=== PATIENT | female | born 1960 | race Caucasian/White ===

== ENCOUNTER 2023-08-31 10:40 | Outpatient (OUT) | payer MEDICARE, SELFPAY ==
[2023-08-31 11:13] LABS: Estimated Average Glucose 120 mg/dL; Glycohemoglobin A1C 5.8 % (4.5-6.2)
[2023-08-31 11:14] LABS: Basophils Absolute Auto 0.1 10^3/uL (0.0-0.1); Basophils Percent Auto 0.6 % (0.2-2.0); Eosinophils Absolute Auto 0.2 10^3/uL (0.0-0.7); Eosinophils Percent Auto 2.1 % (0.9-7.0); Hematocrit 45.8 % (36.0-48.0); Hemoglobin 14.9 g/dL (12.0-16.0); Immature Granulocytes Abs Auto 0.03 10^3/uL (0.00-0.03); Immature Granulocytes Pct Auto 0.3 % (0.0-0.5); Lymphocytes Absolute Auto 2.6 10^3/uL (1.2-3.8); Mean Corpuscular HGB Conc 32.5 g/dL (29.9-35.2); Mean Corpuscular Hemoglobin 28.8 pg (26.7-34.0); Mean Corpuscular Volume 88.4 fL (81.0-99.0); Mean Platelet Volume 12.9 fL (9.5-13.5); Monocytes Absolute Auto 0.6 10^3/uL (0.3-0.8); Monocytes Percent Auto 6.3 % (1.7-12.0); Neutrophils Absolute Auto 6.2 10^3/uL (1.4-6.5); Neutrophils Percent Auto 63.7 % (43.0-75.0); Platelet Count 198 10^3/uL (150-450); Red Blood Count 5.18 10^6/uL (4.20-5.40); Red Cell Distribution Width 12.8 % (11.0-15.0); White Blood Count 9.8 10^3/uL (4.0-11.0)
[2023-08-31 11:59] LABS: Alanine Aminotransferase 24 U/L (14-59); Albumin Globulin Ratio 1.1; Albumin Level 3.4 g/dL (3.4-5.0); Alkaline Phosphatase 100 U/L (46-116); Anion Gap 11.5; Aspartate Amino Transferase 15 U/L (15-37); BUN Creatinine Ratio 14.1; Bilirubin Total 0.4 mg/dL (0.2-1.0); Calcium 8.5 mg/dL (8.5-10.1); Carbon Dioxide 28.8 mmol/L (21.0-32.0); Chloride 107 mmol/L (98-107); Chol HDL Ratio 4.8; Cholesterol 188 mg/dL (<=200); Estimated GFR (African America >60 (>=60); Estimated GFR (Non-African Ame >60 (>=60); Free T3 2.39 pg/mL (2.18-3.98); Globulin 3.2 g/dL; Glucose 96 mg/dL (74-106); HDL Cholesterol 39 mg/dL (40-60); Potassium 4.3 mmol/L (3.5-5.1); Sodium 143 mmol/L (136-145); Thyroid Stimulating Hormone 0.656 uIU/mL (0.358-3.740); Total Protein 6.6 g/dL (6.4-8.2); Triglycerides 146 mg/dL (<=150); VLDL CHOLESTEROL 29.2 mg/dL
== END 2023-08-31 10:41 | disposition home or self-care (01) ==
LOC: LAB 10:45
PROVIDERS: PCP Family Medicine; Visit Provider Family Medicine
DX: E78.5 Hyperlipidemia, unspecified (principal); R53.83 Other fatigue; R73.09 Other abnormal glucose; I10 Essential (primary) hypertension; Z12.12 Encounter for screening for malignant neoplasm of rectum; E03.9 Hypothyroidism, unspecified
CPT/HCPCS: 36415; 80053; 80061; 83036; 84436; 84443; 84481; 85025

== ENCOUNTER 2024-05-01 03:04 | Inpatient (IN) | payer MEDICARE, SELFPAY ==
[2024-05-01] VITALS (41 sets, daily range): BP systolic 103–195; BP diastolic 66–132; PULSE 76–115; RESP 16; TEMP 36.1–36.9; O2SAT 90–100; BMI 32.2; BMI 32.3
--- NOTE | 2024-05-01 03:11 | ED.SOB1 ---
HPI - SOB/Dyspnea General Chief Complaint: Shortness of Breath/Dyspnea Stated Complaint: SOB Time Seen by Provider: 05/01/24 03:06 History of Present Illness HPI Narrative: This 63-year-old female with a history of tobacco use presents for evaluation of shortness of breath. She states her symptoms started earlier today. She has a cough with clear phlegm. She denies any ethan chest pain. She has not had a fever. She denies any abdominal pain. She called the EMS due to her dyspnea. Upon their arrival her pulse ox was in the 80s. She was given 125 mg of IV Solu-Medrol and a DuoNeb as well as albuterol nebulizer treatment with mild clinical improvement. Upon arrival she is still in moderate respiratory distress with conversational dyspnea, tachycardia although her pulse ox is in the mid 90s. She has no lower extremity pain or swelling. She does have mottled skin on her abdomen and chest. She states this is not unusual for her when she is cold. She denies any abdominal pain or back pain. She admits to history of cardiac disease and states that she had a heart attack in 2010. She takes a daily full-strength aspirin. She does not currently follow-up with a earth moving technician. She denies a history of congestive heart failure and is not on any diuretics. Related Data Home Medications ?Medication ?Instructions ?Recorded ?Confirmed alendronate 70 mg tablet mg PO 05/01/24 levothyroxine 150 mcg tablet mcg 05/01/24 lisinopril 20 mg tablet mg 05/01/24 metoprolol succinate 25 mg mg PO 05/01/24 tablet,extended release 24 hr pantoprazole 40 mg tablet,delayed mg PO 05/01/24 release Allergies Allergy/AdvReac Type Severity Reaction Status Date / Time Sulfa (Sulfonamide AdvReac Unknown Anxiety Verified 05/01/24 05:18 Antibiotics) ivp dye Allergy Unknown Nausea Uncoded 05/01/24 05:19 Review of Systems ROS Status of ROS 10 or more systems reviewed and unremarkable except as noted in history and below PFSH PFSH Social History Little interest or pleasure in doing things: not at all Feeling down, depressed, or hopeless: not at all Exam Narrative Exam Narrative: Vital signs and Nursing Notes reviewed: Patient is afebrile, tachycardic with a pulse of 115, respiratory rate is elevated at 28 and blood pressure is elevated at 195/132 she is hypoxic upon arrival without supplemental oxygen in the upper 80s General: Awake, alert, oriented, anxious adult female, 1-2 word conversational dyspnea with moist cough HEENT: Normocephalic atraumatic, mucous membranes are pink and dry, no posterior pharyngeal erythema. No swelling of the tongue, uvula or pharyngeal soft tissues Neck: Supple, no meningeal signs, no anterior or posterior cervical lymphadenopathy Chest: Diffuse wheezing is noted in all lung walker with accessory muscle use and pursed lip breathing, tachypnea and conversational dyspnea noted CVS: Regular rate and rhythm S1-S2, tachycardic at 114 upon arrival no murmurs rubs or gallops, pulses are brisk and equal bilaterally ABD: Soft, nondistended, nontender, no rebound guarding or rigidity, bowel sounds are normal, no pulsatile masses appreciated Extremities: Moving all extremities, no lower extremity tenderness or swelling noted, negative Homans' sign, pulses are brisk and equal bilaterally Skin: Mottled appearance over the patient's chest and abdominal wall and upper thighs, no skin rash noted Neuro: No focal deficits Constitutional Vital Signs, click to edit/add: Last Vital Signs Temp 97 F L 05/01/24 03:07 Pulse 80 05/01/24 05:31 Resp 18 05/01/24 05:31 BP 124/80 05/01/24 05:31 Pulse Ox 97 05/01/24 05:31 O2 Del Method BIPAP 05/01/24 03:32 FiO2 35 05/01/24 04:57 Course Vital Signs Vital signs: Vital Signs Temperature 97 F L 05/01/24 03:07 Pulse Rate 115 H 05/01/24 03:07 Respiratory Rate 28 H 05/01/24 03:07 Blood Pressure 195/132 H 05/01/24 03:07 Pulse Oximetry 100 05/01/24 03:07 Oxygen Delivery Method Room Air, Nonrebreather 05/01/24 03:07 Temperature 97 F L 05/01/24 03:07 Pulse Rate 80 05/01/24 05:31 Respiratory Rate 18 05/01/24 05:31 Blood Pressure 124/80 05/01/24 05:31 Pulse Oximetry 97 05/01/24 05:31 Oxygen Delivery Method BIPAP 05/01/24 03:32 Fraction of Inspired Oxygen 35 05/01/24 04:57 MDM - SOB/Dyspnea MDM Narrative Medical decision making narrative: This 63-year-old female with a history of tobacco use and cardiac disease who states she had a PA in 2010 and is on a daily full-strength aspirin is brought to the emergency department by EMS from home for evaluation of shortness of breath. She states the shortness of breath started earlier in the day. She denied any chest pain. She has not had any fever. She has a cough with clear phlegm. She denies any abdominal pain or back pain. She has no lower extremity pain or swelling. EMS noted that her pulse ox was in the 80s upon their arrival. She was given 125 mg of IV Solu-Medrol and a DuoNeb and albuterol nebulizer treatment prior to arrival. Upon arrival she was still in respiratory distress. Respiratory therapy was called and she was placed on BiPAP. EKG done upon arrival was a sinus rhythm at 93 bpm with a left axis but no acute changes. She was a given an additional DuoNeb treatment in line with the BiPAP and 2 g of IV magnesium. A workup including CBC with differential, comprehensive metabolic profile, troponin, BNP, lactic acid, blood cultures, D-dimer and chest x-ray are ordered. Her white count is elevated at 16 with a stable hemoglobin of 13.9. Blood gas is fairly normal with a pH of 7.39 and pCO2 of 39 with a sat of 98. This was done while the patient was on BiPAP. Her lactic acid is mildly elevated at 2.4. BNP is elevated greater than 3900. Troponin is 539. Comprehensive metabolic profile was essentially normal with an elevated glucose of 257 and a creatinine of 1.09. D-dimer was also elevated. I ordered a CT angio of the chest but the patient explained to the x-ray injection molding process technician that she thought she was allergic to the CAT scan dye. In light of the elevated D-dimer and the potential for this allergy she was medicated with subcutaneous Lovenox. Repeat troponin was ordered and is She was medicated with 20 mg of IV Lasix after I saw her chest x-ray that appeared to show some degree of peripheral vascular congestion and heart failure. After the patient was placed on BiPAP she had marked clinical improvement. She was able to speak in complete sentences and provide better history. Her respiratory rate decreased and her pulse ox maintained in the high 90s. Her pulse at the time of this dictation is 81 and blood pressure is 110/66. Case was discussed with Dr Sky and she is accepted for admission. She requested to be taken off of the BiPAP and respiratory therapy disconnected her BiPAP. We gave her a trial without supplemental oxygen and her oxygen has stayed above 92% on room air. She was placed back on 2 L nasal cannula for comfort. She is agreeable to admission. Differential Diagnosis Differential diagnosis: Likely acute exacerbation of chronic obstructive airways disease, congestive heart failure, community acquired pneumonia and asthma with exacerbation Lab Data Attestation: I reviewed the patient's lab results. Labs: Lab Results 05/01/24 05/01/24 05/01/24 Range/Units 03:17 03:40 04:35 WBC 16.0 H (4.0-11.0) 10^3/uL RBC 4.80 (4.20-5.40) 10^6/uL Hgb 13.9 (12.0-16.0) g/dL Hct 43.0 (36.0-48.0) % MCV 89.6 (81.0-99.0) fL MCH 29.0 (26.7-34.0) pg MCHC 32.3 (29.9-35.2) g/dL RDW 13.2 (11.0-15.0) % Plt Count 206 (150-450) 10^3/uL MPV 14.0 H (9.5-13.5) fL Seg Neuts % (Manual) 51.0 (43.0-75.0) Lymphocytes % (Manual) 27.0 (20.5-60.0) % Atypical Lymphs % (Man) 12.0 % Monocytes % (Manual) 6.0 (1.7-12.0) % Eosinophils % (Manual) 2.0 (0.9-7.0) % Basophils % (Manual) 2.0 (0.2-2.0) % Neutrophils # (Manual) 8.16 H (1.4-6.5) 10^3/uL Lymphocytes # (Manual) 4.32 H (1.20-3.80) 10^3/uL Abs Atypical Lymphs Man 1.92 Monocytes # (Manual) 0.96 H (0.30-0.80) 10^3/uL Eosinophils # (Manual) 0.32 (0.00-0.70) 10^3/uL Basophils # (Manual) 0.32 H (0.00-0.10) 10^3/uL PT 10.7 (9.0-11.6) sec INR 1.01 APTT 23.9 (22.3-36.2) sec D-Dimer 1.56 H* (<=0.59) mg/L FEU Puncture Site L radial ABG pH 7.383 (7.350-7.450) ABG pCO2 38.6 (35.0-45.0) mmHg ABG pO2 102.0 H (80.0-100.0) mmHg ABG HCO3 22.9 (22.0-26.0) mmol/L ABG O2 Saturation 98.2 % ABG Base Excess -2.1 L (-2.0-2.0) mmol/L Edis Test Positive (POSITIVE) FiO2 40 % BiPAP 16/8 Sodium 138 (136-145) mmol/L Potassium 4.3 (3.5-5.1) mmol/L Chloride 104 (98-107) mmol/L Carbon Dioxide 26.0 (21.0-32.0) mmol/L Anion Gap 12.3 BUN 14.0 (7.0-18.0) mg/dL Creatinine 1.09 H (0.55-1.02) mg/dL Est GFR ( Amer) >60 (>=60 mL/min/1.73m^2) Est GFR (Non-Af Amer) 50 L (>=60 mL/min/1.73m^2) BUN/Creatinine Ratio 12.8 Glucose 257 H (74-106) mg/dL Lactate 2.4 H* (0.4-2.0) mmol/L Calcium 8.5 (8.5-10.1) mg/dL Magnesium 2.0 (1.8-2.4) mg/dL Total Bilirubin 0.4 (0.2-1.0) mg/dL AST 106 H (15-37) U/L ALT 88 H (14-59) U/L Alkaline Phosphatase 118 H (46-116) U/L Troponin I High Sens 539.7 H* (4.0-51.3) pg/mL NT-Pro-B Natriuret Pep 3901.0 H* (<=900.0) pg/mL Total Protein 6.6 (6.4-8.2) g/dL Albumin 3.4 (3.4-5.0) g/dL Globulin 3.2 g/dL Albumin/Globulin Ratio 1.1 Influenza Type A Ag Negative Influenza Type B Ag Negative RSV Antigen Not detected (NOT DETECTE) SARS-CoV-2 Ag (CV2AG) Negative (NEGATIVE) 05/01/24 Range/Units 05:05 WBC (4.0-11.0) 10^3/uL RBC (4.20-5.40) 10^6/uL Hgb (12.0-16.0) g/dL Hct (36.0-48.0) % MCV (81.0-99.0) fL MCH (26.7-34.0) pg MCHC (29.9-35.2) g/dL RDW (11.0-15.0) % Plt Count (150-450) 10^3/uL MPV (9.5-13.5) fL Seg Neuts % (Manual) (43.0-75.0) Lymphocytes % (Manual) (20.5-60.0) % Atypical Lymphs % (Man) % Monocytes % (Manual) (1.7-12.0) % Eosinophils % (Manual) (0.9-7.0) % Basophils % (Manual) (0.2-2.0) % Neutrophils # (Manual) (1.4-6.5) 10^3/uL Lymphocytes # (Manual) (1.20-3.80) 10^3/uL Abs Atypical Lymphs Man Monocytes # (Manual) (0.30-0.80) 10^3/uL Eosinophils # (Manual) (0.00-0.70) 10^3/uL Basophils # (Manual) (0.00-0.10) 10^3/uL PT (9.0-11.6) sec INR APTT (22.3-36.2) sec D-Dimer (<=0.59) mg/L FEU Puncture Site ABG pH (7.350-7.450) ABG pCO2 (35.0-45.0) mmHg ABG pO2 (80.0-100.0) mmHg ABG HCO3 (22.0-26.0) mmol/L ABG O2 Saturation % ABG Base Excess (-2.0-2.0) mmol/L Edis Test (POSITIVE) FiO2 % BiPAP Sodium (136-145) mmol/L Potassium (3.5-5.1) mmol/L Chloride (98-107) mmol/L Carbon Dioxide (21.0-32.0) mmol/L Anion Gap BUN (7.0-18.0) mg/dL Creatinine (0.55-1.02) mg/dL Est GFR ( Amer) (>=60 mL/min/1.73m^2) Est GFR (Non-Af Amer) (>=60 mL/min/1.73m^2) BUN/Creatinine Ratio Glucose (74-106) mg/dL Lactate (0.4-2.0) mmol/L Calcium (8.5-10.1) mg/dL Magnesium (1.8-2.4) mg/dL Total Bilirubin (0.2-1.0) mg/dL AST (15-37) U/L ALT (14-59) U/L Alkaline Phosphatase (46-116) U/L Troponin I High Sens 572.5 H* (4.0-51.3) pg/mL NT-Pro-B Natriuret Pep (<=900.0) pg/mL Total Protein (6.4-8.2) g/dL Albumin (3.4-5.0) g/dL Globulin g/dL Albumin/Globulin Ratio Influenza Type A Ag Influenza Type B Ag RSV Antigen (NOT DETECTE) SARS-CoV-2 Ag (CV2AG) (NEGATIVE) ABG Data Attestation: I personally reviewed and interpreted this ABG as follows: ECG Data Attestation: I personally reviewed and interpreted this ECG as follows: (Sinus rhythm at 93 bpm, nonspecific ST changes, left axis deviation, no acute ST segment elevation or T wave inversion) Critical Care Time Critical Care Time Critical Care Time: Yes Total Critical Care Time: 35 Attestation: Due to this patient's presentation and respiratory distress with a high probability of sudden and significant deterioration in her condition she required the highest level of my preparedness to intervene urgently. I provided critical care time including documentation time medication orders and management reevaluation vital sign assessment ordering and reviewing of lab tests ordering reviewing of x-ray studies. Aggregate critical care time is 35 minutes including only time during which I was engaged in work directly related to her care and did not include time spent treating other patients simultaneously Discharge Plan Discharge Chief Complaint: Shortness of Breath/Dyspnea Clinical Impression: Breath shortness, CHF (congestive heart failure), Elevated troponin Prescriptions / Home Meds: No Action lisinopril 20 mg tablet alendronate 70 mg tablet PO pantoprazole 40 mg tablet,delayed release (DR/EC) PO levothyroxine 150 mcg tablet metoprolol succinate 25 mg tablet extended release 24 hr PO Print Language: Maltese Referrals: Miller Sky MD [Primary Care Provider] - 1 week
--- OUTSIDE RECORDS SUMMARY | 2024-05-01 03:13 | XMS_ITS | CCD ---
Author Organization [facility] Team Providers Care Filling Machine Tender Name Role Phone SUZETTE ., DR DEL CASTILLO Primary Care Unavailable MEGAY ., DR DEL CASTILLO Admitting Unavailable HOY ., DR DEL CASTILLO Attending Unavailable HOY ., DR DEL CASTILLO Consulting Unavailable HOY ., DR DEL CASTILLO Admitting Unavailable HOY ., DR DEL CASTILLO Attending Unavailable HOY ., DR DEL CASTILLO Consulting Unavailable MEGAY ., DR DEL CASTILLO Primary Care Unavailable Allergies Allergy Classification Reported Allergen(s) Allergy Type Date of Onset Reaction(s) Facility (1 source) Iodine (And Iodine Containting Drugs) Drug allergy (disorder) 02-06-2008 [facility] (1 source) Sulfonamides (Antibiotic) Drug allergy (disorder) 10-31-2012 [facility] Results Test Name Value Interpretation Reference Range Facil ity OCC BLD IMMUNO SCREENon 06-06 OCCULT BLOOD Negative Normal NEGATIVE [facility] Comment on above: Performed By: #### I NSULIN #### [facility] [address] [place] [address] Dr. Lawrence Gomez INSULINon 06-20-2022 Insulin 14.4 uIU/mL Normal 2.6-24.9 [facility] Comment on above: Performed By: #### I NSULIN #### [facility] [address] [address] [address] Lawrence Gomez CBC AUTO DIFFon 06-19-2022 BASO # 0.1 103/ul Normal 0.0-0.1 [facility] Comment on above: Performed By: #### C BC #### [facility] [address] [place] [address] Dr. Lawrence Gomez Basophils/100 WBC (Bld) 0.7 % Normal 0.2-2.0 [facility] Comment on above: Performed By: #### C BC #### [facility] [address] [place] [address] Dr. Lawrence Gomez EO # 0.2 103/ul Normal 0.0-0.7 [facility] Comment on above: Performed By: #### C BC #### [facility] [address] [place] [address] Dr. Lawrence Gomez Eosinophils/100 WBC (Bld) 2.5 % Normal 0.9-7.0 [facility] Comment on above: Performed By: #### C BC #### [facility] [address] [place] [address] Dr. Lawrence Gomez Erythrocyte distribution width (RBC) [Ratio] 13.2 % Normal 11.0-15.0 [facility] Comment on above: Performed By: #### C BC #### [facility] [address] [place] [address] Dr. Lawrence Gomez Hematocrit (Bld) [Volume fraction] 45.5 % Normal 36.0-48.0 [facility] Comment on above: Performed By: #### C BC #### [facility] [address] [place] [address] Dr. Lawrence Gomez Hemoglobin (Bld) [Mass/Vol] 14.8 g/dL Normal 12.0-16.0 [facility] Comment on above: Performed By: #### C BC #### [facility] [address] [place] [address] Dr. Lawrence Gomez IG # 0.03 10e3/ul Normal 0.00-0.03 [facility] Comment on above: Performed By: #### C BC #### [facility] [address] [place] [address] Dr. Lawrence Gomez IG % 0.3 % Normal 0.0-0.5 [facility] Comment on above: Performed By: #### C BC #### [facility] [address] [place] [address] Dr. Lawrence Gomez LYMPH # 2.8 103/ul Normal 1.2-3.8 [facility] Comment on above: Performed By: #### C BC #### [facility] [address] [place] [address] Dr. Lawrence Gomez Lymphocytes/100 WBC (Bld) 31.0 % Normal 20.5-60.0 [facility] Comment on above: Performed By: #### C BC #### [facility] [address] [place] [address] Dr. Lawrence Gomez MANUAL DIFF REQ NO Normal [facility] Comment on above: Performed By: #### C BC #### [facility] [address] [place] [address] Dr. Lawrence Gomez MCH (RBC) [Entitic mass] 28.2 pg Normal 26.7-34.0 [facility] Comment on above: Performed By: #### C BC #### [facility] [address] [place] [address] Dr. Lawrence Gomez MCHC (RBC) [Mass/Vol] 32.5 g/dL Normal 29.9-35.2 [facility] Comment on above: Performed By: #### C BC #### [facility] [address] [place] [address] Dr. Lawrence Gomez MCV (RBC) [Entitic vol] 86.8 fL Normal 81.0-99.0 [facility] Comment on above: Performed By: #### C BC #### [facility] [address] [place] [address] Dr. Lawrence Gomez MONO # 0.5 103/ul Normal 0.3-0.8 [facility] Comment on above: Performed By: #### C BC #### [facility] [address] [place] [address] Dr. Lawrence Gomez Monocytes/100 WBC (Bld) 6.0 % Normal 1.7-12.0 [facility] Comment on above: Performed By: #### C BC #### [facility] [address] [place] [address] Dr. Lawrence Gomez NEUT # 5.4 103/ul Normal 1.4-6.5 [facility] Comment on above: Performed By: #### C BC #### [facility] [address] [address] [address] Lawrence Gomez Neutrophils/100 WBC (Bld) 59.5 % Normal 43.0-75.0 [facility] Comment on above: Performed By: #### C BC #### [facility] [address] [address] [address] Lawrence Gomez Platelet mean volume (Bld) [Entitic vol] 11.7 fL Normal 9.5-13.5 [facility] Comment on above: Performed By: #### C BC #### [facility] [address] [address] [address] Lawrence Gomez PLT 211 103/ul Normal 150-450 [facility] Comment on above: Performed By: #### C BC #### [facility] [address] [place] [address] Dr. Lawrence Gomez RBC 5.24 106/ul Normal 4.20-5.40 [facility] Comment on above: Performed By: #### C BC #### [facility] [address] [address] [address] Lawrence Gomez WBC 9.1 103/ul Normal 4.0-11.0 [facility] Comment on above: Performed By: #### C BC #### [facility] [address] [place] [address] Dr. Lawrence Gomez FREE T3on 06-19-2022 FREE T3 2.63 pg/mlL Normal 2.18-3.98 [facility] Comment on above: Performed By: #### L IPID, TSH, T4, CMP, FT3 #### [facility] [address] [address] [address] Lawrence Gomez GLYCOHEMOGLOBIN A1Con 2022 ADA RECOMMENDATION SEE BELOW Normal [facility] Comment on above: Result Comment: ADA RECOMMENDED LIMIT 4.0 - 6.0 ADA THERAPEUTIC TARGET < 7.0 ACTION SUGGESTED > 7.0 Performed By: #### A 1C #### [facility] [address] [place] [address] Dr. Lawrence Gomez Glucose [Mass/Vol] 128 mg/dL Normal [facility] Comment on above: Performed By: #### A 1C #### [facility] [address] [address] [address] Lawrence Gomez HbA1c (Bld) [Mass fraction] 6.1 % Normal 4.5-6.2 [facility] Comment on above: Performed By: #### A 1C #### [facility] [address] [address] [address] Lawrence Gomez IRONon 06-19-2022 Iron [Mass/Vol] 96.0 ug/dL Normal 50.0-170.0 [facility] Comment on above: Performed By: #### V ITAD, IRON #### [facility] [address] [address] [address] Lawrence Gomez LIPID PROFILEon 06-19-2022 CHOL-HDL RATIO NORM SEE BELOW Normal [facility] Comment on above: Result Comment: 3.3 - 4.4 LOW RISK 4.4 - 7.1 AVERAGE RISK 7.1 - 11.0 MODERATE RISK >11.0 HIGH RISK Performed By: #### L IPID, TSH, T4, CMP, FT3 #### [facility] [address] [address] [address] Lawrence Gomez Cholesterol [Mass/Vol] 131 mg/dL Normal <=200 [facility] Comment on above: Performed By: #### L IPID, TSH, T4, CMP, FT3 #### [facility] [address] [address] [address] Lawrence Gomez Cholesterol in HDL [Mass/Vol] 41 mg/dL Normal 40-60 [facility] Comment on above: Performed By: #### L IPID, TSH, T4, CMP, FT3 #### [facility] [address] [address] [address] Lawrence Gomez Cholesterol in LDL [Mass/Vol] 75.0 mg/dL Normal [facility] Comment on above: Performed By: #### L IPID, TSH, T4, CMP, FT3 #### [facility] [address] [address] [address] Lawrence Gomez Cholesterol.total/Cho lesterol in HDL [Mass ratio] 3.2 {ratio} Normal [facility] Comment on above: Performed By: #### L IPID, TSH, T4, CMP, FT3 #### [facility] [address] [place] [address] Dr. Lawrence Gomez HDL NORMAL > or = 60 mg/dl - LOW CARDIOVASCULAR RISK <40 mg/dl - HIGH CARDIOVASCULAR RISK Normal [facility] Comment on above: Performed By: #### L IPID, TSH, T4, CMP, FT3 #### [facility] [address] [place] [address] Dr. Lawrence Gomez LDL CALC NORMAL SEE BELOW Normal [facility] Comment on above: Result Comment: <100 mg/dl OPTIMAL 100 - 129 mg/dl NEAR OR ABOVE OPTIMAL 130 - 159 mg/dl BORDERLINE HIGH 160 - 189 mg/dl HIGH >190 mg/dl VERY HIGH Performed By: #### L IPID, TSH, T4, CMP, FT3 #### [facility] [address] [place] [address] Dr. Lawrence Gomez Triglyceride [Mass/Vol] 75 mg/dL Normal <=150 [facility] Comment on above: Performed By: #### L IPID, TSH, T4, CMP, FT3 #### [facility] [address] [place] [address] Dr. Lawrence Gomez VLDL CALC 15.0 mg/dL Normal [facility] Comment on above: Performed By: #### L IPID, TSH, T4, CMP, FT3 #### [facility] [address] [place] [address] Dr. Lawrence Gomez PROF 14(COMP METB)on 023 Albumin [Mass/Vol] 3.5 g/dL Normal 3.4-5.0 [facility] Comment on above: Performed By: #### L IPID, TSH, T4, CMP, FT3 #### [facility] [address] [place] [address] Dr. Lawrence Gomez Albumin/Globulin [Mass ratio] 1.0 {ratio} Normal [facility] Comment on above: Performed By: #### L IPID, TSH, T4, CMP, FT3 #### [facility] [address] [place] [address] Dr. Lawrence Gomez ALP [Catalytic activity/Vol] 111 U/L Normal 46-116 [facility] Comment on above: Performed By: #### L IPID, TSH, T4, CMP, FT3 #### [facility] [address] [place] [address] Dr. Lawrence Gomez ALT [Catalytic activity/Vol] 26 U/L Normal 14-59 [facility] Comment on above: Performed By: #### L IPID, TSH, T4, CMP, FT3 #### [facility] [address] [place] [address] Dr. Lawrence Gomez Anion gap [Moles/Vol] 12.1 mmol/L Normal [facility] Comment on above: Performed By: #### L IPID, TSH, T4, CMP, FT3 #### [facility] [address] [place] [address] Dr. Lawrence Gomez AST [Catalytic activity/Vol] 16 U/L Normal 15-37 [facility] Comment on above: Performed By: #### L IPID, TSH, T4, CMP, FT3 #### [facility] [address] [place] [address] Dr. Lawrence Gomez Bilirubin [Mass/Vol] 0.5 mg/dL Normal 0.2-1.0 [facility] Comment on above: Performed By: #### L IPID, TSH, T4, CMP, FT3 #### [facility] [address] [place] [address] Dr. Lawrence Gomez Calcium [Mass/Vol] 8.7 mg/dL Normal 8.5-10.1 [facility] Comment on above: Performed By: #### L IPID, TSH, T4, CMP, FT3 #### [facility] [address] [place] [address] Dr. Lawrence Gomez Chloride [Moles/Vol] 107 mmol/L Normal 98-107 [facility] Comment on above: Performed By: #### L IPID, TSH, T4, CMP, FT3 #### [facility] [address] [address] [address] Lawrence Gomez CO2 [Moles/Vol] 29.7 mmol/L Normal 21.0-32.0 [facility] Comment on above: Performed By: #### L IPID, TSH, T4, CMP, FT3 #### [facility] [address] [place] [address] Dr. Lawrence Gomez Creatinine [Mass/Vol] 0.78 mg/dL Normal 0.55-1.02 [facility] Comment on above: Performed By: #### L IPID, TSH, T4, CMP, FT3 #### [facility] [address] [place] [address] Dr. Lawrence Gomez EGFR-AF COOK ISLANDER >60 Normal >=60 [facility] Comment on above: Performed By: #### L IPID, TSH, T4, CMP, FT3 #### [facility] [address] [place] [address] Dr. Lawrence Gomez EGFR-NON AF [place] ISLANDER >60 Normal >=60 [facility] Comment on above: Performed By: #### L IPID, TSH, T4, CMP, FT3 #### [facility] [address] [place] [address] Dr. Lawrence Gomez Globulin (S) [Mass/Vol] 3.4 g/dL Normal [facility] Comment on above: Performed By: #### L IPID, TSH, T4, CMP, FT3 #### [facility] [address] [place] [address] Dr. Lawrence Gomez Glucose [Mass/Vol] 97 mg/dL Normal 74-106 [facility] Comment on above: Performed By: #### L IPID, TSH, T4, CMP, FT3 #### [facility] [address] [place] [address] Dr. Lawrence Gomez Potassium [Moles/Vol] 3.8 mmol/L Normal 3.5-5.1 [facility] Comment on above: Performed By: #### L IPID, TSH, T4, CMP, FT3 #### [facility] [address] [place] [address] Dr. Lawrence Gomez Protein [Mass/Vol] 6.9 g/dL Normal 6.4-8.2 [facility] Comment on above: Performed By: #### L IPID, TSH, T4, CMP, FT3 #### [facility] [address] [place] [address] Dr. Lawrence Gomez Sodium [Moles/Vol] 145 mmol/L Normal 136-145 [facility] Comment on above: Performed By: #### L IPID, TSH, T4, CMP, FT3 #### [facility] [address] [place] [address] Dr. Lawrence Gomez Urea nitrogen [Mass/Vol] 14.0 mg/dL Normal 7.0-18.0 [facility] Comment on above: Performed By: #### L IPID, TSH, T4, CMP, FT3 #### [facility] [address] [place] [address] Dr. Lawrence Gomez Urea nitrogen/Creatinine [Mass ratio] 17.9 mg/mg Normal [facility] Comment on above: Performed By: #### L IPID, TSH, T4, CMP, FT3 #### [facility] [address] [place] [address] Dr. Lawrence Gomez T4on 06-19-2022 T4 [Mass/Vol] 11.50 ug/dL Normal 4.80-13.90 [facility] Comment on above: Performed By: #### L IPID, TSH, T4, CMP, FT3 #### [facility] [address] [place] [address] Dr. Lawrence Gomez TSHon 06-19-2022 TSH 0.494 uIU/mL Normal 0.358-3.740 [facility] Comment on above: Performed By: #### L IPID, TSH, T4, CMP, FT3 #### [facility] [address] [place] [address] Dr. Lawrence Gomez VITAMIN D 25 OHon 06-19-2022 VIT D 25-OH 11.7 ng/mL Normal [facility] Comment on above: Performed By: #### V ITAD, IRON #### [facility] [address] [address] [address] Lawrence Gomez VIT D RANGES SEE BELOW Normal [facility] Comment on above: Result Comment: <20 ng/mL Vit D deficient 20 - <30 ng/mL Vit D insufficient 30 - 100 ng/mL Vit D sufficient >100 ng/mL Potential Toxicity Performed By: #### V ITAD, IRON #### [facility] [address] [address] [address] Lawrence Gomez Encounters Encounter Date Encounter Type Care Provider Facility Start: 07-02-2022 Encounter for genera l adult medical examination without abnormal findings DR MAGDALENE BRADFORD . [facility] Start: 06-30-2022 End: 06-30-[address] MAGDALENE BRADFORD . Facility: Start: 06-30-2022 End: 06-30-2022 Encounter for general adult medical examination without abnormal findings DR MAGDALENE BRADFORD . Facility: Start: 06-19-2022 End: 06-20-[address] MAGDALENE BRADFORD . Facility: Payers Date Payer Category Payer Unknown [id number] 1960 Unknown [id number] 1960 Unknown [id number] Summary Purpose Family History No Family History Records Found Advance Directives No Advanced Directives Records Found Additional Source Comments INFORMATION SOURCE (unrecogn ized section and content) DATE CREATED AUTHOR 07/14/2022 [facility] FOR RECORDS PERTAINING TO PATIENTS WHO ARE OR HAVE BEEN ENROLLED IN A CHEMICAL DEPENDENCY/SUBSTANCEABUSE PROGRAM, SOME INFORMATION MAY BE OMITTED. This clinical summary was aggregated from multiple sources. Caution should be exercised in using it in the provision of clinical care. This summary normalizes information from multiple sources, and as a consequence, information in this document may materially change the coding, format and clinical context of patient data. In addition, data may be omitted in some cases. CLINICAL DECISIONS SHOULD BE BASED ON THE PRIMARY CLINICAL RECORDS. [facility] [employer] [facility]. provides no warranty or guarantee of the accuracy or completeness of information in this document.
--- NOTE | 2024-05-01 03:15 | ECG_ITS ---
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 Measurements Intervals [place] Rate: 93 P: 58 MD: 150 QRS: -9 QRSD: 102 T: 150 QT: 366 QTc: 417 Interpretive Statements 1100 Sinus rhythm 4068 Nonspecific Tw[place] abnormality Abnormal ECG No previous ECG available for comparison Electronically Signed On 05-01-2024 7:48:04 EDT by KEVIN ROLLE M.D.
--- NOTE | 2024-05-01 03:30 | RESP.RT ---
Took patient off of nasal cannula and placed on BIPAP / Fi02 40% due to increased SOB.
[2024-05-01] MEDS: IPRATROPIUM/ALBUTEROL SULFATE 3 ML AMPUL.NEB IH ×3 (03:32→16:51)
[2024-05-01 03:53] LABS: ABG PCO2 38.6 mmHg (35.0-45.0); pH ABG 7.383 (7.350-7.450)
[2024-05-01 03:54] LABS: Allen Test POSITIVE (POSITIVE); BIPAP Pressure 16/8; Base Excess ABG -2.1 mmol/L (-2.0-2.0); Fractionated Inspired Oxygen 40 %; HCO3 ABG 22.9 mmol/L (22.0-26.0); O2 Mode BIPAP; Oxygen Saturation ABG 98.2 %; Puncture Site L RADIAL
[2024-05-01 03:59] LABS: Hemoglobin 13.9 g/dL (12.0-16.0); Mean Corpuscular HGB Conc 32.3 g/dL (29.9-35.2); Mean Corpuscular Volume 89.6 fL (81.0-99.0); Platelet Count 206 10^3/uL (150-450); Red Cell Distribution Width 13.2 % (11.0-15.0)
[2024-05-01 04:05] LABS: Alanine Aminotransferase 88 U/L (14-59); Albumin Globulin Ratio 1.1; Albumin Level 3.4 g/dL (3.4-5.0); Alkaline Phosphatase 118 U/L (46-116); Anion Gap 12.3; Aspartate Amino Transferase 106 U/L (15-37); BUN Creatinine Ratio 12.8; Bilirubin Total 0.4 mg/dL (0.2-1.0); Calcium 8.5 mg/dL (8.5-10.1); Chloride 104 mmol/L (98-107); Estimated GFR (African America >60 (>=60 mL/min/1.73m^2); Estimated GFR (Non-African Ame 50 (>=60 mL/min/1.73m^2); Globulin 3.2 g/dL; Glucose 257 mg/dL (74-106); Potassium 4.3 mmol/L (3.5-5.1); Sodium 138 mmol/L (136-145); Total Protein 6.6 g/dL (6.4-8.2)
[2024-05-01 04:07] LABS: INR 1.01; Partial Thromboplastin Time 23.9 sec (22.3-36.2); Prothrombin Time 10.7 sec (9.0-11.6)
[2024-05-01 04:17] LABS: D Dimer 1.56 mg/L FEU (<=0.59)
[2024-05-01 04:18] LABS: Lactate/Lactic Acid 2.4 mmol/L (0.4-2.0); Troponin I High Sensitivity 539.7 pg/mL (4.0-51.3)
[2024-05-01] MEDS: FUROSEMIDE 20 MG/2 ML VIAL IVP (04:20)
--- NOTE | 2024-05-01 04:25 | PC.NURSE ---
per Maral JAMIL lab called with critical D-Dimer=1.56, Lactic=2.4, ckyn=621.7, VMG=6212. Maral JAMIL told Dr Muhammad these critical lab results
[2024-05-01 04:33] LABS: Atypical Lymphocytes Abs Man 1.92; Basophils Abs Manual 0.32 10^3/uL (0.00-0.10); Eosinophils Absolute Manual 0.32 10^3/uL (0.00-0.70); Lymphocytes Absolute Manual 4.32 10^3/uL (1.20-3.80); Monocytes Absolute Manual 0.96 10^3/uL (0.30-0.80); Segmented Neut Absolute Manual 8.16 10^3/uL (1.4-6.5)
[2024-05-01 04:52] LABS: Influenza Virus A Antigen Negative; Influenza Virus B Antigen Negative; Internal Control Within Normal Limits; Respiratory Syncytial Virus Not Detected (NOT DETECTE); SARS-CoV-2 Ag NEGATIVE (NEGATIVE)
[2024-05-01] MEDS: CEFTRIAXONE 1,000 MG in 0.9 % SODIUM CHLORIDE 50 ML 100 MG IV (04:58)
[2024-05-01] MEDS: ENOXAPARIN SODIUM 80 MG/0.8 ML SYRINGE 75 MG SUBQ (05:13)
[2024-05-01] MEDS: AZITHROMYCIN 500 MG in 0.9 % SODIUM CHLORIDE 250 ML 250 MG IV (05:29)
[2024-05-01 05:33] LABS: Troponin I High Sensitivity 572.5 pg/mL (4.0-51.3)
--- NOTE | 2024-05-01 05:35 | PC.NURSE ---
this patient's sister arrives and is now at bedside and talking to this patient
--- NOTE | 2024-05-01 05:54 | PC.NURSE ---
patient requesting to remove Bi PAP off, i asked Dr Muhammad she yes
[2024-05-01] MEDS: ONDANSETRON PF 4 MG/2 ML VIAL IV (06:19)
--- OUTSIDE RECORDS SUMMARY | 2024-05-01 06:35 | XMS_ITS | CCD ---
Author Organization [place] [employer] [facility] Care Team Providers Care Crm Specialist Name Role Phone SUZETTE ., DR DEL [...] Containting Drugs) Drug allergy (disorder) 02-06-2008 [facility] (1 source) Sulfonamides (Antibiotic) Drug allergy (disorder) 10-31-2012 [facility] Results Test Name Value Interpretation Reference Range Facil ity OCC BLD IMMUNO SCREENon 06-06 OCCULT BLOOD Negative Normal NEGATIVE [facility] Comment on above: Performed By: #### I NSULIN #### [facility] [address] [place] [address] Dr. Lawrence Gomez INSULINon 06-20-2022 Insulin 14.4 uIU/mL Normal 2.6-24.9 [facility] Comment on above: Performed By: #### I NSULIN #### [facility] [address] [address] [address] Lawrence Gomez CBC AUTO DIFFon 06-19-2022 BASO # 0.1 103/ul Normal 0.0-0.1 [facility] Comment on above: Performed By: #### C BC #### [facility] [address] [place] [address] Dr. Lawrence Gomez Basophils/100 WBC (Bld) 0.7 % Normal 0.2-2.0 [facility] Comment on above: Performed By: #### C BC #### [facility] [address] [place] [address] Dr. Lawrence Gomez EO # 0.2 103/ul Normal 0.0-0.7 [facility] Comment on above: Performed By: #### C BC #### [facility] [address] [place] [address] Dr. Lawrence Gomez Eosinophils/100 WBC (Bld) 2.5 % Normal 0.9-7.0 [facility] Comment on above: Performed By: #### C BC #### [facility] [address] [place] [address] Dr. Lawrence Gomez Erythrocyte distribution width (RBC) [Ratio] 13.2 % Normal 11.0-15.0 [facility] Comment on above: Performed By: #### C BC #### [facility] [address] [place] [address] Dr. Lawrence Gomez Hematocrit (Bld) [Volume fraction] 45.5 % Normal 36.0-48.0 [facility] Comment on above: Performed By: #### C BC #### [facility] [address] [place] [address] Dr. Lawrence Gomez Hemoglobin (Bld) [Mass/Vol] 14.8 g/dL Normal 12.0-16.0 [facility] Comment on above: Performed By: #### C BC #### [facility] [address] [place] [address] Dr. Lawrence Gomez IG # 0.03 10e3/ul Normal 0.00-0.03 [facility] Comment on above: Performed By: #### C BC #### [facility] [address] [place] [address] Dr. Lawrence Gomez IG % 0.3 % Normal 0.0-0.5 [facility] Comment on above: Performed By: #### C BC #### [facility] [address] [place] [address] Dr. Lawrence Gomez LYMPH # 2.8 103/ul Normal 1.2-3.8 [facility] Comment on above: Performed By: #### C BC #### [facility] [address] [place] [address] Dr. Lawrence Gomez Lymphocytes/100 WBC (Bld) 31.0 % Normal 20.5-60.0 [facility] Comment on above: Performed By: #### C BC #### [facility] [address] [place] [address] Dr. Lawrence Gomez MANUAL DIFF REQ NO Normal [facility] Comment on above: Performed By: #### C BC #### [facility] [address] [place] [address] Dr. Lawrence Gomez MCH (RBC) [Entitic mass] 28.2 pg Normal 26.7-34.0 [facility] Comment on above: Performed By: #### C BC #### [facility] [address] [place] [address] Dr. Lawrence Gomez MCHC (RBC) [Mass/Vol] 32.5 g/dL Normal 29.9-35.2 [facility] Comment on above: Performed By: #### C BC #### [facility] [address] [place] [address] Dr. Lawrence Gomez MCV (RBC) [Entitic vol] 86.8 fL Normal 81.0-99.0 [facility] Comment on above: Performed By: #### C BC #### [facility] [address] [place] [address] Dr. Lawrence Gomez MONO # 0.5 103/ul Normal 0.3-0.8 [facility] Comment on above: Performed By: #### C BC #### [facility] [address] [place] [address] Dr. Lawrence Gomez Monocytes/100 WBC (Bld) 6.0 % Normal 1.7-12.0 [facility] Comment on above: Performed By: #### C BC #### [facility] [address] [place] [address] Dr. Lawrence Gomez NEUT # 5.4 103/ul Normal 1.4-6.5 [facility] Comment on above: Performed By: #### C BC #### [facility] [address] [address] [address] Lawrence Gomez Neutrophils/100 WBC (Bld) 59.5 % Normal 43.0-75.0 [facility] Comment on above: Performed By: #### C BC #### [facility] [address] [address] [address] Lawrence Gomez Platelet mean volume (Bld) [Entitic vol] 11.7 fL Normal 9.5-13.5 [facility] Comment on above: Performed By: #### C BC #### [facility] [address] [address] [address] Lawrence Gomez PLT 211 103/ul Normal 150-450 [facility] Comment on above: Performed By: #### C BC #### [facility] [address] [place] [address] Dr. Lawrence Gomez RBC 5.24 106/ul Normal 4.20-5.40 [facility] Comment on above: Performed By: #### C BC #### [facility] [address] [address] [address] Lawrence Gomez WBC 9.1 103/ul Normal 4.0-11.0 [facility] Comment on above: Performed By: #### C BC #### [facility] [address] [place] [address] Dr. Lawrence Gomez FREE T3on 06-19-2022 FREE T3 2.63 pg/mlL Normal 2.18-3.98 [facility] Comment on above: Performed By: #### L IPID, TSH, T4, CMP, FT3 #### [facility] [address] [address] [address] Lawrence Gomez GLYCOHEMOGLOBIN A1Con 2022 ADA RECOMMENDATION SEE BELOW Normal [facility] Comment on above: Result Comment: ADA RECOMMENDED LIMIT 4.0 - 6.0 ADA THERAPEUTIC TARGET < 7.0 ACTION SUGGESTED > 7.0 Performed By: #### A 1C #### [facility] [address] [place] [address] Dr. Lawrence Gomez Glucose [Mass/Vol] 128 mg/dL Normal [facility] Comment on above: Performed By: #### A 1C #### [facility] [address] [address] [address] Lawrence Gomez HbA1c (Bld) [Mass fraction] 6.1 % Normal 4.5-6.2 [facility] Comment on above: Performed By: #### A 1C #### [facility] [address] [address] [address] Lawrence Gomez IRONon 06-19-2022 Iron [Mass/Vol] 96.0 ug/dL Normal 50.0-170.0 [facility] Comment on above: Performed By: #### V ITAD, IRON #### [facility] [address] [address] [address] Lawrence Gomez LIPID PROFILEon 06-19-2022 CHOL-HDL RATIO NORM SEE BELOW Normal [facility] Comment on above: Result Comment: 3.3 - 4.4 LOW RISK 4.4 - 7.1 AVERAGE RISK 7.1 - 11.0 MODERATE RISK >11.0 HIGH RISK Performed By: #### L IPID, TSH, T4, CMP, FT3 #### [facility] [address] [address] [address] Lawrence Gomez Cholesterol [Mass/Vol] 131 mg/dL Normal <=200 [facility] Comment on above: Performed By: #### L IPID, TSH, T4, CMP, FT3 #### [facility] [address] [address] [address] Lawrence Gomez Cholesterol in HDL [Mass/Vol] 41 mg/dL Normal 40-60 [facility] Comment on above: Performed By: #### L IPID, TSH, T4, CMP, FT3 #### [facility] [address] [address] [address] Lawrence Gomez Cholesterol in LDL [Mass/Vol] 75.0 mg/dL Normal [facility] Comment on above: Performed By: #### L IPID, TSH, T4, CMP, FT3 #### [facility] [address] [address] [address] Lawrence Gomez Cholesterol.total/Cho lesterol in HDL [Mass ratio] 3.2 {ratio} Normal [facility] Comment on above: Performed By: #### L IPID, TSH, T4, CMP, FT3 #### [facility] [address] [place] [address] Dr. Lawrence Gomez HDL NORMAL > or = 60 mg/dl - LOW CARDIOVASCULAR RISK <40 mg/dl - HIGH CARDIOVASCULAR RISK Normal [facility] Comment on above: Performed By: #### L IPID, TSH, T4, CMP, FT3 #### [facility] [address] [place] [address] Dr. Lawrence Gomez LDL CALC NORMAL SEE BELOW Normal [facility] Comment on above: Result Comment: <100 mg/dl OPTIMAL 100 - 129 mg/dl NEAR OR ABOVE OPTIMAL 130 - 159 mg/dl BORDERLINE HIGH 160 - 189 mg/dl HIGH >190 mg/dl VERY HIGH Performed By: #### L IPID, TSH, T4, CMP, FT3 #### [facility] [address] [place] [address] Dr. Lawrence Gomez Triglyceride [Mass/Vol] 75 mg/dL Normal <=150 [facility] Comment on above: Performed By: #### L IPID, TSH, T4, CMP, FT3 #### [facility] [address] [place] [address] Dr. Lawrence Gomez VLDL CALC 15.0 mg/dL Normal [facility] Comment on above: Performed By: #### L IPID, TSH, T4, CMP, FT3 #### [facility] [address] [place] [address] Dr. Lawrence Gomez PROF 14(COMP METB)on 023 Albumin [Mass/Vol] 3.5 g/dL Normal 3.4-5.0 [facility] Comment on above: Performed By: #### L IPID, TSH, T4, CMP, FT3 #### [facility] [address] [place] [address] Dr. Lawrence Gomez Albumin/Globulin [Mass ratio] 1.0 {ratio} Normal [facility] Comment on above: Performed By: #### L IPID, TSH, T4, CMP, FT3 #### [facility] [address] [place] [address] Dr. Lawrence Gomez ALP [Catalytic activity/Vol] 111 U/L Normal 46-116 [facility] Comment on above: Performed By: #### L IPID, TSH, T4, CMP, FT3 #### [facility] [address] [place] [address] Dr. Lawrence Gomez ALT [Catalytic activity/Vol] 26 U/L Normal 14-59 [facility] Comment on above: Performed By: #### L IPID, TSH, T4, CMP, FT3 #### [facility] [address] [place] [address] Dr. Lawrence Gomez Anion gap [Moles/Vol] 12.1 mmol/L Normal [facility] Comment on above: Performed By: #### L IPID, TSH, T4, CMP, FT3 #### [facility] [address] [place] [address] Dr. Lawrence Gomez AST [Catalytic activity/Vol] 16 U/L Normal 15-37 [facility] Comment on above: Performed By: #### L IPID, TSH, T4, CMP, FT3 #### [facility] [address] [place] [address] Dr. Lawrence Gomez Bilirubin [Mass/Vol] 0.5 mg/dL Normal 0.2-1.0 [facility] Comment on above: Performed By: #### L IPID, TSH, T4, CMP, FT3 #### [facility] [address] [place] [address] Dr. Lawrence Gomez Calcium [Mass/Vol] 8.7 mg/dL Normal 8.5-10.1 [facility] Comment on above: Performed By: #### L IPID, TSH, T4, CMP, FT3 #### [facility] [address] [place] [address] Dr. Lawrence Gomez Chloride [Moles/Vol] 107 mmol/L Normal 98-107 [facility] Comment on above: Performed By: #### L IPID, TSH, T4, CMP, FT3 #### [facility] [address] [address] [address] Lawrence Gomez CO2 [Moles/Vol] 29.7 mmol/L Normal 21.0-32.0 [facility] Comment on above: Performed By: #### L IPID, TSH, T4, CMP, FT3 #### [facility] [address] [place] [address] Dr. Lawrence Gomez Creatinine [Mass/Vol] 0.78 mg/dL Normal 0.55-1.02 [facility] Comment on above: Performed By: #### L IPID, TSH, T4, CMP, FT3 #### [facility] [address] [place] [address] Dr. Lawrence Gomez EGFR-AF MALAWIAN >60 Normal >=60 [facility] Comment on above: Performed By: #### L IPID, TSH, T4, CMP, FT3 #### [facility] [address] [place] [address] Dr. Lawrence Gomez EGFR-NON AF MALAWIAN >60 Normal >=60 [facility] Comment on above: Performed By: #### L IPID, TSH, T4, CMP, FT3 #### [facility] [address] [place] [address] Dr. Lawrence Gomez Globulin (S) [Mass/Vol] 3.4 g/dL Normal [facility] Comment on above: Performed By: #### L IPID, TSH, T4, CMP, FT3 #### [facility] [address] [place] [address] Dr. Lawrence Gomez Glucose [Mass/Vol] 97 mg/dL Normal 74-106 [facility] Comment on above: Performed By: #### L IPID, TSH, T4, CMP, FT3 #### [facility] [address] [place] [address] Dr. Lawrence Gomez Potassium [Moles/Vol] 3.8 mmol/L Normal 3.5-5.1 [facility] Comment on above: Performed By: #### L IPID, TSH, T4, CMP, FT3 #### [facility] [address] [place] [address] Dr. Lawrence Gomez Protein [Mass/Vol] 6.9 g/dL Normal 6.4-8.2 [facility] Comment on above: Performed By: #### L IPID, TSH, T4, CMP, FT3 #### [facility] [address] [place] [address] Dr. Lawrence Gomez Sodium [Moles/Vol] 145 mmol/L Normal 136-145 [facility] Comment on above: Performed By: #### L IPID, TSH, T4, CMP, FT3 #### [facility] [address] [place] [address] Dr. Lawrence Gomez Urea nitrogen [Mass/Vol] 14.0 mg/dL Normal 7.0-18.0 [facility] Comment on above: Performed By: #### L IPID, TSH, T4, CMP, FT3 #### [facility] [address] [place] [address] Dr. Lawrence Gomez Urea nitrogen/Creatinine [Mass ratio] 17.9 mg/mg Normal [facility] Comment on above: Performed By: #### L IPID, TSH, T4, CMP, FT3 #### [facility] [address] [place] [address] Dr. Lawrence Gomez T4on 06-19-2022 T4 [Mass/Vol] 11.50 ug/dL Normal 4.80-13.90 [facility] Comment on above: Performed By: #### L IPID, TSH, T4, CMP, FT3 #### [facility] [address] [place] [address] Dr. Lawrence Gomez TSHon 06-19-2022 TSH 0.494 uIU/mL Normal 0.358-3.740 [facility] Comment on above: Performed By: #### L IPID, TSH, T4, CMP, FT3 #### [facility] [address] [place] [address] Dr. Lawrence Gomez VITAMIN D 25 OHon 06-19-2022 VIT D 25-OH 11.7 ng/mL Normal [facility] Comment on above: Performed By: #### V ITAD, IRON #### [facility] [address] [address] [address] Lawrence Gomez VIT D RANGES SEE BELOW Normal [facility] Comment on above: Result Comment: <20 ng/mL Vit D deficient 20 - <30 ng/mL Vit D insufficient 30 - 100 ng/mL Vit D sufficient >100 ng/mL Potential Toxicity Performed By: #### V ITAD, IRON #### [facility] [address] [address] [address] Lawrence Gomez Encounters Encounter Date Encounter Type Care Provider Facility Start: 07-02-2022 Encounter for genera l adult medical examination without abnormal findings DR MAGDALENE BRADFORD . [facility] Start: 06-30-2022 End: 06-30-[address] MAGDALENE BRADFORD . Facility: Start: 06-30-2022 End: 06-30-2022 Encounter for general adult medical examination without abnormal findings DR MAGDALENE BRADFORD . Facility: Start: 06-19-2022 End: 06-20-[address] MAGDALENE BRADFORD . Facility: Payers Date Payer Category Payer Unknown [id number] 1960 Unknown [id number] 1960 Unknown [id number] Summary Purpose Family History No Family History Records Found Advance Directives No Advanced Directives Records Found Additional Source Comments INFORMATION SOURCE (unrecogn ized section and content) DATE CREATED AUTHOR 07/14/2022 [facility] FOR RECORDS PERTAINING TO PATIENTS WHO [...] BE BASED ON THE PRIMARY CLINICAL RECORDS. [facility] [employer] [facility]. provides no warranty or guarantee of the accuracy or completeness of information in this document.
--- NOTE | 2024-05-01 07:06 | P.HP_ITS ---
HPI H&P: HPI History of Present Illness Chief complaint: SOB Narrative: Patient is not a great historian, so she woke up at 230 yesterday morning with shortness of breath, had the shortness of breath throughout the day but was a little bit better in the afternoon and then again in the evening had increasing shortness of breath so called 911 when the squad arrived her O2 sats were in the low 80s, placed on nonrebreather and given several aerosol treatments with some improvement in her shortness of breath but still significant dyspnea, transferred to ER and found to have acute systolic heart failure secondary to sepsis with acute hypoxic respiratory failure requiring BiPAP ventilation When I saw patient up in the medical surgical floor, resting fairly comfortably in bed actually feels better after diuresis and frequent aerosol treatments Opioid HPI Opioid Management Most Recent Pain and Opioid Data: Last Pain Assessment 05/01/24 08:00 Last ORT Total Score 0 05/01/24 06:40 05/01/24 Last ORT Risk Category Low Risk 05/01/24 06:40 05/01/24 Review of Systems ROS Status of ROS 10 or more systems reviewed and unremark able except as noted in history and below PFSH PFS Medical History (Updated 05/01/24 @ 08:27 by Miller Sky MD) CVA (cerebral vascular accident) ?I63.9 - Cerebral infarction, unspecified (ICD-10) HTN (hypertension) ?I10 - Essential (primary) hypertension (ICD-10) COPD (chronic obstructive pulmonary disease) ?J44.9 - Chronic obstructive pulmonary disease, unspecified (ICD-10) Surgical History (Updated 05/01/24 @ 07:26 by Lupe Cazares RN) H/O section ?Z98.891 - History of uterine scar from previous surgery (ICD-10) History of hysterectomy ?Z90.710 - Acquired absence of both cervix and uterus (ICD-10) Family History (Updated 05/01/24 @ 06:59 by Lupe Cazares, OMERO) Mother Family history of CHF (congestive heart failure) Family history of diabetes mellitus Family history of hypertension Family history of myocardial infarction Father Family history of CHF (congestive heart failure) Sister Family history of hypertension Social History (Updated 05/01/24 @ 06:59 by Lupe Cazares, RN) Within the past year, how often did you have a drink containing alcohol: never Score interpretation: A score less than 3 is consistent with normal alcohol consumption. Smoking status: Current some day smoker Non-prescribed substance use: denies use Previous occupational history: retired Highest level of school completed/degree received: high school graduate Are you now , , , , never or living with a partner: living with partner In a typical week, how many times do you talk on the telephone with family, friends, or neighbors: 3 or more times per week How often do you get together with friends or relatives: 3 or more times per week Little interest or pleasure in doing things: not at all Feeling down, depressed, or hopeless: not at all Feel stressed/tense/nervous/anxious/difficulty sleeping: not at all Do you think of yourself as: straight/heterosexual Gender Identity: female Meds Home Medications and Allergies Home Medications ?Medication ?Instructions ?Recorded ?Confirmed ?Type alendronate 70 mg tablet 70 mg PO QWEEK 05/01/24 05/01/24 History aspirin 325 mg capsule 325 mg PO DAILY 05/01/24 05/01/24 History levothyroxine 150 mcg tablet 150 mcg PO .QD 05/01/24 05/01/24 History lisinopril 20 mg tablet 20 mg PO .QD 05/01/24 05/01/24 History metoprolol succinate 25 mg 25 mg PO .QD 05/01/24 05/01/24 History tablet,extended release 24 hr pantoprazole 40 mg tablet,delayed 40 mg PO .QD 05/01/24 05/01/24 History release Allergies Allergy/AdvReac Type Severity Reaction Status Date / Time Sulfa (Sulfonamide AdvReac Unknown Anxiety Verified 05/01/24 05:18 Antibiotics) ivp dye Allergy Unknown Nausea Uncoded 05/01/24 05:19 Exam Constitutional Vital Signs, click to edit/add: Last Vital Signs Temp 97.7 F 05/01/24 06:40 Pulse 86 05/01/24 06:40 Resp 16 05/01/24 06:40 BP 111/75 05/01/24 06:40 Pulse Ox 90 L 05/01/24 06:40 O2 Del Method Nasal Cannula 05/01/24 06:40 O2 Flow Rate 2 05/01/24 06:40 FiO2 35 05/01/24 04:57 Documenting provider has reviewed patient's vital signs: yes Common normals: no apparent distress Chest Common normals: inspection of chest normal Respiratory Common normals: normal respiratory effort Auscultation: rhonchi Cardio Common normals: regular rate, regular rhythm and no murmurs GI Common normals: Normal to inspection, nondistended, normoactive bowel sounds present Extremity Common normals: normal to inspection and no clubbing, cyanosis or edema Results Labs Labs: Short CBC 05/01/24 Range/Units 03:17 WBC 16.0 H (4.0-11.0) 10^3/uL Hgb 13.9 (12.0-16.0) g/dL Hct 43.0 (36.0-48.0) % Plt Count 206 (150-450) 10^3/uL BMP 05/01/24 03:17 Sodium 138 Potassium 4.3 Chloride 104 Carbon Dioxide 26.0 BUN 14.0 Creatinine 1.09 H Glucose 257 H Calcium 8.5 Liver Function 05/01/24 Range/Units 03:17 Total Bilirubin 0.4 (0.2-1.0) mg/dL AST 106 H (15-37) U/L ALT 88 H (14-59) U/L Alkaline Phosphatase 118 H (46-116) U/L Albumin 3.4 (3.4-5.0) g/dL ABG ABG results: 05/01/24 03:40 ABG pH 7.383 ABG pCO2 38.6 ABG pO2 102.0 H ABG HCO3 22.9 ABG O2 Saturation 98.2 ABG Base Excess -2.1 L Assessment and Plan Assessment and Plan (1) Elevated troponin: (2) CHF (congestive heart failure): (3) COPD (chronic obstructive pulmonary disease): (4) HTN (hypertension): (5) Diabetes mellitus: (6) Severe sepsis: (7) Acute non-ST elevation myocardial infarction (NSTEMI): Plan Admission findings: Sinus tachycardia, respiratory distress, acute hypoxic respiratory failure with O2 sat of low 80s on room air, requiring acute supplemental oxygen with BiPAP ventilation, uncontrolled hypertension, acute elevation in troponin with normal EKG consistent with acute NSTEMI secondary to acute exacerbation of COPD secondary to acute bronchitis resulting in severe sepsis Acute exacerbation of COPD resulting in severe sepsis (tachycardia, respiratory distress, acute hypoxia, leukocytosis, lactic acidosis)-steroids, antibiotics, frequent aerosol treatments, try to obtain sputum culture with the severe sepsis unable to give fluid resuscitation secondary to acute systolic heart failure due to acute NSTEMI Acute NSTEMI resulting in acute systolic heart failure with hypoxia requiring BiPAP ventilation as outlined above-check echocardiogram, track and trend troponins, discussed with cardiology-if echocardiogram shows significant reduced ejection fraction will likely transfer Diabetes mellitus-she is not treated for this but sugar significantly elevated on admission, insulin sliding scale, likely discharged with oral agents Elevated liver function test likely secondary to passive congestion from the severe sepsis as outlined above Hypothyroidism-check levels GERD continue with oral medication History of coronary artery disease-continue metoprolol and plan as outlined above Admission status: Patient with acute NSTEMI secondary to severe sepsis secondary to acute bronchitis from acute exacerbation of COPD with acute hypoxic respiratory failure, medically necessary treatment will span 2 midnights. Inpatient status
--- NOTE | 2024-05-01 07:14 | CA_ITS ---
Patient Name: JACOB EDWARDS MR#: [id number] : 1960 Exam Date: 05/01/2024 Ordering Doctor: DR Miller Sky . ECHOCARDIOGRAM REPORT PROCEDURE: CA ECHO DOPPLER COMPLETE INDICATIONS: Dyspnea, h/o SD, cardiac stent, COPD, hypertension, diabetes COMPARISON: None. DESCRIPTION: COMPLETE ECHOCARDIOGRAM Real-time transthoracic echocardiography with 2D, M-mode, spectral and color flow Doppler performed. QUALITY: Technical quality was fair. LEFT VENTRICLE: Mild dilatation. Thickened septal wall. Systolic function appears to be moderately to severely reduced. Segmental wall motion cannot be accurately assessed due to poor endocardial border definition. LV EF: Moderately to severely reduced left ventricular ejection fraction, (25-30%). DIASTOLIC: ATRIAL SEPTUM: Visually appears intact. LEFT ATRIUM: Moderate dilatation. RIGHT ATRIUM: Normal chamber size. RIGHT VENTRICLE: Normal chamber size. Normal right ventricular systolic function. TRICUSPID VALVE: Normal mobility and thickness. No stenosis with trivial regurgitation. No evidence of pulmonary hypertension. RVSP 33 mmHg MITRAL VALVE: Normal mobility and thickness. No evidence of mitral valve stenosis. There is no mitral annular calcification. No mitral regurgitation. AORTIC VALVE: Normal trileaflet appearance. No visible sclerosis. Normal leaflet mobility. No evidence of aortic valve stenosis. No aortic regurgitation. AORTIC ROOT: Normal diameter and appearance, measuring 3.6 cm. Ascending aorta is normal in size. PULMONIC VALVE: Normal thickness and mobility. No stenosis. No regurgitation. PERICARDIUM: No evidence of pericardial effusion. IVC: IVC is dilated (2.4 cm), does not collapse. PLEURA: CONCLUSION: 1. The left ventricle is mildly dilated and exhibits moderately to severely reduced systolic function. LVEF is estimated at 25 to 30%. 2. Normal right ventricular size and systolic function. 3. No significant valvular dysfunction. 4. Normal right-sided pressures. Adult Echocardiography Procedure Report Left Ventricle LVEDD (3.7 - 5.6 cm): 5.24 cm LVESD (2.2 - 4.0 cm): 5.21 cm LVIVS thickness (0.6 - 1.2 cm): 1.38 cm LVPW thickness (0.5 - 1.0 cm): 1.04 cm e': 0.06 m/s E - e': 18.44 LVOT Max Gradient: 3.11 mm[Hg] LVOT Area (cm2): 0.88 m/s Peak Velocity (LVOT): 0.88 m/s Mean Velocity (LVOT): 0.52 m/s LVOT Diameter 2.08 cm Left Atrium LA Volume Index (2D A2C): 48.03 ml/m2 Left Atrium Systolic Dimension: 4.31 cm Mitral Valve MV E to A Ratio: 1.04 Mitral Valve A-Wave Peak Velocity: 1.10 m/s Mitral Valve E-Wave Peak Velocity: 1.14 m/s Right Ventricle Aorta AO Root Diam: 3.59 cm Ascending Ao Diam: 2.81 cm Aortic Valve AoV Area (Peak Lázaro): 2.26 cm2, 2.26 cm2 AoV Area (VTI): 2.36 cm2, 2.36 cm2 Peak Velocity(Antegrade Flow): 1.32 m/s Peak Gradient(Antegrade Flow): 7.00 mm[Hg] Mean Velocity(Antegrade Flow): 0.89 m/s Mean Gradient(Antegrade Flow): 3.72 mm[Hg] Velocity Time Integral: 24.66 cm Tricuspid Valve Peak Velocity (Regurgitant Flow): 2.21 m/s Pulmonic Valve Mean Gradient: 1.76 mm[Hg] Mean Velocity: 0.63 m/s Peak Velocity: 0.90 m/s, 0.61 m/s Peak Gradient: 1.50 mm[Hg], 3.26 mm[Hg] Right Atrium Right Atrium Systolic Pressure: 25.57 ml, 25.57 ml Dictated by: Chad Tai M.D. on 05/01/2024 at 19:40 Approved by: Chad Tai M.D. on 05/01/2024 at 19:45
[2024-05-01 07:18] LABS: Lactate/Lactic Acid 1.6 mmol/L (0.4-2.0)
[2024-05-01 08:03] LABS: Glucometer 154 mg/dL (74-106)
[2024-05-01 08:04] LABS: Thyroid Stimulating Hormone 0.431 uIU/mL (0.358-3.740)
[2024-05-01 08:14] LABS: Troponin I High Sensitivity 539.7 pg/mL (4.0-51.3)
[2024-05-01 08:23] LABS: Magnesium 2.3 mg/dL (1.8-2.4)
[2024-05-01] MEDS: LISINOPRIL 20 MG TABLET PO (08:33)
[2024-05-01] MEDS: METHYLPREDNISOLONE SOD SUCC PF 125 MG/2 ML VIAL 60 MG IVP ×2 (08:33→15:31)
[2024-05-01] MEDS: METOPROLOL SUCCINATE 25 MG TAB.ER.24H PO (08:33)
[2024-05-01] MEDS: PANTOPRAZOLE SODIUM 40 MG TABLET.DR PO (08:33)
[2024-05-01] MEDS: ASPIRIN 325 MG TABLET PO (08:33)
[2024-05-01] MEDS: LEVOTHYROXINE SODIUM 75 MCG TABLET 150 MCG PO (08:33)
[2024-05-01] MEDS: BENZONATATE 100 MG CAPSULE 200 MG PO (08:41)
--- OUTSIDE RECORDS SUMMARY | 2024-05-01 08:45 | XMS_ITS | CCD ---
Author Organization [facility] Team Providers Care Licensed Architect Name Role Phone SUZETTE ., DR DEL [...] Containting Drugs) Drug allergy (disorder) 02-06-2008 [facility] Rep[facility] (1 source) Sulfonamides (Antibiotic) Drug allergy (disorder) 10-31-2012 [facility] Results Test Name Value Interpretation Reference Range Facil ity OCC BLD IMMUNO SCREENon 06-06 OCCULT BLOOD Negative Normal NEGATIVE [facility] Comment on above: Performed By: #### I NSULIN #### [facility] [address] [place] [address] Dr. Lawrence Gomez INSULINon 06-20-2022 Insulin 14.4 uIU/mL Normal 2.6-24.9 [facility] Comment on above: Performed By: #### I NSULIN #### [facility] [address] [address] [address] Lawrence Gomez CBC AUTO DIFFon 06-19-2022 BASO # 0.1 103/ul Normal 0.0-0.1 [facility] Comment on above: Performed By: #### C BC #### [facility] [address] [place] [address] Dr. Lawrence Gomez Basophils/100 WBC (Bld) 0.7 % Normal 0.2-2.0 [facility] Comment on above: Performed By: #### C BC #### [facility] [address] [place] [address] Dr. Lawrence Gomez EO # 0.2 103/ul Normal 0.0-0.7 [facility] Comment on above: Performed By: #### C BC #### [facility] [address] [place] [address] Dr. Lawrence Gomez Eosinophils/100 WBC (Bld) 2.5 % Normal 0.9-7.0 [facility] Comment on above: Performed By: #### C BC #### [facility] [address] [place] [address] Dr. Lawrence Gomez Erythrocyte distribution width (RBC) [Ratio] 13.2 % Normal 11.0-15.0 [facility] Comment on above: Performed By: #### C BC #### [facility] [address] [place] [address] Dr. Lawrence Gomez Hematocrit (Bld) [Volume fraction] 45.5 % Normal 36.0-48.0 [facility] Comment on above: Performed By: #### C BC #### [facility] [address] [place] [address] Dr. Lawrence Gomez Hemoglobin (Bld) [Mass/Vol] 14.8 g/dL Normal 12.0-16.0 [facility] Comment on above: Performed By: #### C BC #### [facility] [address] [place] [address] Dr. Lawrence Gomez IG # 0.03 10e3/ul Normal 0.00-0.03 [facility] Comment on above: Performed By: #### C BC #### [facility] [address] [place] [address] Dr. Lawrence Gomez IG % 0.3 % Normal 0.0-0.5 [facility] Comment on above: Performed By: #### C BC #### [facility] [address] [place] [address] Dr. Lawrence Gomez LYMPH # 2.8 103/ul Normal 1.2-3.8 [facility] Comment on above: Performed By: #### C BC #### [facility] [address] [place] [address] Dr. Lawrence Gomez Lymphocytes/100 WBC (Bld) 31.0 % Normal 20.5-60.0 [facility] Comment on above: Performed By: #### C BC #### [facility] [address] [place] [address] Dr. Lawrence Gomez MANUAL DIFF REQ NO Normal [facility] Comment on above: Performed By: #### C BC #### [facility] [address] [place] [address] Dr. Lawrence Gomez MCH (RBC) [Entitic mass] 28.2 pg Normal 26.7-34.0 [facility] Comment on above: Performed By: #### C BC #### [facility] [address] [place] [address] Dr. Lawrence Gomez MCHC (RBC) [Mass/Vol] 32.5 g/dL Normal 29.9-35.2 [facility] Comment on above: Performed By: #### C BC #### [facility] [address] [place] [address] Dr. Lawrence Gomez MCV (RBC) [Entitic vol] 86.8 fL Normal 81.0-99.0 [facility] Comment on above: Performed By: #### C BC #### [facility] [address] [place] [address] Dr. Lawrence Gomez MONO # 0.5 103/ul Normal 0.3-0.8 [facility] Comment on above: Performed By: #### C BC #### [facility] [address] [place] [address] Dr. Lawrence Gomez Monocytes/100 WBC (Bld) 6.0 % Normal 1.7-12.0 [facility] Comment on above: Performed By: #### C BC #### [facility] [address] [place] [address] Dr. Lawrence Gomez NEUT # 5.4 103/ul Normal 1.4-6.5 [facility] Comment on above: Performed By: #### C BC #### [facility] [address] [address] [address] Lawrence Gomez Neutrophils/100 WBC (Bld) 59.5 % Normal 43.0-75.0 [facility] Comment on above: Performed By: #### C BC #### [facility] [address] [address] [address] Lawrence Gomez Platelet mean volume (Bld) [Entitic vol] 11.7 fL Normal 9.5-13.5 [facility] Comment on above: Performed By: #### C BC #### [facility] [address] [address] [address] Lawrence Gomez PLT 211 103/ul Normal 150-450 [facility] Comment on above: Performed By: #### C BC #### [facility] [address] [place] [address] Dr. Lawrence Gomez RBC 5.24 106/ul Normal 4.20-5.40 [facility] Comment on above: Performed By: #### C BC #### [facility] [address] [address] [address] Lawrence Gomez WBC 9.1 103/ul Normal 4.0-11.0 [facility] Comment on above: Performed By: #### C BC #### [facility] [address] [place] [address] Dr. Lawrence Gomez FREE T3on 06-19-2022 FREE T3 2.63 pg/mlL Normal 2.18-3.98 [facility] Comment on above: Performed By: #### L IPID, TSH, T4, CMP, FT3 #### [facility] [address] [address] [address] Lawrence Gomez GLYCOHEMOGLOBIN A1Con 2022 ADA RECOMMENDATION SEE BELOW Normal [facility] Comment on above: Result Comment: ADA RECOMMENDED LIMIT 4.0 - 6.0 ADA THERAPEUTIC TARGET < 7.0 ACTION SUGGESTED > 7.0 Performed By: #### A 1C #### [facility] [address] [place] [address] Dr. Lawrence Gomez Glucose [Mass/Vol] 128 mg/dL Normal [facility] Comment on above: Performed By: #### A 1C #### [facility] [address] [address] [address] Lawrence Gomez HbA1c (Bld) [Mass fraction] 6.1 % Normal 4.5-6.2 [facility] Comment on above: Performed By: #### A 1C #### [facility] [address] [address] [address] Lawrence Gomez IRONon 06-19-2022 Iron [Mass/Vol] 96.0 ug/dL Normal 50.0-170.0 [facility] Comment on above: Performed By: #### V ITAD, IRON #### [facility] [address] [address] [address] Lawrence Gomez LIPID PROFILEon 06-19-2022 CHOL-HDL RATIO NORM SEE BELOW Normal [facility] Comment on above: Result Comment: 3.3 - 4.4 LOW RISK 4.4 - 7.1 AVERAGE RISK 7.1 - 11.0 MODERATE RISK >11.0 HIGH RISK Performed By: #### L IPID, TSH, T4, CMP, FT3 #### [facility] [address] [address] [address] Lawrence Gomze Cholesterol [Mass/Vol] 131 mg/dL Normal <=200 [facility] Comment on above: Performed By: #### L IPID, TSH, T4, CMP, FT3 #### [facility] [address] [address] [address] Lawrence Gomez Cholesterol in HDL [Mass/Vol] 41 mg/dL Normal 40-60 [facility] Comment on above: Performed By: #### L IPID, TSH, T4, CMP, FT3 #### [facility] [address] [address] [address] Lawrence Gomez Cholesterol in LDL [Mass/Vol] 75.0 mg/dL Normal [facility] Comment on above: Performed By: #### L IPID, TSH, T4, CMP, FT3 #### [facility] [address] [address] [address] Lawrence Gomez Cholesterol.total/Cho lesterol in HDL [Mass ratio] 3.2 {ratio} Normal [facility] Comment on above: Performed By: #### L IPID, TSH, T4, CMP, FT3 #### [facility] [address] [place] [address] Dr. Lawrence Gomez HDL NORMAL > or = 60 mg/dl - LOW CARDIOVASCULAR RISK <40 mg/dl - HIGH CARDIOVASCULAR RISK Normal [facility] Comment on above: Performed By: #### L IPID, TSH, T4, CMP, FT3 #### [facility] [address] [place] [address] Dr. Lawrence Gomez LDL CALC NORMAL SEE BELOW Normal [facility] Comment on above: Result Comment: <100 mg/dl OPTIMAL 100 - 129 mg/dl NEAR OR ABOVE OPTIMAL 130 - 159 mg/dl BORDERLINE HIGH 160 - 189 mg/dl HIGH >190 mg/dl VERY HIGH Performed By: #### L IPID, TSH, T4, CMP, FT3 #### [facility] [address] [place] [address] Dr. Lawrence Gomez Triglyceride [Mass/Vol] 75 mg/dL Normal <=150 [facility] Comment on above: Performed By: #### L IPID, TSH, T4, CMP, FT3 #### [facility] [address] [place] [address] Dr. Lawrence Gomez VLDL CALC 15.0 mg/dL Normal [facility] Comment on above: Performed By: #### L IPID, TSH, T4, CMP, FT3 #### [facility] [address] [place] [address] Dr. Lawrence Gomez PROF 14(COMP METB)on 023 Albumin [Mass/Vol] 3.5 g/dL Normal 3.4-5.0 [facility] Comment on above: Performed By: #### L IPID, TSH, T4, CMP, FT3 #### [facility] [address] [place] [address] Dr. Lawrence Gomez Albumin/Globulin [Mass ratio] 1.0 {ratio} Normal [facility] Comment on above: Performed By: #### L IPID, TSH, T4, CMP, FT3 #### [facility] [address] [place] [address] Dr. Lawrence Gomez ALP [Catalytic activity/Vol] 111 U/L Normal 46-116 [facility] Comment on above: Performed By: #### L IPID, TSH, T4, CMP, FT3 #### [facility] [address] [place] [address] Dr. Lawrence Gomez ALT [Catalytic activity/Vol] 26 U/L Normal 14-59 [facility] Comment on above: Performed By: #### L IPID, TSH, T4, CMP, FT3 #### [facility] [address] [place] [address] Dr. Lawrence Gomez Anion gap [Moles/Vol] 12.1 mmol/L Normal [facility] Comment on above: Performed By: #### L IPID, TSH, T4, CMP, FT3 #### [facility] [address] [place] [address] Dr. Lawrence Gomez AST [Catalytic activity/Vol] 16 U/L Normal 15-37 [facility] Comment on above: Performed By: #### L IPID, TSH, T4, CMP, FT3 #### [facility] [address] [place] [address] Dr. Lawrence Gomez Bilirubin [Mass/Vol] 0.5 mg/dL Normal 0.2-1.0 [facility] Comment on above: Performed By: #### L IPID, TSH, T4, CMP, FT3 #### [facility] [address] [place] [address] Dr. Lawrence Gomez Calcium [Mass/Vol] 8.7 mg/dL Normal 8.5-10.1 [facility] Comment on above: Performed By: #### L IPID, TSH, T4, CMP, FT3 #### [facility] [address] [place] [address] Dr. Lawrence Gomez Chloride [Moles/Vol] 107 mmol/L Normal 98-107 [facility] Comment on above: Performed By: #### L IPID, TSH, T4, CMP, FT3 #### [facility] [address] [address] [address] Lawrence Gomez CO2 [Moles/Vol] 29.7 mmol/L Normal 21.0-32.0 [facility] Comment on above: Performed By: #### L IPID, TSH, T4, CMP, FT3 #### [facility] [address] [place] [address] Dr. Lawrence Gomez Creatinine [Mass/Vol] 0.78 mg/dL Normal 0.55-1.02 [facility] Comment on above: Performed By: #### L IPID, TSH, T4, CMP, FT3 #### [facility] [address] [place] [address] Dr. Lawrence Gomez EGFR-AF GUINEAN >60 Normal >=60 [facility] Comment on above: Performed By: #### L IPID, TSH, T4, CMP, FT3 #### [facility] [address] [place] [address] Dr. Lawrence Gomez EGFR-NON AF GUINEAN >60 Normal >=60 [facility] Comment on above: Performed By: #### L IPID, TSH, T4, CMP, FT3 #### [facility] [address] [place] [address] Dr. Lawrence Gomez Globulin (S) [Mass/Vol] 3.4 g/dL Normal [facility] Comment on above: Performed By: #### L IPID, TSH, T4, CMP, FT3 #### [facility] [address] [place] [address] Dr. Lawrence Gomez Glucose [Mass/Vol] 97 mg/dL Normal 74-106 [facility] Comment on above: Performed By: #### L IPID, TSH, T4, CMP, FT3 #### [facility] [address] [place] [address] Dr. Lawrence Gomez Potassium [Moles/Vol] 3.8 mmol/L Normal 3.5-5.1 [facility] Comment on above: Performed By: #### L IPID, TSH, T4, CMP, FT3 #### [facility] [address] [place] [address] Dr. Lawrence Gomez Protein [Mass/Vol] 6.9 g/dL Normal 6.4-8.2 [facility] Comment on above: Performed By: #### L IPID, TSH, T4, CMP, FT3 #### [facility] [address] [place] [address] Dr. Lawrence Gomez Sodium [Moles/Vol] 145 mmol/L Normal 136-145 [facility] Comment on above: Performed By: #### L IPID, TSH, T4, CMP, FT3 #### [facility] [address] [place] [address] Dr. Lawrence Gomez Urea nitrogen [Mass/Vol] 14.0 mg/dL Normal 7.0-18.0 [facility] Comment on above: Performed By: #### L IPID, TSH, T4, CMP, FT3 #### [facility] [address] [place] [address] Dr. Lawrence Gomez Urea nitrogen/Creatinine [Mass ratio] 17.9 mg/mg Normal [facility] Comment on above: Performed By: #### L IPID, TSH, T4, CMP, FT3 #### [facility] [address] [place] [address] Dr. Lawrence Gomez T4on 06-19-2022 T4 [Mass/Vol] 11.50 ug/dL Normal 4.80-13.90 [facility] Comment on above: Performed By: #### L IPID, TSH, T4, CMP, FT3 #### [facility] [address] [place] [address] Dr. Lawrence Gomez TSHon 06-19-2022 TSH 0.494 uIU/mL Normal 0.358-3.740 [place] Comment on above: Performed By: #### L IPID, TSH, T4, CMP, FT3 #### [facility] [address] [place] [address] Dr. Lawrence Gomez VITAMIN D 25 OHon 06-19-2022 VIT D 25-OH 11.7 ng/mL Normal [facility] Comment on above: Performed By: #### V ITAD, IRON #### [facility] [address] [address] [address] Lawrence Gomez VIT D RANGES SEE BELOW Normal [facility] Comment on above: Result Comment: <20 ng/mL Vit D deficient 20 - <30 ng/mL Vit D insufficient 30 - 100 ng/mL Vit D sufficient >100 ng/mL Potential Toxicity Performed By: #### V ITAD, IRON #### [facility] [address] [address] [address] Lawrence Gomez Encounters Encounter Date Encounter Type Care Provider Facility Start: 07-02-2022 Encounter for genera l adult medical examination without abnormal findings DR MAGDALENE BRADFORD . [facility] Start: 06-30-2022 End: 06-30-[address] MAGDALENE BRADFORD . Facility: Start: 06-30-2022 End: 06-30-2022 Encounter for general adult medical examination without abnormal findings DR MAGDALENE BRADFORD . Facility: Start: 06-19-2022 End: 06-20-[address] MAGDALENE BRADFORD . Facility: Payers Date Payer Category Payer Unknown [id number] 1960 Unknown [id number] 1960 Unknown [id number] Summary Purpose Family History No Family History Records Found Advance Directives No Advanced Directives Records Found Additional Source Comments INFORMATION SOURCE (unrecogn ized section and content) DATE CREATED AUTHOR 07/14/2022 [facility] FOR RECORDS PERTAINING TO PATIENTS WHO [...] BE BASED ON THE PRIMARY CLINICAL RECORDS. [facility]. provides no warranty or guarantee of the accuracy or completeness of information in this document.
[2024-05-01 08:55] LABS: Bilirubin Urine NEGATIVE (NEGATIVE); Blood Urine TRACE-I (NEGATIVE); Clarity Urine CLEAR (CLEAR); Color Urine LT. YELLOW (YELLOW); Glucose Urine UA NEGATIVE (NEGATIVE); Ketones Urine NEGATIVE (NEGATIVE); Leukocyte Esterase Urine NEGATIVE (NEGATIVE); Nitrite Urine NEGATIVE (NEGATIVE); Protein Urine NEGATIVE (NEG/TRACE); Urobilinogen Urine 0.2 EU/dL (0.2-1.0)
[2024-05-01 09:04] LABS: Bacteria Urine TRACE #/HPF (NONE SEEN); Mucus Urine NONE SEEN (NONE SEEN); RBC Urine 0-2 #/HPF (0-2); Squamous Epithelial Cell Urine RARE #/LPF (NONE/RARE); WBC Urine 0-2 #/HPF (NONE SEEN)
[2024-05-01 09:05] LABS: Cast Seen? NONE SEEN #/LPF (NONE SEEN); Crystals Seen? None Seen #/HPF (None Seen); Urine Culture Indicated NO
[2024-05-01] MEDS: 0.9 % SODIUM CHLORIDE 250 ML 10 ML IV (10:01)
[2024-05-01] MEDS: LEVOFLOXACIN IN DEXTROSE 5 % 750 MG/150 ML PREMIX 100 MG IV (10:01)
[2024-05-01 10:34] LABS: Troponin I High Sensitivity 503.7 pg/mL (4.0-51.3)
[2024-05-01 11:38] LABS: Glucometer 188 mg/dL (74-106)
--- NOTE | 2024-05-01 14:52 | CM.NOTE ---
Important Message From Medicare discussed with pt, pt verbalizes understanding and signs paper. Original given to pt and copy placed in pt's chart.
[2024-05-01] MEDS: FUROSEMIDE 40 MG/4 ML VIAL IVP (15:31)
--- NOTE | 2024-05-01 15:38 | ECG_ITS ---
The [facility] Test Date: 2024-05-01 Pat Name: JACOB EDWARDS Department: Room: [facility] Gender: Female Stock [employer]: : 1960 Requested By: MAGDALENE BRADFORD Order Number: [id number] Reading MD: KEVIN ROLLE M.D. Measurements Intervals [place] Rate: 91 P: 63 [place]: 169 QRS: -17 QRSD: 116 T: 76 QT: 403 QTc: 498 Interpretive Statements SINUS RHYTHM WITH OCCASIONAL VENTRICULAR PREMATURE COMPLEXES PROBABLE INFERIOR MYOCARDIAL INFARCTION [35 ms Q WAVE IN II/aVF], PROBABLY OLD Nonspecific Twave abnormality Compared to ECG 05/01/2024 03:35:42 Ventricular premature complex(es) now present Electronically Signed On 05-02-2024 19:20:29 EDT by KEVIN ROLLE M.D.
--- NOTE | 2024-05-01 16:15 | PC.NURSE ---
ekg completed and tiger texted to dr ornelas
[2024-05-01 17:27] LABS: Glucometer 163 mg/dL (74-106)
--- NOTE | 2024-05-01 19:03 | PC.NURSE ---
REPORT GIVEN TO CLARK AT [facility], ALL QUESTIONS ANSWERED
--- NOTE | 2024-05-05 13:24 | CM.NOTE ---
Harry txt Dr. Sky final urine culture report.
== END 2024-05-01 19:06 | disposition short-term general hospital (02) | DRG 871 ==
LOC: ER 06:19 → MS 08:24
PROVIDERS: Admitting Provider Family Medicine; Emergency Provider Emergency Medicine; PCP Family Medicine; Visit Provider Family Medicine
DX: A41.81 Sepsis due to Enterococcus (principal); I21.4 Non-ST elevation (NSTEMI) myocardial infarction; J96.01 Acute respiratory failure with hypoxia; I50.21 Acute systolic (congestive) heart failure; J44.0 Chronic obstructive pulmonary disease with (acute) lower respiratory infection; J44.1 Chronic obstructive pulmonary disease with (acute) exacerbation; N39.0 Urinary tract infection, site not specified; R65.20 Severe sepsis without septic shock; J20.9 Acute bronchitis, unspecified; F17.200 Nicotine dependence, unspecified, uncomplicated; I11.0 Hypertensive heart disease with heart failure; I25.2 Old myocardial infarction; E11.9 Type 2 diabetes mellitus without complications; R79.89 Other specified abnormal findings of blood chemistry; E03.9 Hypothyroidism, unspecified; K21.9 Gastro-esophageal reflux disease without esophagitis; Z90.710 Acquired absence of both cervix and uterus; Z86.73 Personal history of transient ischemic attack (TIA), and cerebral infarction without residual deficits; I25.10 Atherosclerotic heart disease of native coronary artery without angina pectoris
CPT/HCPCS: 36415; 36600; 71045; 80053; 81001; 82805; 82948; 83605; 83735; 83880; 84436; 84443; 84484; 85007; 85027; 85378; 85610; 85730; 87040; 87070; 87086; 87150; 87186; 87205; 87420; 87804; 87811; 93005; 93306; 94640; 94660; 94667; 94668; 94761; 96365; 96366; 96367; 96368; 96372; 96375; 97161; 97165; 99285; 99407; J0456; J0696; J1650; J1940; J2405; J2919; J3475

== ENCOUNTER 2024-06-13 11:21 | Outpatient (OUT) | payer MEDICARE, SELFPAY ==
--- NOTE | 2024-06-13 11:32 | XR_ITS ---
The [address] [address] Patient Name: JACOB EDWARDS MRN: [id number] date: 1960 Sex: F Assigned Patient Location: [facility] Current Patient Location: [facility] Accession/Order Number: [id number] Exam Date: 06/13/2024 12:13 Report Date: 06/13/2024 12:24 At the request of: CRYSTAL CARDONA MD Procedure: XR chest 2V Chest 2 views CLINICAL HISTORY: Acute Systolic Heart Failure COMPARISON: Chest 05/01/2024 FINDINGS: Pacemaker device is in place. Heart normal size. Lungs are clear. No free air. XR/XR chest 2V IMPRESSION: NO ACUTE CARDIOPULMONARY ABNORMALITY. Impression dictated by: Charlene Carlton Jr.ODarrin 06/13/2024 12:24 PM Dictation Location: [place] [address] Electronically authenticated by: [id number] Y Date: 06/13/2024 12:24
== END 2024-06-13 11:22 | disposition home or self-care (01) ==
PROVIDERS: PCP Family Medicine; Visit Provider Internal Medicine Cardiovascular Disease
DX: I50.21 Acute systolic (congestive) heart failure (principal); Z95.0 Presence of cardiac pacemaker
CPT/HCPCS: 71046

== ENCOUNTER 2024-07-12 11:40 | Inpatient (IN) | payer MEDICARE, SELFPAY ==
[2024-07-12] VITALS (58 sets, daily range): BP systolic 125–166; BP diastolic 74–111; PULSE 0–115; TEMP 36.4; O2SAT 83–99; BMI 32.2; BMI 32.0
--- OUTSIDE RECORDS SUMMARY | 2024-07-12 11:48 | XMS_ITS | CCD ---
Author Organization [facility] [employer] Care Team Providers Care Bag Valver Name Role Phone SUZETTE Clifford, DR DEL CASTILLO Primary Care Unavailable HOY ., DR DEL CASTILLO Admitting Unavailable HOY ., DR DEL CASTILLO Attending Unavailable HOY ., DR DEL CASTILLO Consulting Unavailable HOY ., DR DEL CASTILLO Admitting Unavailable HOY ., DR DEL CASTILLO Attending Unavailable HOY ., DR DEL CASTILLO Consulting Unavailable HOY ., DR DEL CASTILLO Primary Care Unavailable SHANNON YOON Referring Unavailable JADEN BERRIOS Referring Unavailable NICOLA GORMAN Referring Unavailable RORO, JAYDEN Referring Unavailable ROROJAYDEN Referring Unavailable ROROJAYDEN Referring Unavailable BRETT CORONEL Referring UnavailCRISTIAN Chavez Referring Unavailable KEVIN ROLLE Attending Unavailable NICOLA GORMAN Referring Unavailable RORO, JAYDEN Attending Unavailable CAMERON HERNANDEZ Referring Unavailable NABEEL MOSES Attending Unavailable KLJAME Referring Unavailable HOYMAGDALENE Referring Unavailable HORARIANA WATSON Admitting Unavailable KEIRA MARROQUIN Attending Unavailable PJ, JAME Referring Unavailable NICOLA GORMAN Admitting Unavailable NICOLA GORMAN Attending Unavailable RORO, Referring Unavailable Allergies Allergy Classification Reported Allergen(s) Allergy Type Date of Onset Reaction(s) Facility (1 source) Iodine (And Iodine Containting Drugs) Drug allergy (disorder) 9 [facility] Repository (1 source) Sulfonamides (Antibiotic) Drug allergy (disorder) 3 [facility] Repository (1 source) Sulfonamides (Antibiotic); Translations: [SULFA (SULFONAMIDE ANTIBIOTICS)] Propensity to adverse reactions to drug (disorder) 5 [facility] Repository (1 source) IODINATED CONTRAST MEDIA; Translations: [IODINATED CONTRAST MEDIA] Propensity to adverse reactions to drug (disorder) [facility] Repository Problems Problem Classification Problem Date Documented Date Episodic/Chronic Chronic obstructive pulmonary disease and bronchiectasis (2 sources) Chronic obstructive pulmonary disease, unspecified; Translations: [Chronic obstructive pulmonary disease, unspecified] Onset: 05-01-2024 Chronic Congestive heart failure; nonhypertensive (4 sources) Heart failure, unspecified; Translations: [Acute systolic (congestive) heart failure] Onset: 05-01-2024 Chronic Coronary atherosclerosis and other heart disease (2 sources) Atherosclerotic heart disease of [place] coronary artery without angina pectoris; Translations: [Atherosclerotic heart disease of [place] coronary artery without angina pectoris] Onset: 05-01-2024 Chronic Esophageal disorders (2 sources) Gastro-esophageal reflux disease without esophagitis; Translations: [Gastro-esophageal reflux disease without esophagitis] Onset: 05-01-2024 Chronic Essential hypertension (2 sources) Essential (primary) hypertension; Translations: [Essential (primary) hypertension] Onset: 05-01-2024 Chronic Nonspecific chest pain (2 sources) Chest pain, unspecified; Translations: [Chest pain, unspecified] Onset: 05-01-2024 Episodic Other circulatory disease (2 sources) Personal history of transient ischemic attack (TIA), and cerebral infarction without residual deficits; Translations: [Personal history of transient ischemic attack (TIA), and cerebral infarction without residual deficits] Onset: 05-01-2024 Episodic Other screening for suspected conditions (not mental disorders or infectious disease) (2 sources) Other specified abnormal findings of blood chemistry; Translations: [Other specified abnormal findings of blood chemistry] Onset: 05-01-2024 Episodic Results Test Name Value Interpretation Reference Range Facility Office Visiton 06-19-2024 Follow-up visit [id number] Dayday Stevenson 1960 F Date Provider Department Center 06/19/2024 Blaire-NABEEL MOSES Family History Problem Relation Age of Onset Heart failure Mother Other Father Family Status - Relation Status Age at Mother Alive Father Sister Alive Brother Level of Service:87990 SC POSTOP FOLLOW UP VISIT RELATED TO ORIGINAL PX Normal [facility] ANEIsreal 06-12-2024 ANES --- Attestation signed by Nicola Gorman MD at 06/12/2024 5:03 PM By using the attestations below, the signing clinician agrees that I have read and verify that the documentation has been personally reviewed by me and ensure that the documentation accurately reflects the encounter. GC: I performed the schmitz portion(s) of the service and participated in the management and confirm the resident's documentation. Please note there may be an additional personal documentation from me. Patient: Jacob Stevenson Procedure Information Date/Time: 06/12/24 1500 Procedure: ICD DC new Location: [facility]ACTOR 1 / [facility] (Cath) Providers: Nicola Gorman MD Clinical information reviewed: Allergies Physical Exam Airway Mallampati: II Cardiovascular Dental Pulmonary Abdominal Anesthesia Plan ASA 3 other (Conscious sedation) intravenous induction Anesthetic plan and risks discussed with patient. Use of blood products discussed with patient who consented to blood products. Plan discussed with attending and fellow. Additional Equipment Requests Normal [facility] BASIC METABOLIC PANELon 05- Anion gap [Moles/Vol] 13 mmol/L Normal 7-20 [facility] Comment on above: Performed By: #### L AB15 ####[facility] (BEAKER)[address] [place] [address] Calcium [Mass/Vol] 9.5 mg/dL Normal 8.6-10.3 [facility] Comment on above: Performed By: #### L AB15 ####[facility] (BEAKER)[address] [place] [address] Chloride [Moles/Vol] 102 mmol/L Normal 98-107 [facility] Comment on above: Performed By: #### L [id number] ####[facility] (BANNER)[address] [place] [address] CO2 [Moles/Vol] 29 mmol/L Normal 21-31 [facility] Comment on above: Performed By: #### L [id number] ####[facility] ([facility])[address] [address] Creatinine [Mass/Vol] 1.08 mg/dL Normal 0.60-1.20 [facility] Comment on above: Performed By: #### L AB15 ####[facility] ([facility])[address] [place] [address] GLOMERULAR FILTRATION RATE ML/MIN/1.73 SQ M.PREDICTED 57.0 mL/min/1.73m*2 Low >60.0 [facility] Comment on above: Result Comment: The [facility]???s estimated glomerular filtration rate (eGFR) will no longer include consideration of race in its calculation. The National Kidney Foundation???s eGFR Task Force developed new recommendations for the estimation of the glomerular filtration rate in the [place] They recommend immediate implementation of the new equation refit without the race variable in all laboratories because the calculation does not include race. In addition to not including race in the calculation and reporting, it included diversity in its development, and has acceptable performance characteristics and potential consequences that do not disproportionately affect any one group of individuals. Performed By: #### L AB15 ####[facility] ([facility])[address] [address] Glucose [Mass/Vol] 80 mg/dL Normal 70-100 [facility] Comment on above: Performed By: #### L AB15 ####[facility] ([facility])[address] [address] Potassium [Moles/Vol] 4.3 mmol/L Normal 3.5-5.1 [facility] Comment on above: Performed By: #### L AB15 ####[facility] ([facility])[address] [place] [address] Sodium [Moles/Vol] 140 mmol/L Normal 136-145 [facility] Comment on above: Performed By: #### L AB15 ####[facility] ([facility])[address] [place] [address] Urea nitrogen [Mass/Vol] 23 mg/dL Normal 7-25 [facility] Comment on above: Performed By: #### L AB15 ####[facility] ([facility])[address] [place] [address] UREA NITROGEN/CREATININE (MASS RATIO) IN SER/PLAS 21.3 Normal [facility] Comment on above: Performed By: #### L AB15 ####[facility] ([facility])[address] [address] CBCon 06-12-2024 Erythrocyte distribution width (RBC) [Ratio] 13.2 % Normal 11.5-15.0 [facility] Comment on above: Performed By: #### L [id number] #### [facility] ([facility]) [address] [place] [address] ERYTHROCYTE MEAN CORPUSCULAR HEMOGLOBIN CONCENTRATION (G/DL) BY AUTOMATED 33.1 g/dL Normal 32.0-35.0 [facility] Comment on above: Performed By: #### L [id number] #### [facility] ([facility]) [address] [place] [address] Hematocrit (Bld) [Volume fraction] 41.4 % Normal 36.0-45.0 [facility] Comment on above: Performed By: #### L [id number] #### [facility] ([facility]) [address] [place] [address] Hemoglobin (Bld) [Mass/Vol] 13.7 g/dL Normal 12.0-15.0 [facility] Comment on above: Performed By: #### L [id number] #### [facility] ([facility]) [address] [place] [address] IMMATURE PLATELET FRACTION % 8.5 % High 0.8-6.3 [facility] Comment on above: Performed By: #### L [id number] #### [facility] ([facility]) [address] [place] [address] MCH (RBC) [Entitic mass] 28.6 pg Normal 27.0-33.0 [facility] Comment on above: Performed By: #### L [id number] #### [facility] ([facility]) [address] [place] [address] MCV (RBC) [Entitic vol] 86.4 fL Normal 82.0-98.0 [facility] Comment on above: Performed By: #### L [id number] #### [facility] ([facility]) [address] [place] [address] PLATELETS (10*3/UL) IN BLOOD AUTOMATED COUNT 185 10*3/uL Normal 150-400 [facility] Comment on above: Performed By: #### L [id number] #### [facility] ([facility]) [address] [place] [address] RBC (Bld) [#/Vol] 4.79 10*6/uL Normal 3.80-5.00 [facility] Comment on above: Performed By: #### L [id number] #### [facility] ([facility]) [address] [place] [address] WBC (Bld) [#/Vol] 9.64 10*3/uL Normal 4.00-10.60 [facility] Comment on above: Performed By: #### L [id number] #### [facility] ([facility]) [address] [place] [address] HPon 06-12-2024 --- Attestation signed by Nicola Gorman MD at 06/12/2024 5:03 PM By using the attestations below, the signing clinician agrees that I have read and verify that the documentation has been personally reviewed by me and ensure that the documentation accurately reflects the encounter. GC: I performed the schmitz portion(s) of the service and participated in the management and confirm the resident's documentation. Please note there may be an additional personal documentation from me. [facility] Reason for visit:ICD HPI: Jacob Stevenson is a 63 y.o. year old with past medical history of coronary artery disease, chronic HFrEF EF 25%, due to ischemic cardiomyopathy presents today for ICD placement for primary prevention, patient was evaluated with our heart failure team she has been maxed on GDMT, with EF remained low after discussing with the patient patient present today for ICD placement. She has been previously with [facility] PMH: Past Medical History: Diagnosis Date CHF (congestive heart failure) ([facility]) COPD (chronic obstructive pulmonary disease) ([facility]) Coronary artery disease Hypertension Hypothyroidism Myocardial infarction ([facility]) Stroke ([facility]) PSH: Past Surgical History: Procedure Laterality Date CARDIAC CATHETERIZATION SH: Social Determinants of Health Tobacco Use: Medium Risk (06/10/2024) Patient History Smoking Tobacco Use: Former Smokeless Tobacco Use: Never Passive Exposure: Not on file Alcohol Use: Not on file Financial Resource Strain: Low Risk (05/01/2024) Overall Financial Resource Strain (CARDIA) Difficulty of Paying Living Expenses: Not hard at all Food Insecurity: No Food Insecurity (05/01/2024) Hunger Vital Sign Worried About Running Out of Food in the Last Year: Never true Ran Out of Food in the Last Year: Not on file Transportation Needs: No Transportation Needs (05/01/2024) Transportation Lack of Transportation (Medical): No Lack of Transportation (Non-Medical): Not on file Physical Activity: Not on file Stress: Not on file Social Connections: Not on file Intimate Partner Violence: Unknown (05/01/2024) Humiliation, Afraid, Rape, and Kick questionnaire Fear of Current or Ex-Partner: No Emotionally Abused: Not on file Physically Abused: Not on file Sexually Abused: Not on file Depression: Not at risk (06/10/2024) PHQ-2 PHQ-2 Score: 0 Housing Stability: Low Risk (05/01/2024) Housing Stability Vital Sign Unable to Pay for Housing in the Last Year: No Number of Times Moved in the Last Year: Not on file Homeless in the Last Year: No Utilities: Not At Risk (05/01/2024) [facility] Utilities Threatened with loss of utilities: No Health Literacy: Not on file Allergies: Allergies Allergen Reactions Iodinated Contrast Media Shortness of breath and GI intolerance Sulfa (Sulfonamide Antibiotics) Anaphylaxis Weight: @WEIGHT@ Visit Vitals Smoking Status Former Meds: No current facility-administered medications on file prior to encounter. Current Outpatient Medications on File Prior to Encounter Medication Sig Dispense Refill alendronate (Fosamax) 70 mg tablet Take 70 mg by mouth every 7 (seven) days. Take in the morning with a full glass of water, on an empty stomach, and do not take anything else by mouth or lie down for the next 30 min. aspirin 325 mg tablet Take 325 mg by mouth in the morning. atorvastatin (Lipitor) 40 mg tablet Take 1 tablet (40 mg) by mouth at bedtime for 97 doses. 30 tablet 3 dapagliflozin propanediol (Farxiga) 10 mg Take 1 tablet (10 mg) by mouth in the morning for 94 doses. 30 tablet 3 furosemide (Lasix) 40 mg tablet Take 1 tablet (40 mg) by mouth in the morning for 98 doses. 30 tablet 3 levothyroxine (Synthroid, Levoxyl) 150 mcg tablet Take 150 mcg by mouth before breakfast. metoprolol succinate XL (Toprol-XL) 25 mg 24 hr tablet Take 25 mg by mouth in the morning. Do not crush or chew. nitroglycerin (Nitrostat) 0.[address] 1 tablet (0.4 mg) under the tongue every 5 (five) minutes if needed for chest pain. 90 tablet 12 pantoprazole (ProtoNix) 40 mg EC tablet Take 40 mg by mouth before breakfast. Do not crush, chew, or split. spironolactone (Aldactone) 25 mg tablet Take 0.5 tablets (12.5 mg) by mouth in the morning for 93 doses. 15 tablet 3 valsartan (Diovan) 40 mg tablet Take 1 tablet (40 mg) by mouth every 12 (twelve) hours for 189 doses. 60 tablet 3 ROS: Cardio Basic Cardiovascular Symptoms: no lightheadedness, no leg edema, no syncope, no orthopnea, no PND, no claudication, Constitutional Constitutional: no fever, no night sweats, no significant weight gain, no significant weight loss, no exercise intolerance Eyes Eyes: no dry eyes, no irritation, no vision change ENMT Ears: no (more content not included)... [facility] NURSNOTEon 06-12-2024 NURSNOTE RN educated pt on d/ c instructions. This included: site care, limited physical activity, resume normal diet, future appointments, medications, and moderate sedation instructions. RN educated pt on when to notify physician and when to go to the hospital. RN provided pt with arm sling and educated pt on importance of not lifting arm above 90 degrees, weight bearing more than 5lbs, and driving for the next 4 weeks. RN encouraged pt to voice any questions or concerns, and answered any questions or concerns if pt verbalized. Pt was wheeled off of unit with all of belongings. [facility] NURSNOTE Dr. Gorman notified of low SBP. Orders received. [facility] NURSNOTE CHG wipes and betadi ne nasal swabs completed. [facility] Orders Onlyon 06-12-2024 Orders Only [id number] Dayday Stevenson 1960 F Date Provider Department Center 06/12/2024 CHRISTIAN CASTRO [facility]ASC [facility]AS Family History Problem Relation Age of Onset Heart failure Mother Other Father Family Status - Relation Status Age at Mother Alive Father Sister Alive Brother [facility] 37on 06-10-2024 37 We recommend bypass surgery for the blockages you have in your heart. The surgery is called coronary artery bypass grafting (CABG). You also have severe heart failure, which means your heart is weak and unable to pump enough blood to the rest of the body. We measured this by something called ejection fraction (EF). Normal EF is 55 to 65%. Your EF is 20 to 25%. Due to your heart muscle being weak (20-25%), and your chronic medical conditions, we believe heart surgery would be high risk for you. We recommend referring you to the [facility], since they perform higher risk heart surgeries and you have been treated there before. We will speak to your edging machine catcher and discuss our recommendations. If he is agreeable, we will refer you to the [facility] and schedule an appointment for you. Our office will contact you within the next week with more information. Please call if you have any questions: [phone] You should continue all of your medications daily as prescribed. [facility] Follow-Upon 06-10-2024 Follow-Up [id number] ElvaDayday y B 1960 Date Provider Department Center 06/10/2024 [facility]E [facility] Family History Problem Relation Age of Onset Heart failure Mother Other Father Family Status - Relation Status Age at Mother Alive Father Sister Alive Brother Level of Service:30498 SC OFFICE/OUTPATIENT ESTABLISHED MOD MDM 30 MIN Reason for Visit and Comments: Hospital Follow-up [832] - MVD [facility] 36on 05-15-2024 36 Received epic chat f rom Brandie Hugo RN that patient cancelled her appointment with Dr. Kahn for follow up on 6 mm nodule in the upper outer left breast found on CT . Patient stated she does not have transportation to make the appointment and that she would reach out to her pcp to find a local physician for follow up. [facility] Documentationon 05-12-2024 Documentation [id number] ElvaTerr y B 1960 F Date Provider Department Center 05/12/2024 [id number] PEREZ [facility] Family History Problem Relation Age of Onset Heart failure Mother Other Father Family Status - Relation Status Age at Mother Alive Father Sister Alive Brother Reason for Visit and Comments: HF inpatient satisfaction survey sent. [Other] [facility] Office Visiton 05-12-2024 Follow-up visit [id number] ElvaTerr y B 1960 [facility] Provider Department Center 05/12/2024 KEVIN LARIOS RAD[facility] Family History Problem Relation Age of Onset Heart failure Mother Other Father Family Status - Relation Status Age at Mother Alive Father Sister Alive Brother Level of Service:00478 SC OFFICE/OUTPATIENT ESTABLISHED MOD MDM 30 MIN Normal [facility] Documentationon 05-10-2024 Documentation [id number] Dayday Stevenson 1960 F Date Provider Department Center 05/10/2024 [id number] MARQUEZ [facility]ART [facility] No family history on file Normal [facility] 36on 05-09-2024 36 Post Discharge Call Good morning, I am Geovanna Lazo RN a lead nurse from [facility]. I am calling you to follow up on your stay with us and make sure all of your questions have been answered. You will be receiving a survey either electronic or via mail and we always aim to receive 9???s and 10???s. If there is any reason you feel as though you cannot give us these scores please indicate that now. 1. How have you been feeling since being discharged from the hospital? I am doing okay! 2. Did you understand your discharge instructions when they were given to prior to leaving? Yes. Were you given an opportunity to ask questions? Yes 3. While a patient in the hospital, was your call light answered in a timely manner? Yes 4. Do have access to all medications that were prescribed to you at discharge? Yes 5. How would you rate your overall stay on a scale of 0-10, 10 being the best experience you have ever had. 6 6. Do you have any further questions you would like to discuss? No. Patient Name Jacob Stevenson Date 05/09/24 Normal [facility] Telephoneon 05-09-2024 Telephone [id number] Dayday Stevenson 1960 F Date Provider Department Center 05/09/2024 GEOVNANA RIVERA [facility] Medical C No family history on file Reason for Visit and Comments: Hospital Follow-up [832] Normal [facility] 30on 05-08-2024 30 The patient is Moderately Stable - Low risk of patient condition declining or worsening The patient's goals for the shift include comfort The clinical goals for the shift include stable vitals Normal [facility] 30 Daily Case Managemen t Update Multidisciplinary rounds have been completed. Barriers to Discharge: Pending clinical course and improvement in clinical condition. Contacted Shelli France for buffychantal. Left message-await confirmation of approval. HFrEF 20%. NSTEMI status post cardiac catheterization with multivessel coronary artery diseas. NEEDS: [facility] prior to discharge. Discharge plan is to return home when medically ready. 8:39 Spoke with jana France and jana has been ap[roved and he is planning on having a Nurse fit the patient around 15:00 today. Diet: Dietary Orders (From admission, onward) Start Ordered 05/05/24 0938 Special Kitchen Request Once Comments: Scrambled eggs, sausage, toast and decaf coffee pls & thanks :) 05/05/24 0938 05/02/24 1243 Regular Diet Heart Healthy/HTN, CABG,Stroke, (2gNA, low fat, low cholesterol) Diet effective now Question Answer Comment Room Service? Yes Fat restriction: Heart Healthy/HTN, CABG,Stroke, (2gNA, low fat, low cholesterol) 05/02/24 1243 Physician Expected Discharge Date: 05/08/2024 Discharge Delays: PT Six Click Score: 24 OT Six Click Score: PT Recommendations: OT Recommendations: New Consults: Normal [facility] BASIC METABOLIC PANELon 04-0 Anion gap [Moles/Vol] 9 mmol/L Normal 7-20 [facility] Comment on above: Performed By: #### L AB15 ####[facility] (BEAKER)[address] [place] [address] Calcium [Mass/Vol] 8.2 mg/dL Low 8.6-10.3 [facility] Comment on above: Performed By: #### L AB15 ####[facility] (BEAKER)[address] [place] [address] Chloride [Moles/Vol] 105 mmol/L Normal 98-107 [facility] Comment on above: Performed By: #### L AB15 ####[facility] (BEAKER)[address] [place] [address] CO2 [Moles/Vol] 25 mmol/L Normal 21-31 [facility] Comment on above: Performed By: #### L AB15 ####[facility] ([facility])[address] [place] [address] Creatinine [Mass/Vol] 1.17 mg/dL Normal 0.60-1.20 [facility] Comment on above: Performed By: #### L AB15 ####[facility] ([facility])[address] [address] GLOMERULAR FILTRATION RATE ML/MIN/1.73 SQ M.PREDICTED 51.8 mL/min/1.73m*2 Low >60.0 [facility] Comment on above: Result Comment: The [facility]???s estimated glomerular filtration rate (eGFR) will no longer include consideration of race in its calculation. The National Kidney Foundation???s eGFR Task Force developed new recommendations for the estimation of the glomerular filtration rate in the [place] They recommend immediate implementation of the new equation refit without the race variable in all laboratories because the calculation does not include race. In addition to not including race in the calculation and reporting, it included diversity in its development, and has acceptable performance characteristics and potential consequences that do not disproportionately affect any one group of individuals. Performed By: #### L [id number] ####[facility] ([facility])[address] [place] [address] Glucose [Mass/Vol] 89 mg/dL Normal 70-100 [facility] Comment on above: Performed By: #### L [id number] ####[facility] ([facility])[address] [place] [address] Potassium [Moles/Vol] 4.6 mmol/L Normal 3.5-5.1 [facility] Comment on above: Performed By: #### L [id number] ####[facility] ([facility])[address] [place] [address] Sodium [Moles/Vol] 134 mmol/L Low 136-145 [facility] Comment on above: Performed By: #### L [id number] ####[facility] ([facility])[address] [place] [address] Urea nitrogen [Mass/Vol] 27 mg/dL High 7-25 [facility] Comment on above: Performed By: #### L [id number] ####[facility] ([facility])[address] [place] [address] UREA NITROGEN/CREATININE (MASS RATIO) IN SER/PLAS 23.1 Normal [facility] Comment on above: Performed By: #### L [id number] ####[facility] ([facility])[address] [place] [address] CBC WITH AUTO DIFFERENTIALon 05-08-2024 Basophils (Bld) [#/Vol] 0.03 10*3/uL Normal 0.00-0.20 [facility] Comment on above: Performed By: #### L [id number] #### [facility] ([facility]) [address] [place] [address] Basophils/100 WBC (Bld) 0.4 % Normal 0.0-1.0 [facility] Comment on above: Performed By: #### L [id number] #### [facility] ([facility]) [address] [place] [address] Eosinophils (Bld) [#/Vol] 0.19 10*3/uL Normal 0.00-0.50 [facility] Comment on above: Performed By: #### L [id number] #### [facility] ([facility]) [address] [place] [address] Eosinophils/100 WBC (Bld) 2.2 % Normal 0.0-6.0 [facility] Comment on above: Performed By: #### L [id number] #### [facility] ([facility]) [address] [place] [address] Erythrocyte distribution width (RBC) [Ratio] 13.2 % Normal 11.5-15.0 [facility] Comment on above: Performed By: #### L [id number] #### [facility] ([facility]) [address] [place] [address] ERYTHROCYTE MEAN CORPUSCULAR HEMOGLOBIN CONCENTRATION (G/DL) BY AUTOMATED 32.4 g/dL Normal 32.0-35.0 [facility] Comment on above: Performed By: #### L [id number] #### [facility] ([facility]) [address] [place] [address] Hematocrit (Bld) [Volume fraction] 45.1 % High 36.0-45.0 [facility] Comment on above: Performed By: #### L [id number] #### [facility] ([facility]) [address] [address] Hemoglobin (Bld) [Mass/Vol] 14.6 g/dL Normal 12.0-15.0 [facility] Comment on above: Performed By: #### L [id number] #### [facility] ([facility]) [address] [address] Immature granulocytes (Bld) [#/Vol] 0.04 10*3/uL Normal 0.00-0.20 [facility] Comment on above: Performed By: #### L [id number] #### [facility] ([facility]) [address] [place] [address] Immature granulocytes/100 WBC (Bld) 0.5 % Normal 0.0-1.0 [facility] Comment on above: Performed By: #### L [id number] #### [facility] ([facility]) [address] [place] [address] Lymphocytes (Bld) [#/Vol] 2.41 10*3/uL Normal 1.20-4.00 [facility] Comment on above: Performed By: #### L [id number] #### [facility] ([facility]) [address] [place] [address] Lymphocytes/100 WBC (Bld) 28.5 % Normal 20.0-45.0 [facility] Comment on above: Performed By: #### L [id number] #### [facility] ([facility]) [address] [place] [address] MCH (RBC) [Entitic mass] 28.6 pg Normal 27.0-33.0 [facility] Comment on above: Performed By: #### L [id number] #### [facility] ([facility]) [address] [place] [address] MCV (RBC) [Entitic vol] 88.4 fL Normal 82.0-98.0 [facility] Comment on above: Performed By: #### L [id number] #### [facility] ([facility]) [address] [place] [address] Monocytes (Bld) [#/Vol] 0.80 10*3/uL Normal 0.10-1.00 [facility] Comment on above: Performed By: #### L [id number] #### [facility] ([facility]) [address] [place] [address] Monocytes/100 WBC (Bld) 9.5 % Normal 5.0-12.0 [facility] Comment on above: Performed By: #### L [id number] #### [facility] ([facility]) [address] [place] [address] Neutrophils (Bld) [#/Vol] 4.99 10*3/uL Normal 1.60-7.60 [facility] Comment on above: Performed By: #### L [id number] #### [facility] ([facility]) [address] [place] [address] Neutrophils/100 WBC (Bld) 58.9 % Normal 40.0-72.0 [facility] Comment on above: Performed By: #### L [id number] #### [facility] ([facility]) [address] [address] NRBC (PER 100 WBCS) BY AUTOMATED COUNT 0.0 % Normal 0 [facility] Comment on above: Performed By: #### L [id number] #### [facility] ([facility]) [address] [address] PLATELETS (10*3/UL) IN BLOOD AUTOMATED COUNT 204 10*3/uL Normal 150-400 [facility] Comment on above: Performed By: #### L [id number] #### [facility] ([facility]) [address] [place] [address] RBC (Bld) [#/Vol] 5.10 10*6/uL High 3.80-5.00 [facility] Comment on above: Performed By: #### L [id number] #### [facility] ([facility]) [address] [address] WBC (Bld) [#/Vol] 8.46 10*3/uL Normal 4.00-10.60 [facility] Comment on above: Performed By: #### L [id number] #### [facility] ([facility]) [address] [place] [address] DSon 05-08-2024 DS Admission Admitted 05/01/2024 for acute NSTEMI Discharge Diagnosis Acute systolic congestive heart failure (CMS/HCC) left ventricular ejection fraction 20% BNP 39/1 NYHA PCWP 37, low cardiac index stent to NSTEMI Hypertension COPD Hypothyroidism Breast nodule Left temporal hypodensity lesion Discharge Disposition Home or Self Care () Discharge Medications Your medication list START taking these medications Instructions Last Dose Given Next Dose Due atorvastatin 40 mg tablet Commonly known as: Lipitor Take 1 tablet (40 mg) by mouth at bedtime for 97 doses. dapagliflozin propanediol 10 mg Commonly known as: Farxiga Start taking on: May 09, 2024 Take 1 tablet (10 mg) by mouth in the morning for 94 doses. furosemide 40 mg tablet Commonly known as: Lasix Start taking on: May 09, 2024 Take 1 tablet (40 mg) by mouth in the morning for 98 doses. nitroglycerin 0.4 mg SL tablet Commonly known as: Nitrostat Place 1 tablet (0.4 mg) under the tongue every 5 (five) minutes if needed for chest pain. spironolactone 25 mg tablet Commonly known as: Aldactone Start taking on: May 09, 2024 Take 0.5 tablets (12.5 mg) by mouth in the morning for 93 doses. valsartan 40 mg tablet Commonly known as: Diovan Take 1 tablet (40 mg) by mouth every 12 (twelve) hours for 189 doses. CONTINUE taking these medications Instructions Last Dose Given Next Dose Due alendronate 70 mg tablet Commonly known as: Fosamax aspirin 325 mg tablet levothyroxine 150 mcg tablet Commonly known as: Synthroid, Levoxyl metoprolol succinate XL 25 mg 24 hr tablet Commonly known as: Toprol-XL pantoprazole 40 mg EC tablet Commonly known as: ProtoNix STOP taking these medications lisinopril 20 mg tablet Where to Get Your Medications These medications were sent to [facility] - [place], [place] - [address] [facility] [address] atorvastatin 40 mg tablet dapagliflozin propanediol 10 mg furosemide 40 mg tablet nitroglycerin 0.4 mg SL tablet spironolactone 25 mg tablet valsartan 40 mg tablet Activity Patient currently has no discharge activity orders Diet Allergies Iodinated contrast media and Sulfa (sulfonamide antibiotics) Hospital Course [facility] with new onset CHF and elevated troponin symptoms started tier and detonator woke her up from the sleep also had chest discomfort described as a heaviness in the middle of the chest noted to be hypoxic with O2 sats around 80 requiring with improvement in her pulse ox initial troponin was 0.39 BNP 04/13/2000 underwent cardiac workup showing left ventricular ejection fraction 30%, had CAT scan done for multivessel coronary artery disease also noted was 6 mm nodule upper outer left breast and 10 mm deep to the skin also had 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 Patient was put on LifeVest discharge Total time spent on discharge 45 minutes Pertinent Physical Exam At Time of Discharge Physical Exam Vitals reviewed. Constitutional: Appearance: Normal appearance. HENT: Head: Atraumatic. Mouth/Throat: Mouth: Mucous membranes are moist. Pharynx: Oropharynx is clear. Eyes: Extraocular Movements: Extraocular movements intact. Conjunctiva/sclera: Conjunctivae normal. Pupils: Pupils are equal, round, and reactive to light. Cardiovascular: Rate and Rhythm: Normal rate and regular rhythm. Heart sounds: Murmur heard. Pulmonary: Breath sounds: Normal breath sounds. Abdominal: General: Abdomen is flat. Bowel sounds are normal. Palpations: Abdomen is soft. Musculoskeletal: General: Normal range of motion. Cervical back: Normal range of motion and neck supple. Skin: General: Skin is warm and dry. Capillary Refill: Capillary refill takes 2 to 3 seconds. Neurological: General: No focal deficit present. Mental Status: She is alert. Mental status is at baseline. Psychiatric: Behavior: Behavior normal. Lab Results Labs Reviewed COMPREHENSIVE METABOLIC PANEL - Abnormal Result Value Sodium 138 Potassium 3.7 Chloride 104 CO2 24 Anion Gap 14 BUN 18 Creatinine 0.97 BUN/Creatinine Ratio 18.6 Glucose 162 (*) Calcium 8.7 AST 27 ALT (SGPT) 49 Alkaline Phosphatase 83 Total Protein 6.8 Albumin 4.4 Total Bilirubin 0.4 eGFR 64.8 B-TYPE NATRIURETIC PEPTIDE - Abnormal BNP 1,264 (*) CBC WITH AUTO DIFFERENTIAL - Abnormal Auto WBC 12.56 (*) RBC 4.49 Hemoglobin 12.7 Hematocrit 39.5 MCV 88.0 MCH 28.3 MCHC 32.2 RDW 13.3 Neutrophils Relative 90.1 (*) Lymphocytes Relative 7.3 (*) Monocytes Relative 1.8 (*) Eosinophils R (more content not included)... Normal [facility] 30on 05-07-2024 30 The patient is Moderately Stable - Low risk of patient condition declining or worsening The patient's goals for the shift include comfort The clinical goals for the shift include stable vitals Problem: Pain - Adult Goal: Verbalizes/displays adequate comfort level or baseline comfort level 05/07/20242019 by Romina Boudreaux RN Outcome: Progressing 05/07/20242018 by Romina Boudreaux RN Outcome: Progressing Problem: Safety - Adult Goal: Free from fall injury 05/07/20242019 by Romina Boudreaux RN Outcome: Progressing 05/07/20242018 by Romina Boudreaux RN Outcome: Progressing Problem: Discharge Planning Goal: Discharge to home or other facility with appropriate resources Outcome: Progressing Problem: Chronic Conditions and Co-morbidities Goal: Patient's chronic conditions and co-morbidity symptoms are monitored and maintained or improved Outcome: Progressing Normal [facility] 30 The patient is Moderately Stable - Low risk of patient condition declining or worsening The patient's goals for the shift include Comfort The clinical goals for the shift include VSS, safety Normal [facility] BASIC METABOLIC PANELon - Anion gap [Moles/Vol] 10 mmol/L Normal 7-20 [facility] Comment on above: Performed By: #### L [id number] ####[facility] ([facility])[address] [place] [address] Calcium [Mass/Vol] 8.7 mg/dL Normal 8.6-10.3 [facility] Comment on above: Performed By: #### L [id number] ####[facility] ([facility])[address] [place] [address] Chloride [Moles/Vol] 101 mmol/L Normal 98-107 [facility] Comment on above: Performed By: #### L [id number] ####[facility] ([facility])[address] [place] [address] CO2 [Moles/Vol] 29 mmol/L Normal 21-31 [facility] Comment on above: Performed By: #### L [id number] ####[facility] ([facility])[address] [place] [address] Creatinine [Mass/Vol] 1.40 mg/dL High 0.60-1.20 [facility] Comment on above: Performed By: #### L [id number] ####[facility] ([facility])[address] [facility] [address] GLOMERULAR FILTRATION RATE ML/MIN/1.73 SQ M.PREDICTED 41.8 mL/min/1.73m*2 Low >60.0 [facility] Comment on above: Result Comment: The [facility]???s estimated glomerular filtration rate (eGFR) will no longer include consideration of race in its calculation. The [employer]???s eGFR Task Force developed new recommendations for the estimation of the glomerular filtration rate in the [place] They recommend immediate implementation of the new equation refit without the race variable in all laboratories because the calculation does not include race. In addition to not including race in the calculation and reporting, it included diversity in its development, and has acceptable performance characteristics and potential consequences that do not disproportionately affect any one group of individuals. Performed By: #### L [id number] ####[facility] ([facility])[address] [place] [address] Glucose [Mass/Vol] 99 mg/dL Normal 70-100 [facility] Comment on above: Performed By: #### L [id number] ####[facility] ([facility])[address] [address] Potassium [Moles/Vol] 4.6 mmol/L Normal 3.5-5.1 [facility] Comment on above: Performed By: #### L [id number] ####[facility] ([facility])[address] [place] [address] Sodium [Moles/Vol] 135 mmol/L Low 136-145 [facility] Comment on above: Performed By: #### L [id number] ####[facility] ([facility])[address] [place] [address] Urea nitrogen [Mass/Vol] 32 mg/dL High 7-25 [facility] Comment on above: Performed By: #### L [id number] ####[facility] ([facility])[address] [place] [address] UREA NITROGEN/CREATININE (MASS RATIO) IN SER/PLAS 22.9 Normal [facility] Comment on above: Performed By: #### L [id number] ####[facility] ([facility])[address] [place] [address] CBC WITH AUTO DIFFERENTIALon 05-07-2024 Basophils (Bld) [#/Vol] 0.06 10*3/uL Normal 0.00-0.20 [facility] Comment on above: Performed By: #### L [id number] ####[facility] ([facility])[address] [place] [address] Basophils/100 WBC (Bld) 0.6 % Normal 0.0-1.0 [facility] Comment on above: Performed By: #### L [id number] ####[facility] ([facility])[address] [place] [address] Eosinophils (Bld) [#/Vol] 0.24 10*3/uL Normal 0.00-0.50 [facility] Comment on above: Performed By: #### L [id number] ####[facility] ([facility])[address] [place] [address] Eosinophils/100 WBC (Bld) 2.4 % Normal 0.0-6.0 [facility] Comment on above: Performed By: #### L [id number] ####[facility] ([facility])[address] [place] [address] Erythrocyte distribution width (RBC) [Ratio] 13.3 % Normal 11.5-15.0 [facility] Comment on above: Performed By: #### L [id number] ####[facility] ([facility])[address] [address] ERYTHROCYTE MEAN CORPUSCULAR HEMOGLOBIN CONCENTRATION (G/DL) BY AUTOMATED 32.2 g/dL Normal 32.0-35.0 [facility] Comment on above: Performed By: #### L [id number] ####[facility] ([facility])[address] [address] Hematocrit (Bld) [Volume fraction] 46.3 % High 36.0-45.0 [facility] Comment on above: Performed By: #### L [id number] ####[facility] ([facility])[address] [place] [address] Hemoglobin (Bld) [Mass/Vol] 14.9 g/dL Normal 12.0-15.0 [facility] Comment on above: Performed By: #### L [id number] ####[facility] ([facility])[address] [place] [address] Immature granulocytes (Bld) [#/Vol] 0.10 10*3/uL Normal 0.00-0.20 [facility] Comment on above: Performed By: #### L [id number] ####[facility] ([facility])[address] [address] Immature granulocytes/100 WBC (Bld) 1.0 % Normal 0.0-1.0 [facility] Comment on above: Performed By: #### L [id number] ####[facility] ([facility])[address] [place] [address] Lymphocytes (Bld) [#/Vol] 2.82 10*3/uL Normal 1.20-4.00 [facility] Comment on above: Performed By: #### L [id number] ####[facility] ([facility])[address] [place] [address] Lymphocytes/100 WBC (Bld) 28.4 % Normal 20.0-45.0 [facility] Comment on above: Performed By: #### L [id number] ####[facility] ([facility])[address] [place] [address] MCH (RBC) [Entitic mass] 28.4 pg Normal 27.0-33.0 [facility] Comment on above: Performed By: #### L [id number] ####[facility] ([facility])[address] [place] [address] MCV (RBC) [Entitic vol] 88.4 fL Normal 82.0-98.0 [facility] Comment on above: Performed By: #### L [id number] ####[facility] ([facility])[address] [place] [address] Monocytes (Bld) [#/Vol] 0.85 10*3/uL Normal 0.10-1.00 [facility] Comment on above: Performed By: #### L [id number] ####[facility] ([facility])[address] [place] [address] Monocytes/100 WBC (Bld) 8.6 % Normal 5.0-12.0 [facility] Comment on above: Performed By: #### L [id number] ####[facility] ([facility])[address] [place] [address] Neutrophils (Bld) [#/Vol] 5.87 10*3/uL Normal 1.60-7.60 [facility] Comment on above: Performed By: #### L [id number] ####[facility] ([facility])[address] [place] [address] Neutrophils/100 WBC (Bld) 59.0 % Normal 40.0-72.0 [facility] Comment on above: Performed By: #### L [id number] ####[facility] ([facility])[address] [place] [address] NRBC (PER 100 WBCS) BY AUTOMATED COUNT 0.0 % Normal 0 [facility] Comment on above: Performed By: #### L [id number] ####[facility] ([facility])[address] [place] [address] PLATELETS (10*3/UL) IN BLOOD AUTOMATED COUNT 207 10*3/uL Normal 150-400 [facility] Comment on above: Performed By: #### L [id number] ####[facility] ([facility])[address] [place] [address] RBC (Bld) [#/Vol] 5.24 10*6/uL High 3.80-5.00 [facility] Comment on above: Performed By: #### L [id number] ####[facility] ([facility])[address] [place] [address] WBC (Bld) [#/Vol] 9.94 10*3/uL Normal 4.00-10.60 [facility] Comment on above: Performed By: #### L [id number] ####[facility] ([facility])[address] [place] [address] 30on 05-06-2024 30 The patient is Moderately Stable - Low risk of patient condition declining or worsening The patient's goals for the shift include omfort and rest The clinical goals for the shift include stable vitals; safety; comfort Over the shift, the patient continued to make progress toward the following goals. Normal [facility] 30 Brain MRI negative f or acute ischemia. 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 Theses malformations are usually not a problem. Pt does not need a cerebral angiogram. Beulah Boateng DNP Normal [facility] 30 Problem: Pain - Adul t Goal: Verbalizes/displays adequate comfort level or baseline comfort level Outcome: Progressing Flowsheets (Taken 05/06/2024 1031) Verbalizes/displays adequate comfort level or baseline comfort level: Encourage patient to monitor pain and request assistance Assess pain using appropriate pain scale Administer analgesics based on type and severity of pain and evaluate response Problem: Safety - Adult Goal: Free from fall injury Outcome: Progressing Flowsheets (Taken 05/06/2024 075) Free from fall injury: Assess patient frequently for physical needs Independence fall precautions as indicated by assessment Problem: Chronic Conditions and Co-morbidities Goal: Patient's chronic conditions and co-morbidity symptoms are monitored and maintained or improved Outcome: Progressing Flowsheets (Taken 05/06/2024 075) Care Plan - Patient's Chronic Conditions and Co-Morbidity Symptoms are Monitored and Maintained or Improved: Monitor and assess patient's chronic conditions and comorbid symptoms for stability, deterioration, or improvement Problem: Neurosensory - Adult Goal: Achieves stable or improved neurological status Outcome: Progressing Flowsheets (Taken 05/06/2024749) Achieves stable or improved neurological status: Assess for and report changes in neurological status Initiate measures to prevent increased intracranial pressure Maintain blood pressure and fluid volume within ordered parameters to optimize cerebral perfusion and minimize risk of hemorrhage Goal: Absence of seizures Outcome: Progressing Flowsheets (Taken 05/06/2024749) Absence of seizures: Monitor for seizure activity. If seizure occurs, document type and location of movements and any associated apnea Goal: Remains free of injury related to seizures activity Outcome: Progressing Flowsheets (Taken 05/06/2024749) Remains free of injury related to seizure activity: Maintain airway, patient safety and administer oxygen as ordered Monitor patient for seizure activity, document and report duration and description of seizure to Licensed Independent Practitioner Goal: Achieves maximal functionality and self care Outcome: Progressing Flowsheets (Taken 05/06/2024 075) Achieves maximal functionality and self care: Monitor swallowing and airway patency with patient fatigue and changes in neurological status The patient is Moderately Stable - Low risk of patient condition declining or worsening The patient's goals for the shift include MRI The clinical goals for the shift include stable vitals Normal [facility] 30 The patient is Moderately Stable - Low risk of patient condition declining or worsening The patient's goals for the shift include sleep The clinical goals for the shift include stable vitals; safety; comfort Over the shift, the patient continued to make progress toward the following goals. Normal [facility] BASIC METABOLIC PANELon 04-0 Anion gap [Moles/Vol] 10 mmol/L Normal 7-20 [facility] Comment on above: Performed By: #### L [id number] ####[facility] ([facility])[address] [place] [address] Calcium [Mass/Vol] 9.1 mg/dL Normal 8.6-10.3 [facility] Comment on above: Performed By: #### L [id number] ####[facility] (BEAKER)[address] [place] [address] Chloride [Moles/Vol] 99 mmol/L Normal 98-107 [facility] Comment on above: Performed By: #### L [id number] ####[facility] (BEAKER)[address] [address] CO2 [Moles/Vol] 34 mmol/L High 21-31 [facility] Comment on above: Performed By: #### L [id number] ####[facility] (BEAKER)[address] [address] Creatinine [Mass/Vol] 0.85 mg/dL Normal 0.60-1.20 [facility] Comment on above: Performed By: #### L [id number] ####[facility] (BEAKER)[address] [place] [address] GLOMERULAR FILTRATION RATE ML/MIN/1.73 SQ M.PREDICTED 76.0 mL/min/1.73m*2 Normal >60.0 [facility] Comment on above: Result Comment: The [facility]???s estimated glomerular filtration rate (eGFR) will no longer include consideration of race in its calculation. The National Kidney Foundation???s eGFR Task Force developed new recommendations for the estimation of the glomerular filtration rate in the [place] They recommend immediate implementation of the new equation refit without the race variable in all laboratories because the calculation does not include race. In addition to not including race in the calculation and reporting, it included diversity in its development, and has acceptable performance characteristics and potential consequences that do not disproportionately affect any one group of individuals. Performed By: #### L [id number] ####[facility] ([facility]ANNER)[address] [address] Glucose [Mass/Vol] 174 mg/dL High 70-100 [facility] Comment on above: Performed By: #### L [id number] ####[facility] ([facility])[address] [address] Potassium [Moles/Vol] 4.5 mmol/L Normal 3.5-5.1 [facility] Comment on above: Performed By: #### L [id number] ####[facility] ([facility])[address] [place] [address] Sodium [Moles/Vol] 138 mmol/L Normal 136-145 [facility] Comment on above: Performed By: #### L [id number] ####[facility] ([facility])[address] [place] [address] Urea nitrogen [Mass/Vol] 28 mg/dL High 7-25 [facility] Comment on above: Performed By: #### L [id number] ####[facility] ([facility])[address] [place] [address] UREA NITROGEN/CREATININE (MASS RATIO) IN SER/PLAS 32.9 Normal [facility] Comment on above: Performed By: #### L [id number] ####[facility] ([facility])[address] [place] [address] CBC WITH AUTO DIFFERENTIALon 05-06-2024 Basophils (Bld) [#/Vol] 0.03 10*3/uL Normal 0.00-0.20 [facility] Comment on above: Performed By: #### L [id number] ####[facility] ([facility])[address] [address] Basophils/100 WBC (Bld) 0.2 % Normal 0.0-1.0 [facility] Comment on above: Performed By: #### L [id number] ####[facility] ([facility])[address] [address] Eosinophils (Bld) [#/Vol] 0.00 10*3/uL Normal 0.00-0.50 [facility] Comment on above: Performed By: #### L [id number] ####[facility] (BEAKER)[address] [place] [address] Eosinophils/100 WBC (Bld) 0.0 % Normal 0.0-6.0 [facility] Comment on above: Performed By: #### L [id number] ####[facility] (BEAKER)[address] [address] Erythrocyte distribution width (RBC) [Ratio] 15.0 % Normal 11.5-15.0 [facility] Comment on above: Performed By: #### L [id number] ####[facility] (BEAKER)[address] [address] ERYTHROCYTE MEAN CORPUSCULAR HEMOGLOBIN CONCENTRATION (G/DL) BY AUTOMATED 31.2 g/dL Low 32.0-35.0 [facility] Comment on above: Performed By: #### L [id number] ####[facility] (BEAKER)[address] [address] Hematocrit (Bld) [Volume fraction] 39.1 % Normal 36.0-45.0 [facility] Comment on above: Performed By: #### L [id number] ####[facility] (BEAKER)[address] [address] Hemoglobin (Bld) [Mass/Vol] 12.2 g/dL Normal 12.0-15.0 [facility] Comment on above: Performed By: #### L [id number] ####[facility] (BEAKER)[address] [address] Immature granulocytes (Bld) [#/Vol] 0.11 10*3/uL Normal 0.00-0.20 [facility] Comment on above: Performed By: #### L [id number] ####[facility] (BEAKER)[address] [address] Immature granulocytes/100 WBC (Bld) 0.6 % Normal 0.0-1.0 [facility] Comment on above: Performed By: #### L [id number] ####[facility] ([facility])[address] [place] [address] Lymphocytes (Bld) [#/Vol] 0.34 10*3/uL Low 1.20-4.00 [facility] Comment on above: Performed By: #### L [id number] ####[facility] ([facility])[address] [address] Lymphocytes/100 WBC (Bld) 1.9 % Low 20.0-45.0 [facility] Comment on above: Performed By: #### L [id number] ####[facility] ([facility])[address] [address] MCH (RBC) [Entitic mass] 28.5 pg Normal 27.0-33.0 [facility] Comment on above: Performed By: #### L [id number] ####[facility] ([facility])[address] [address] MCV (RBC) [Entitic vol] 91.4 fL Normal 82.0-98.0 [facility] Comment on above: Performed By: #### L [id number] ####[facility] ([facility])[address] [address] Monocytes (Bld) [#/Vol] 0.44 10*3/uL Normal 0.10-1.00 [facility] Comment on above: Performed By: #### L [id number] ####[facility] (BEAKER)[address] [place] [address] Monocytes/100 WBC (Bld) 2.4 % Low 5.0-12.0 [facility] Comment on above: Performed By: #### L [id number] ####[facility] (BEAKER)[address] [place] [address] Neutrophils (Bld) [#/Vol] 17.07 10*3/uL High 1.60-7.60 [facility] Comment on above: Performed By: #### L [id number] ####[facility] ([facility])[address] [place] [address] Neutrophils/100 WBC (Bld) 94.9 % High 40.0-72.0 [facility] Comment on above: Performed By: #### L [id number] ####[facility] ([facility])[address] [address] NRBC (PER 100 WBCS) BY AUTOMATED COUNT 0.0 % Normal 0 [facility] Comment on above: Performed By: #### L [id number] ####[facility] ([facility])[address] [address] PLATELETS (10*3/UL) IN BLOOD AUTOMATED COUNT 308 10*3/uL Normal 150-400 [facility] Comment on above: Performed By: #### L [id number] ####[facility] ([facility])[address] [address] RBC (Bld) [#/Vol] 4.28 10*6/uL Normal 3.80-5.00 [facility] Comment on above: Performed By: #### L [id number] ####[facility] ([facility])[address] [address] WBC (Bld) [#/Vol] 17.99 10*3/uL High 4.00-10.60 [facility] Comment on above: Performed By: #### L [id number] ####[facility] ([facility])[address] [address] 30on 05-05-2024 30 Problem: Pain - Adul t Goal: Verbalizes/displays adequate comfort level or baseline comfort level Outcome: Progressing Problem: Safety - Adult Goal: Free from fall injury Outcome: Progressing Problem: Discharge Planning Goal: Discharge to home or other facility with appropriate resources Outcome: Progressing Problem: Chronic Conditions and Co-morbidities Goal: Patient's chronic conditions and co-morbidity symptoms are monitored and maintained or improved Outcome: Progressing Problem: Neurosensory - Adult Goal: Achieves stable or improved neurological status Outcome: Progressing Goal: Absence of seizures Outcome: Progressing Goal: Remains free of injury related to seizures activity Outcome: Progressing Goal: Achieves maximal functionality and self care Outcome: Progressing Problem: Respiratory - Adult Goal: Achieves optimal ventilation and oxygenation Outcome: Progressing Problem: Cardiovascular - Adult Goal: Maintains optimal cardiac output and hemodynamic stability Outcome: Progressing Goal: Absence of cardiac dysrhythmias or at baseline Outcome: Progressing Problem: Skin/Tissue Integrity - Adult Goal: Skin integrity remains intact Outcome: Progressing Goal: Incisions, wounds, or drain sites healing without S/S of infection Outcome: Progressing Goal: Oral mucous membranes remain intact Outcome: Progressing Problem: Musculoskeletal - Adult Goal: Return mobility to safest level of function Outcome: Progressing Goal: Maintain proper alignment of affected body part Outcome: Progressing Goal: Return ADL status to a safe level of function Outcome: Progressing Problem: Gastrointestinal - Adult Goal: Minimal or absence of nausea and vomiting Outcome: Progressing Goal: Maintains or returns to baseline bowel function Outcome: Progressing Goal: Maintains adequate nutritional intake Outcome: Progressing Goal: Establish and maintain optimal ostomy function Outcome: Progressing Problem: Genitourinary - Adult Goal: Absence of urinary retention Outcome: Progressing Goal: Urinary catheter remains patent Outcome: Progressing Problem: Infection - Adult Goal: Absence of infection at discharge Outcome: Progressing Goal: Absence of infection during hospitalization Outcome: Progressing Goal: Absence of fever/infection during anticipated neutropenic period Outcome: Progressing Problem: Metabolic/Fluid and Electrolytes - Adult Goal: Electrolytes maintained within normal limits Outcome: Progressing Goal: Hemodynamic stability and optimal renal function maintained Outcome: Progressing Goal: Glucose maintained within prescribed range Outcome: Progressing Problem: Hematologic - Adult Goal: Maintains hematologic stability Outcome: Progressing Normal [facility] 30 The patient is Moderately Stable - Low risk of patient condition declining or worsening The patient's goals for the shift include comfort and sleep The clinical goals for the shift include stable vitals; safety; comfort Over the shift, the patient continued to make progress toward the following goals. Normal [facility] CONSULTon 05-05-2024 CONSULT Stroke/ Neurointerventional Consult Note DATE OF ADMISSION 05/01/2024 8:12 PM REASON FOR CONSULTATION:R temporal hyperdensity REFERRING PHYSICIAN: MD Hector PCP: Magdalene Sky MD ASSESSMENT/ PLAN: Jacob Stevenson is a 63 y.o. female who presented with exertional dyspnea. There is a history of prior CVA many years ago. Examination demonstrates no acute deficits. CT brain revealed R temporal hyperdensity Impression: R temporal hyperdensity, MRI pending Filiberto Clark MD Stroke-Interventional Fellow Thank you for your consult! If you have any questions, please contact the stroke physician origination specialist. HISTORY OF PRESENT ILLNESS: Jacob Stevenson is a 63 y.o. White female who presents with exertional dyspnea. She has a history of CVAx2 about 8-10 years ago however, details are unclear. She additionally has COPD, tobacco use, and hypothyroidism. We were consulted for CT brain findings. LKW: currently asymptomatic NIHSS: 0 Glucose: 92 Baseline Modified Augusta Scale: 1 PROBLEM: Principal Problem: Acute systolic congestive heart failure (CMS/HCC) Active Problems: History of CVA (cerebrovascular accident) Primary hypertension COPD (chronic obstructive pulmonary disease) (CMS/HCC) Acquired hypothyroidism GERD (gastroesophageal reflux disease) Coronary artery disease involving [place] coronary artery of [place] heart without angina pectoris PAST MEDICAL HISTORY: History reviewed. No pertinent past medical history. PAST SURGICAL HISTORY: History reviewed. No pertinent surgical history. ALLERGIES: Allergies Allergen Reactions Iodinated Contrast Media Shortness of breath and GI intolerance Sulfa (Sulfonamide Antibiotics) Anaphylaxis HOME MEDICATIONS: Medications Prior to Admission Medication Sig Dispense Refill Last Dose alendronate (Fosamax) 70 mg tablet Take 70 mg by mouth every 7 (seven) days. Take in the morning with a full glass of water, on an empty stomach, and do not take anything else by mouth or lie down for the next 30 min. aspirin 325 mg tablet Take 325 mg by mouth in the morning. levothyroxine (Synthroid, Levoxyl) 150 mcg tablet Take 150 mcg by mouth before breakfast. lisinopril 20 mg tablet Take 20 mg by mouth in the morning. metoprolol succinate XL (Toprol-XL) 25 mg 24 hr tablet Take 25 mg by mouth in the morning. Do not crush or chew. pantoprazole (ProtoNix) 40 mg EC tablet Take 40 mg by mouth before breakfast. Do not crush, chew, or split. SOCIAL HISTORY: Social History Socioeconomic History Marital status: Spouse name: Not on file Number of children: Not on file Years of education: Not on file Highest education level: Not on file Occupational History Not on file Tobacco Use Smoking status: Every Day Current packs/day: 0.50 Average packs/day: 0.5 packs/day for 30.2 years (15.1 ttl pk-yrs) Types: Cigarettes Start date: 1994 Smokeless tobacco: Never Substance and Sexual Activity Alcohol use: Not on file Drug use: Not on file Sexual activity: Not on file Other Topics Concern Not on file Social History Narrative Not on file Social Determinants of Health Financial Resource Strain: Low Risk (05/01/2024) Overall Financial Resource Strain (CARDIA) Difficulty of Paying Living Expenses: Not hard at all Food Insecurity: No Food Insecurity (05/01/2024) Hunger Vital Sign Worried About Running Out of Food in the Last Year: Never true Ran Out of Food in the Last Year: Not on file Transportation Needs: No Transportation Needs (05/01/2024) Transportation Lack of Transportation (Medical): No Lack of Transportation (Non-Medical): Not on file Physical Activity: Not on file Stress: Not on file Social Connections: Not on file Intimate Partner Violence: Unknown (05/01/2024) Humiliation, Afraid, Rape, and Kick questionnaire Fear of Current or Ex-Partner: No Emotionally Abused: Not on file Physically Abused: Not on file Sexually Abused: Not on file Housing Stability: Low Risk (05/01/2024) Housing Stability Vital Sign Unable to Pay for Housing in the Last Year: No Number of Times Moved in the Last Year: Not on file Homeless in the Last Year: No FAMILY HISTORY: No family history on file. REVIEW OF SYSTEMS: Pertinent items are noted in HPI. PHYSICAL EXAM: Vital Signs: Blood pressure 122/89, pulse 96, temperature 36.6 ???C (97.9 ???F), temperature source Temporal, resp. rate 24, height 1.524 m (5'), weight 70.2 kg (154 lb 12.8 oz), SpO2 96%. Respiratory Source: @RESPSOURCE@ Admission Weight: Weight: 73.6 kg (162 lb 3.2 oz) General Appearance: Healthy, alert, active, cooperative, and in no distress Head: normocephalic, without obvious abnormality, atraumatic Eyes: conjunctivae/corneas clear. PERRL, EOM's intact. Fundi benign. ENT: ENT exam prieto (more content not included)... Normal [facility] HIGH SENSITIVITY TROPONIN Io n 05-05-2024 HS TROPONIN I (NG/L) 25 ng/L High <15 [facility] Comment on above: Performed By: #### L [id number] ####[facility] (BEAKER)[address] [place] [address] LIPID PANELon 05-05-2024 CHOL/HDL 6.6 mg/dL Normal [facility] Comment on above: Performed By: #### L [id number] ####[facility] (BEAKER)[address] [place] [address] Cholesterol [Mass/Vol] 237 mg/dL High 120-200 [facility] Comment on above: Performed By: #### L [id number] ####[facility] (BEAKER)[address] [place] [address] CHOLESTEROL IN LDL (MG/DL) IN SERUM OR PLASMA BY CALCULATION Normal [facility] Comment on above: Result Comment: Calc ulated LDL invalid, triglycerides >400 mg/dl Performed By: #### L [id number] ####[facility] (BEAKER)[address] [place] [address] Magnesium [Mass/Vol] 514 mg/dL High <150 [facility] Comment on above: Result Comment: TRIG LYCERIDE REFERENCE RANGE: 20 YEARS AND OLDER CARDIOVASCULAR RISK LESS THAN 150 mg/dL LOW RISK 150 TO 199 mg/dL BORDERLINE RISK 200 mg/dL AND GREATER HIGH RISK Performed By: #### L [id number] ####[facility] (BEAKER)[address] [place] [address] Magnesium [Mass/Vol] 36 mg/dL Normal 23-92 [facility] Comment on above: Performed By: #### L [id number] ####[facility] (BEAKER)[address] [place] [address] NON HDL CHOL. (LDL+VLDL) 201 Normal [facility] Comment on above: Performed By: #### L [id number] ####[facility] (BEAKER)[address] [place] [address] TOTAL VLDL-C 103 mg/dL High 0-40 [facility] Comment on above: Performed By: #### L [id number] ####[facility] ([facility])[address] [place] [address] MR BRAIN W AND WO CONTRASTon 05-05-2024 MR BRAIN W AND WO CONTRAST History: Intraparenchymal hemorrhage. Stroke. Generalized weakness Procedure: Standard MR of the brain was initially performed without contrast. Then, after intravenous administration of 15 mL of ProHance gadolinium contrast without reported complication, MR of the brain was obtained with contrast. Findings: Comparison is made with the 05/04/2024 CT of the brain. MR of the brain before and after contrast demonstrates that the volumes of the ventricular system, sulci, basilar cisterns are within the broad limits of normal for the patient's stated age of 63 years. FLAIR images demonstrate significant white matter signal abnormality mainly in the deep white matter of the supratentorial brain but also within the maurizio and cerebellum. There is no definite evidence of prior large vessel infarct or an acute infarct. T2 images demonstrate a 5 mm area of increased T2 signal within the great like configuration surrounded by a rim of diminished T2 signal. 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 Sagittal midline images demonstrate that the craniovertebral junction, sella turcica and third and fourth ventricles are unremarkable. There is a lesion in the body of the corpus callosum at the callosal septal interface. Small mucous retention cyst is present There is no pathologic contrast enhancement within the brain otherwise. 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 In view of the faint contrast enhancement within the surrounding brain, there may be increased pressure within the venous vascular anomaly. There is no evidence of an acute infarct. White matter signal abnormalities are significantly advanced for age and are even present within the cerebellar white matter. While this may be due to severe small vessel disease in a 63-year-old, other possibilities such as demyelinating disease, inflammation and vasculitis should be considered. Electronically signed: Dg Brian. 9 Invalid Interpretation Code [facility] NURSNOTEon 05-05-[address] and CT S urg notified of pt's nausea, chest pain, back pain, and Fluttering in her chest . See orders. 1325: offered pt nitroglycerin for her chest pain and pt states I think it's getting better now and moving more to the right side and pointed to her RUQ of abdomen. States she does not want the nitroglycerin but will call out if her chest pain returns. Normal [facility] 30on 05-04-2024 30 The patient is Moderately Stable - Low risk of patient condition declining or worsening The patient's goals for the shift include rest The clinical goals for the shift include vss Over the shift, the patient did make progress toward the following goals. Barriers to progression include n/a. Recommendations to address these barriers include n/a. Normal [facility] BASIC METABOLIC PANELon - Anion gap [Moles/Vol] 15 mmol/L Normal 7-20 [facility] Comment on above: Performed By: #### L [id number] #### [facility] ([facility]AKER) [address] [place] [address] Calcium [Mass/Vol] 9.4 mg/dL Normal 8.6-10.3 [facility] Comment on above: Performed By: #### L [id number] #### [facility] ([facility]AKER) [address] [place] [address] Chloride [Moles/Vol] 95 mmol/L Low 98-107 [facility] Comment on above: Performed By: #### L [id number] #### [facility] ([facility]ER) [address] [place] [address] CO2 [Moles/Vol] 29 mmol/L Normal 21-31 [facility] Comment on above: Performed By: #### L [id number] #### [facility] ([facility]) [address] [place] [address] Creatinine [Mass/Vol] 1.18 mg/dL Normal 0.60-1.20 [facility] Comment on above: Performed By: #### L [id number] #### [facility] ([facility]) [address] [place] [address] GLOMERULAR FILTRATION RATE ML/MIN/1.73 SQ M.PREDICTED 51.3 mL/min/1.73m*2 Low >60.0 [facility] Comment on above: Result Comment: The [facility]???s estimated glomerular filtration rate (eGFR) will no longer include consideration of race in its calculation. The National Kidney Foundation???s eGFR Task Force developed new recommendations for the estimation of the glomerular filtration rate in the [place] They recommend immediate implementation of the new equation refit without the race variable in all laboratories because the calculation does not include race. In addition to not including race in the calculation and reporting, it included diversity in its development, and has acceptable performance characteristics and potential consequences that do not disproportionately affect any one group of individuals. Performed By: #### L [id number] #### [facility] ([facility]) [address] [place] [address] Glucose [Mass/Vol] 92 mg/dL Normal 70-100 [facility] Comment on above: Performed By: #### L [id number] #### [facility] ([facility]) [address] [place] [address] Potassium [Moles/Vol] 3.8 mmol/L Normal 3.5-5.1 [facility] Comment on above: Performed By: #### L [id number] #### [facility] ([facility]) [address] [address] Sodium [Moles/Vol] 135 mmol/L Low 136-145 [facility] Comment on above: Performed By: #### L [id number] #### [facility] ([facility]) [address] [place] [address] Urea nitrogen [Mass/Vol] 32 mg/dL High 7-25 [facility] Comment on above: Performed By: #### L [id number] #### [facility] ([facility]) [address] [place] [address] UREA NITROGEN/CREATININE (MASS RATIO) IN SER/PLAS 27.1 Normal [facility] Comment on above: Performed By: #### L [id number] #### [facility] ([facility]) [address] [place] [address] CBC WITH AUTO DIFFERENTIALon 05-04-2024 Erythrocyte distribution width (RBC) [Ratio] 13.3 % Normal 11.5-15.0 [facility] Comment on above: Performed By: #### L [id number] #### [facility] ([facility]) [address] [place] [address] ERYTHROCYTE MEAN CORPUSCULAR HEMOGLOBIN CONCENTRATION (G/DL) BY AUTOMATED 32.0 g/dL Normal 32.0-35.0 [facility] Comment on above: Performed By: #### L [id number] #### [facility] ([facility]) [address] [place] [address] Hematocrit (Bld) [Volume fraction] 50.9 % High 36.0-45.0 [facility] Comment on above: Performed By: #### L [id number] #### [facility] ([facility]) [address] [place] [address] Hemoglobin (Bld) [Mass/Vol] 16.3 g/dL High 12.0-15.0 [facility] Comment on above: Performed By: #### L [id number] #### [facility] ([facility]) [address] [place] [address] IMMATURE PLATELET FRACTION % 15.1 % High 0.8-6.3 [facility] Comment on above: Performed By: #### L [id number] #### [facility] ([facility]) [address] [place] [address] MCH (RBC) [Entitic mass] 28.3 pg Normal 27.0-33.0 [facility] Comment on above: Performed By: #### L [id number] #### [facility] ([facility]) [address] [place] [address] MCV (RBC) [Entitic vol] 88.4 fL Normal 82.0-98.0 [facility] Comment on above: Performed By: #### L [id number] #### [facility] ([facility]) [address] [place] [address] NRBC (PER 100 WBCS) BY AUTOMATED COUNT 0.0 % Normal 0 [facility] Comment on above: Performed By: #### L [id number] #### [facility] ([facility]) [address] [place] [address] PLATELETS (10*3/UL) IN BLOOD AUTOMATED COUNT 214 10*3/uL Normal 150-400 [facility] Comment on above: Performed By: #### L [id number] #### [facility] ([facility]) [address] [place] [address] RBC (Bld) [#/Vol] 5.76 10*6/uL High 3.80-5.00 [facility] Comment on above: Performed By: #### L [id number] #### [facility] ([facility]) [address] [place] [address] WBC (Bld) [#/Vol] 12.73 10*3/uL High 4.00-10.60 [facility] Comment on above: Performed By: #### L [id number] #### [facility] ([facility]) [address] [place] [address] CONSULTon 05-04-2024 CONSULT Inpatient consult to Cardiothoracic Surgery Consult performed by: Jayden Read CNP Consult ordered by: Cameron Hernandez MD Reason for consult: Multivessel CAD Assessment/Recommendati ons: See below History Of Present Illness Jacob Stevenson is a 63 y.o. female who presented to [facility] ED with complaint of 1 day history of shortness of breath, with associated retrosternal, nonradiating chest heaviness. She was hypoxic and placed on BiPAP. I am uncertain of her vital signs at outside hospital, as those records are not available. Initial troponin at outside hospital was elevated at 539 repeat troponin here of 11. BNP 3901. She underwent transthoracic echocardiogram at the outside hospital which showed severely reduced ejection fraction of 20%, cardiology consulted for further evaluation and management. She was recommended for transfer to [facility]. She was admitted on 05/01/24 for Acute HF with severely reduced EF 20%. Medical history is significant for known CAD with prior stent (uncertain of location of stent), HTN, Hx CVA x2 about 8-10 years ago per patient (she is uncertain of the type of stroke, no dysarthria and denies unilateral weakness), COPD, tobacco abuse (40pk year history, states quit 3 days ago), and hypothyroidism. She does not follow with a neurologist or regulatory compliance specialist. States she has never seen a regulatory compliance specialist and she has not seen an neurologist. She went for cardiac catherization on 05/02/24 and found to have multivessel CAD. CT Surgery consulted to evaluated for possible CABG. She is currently being medically optimized for HF with diuretics and GDMT. She has remained hemodynamically stable, without chest pain. Stated that shortness of breath and activity tolerance continuing to improve. No history of PE or DVT. No history of anemia or abnormal bruising or bleeding. No history of syncope or cardiac arrhythmias. She is functionally independent at home. Retired. No hobbies. No difficulty with ADL's or chores. Able to walk up flight of stairs, but becomes short of breath. Past Medical History She has no past medical history on file. Surgical History She has no past surgical history on file. Social History She reports that she has been smoking cigarettes. She started smoking about 30 years ago. She has a 15.1 pack-year smoking history. She has never used smokeless tobacco. No history on file for alcohol use and drug use. Allergies Iodinated contrast media and Sulfa (sulfonamide antibiotics) Medications Medications Prior to Admission Medication Sig Dispense Refill Last Dose alendronate (Fosamax) 70 mg tablet Take 70 mg by mouth every 7 (seven) days. Take in the morning with a full glass of water, on an empty stomach, and do not take anything else by mouth or lie down for the next 30 min. aspirin 325 mg tablet Take 325 mg by mouth in the morning. levothyroxine (Synthroid, Levoxyl) 150 mcg tablet Take 150 mcg by mouth before breakfast. lisinopril 20 mg tablet Take 20 mg by mouth in the morning. metoprolol succinate XL (Toprol-XL) 25 mg 24 hr tablet Take 25 mg by mouth in the morning. Do not crush or chew. pantoprazole (ProtoNix) 40 mg EC tablet Take 40 mg by mouth before breakfast. Do not crush, chew, or split. Review of Systems Constitutional: Negative for chills, diaphoresis, fatigue, fever and unexpected weight change. HENT: Negative. Respiratory: Positive for shortness of breath (improving). Negative for cough, choking, chest tightness and wheezing. Cardiovascular: Positive for palpitations. Negative for chest pain (not since admission) and leg swelling. Gastrointestinal: Negative for abdominal distention, abdominal pain, blood in stool, diarrhea, nausea and vomiting. Genitourinary: Negative. Musculoskeletal: Negative. Skin: Negative for rash and wound. Neurological: Negative for dizziness, syncope, weakness, light-headedness and headaches. Hematological: Does not bruise/bleed easily. Psychiatric/Behavioral: Negative. Physical Exam General: Awake, Alert, And Oriented X3. No Acute Distress. HEENT: Normocephalic. Atraumatic. Conjunctivae Clear Without Jaundice. Sclera Is Non-Icteric. EOM Intact. PERRLA. Hearing Intact. Nasal And Oral Mucosa Vega And Moist. Pharynx Intact. Neck: Supple Without Adenopathy. Trachea Is Midline. Thyroid Gland Is Normal Without Masses. Carotid Pulse 2+ Bilaterally Without Bruit. No JVD. Cardiac: Regular Rate and Rhythm. S1,S2 Without Murmurs, Gallops, Or Rubs. Chest Wall Normal Appearing Without Deformity. Respiratory: Easy Effort With Respirations. Chest Excursions Symmetrical. Lung Sounds Clear And Equal Bilaterally Without Rales Or Wheezing. No Paradoxical Breathing. Remains on Room Air with SaO2 maintained greater than 95%. Abdomen: Soft And Symmetric. Non-Tender Without Distention. Bowel Sounds Are Present. Musc/Skel: Upper And Lower Extremities Are Atraumatic In Appearance Without Bony Tenderness O (more content not included)... Normal [facility] CT ABDOMEN PELVIS WO IV CONT RASTon 05-04-2024 CT ABDOMEN PELVIS WO IV CONTRAST HISTORY and Tech Notes: Abdominal pain, acute, nonlocalized Pain and shortness of breath PROCEDURE: CT abdomen pelvis without contrast, kidney stone protocol Automated exposure control was utilized COMPARISON: No comparison Chest reported separately FINDINGS: Solid organ vascular detail is suboptimal without contrast There is a large amount of fluid in the stomach There is moderate vascular calcification There is some edema in the abdominal wall subcutaneous fat presumably related to injections UPPER ABDOMEN: No splenomegaly. No peripancreatic fluid collections. Solid organ detail suboptimal without contrast. No perihepatic fluid No adrenal mass Probable small hiatal hernia Gallbladder is not dilated. PELVIS: No hydronephrosis or ureter stone seen. Nondilated urinary bladder No perirectal fluid collection Moderate stool Pelvic phleboliths No sign of a bowel obstruction. No sign of an abdominal aortic aneurysm or retroperitoneal bleed. No sign to suggest acute appendicitis. LUNG BASE EVALUATION no basilar consolidation or significant effusion. BONE RECONSTRUCTIONS no compression deformity. Degenerative changes, disc protrusions and [stenosis particularly T11-T12 and T12-L1 IMPRESSION: No acute findings Significant degenerative change and stenosis in the spine particularly around the thoracolumbar junction All CT scans at this facility use dose modulation, iterative reconstruction, and/or weight based dosing when appropriate to reduce radiation dose to as low as reasonably achievable. Electronically signed: Dg Barnard. 7 Invalid Interpretation Code [facility] CT CHEST WO IV CONTRASTon CT CHEST WO IV CONTRAST HISTORY and Tech Notes: Chest wall pain, nontraumatic, infection or inflammation, xray done COPD, chest pain, shortness of breath PROCEDURE: CT chest without contrast Automated exposure control was utilized COMPARISON: May 01 FINDINGS: The cardiac and vascular and mediastinal and upper abdominal the tail is suboptimal without contrast Small asymmetric 6 mm nodule in the superficial aspect of the upper outer left breast located roughly 1 cm deep to the skin surface. Ultrasound correlation suggested when appropriate assuming not previously worked up with proven to be benign CHEST Severe coronary artery calcification and/or stents Normal heart size Small hiatal hernia No adrenal mass or hemorrhage No splenomegaly No ascites in the upper abdomen No pleural effusion seen. No pericardial effusion . Thyroid looks very small/diminutive There is lymphadenopathy in the mediastinum. No central bronchial obstruction No lobar collapse or consolidation No discrete mass or cavitary process Some mild granular opacity in the left greater than right mid to lower chest and suggestion of mild peribronchial thickening No significant organized groundglass opacity or significant interstitial fibrosis Some bandlike density in the lingular region is likely atelectasis and scarring Degenerative changes with severe stenosis in the lower thoracic spine and thoracolumbar region. This may compress the distal cord and conus medullaris No sign of discitis or other lytic process. IMPRESSION: Severe degenerative changes, hypertrophic changes, disc protrusions and resultant high-grade stenosis in the spine particularly near the thoracolumbar junction. Correlate for back pain or neurologic change and consider dedicated thoracic and lumbar MRI Mild subtle interstitial and granular opacities in the left greater than right mid to lower lung with mild lymphadenopathy The pattern is nonspecific but may be seen with a viral or atypical infection, granulomatous condition or other inflammatory process Surveillance chest CT within 3-6 months suggested to check for clearing or interval change. If persistent or worsening lymphadenopathy, more detailed histologic workup or PET/CT may be warranted There is moderate to severe coronary calcification and/or stents There is a 6 mm nodule in the upper outer left breast about 10 mm deep to the skin surface. Ultrasound correlation should be considered when appropriate to better characterize, assuming not previously worked up and proven to be benign. . . All CT scans at this facility use dose modulation, iterative reconstruction, and/or weight based dosing when appropriate to reduce radiation dose to as low as reasonably achievable. Electronically signed: Dg Barnard. 7 Invalid Interpretation Code [facility] CT HEAD WO IV CONTRASTon CT HEAD WO IV CONTRAST HISTORY and Tech Notes: Stroke, follow up History of CVA Acute neurologic change/deficit PROCEDURE: CT brain The images were obtained without contrast given for this exam It should be noted however there was a heart catheterization on May 02 Automated exposure control was utilized COMPARISON: None. FINDINGS: Visualized paranasal sinuses and mastoid air cells look well aerated. There is mild atrophy There is moderate to severe chronic white matter ischemic change. No hydrocephalus. No midline shift or herniation No extra-axial fluid collection No large mass or area vasogenic edema is seen No large acute infarct is seen . There is a subtle small hyperdense abnormality in the right hemisphere near the temporal occipital junction. Measures around 1 cm. It is near the lateral margin of the ventricle but does appear to project within the ventricle or related to the choroid plexus The dural venous sinuses look somewhat dense suggesting there is probably some residual retained contrast from the previous catheterization It is therefore difficult to determine if this relates to a small parenchymal hemorrhage, enhancing lesion, or some type of vascular anomaly MRI with and without contrast is reasonable for better characterization. It is not pursued, repeat CT with and without contrast on short-term follow-up surveillance IMPRESSION: 10 mm hyperdense or enhancing focus in the right hemisphere the temporal occipital junction without significant surrounding edema or mass effect MRI with and without contrast or short-term follow-up repeat CT with and without contrast is reasonable in attempt to differentiate small parenchymal hemorrhage from small enhancing primary or metastatic lesion or vascular anomaly/malformation Atrophy and moderate to severe chronic white matter ischemic change left greater than right hemisphere without convincing acute intracranial findings otherwise EPIC chat notification to the clinical service at the completion of the dictation All CT scans at this facility use dose modulation, iterative reconstruction, and/or weight based dosing when appropriate to reduce radiation dose to as low as reasonably achievable. --- Electronically signed: Dg Barnard. 8 Invalid Interpretation Code [facility] MAGNESIUMon 05-04-2024 Magnesium [Mass/Vol] 2.2 mg/dL Normal 1.9-2.7 [facility] Comment on above: Performed By: #### L [id number] ####[facility] ([facility])[address] [place] [address] MANUAL DIFFERENTIALon 2024 BASOPHILS (10*3/UL) IN BLOOD BY CALCULATION 0.04 10*3/uL Normal 0.00-0.20 [facility] Comment on above: Performed By: #### L [id number] ####[facility] ([facility])[address] [place] [address] BASOPHILS/100 LEUKOCYTES IN BLOOD BY AUTOMATED COUNT 0.3 % Normal 0.0-1.0 [facility] Comment on above: Performed By: #### L [id number] ####[facility] ([facility])[address] [place] [address] EOSINOPHILS (10*3/UL) IN BLOOD BY CALCULATION 0.11 10*3/uL Normal 0.00-0.50 [facility] Comment on above: Performed By: #### L [id number] ####[facility] ([facility])[address] [place] [address] EOSINOPHILS/100 LEUKOCYTES IN BLOOD BY AUTOMATED COUNT 0.9 % Normal 0.0-6.0 [facility] Comment on above: Performed By: #### L [id number] ####[facility] ([facility])[address] [place] [address] IMMATURE GRANULOCYTES (10*3/UL) IN BLOOD BY CALCULATION 0.09 10*3/uL Normal 0.00-0.20 [facility] Comment on above: Performed By: #### L [id number] ####[facility] ([facility])[address] [place] [address] IMMATURE GRANULOCYTES/100 LEUKOCYTES IN BLOOD BY AUTOMATED COUNT 0.7 % Normal 0.0-1.0 [facility] Comment on above: Performed By: #### L [id number] ####[facility] ([facility] [place] [address] LYMPHOCYTES (10*3/UL) IN BLOOD BY CALCULATION 3.97 10*3/uL Normal 1.20-4.00 [facility] Comment on above: Performed By: #### L [id number] ####[facility] ([facility])[address] [place] [address] LYMPHOCYTES/100 LEUKOCYTES IN BLOOD BY AUTOMATED COUNT 31.2 % Normal 20.0-45.0 [facility] Comment on above: Performed By: #### L [id number] ####[facility] ([facility])[address] [place] [address] MONOCYTES (10*3/UL) IN BLOOD BY CALCUATION 1.02 10*3/uL High 0.10-1.00 [facility] Comment on above: Performed By: #### L [id number] ####[facility] ([facility] [place] [address] MONOCYTES/100 LEUKOCYTES IN BLOOD BY AUTOMATED COUNT 8.0 % Normal 5.0-12.0 [facility] Comment on above: Performed By: #### L [id number] ####[facility] ([facility] [place] [address] NEUTROPHILS (10*3/UL) IN BLOOD BY CALCULATION 7.5 10*3/uL Normal 1.6-7.6 [facility] Comment on above: Performed By: #### L [id number] ####[facility] ([facility] [place] [address] NEUTROPHILS/100 LEUKOCYTES IN BLOOD BY AUTOMATED COUNT 58.9 % Normal 40.0-72.0 [facility] Comment on above: Performed By: #### L [id number] ####[facility] ([facility] [place] [address] PHOSPHORUSon 05-04-2024 Magnesium [Mass/Vol] 5.9 mg/dL High 2.5-5.0 [facility] Comment on above: Performed By: #### L [id number] #### [facility] ([facility]) [address] [place] [address] TSHon 05-04-2024 THYROTROPIN (MIU/L) IN SER/PLAS BY DETECTION LIMIT <= 0.05 MIU/L 1.04 mIU/L Normal 0.34-5.60 [facility] Comment on above: Performed By: #### L [id number] #### [facility] ([facility]) [address] [place] [address] 30on 05-03-2024 30 The patient is Moderately Stable - Low risk of patient condition declining or worsening The patient's goals for the shift include rest The clinical goals for the shift include VSS Normal [facility] 30 The patient is Moderately Stable - Low risk of patient condition declining or worsening The patient's goals for the shift include rest The clinical goals for the shift include vss Problem: Pain - Adult Goal: Verbalizes/displays adequate comfort level or baseline comfort level Outcome: Progressing Problem: Safety - Adult Goal: Free from fall injury Outcome: Progressing Problem: Chronic Conditions and Co-morbidities Goal: Patient's chronic conditions and co-morbidity symptoms are monitored and maintained or improved Outcome: Progressing Flowsheets (Taken 05/03/2024 0757) Care Plan - Patient's Chronic Conditions and Co-Morbidity Symptoms are Monitored and Maintained or Improved: Monitor and assess patient's chronic conditions and comorbid symptoms for stability, deterioration, or improvement Normal [facility] 30 The patient is Moderately Stable - Low risk of patient condition declining or worsening The patient's goals for the shift include comfort, rest, and possible RT heart cath done The clinical goals for the shift include VSS Normal [facility] 30on 05-02-2024 30 The patient is Moderately Stable - Low risk of patient condition declining or worsening The patient's goals for the shift include comfort, rest, and possible RT heart cath done The clinical goals for the shift include VSS Normal [facility] BASIC METABOLIC PANELon 04-06 Anion gap [Moles/Vol] 10 mmol/L Normal 7-20 [facility] Comment on above: Performed By: #### L [id number] #### [facility] ([facility] [address] [place] [address] Calcium [Mass/Vol] 8.7 mg/dL Normal 8.6-10.3 [facility] Comment on above: Performed By: #### L [id number] #### [facility]) [address] [place] [address] Chloride [Moles/Vol] 105 mmol/L Normal 98-107 [facility] Comment on above: Performed By: #### L [id number] #### [facility] [address] [place] [address] CO2 [Moles/Vol] 26 mmol/L Normal 21-31 [facility] Comment on above: Performed By: #### L [id number] #### [facility] [address] [place] [address] Creatinine [Mass/Vol] 0.90 mg/dL Normal 0.60-1.20 [facility] Comment on above: Performed By: #### L [id number] #### [facility] [address] [place] [address] GLOMERULAR FILTRATION RATE ML/MIN/1.73 SQ M.PREDICTED 70.9 mL/min/1.73m*2 Normal >60.0 [facility] Comment on above: Result Comment: The [facility]???s estimated glomerular filtration rate (eGFR) will no longer include consideration of race in its calculation. The [employer]???s eGFR Task Force developed new recommendations for the estimation of the glomerular filtration rate in the [place] They recommend immediate implementation of the new equation refit without the race variable in all laboratories because the calculation does not include race. In addition to not including race in the calculation and reporting, it included diversity in its development, and has acceptable performance characteristics and potential consequences that do not disproportionately affect any one group of individuals. Performed By: #### L [id number] #### [facility] [address] [address] Glucose [Mass/Vol] 173 mg/dL High 70-100 [facility] Comment on above: Performed By: #### L [id number] #### [facility] [address] [place] [address] Potassium [Moles/Vol] 4.3 mmol/L Normal 3.5-5.1 [facility] Comment on above: Performed By: #### L [id number] #### [facility] [address] [place] [address] Sodium [Moles/Vol] 137 mmol/L Normal 136-145 [facility] Comment on above: Performed By: #### L [id number] #### [facility]) [address] [place] [address] Urea nitrogen [Mass/Vol] 19 mg/dL Normal 7-25 [facility] Comment on above: Performed By: #### L [id number] #### [facility] [address] [place] [address] UREA NITROGEN/CREATININE (MASS RATIO) IN SER/PLAS 21.1 Normal [facility] Comment on above: Performed By: #### L [id number] #### [facility] [address] [place] [address] CBCon 05-02-2024 Erythrocyte distribution width (RBC) [Ratio] 13.3 % Normal 11.5-15.0 [facility] Comment on above: Performed By: #### L [id number] #### [facility] [address] [place] [address] ERYTHROCYTE MEAN CORPUSCULAR HEMOGLOBIN CONCENTRATION (G/DL) BY AUTOMATED 32.3 g/dL Normal 32.0-35.0 [facility] Comment on above: Performed By: #### L [id number] #### [facility]) [address] [address] Hematocrit (Bld) [Volume fraction] 37.5 % Normal 36.0-45.0 [facility] Comment on above: Performed By: #### L [id number] #### [facility] ([facility]) [address] [address] Hemoglobin (Bld) [Mass/Vol] 12.1 g/dL Normal 12.0-15.0 [facility] Comment on above: Performed By: #### L [id number] #### [facility] ([facility]) [address] [place] [address] MCH (RBC) [Entitic mass] 28.4 pg Normal 27.0-33.0 [facility] Comment on above: Performed By: #### L [id number] #### [facility] [address] [place] [address] MCV (RBC) [Entitic vol] 88.0 fL Normal 82.0-98.0 [facility] Comment on above: Performed By: #### L [id number] #### [facility] [address] [place] [address] PLATELETS (10*3/UL) IN BLOOD AUTOMATED COUNT 181 10*3/uL Normal 150-400 [facility] Comment on above: Performed By: #### L [id number] #### [facility] [address] [place] [address] RBC (Bld) [#/Vol] 4.26 10*6/uL Normal 3.80-5.00 [facility] Comment on above: Performed By: #### L [id number] #### [facility] ([facility]) [address] [place] [address] WBC (Bld) [#/Vol] 14.04 10*3/uL High 4.00-10.60 [facility] Comment on above: Performed By: #### L [id number] #### [facility] ([facility]) [address] [place] [address] CONSULTon 05-02-2024 CONSULT --- Attestation signed by Nicola Gorman MD at 05/02/2024 3:28 PM By using the attestations below, the signing clinician agrees that I have read and verify that the documentation has been personally reviewed by me and ensure that the documentation accurately reflects the encounter. GC: I performed the schmitz portion(s) of the service and participated in the management and confirm the resident's documentation. Please note there may be an additional personal documentation from me. Will proceed with cath and ct to [facility] for HF management. Will plan on repeat EF estimation and need for ICD Cardiology Consult Note Reason for Consult: new onset chf, elevated trop HPI: Jacob Stevenson is a 63 y.o. female with past history remarkable for primary hypertension, coronary artery disease, COPD, hypothyroidism, and tobacco use who presented to [facility] as a transfer from [facility] where she initially presented complaining of shortness of breath that started on day of presentation, associated with heavy retrosternal chest pain, with no radiation, upon presentation she was hypoxic and was started on BiPAP. Initial troponin at outside hospital was elevated at 539 repeat troponin here of 11. BNP 3901. She underwent transthoracic echocardiogram which showed severely reduced ejection fraction of 20%, cardiology consulted for further evaluation and management. Cardiology ROS: Review of Systems Constitutional: Negative for activity change and appetite change. Respiratory: Positive for shortness of breath. Negative for chest tightness and wheezing. Cardiovascular: Positive for chest pain and leg swelling. Negative for palpitations. Gastrointestinal: Negative for abdominal pain, nausea and vomiting. Neurological: Negative for dizziness and light-headedness. Past Medical History She has no past medical history on file. Surgical History She has no past surgical history on file. Social History She reports that she has been smoking cigarettes. She started smoking about 30 years ago. She has a 15.1 pack-year smoking history. She has never used smokeless tobacco. No history on file for alcohol use and drug use. Family History No family history on file. Allergies Iodinated contrast media and Sulfa (sulfonamide antibiotics) Medications Current Outpatient Medications Medication Instructions alendronate (FOSAMAX) 70 mg, oral, Every 7 days, Take in the morning with a full glass of water, on an empty stomach, and do not take anything else by mouth or lie down for the next 30 min. aspirin 325 mg, oral, Daily levothyroxine (SYNTHROID, LEVOXYL) 150 mcg, oral, Daily before breakfast lisinopril 20 mg, oral, Daily metoprolol succinate XL (TOPROL-XL) 25 mg, oral, Daily, Do not crush or chew. pantoprazole (PROTONIX) 40 mg, oral, Daily before breakfast, Do not crush, chew, or split. Medications Prior to Admission Medication Sig Dispense Refill Last Dose alendronate (Fosamax) 70 mg tablet Take 70 mg by mouth every 7 (seven) days. Take in the morning with a full glass of water, on an empty stomach, and do not take anything else by mouth or lie down for the next 30 min. aspirin 325 mg tablet Take 325 mg by mouth in the morning. levothyroxine (Synthroid, Levoxyl) 150 mcg tablet Take 150 mcg by mouth before breakfast. lisinopril 20 mg tablet Take 20 mg by mouth in the morning. metoprolol succinate XL (Toprol-XL) 25 mg 24 hr tablet Take 25 mg by mouth in the morning. Do not crush or chew. pantoprazole (ProtoNix) 40 mg EC tablet Take 40 mg by mouth before breakfast. Do not crush, chew, or split. Last Recorded Vitals Patient Vitals for the past 24 hrs: BP Temp Temp src Pulse Resp SpO2 Height Weight 05/02/24 0940 129/77 -- -- 99 24 95 % -- -- 05/02/24 0719 132/81 36.5 ???C (97.7 ???F) Temporal 98 25 97 % -- -- 05/02/24 0451 -- -- -- -- -- -- -- 72.8 kg (160 lb 9.6 oz) 05/02/24 0400 114/87 36.5 ???C (97.7 ???F) Temporal 99 21 94 % -- -- 05/02/24 0025 118/73 36.3 ???C (97.3 ???F) Temporal 98 19 92 % -- -- 05/01/24 2234 -- -- -- -- -- -- 1.524 m (5') 73.6 kg (162 lb 3.2 oz) 05/01/242013 132/67 36.4 ???C (97.5 ???F) Temporal 96 24 91 % -- -- Physical Examination: Physical Exam Constitutional: General: She is not in acute distress. Appearance: Normal appearance. She is not ill-appearing. HENT: Head: Normocephalic and atraumatic. Cardiovascular: Rate and Rhythm: Normal rate and regular rhythm. Heart sounds: Normal heart sounds. No murmur heard. Pulmonary: Breath sounds: Rales present. No wheezing. Abdominal: Palpations: Abdomen is soft. Tenderness: There is no abdominal tenderness. Musculoskeletal: Right lower leg: Edema present. Left lower leg: Edema present. Skin: General: Skin is warm and dry. Findings: No erythema (more content not included)... Normal [facility] CONSULT Adult Nutrition Assessment: Name: Jacob Stevenson Room: [id number] Date: 1960 Date of Visit: 05/02/24 Admission Dx: Acute systolic CHF (congestive heart failure) ([facility]) [I50.21] Reason for assessment: consult for HF diet ed Information obtained from: patient, medical record, and nursing PMHx: CVA, hypertension, COPD, hypothyroidism, GERD, CAD s/p PCI with stenting, nicotine use Current Medications: aspirin, 325 mg, oral, Daily heparin (porcine), 5,000 Units, subcutaneous, q12h DENISE levothyroxine, 150 mcg, oral, Daily before breakfast lisinopril, 20 mg, oral, Daily metoprolol succinate XL, 25 mg, oral, Daily pantoprazole, 40 mg, oral, Daily before breakfast Labs: 0 Lab Value Date/Time BUN 19 05/02/2024420 CREATININE 0.90 05/02/2024420 NA 137 05/02/2024420 K 4.3 05/02/2024420 PHOS 3.6 05/01/20242100 MG 2.1 05/01/20242100 HGB 12.1 05/02/2024 0421 WBC 14.04 (H) 05/02/2024 0421 Allergies: Allergies Allergen Reactions Iodinated Contrast Media Shortness of breath and GI intolerance Sulfa (Sulfonamide Antibiotics) Anaphylaxis Nutrition Problems: Swallowing Assessment: Pt denies swallowing difficulty Mouth: Pt denies chewing difficulty Abdominal Assessment: Last BM:05/02 I/O: Urine output: 350 ml Net fluid: +130 Appetite: good Cognition: A/O x 4 Feeding Skills: Pt from home with ; reported that she prepares meals for herself and and grocery shops for herself Skin Integrity: No documented skin issues Edema: None documented Other Factors: Per ELECTRICAL ENGINEERING INTERN, Patient reportedly with echocardiogram completed outside hospital showing an EF of 20% which is new for the patient Nutrition Data/Clinical Indicators of Nutrition Status: Height: 152.4 cm (5') Weight: 72.8 kg (160 lb 9.6 oz) BMI (Calculated): 31.37 Wt Readings from Last 20 Encounters: 05/02/24 72.8 kg (160 lb 9.6 oz) Standing scale 05/01/24 73.6 kg (162 lb 3.2 oz) Standing scale IBW: 45.5 kg (100 lb) UBW: 63.6-72.7 kg (140-160 lb); per pt report Weight change: Limited documented wt hx available; pt reported that her wts fluctuate -> likely r/t fluid. Has a scale at home but does not regularly weigh herself Nutrition Assessment: Visiting pt for initial assessment d/t consult for HF diet education. 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 Pt reported usual intakes of 2 meals/d (she prepares her own meals and grocery shops herself): Breakfast: 2 donut sticks, coffee + cream Lunch: skips Dinner: fried [place] bro[place] (steak battered and fried) Snacks: potato chips Pt reported that she is aware that she needs to eat healthier and follow low-sodium diet -> reported barrier to implementing recommendations is that she has had current eating habits her entire life but pt was receptive to education provided. Reviewed reading labels, recommended daily weight monitoring, explained diet-disease relationship, etc with handout and RD number provided to pt. Dietary Orders (From admission, onward) Start Ordered 05/02/24 0001 Diet NPO Diet effective midnight Comments: Sips with medications Question: Reason for NPO: Answer: Operation/Procedure 05/01/24 9780 Meal Intakes: 75-100% Nutrition Risk: Low Nutrition Diagnosis: Food and nutrition-related knowledge deficit Related to: lack of prior exposure to HF diet recommendations As evidenced by: pt report Malnutrition Assessment: Per Registered Dietitian assessment and evaluation, patient does not currently meet criteria OR there is not enough information to support the diagnosis of malnutrition per the clinical criteria set by the Academy of Nutrition and Dietetics (AND) and the [place] Society of Enteral and Parenteral Nutrition (ASPEN). Nutrition Education: Diet literature: Heart Failure Nutrition Therapy (explained CHF-diet relationship, discussed and reviewed reading nutrition labels, recommended daily sodium intake of no more than 2,000 mg/d (or 1~ tsp salt/d), reviewed and encouraged flavoring alternatives to salt, explained difference between saturated fat vs unsaturated fat and identified sources of each with recommendation to limit saturated fat intakes, encouraged choosing lean proteins, encouraged preparing more meals at home, daily weight monitoring, and encouraged avoiding or limiting salty snacks/processed foods/frozen foods ) Expected compliance/patient understanding: Fair-good Teach back method: Pt verbalized understanding of diet ed provided, asked good follow-up questions, able to come up with low-sodium snacks, and accepted handout provided (HF Nutrition Therapy- NCM) Time spent: 20 min Treatment Plan: Advance diet as medically feasible Monitor and encourage adequate po intake (kcals and protein) Recommend HH diet modifier Provided nutrition education: HF Nutrition Therapy Monito (more content not included)... [facility] 05-02-2024 --- Attestation signed by Berlin Cortez MD at 05/12/2024 9:39 AM m H&P reviewed. The patient was examined and there are no changes to the H&P. Patient is scheduled for right and left heart cath via right internal jugular vein/left radial access. Normal [facility] 30on 05-01-2024 30 The patient is Moderately Stable - Low risk of patient condition declining or worsening The patient's goals for the shift include COMFORT The clinical goals for the shift include VSS Normal [facility] 30 The patient is Moderately Stable - Low risk of patient condition declining or worsening The patient's goals for the shift include COMFORT The clinical goals for the shift include VSS Normal [facility] B-TYPE NATRIURETIC PEPTIDEon 05-01-2024 Natriuretic peptide B (Bld) [Mass/Vol] 1264 pg/mL High 0-100 [facility] Comment on above: Performed By: #### L [id number] #### [facility] [address] [place] [address] CBC WITH AUTO DIFFERENTIALon 05-01-2024 Basophils (Bld) [#/Vol] 0.02 10*3/uL Normal 0.00-0.20 [facility] Comment on above: Performed By: #### L [id number] #### [facility] [address] [place] [address] Basophils/100 WBC (Bld) 0.2 % Normal 0.0-1.0 [facility] Comment on above: Performed By: #### L [id number] #### [facility] [address] [place] [address] Eosinophils (Bld) [#/Vol] 0.00 10*3/uL Normal 0.00-0.50 [facility] Comment on above: Performed By: #### L [id number] #### [facility] [address] [place] [address] Eosinophils/100 WBC (Bld) 0.0 % Normal 0.0-6.0 [facility] Comment on above: Performed By: #### L [id number] #### [facility] [address] [place] [address] Erythrocyte distribution width (RBC) [Ratio] 13.3 % Normal 11.5-15.0 [facility] Comment on above: Performed By: #### L [id number] #### [facility] [address] [place] [address] ERYTHROCYTE MEAN CORPUSCULAR HEMOGLOBIN CONCENTRATION (G/DL) BY AUTOMATED 32.2 g/dL Normal 32.0-35.0 [facility] Comment on above: Performed By: #### L [id number] #### [facility] [address] [place] [address] Hematocrit (Bld) [Volume fraction] 39.5 % Normal 36.0-45.0 [facility] Comment on above: Performed By: #### L [id number] #### [facility] [address] [place] [address] Hemoglobin (Bld) [Mass/Vol] 12.7 g/dL Normal 12.0-15.0 [facility] Comment on above: Performed By: #### L [id number] #### [facility] [address] [place] [address] Immature granulocytes (Bld) [#/Vol] 0.07 10*3/uL Normal 0.00-0.20 [facility] Comment on above: Performed By: #### L [id number] #### [facility] [address] [place] [address] Immature granulocytes/100 WBC (Bld) 0.6 % Normal 0.0-1.0 [facility] Comment on above: Performed By: #### L [id number] #### [facility] ([facility]) [address] [place] [address] Lymphocytes (Bld) [#/Vol] 0.92 10*3/uL Low 1.20-4.00 [facility] Comment on above: Performed By: #### L [id number] #### [facility] ([facility]) [address] [place] [address] Lymphocytes/100 WBC (Bld) 7.3 % Low 20.0-45.0 [facility] Comment on above: Performed By: #### L [id number] #### [facility] [address] [place] [address] MCH (RBC) [Entitic mass] 28.3 pg Normal 27.0-33.0 [facility] Comment on above: Performed By: #### L [id number] #### [facility] [address] [place] [address] MCV (RBC) [Entitic vol] 88.0 fL Normal 82.0-98.0 [facility] Comment on above: Performed By: #### L [id number] #### [facility] [address] [place] [address] Monocytes (Bld) [#/Vol] 0.22 10*3/uL Normal 0.10-1.00 [facility] Comment on above: Performed By: #### L [id number] #### [facility] ([facility]) [address] [place] [address] Monocytes/100 WBC (Bld) 1.8 % Low 5.0-12.0 [facility] Comment on above: Performed By: #### L [id number] #### [facility] ([facility]) [address] [place] [address] Neutrophils (Bld) [#/Vol] 11.33 10*3/uL High 1.60-7.60 [facility] Comment on above: Performed By: #### L [id number] #### [facility] ([facility]) [address] [place] [address] Neutrophils/100 WBC (Bld) 90.1 % High 40.0-72.0 [facility] Comment on above: Performed By: #### L [id number] #### [facility] [address] [place] [address] NRBC (PER 100 WBCS) BY AUTOMATED COUNT 0.0 % Normal 0 [facility] Comment on above: Performed By: #### L [id number] #### [facility] [address] [place] [address] PLATELETS (10*3/UL) IN BLOOD AUTOMATED COUNT 201 10*3/uL Normal 150-400 [facility] Comment on above: Performed By: #### L [id number] #### [facility] [address] [place] [address] RBC (Bld) [#/Vol] 4.49 10*6/uL Normal 3.80-5.00 [facility] Comment on above: Performed By: #### L [id number] #### [facility] [address] [place] [address] WBC (Bld) [#/Vol] 12.56 10*3/uL High 4.00-10.60 [facility] Comment on above: Performed By: #### L [id number] #### [facility] [address] [place] [address] COMPREHENSIVE METABOLIC PANE Salbador 05-01-2024 Albumin [Mass/Vol] 4.4 g/dL Normal 3.5-5.7 [facility] Comment on above: Performed By: #### L [id number] #### [facility] [address] [place] [address] ALP [Catalytic activity/Vol] 83 U/L Normal 34-104 [facility] Comment on above: Performed By: #### L [id number] #### [facility] [address] [place] [address] ALT [Catalytic activity/Vol] 49 U/L Normal 7-52 [facility] Comment on above: Performed By: #### L [id number] #### [facility] [address] [place] [address] Anion gap [Moles/Vol] 14 mmol/L Normal 7-20 [facility] Comment on above: Performed By: #### L [id number] #### [facility] [address] [place] [address] AST [Catalytic activity/Vol] 27 U/L Normal 13-39 [facility] Comment on above: Performed By: #### L [id number] #### [facility] [address] [place] [address] Bilirubin [Mass/Vol] 0.4 mg/dL Normal 0.3-1.0 [facility] Comment on above: Performed By: #### L [id number] #### [facility] [address] [place] [address] Calcium [Mass/Vol] 8.7 mg/dL Normal 8.6-10.3 [facility] Comment on above: Performed By: #### L [id number] #### [facility] [address] [place] [address] Chloride [Moles/Vol] 104 mmol/L Normal 98-107 [facility] Comment on above: Performed By: #### L [id number] #### [facility] [address] [place] [address] CO2 [Moles/Vol] 24 mmol/L Normal 21-31 [facility] Comment on above: Performed By: #### L [id number] #### [facility] [address] [place] [address] Creatinine [Mass/Vol] 0.97 mg/dL Normal 0.60-1.20 [facility] Comment on above: Performed By: #### L [id number] #### [facility] [address] [place] [address] GLOMERULAR FILTRATION RATE ML/MIN/1.73 SQ M.PREDICTED 64.8 mL/min/1.73m*2 Normal >60.0 [facility] Comment on above: Result Comment: The [facility]???s estimated glomerular filtration rate (eGFR) will no longer include consideration of race in its calculation. The National Kidney Foundation???s eGFR Task Force developed new recommendations for the estimation of the glomerular filtration rate in the [place] They recommend immediate implementation of the new equation refit without the race variable in all laboratories because the calculation does not include race. In addition to not including race in the calculation and reporting, it included diversity in its development, and has acceptable performance characteristics and potential consequences that do not disproportionately affect any one group of individuals. Performed By: #### L [id number] #### [facility] [address] [place] [address] Glucose [Mass/Vol] 162 mg/dL High 70-100 [facility] Comment on above: Performed By: #### L [id number] #### [facility] [address] [place] [address] Potassium [Moles/Vol] 3.7 mmol/L Normal 3.5-5.1 [facility] Comment on above: Performed By: #### L [id number] #### [facility] [address] [place] [address] Protein [Mass/Vol] 6.8 g/dL Normal 6.0-8.3 [facility] Comment on above: Performed By: #### L [id number] #### [facility] [address] [place] [address] Sodium [Moles/Vol] 138 mmol/L Normal 136-145 [facility] Comment on above: Performed By: #### L [id number] #### [facility] [address] [place] [address] Urea nitrogen [Mass/Vol] 18 mg/dL Normal 7-25 [facility] Comment on above: Performed By: #### L [id number] #### [facility] [address] [place] [address] UREA NITROGEN/CREATININE (MASS RATIO) IN SER/PLAS 18.6 Normal [facility] Comment on above: Performed By: #### L [id number] #### [facility] [address] [place] [address] HEMOGLOBIN A1Con 05-01-2024 Glucose [Mass/Vol] 123 mg/dL Normal [facility] Comment on above: Performed By: #### L [id number] #### [facility] [address] [place] [address] HbA1c (Bld) [Mass fraction] 5.9 % Normal 4.0-6.0 [facility] Comment on above: Performed By: #### L [id number] #### [facility] [address] [place] [address] HIGH SENSITIVITY TROPONIN Io n 05-01-2024 HS TROPONIN I (NG/L) 11 ng/L Normal <15 [facility] Comment on above: Performed By: #### L [id number] #### [facility] [address] [place] [address] MAGNESIUMon 05-01-2024 Magnesium [Mass/Vol] 2.1 mg/dL Normal 1.9-2.7 [facility] Comment on above: Performed By: #### L [id number] #### [facility] [address] [place] [address] PHOSPHORUSon 05-01-2024 Magnesium [Mass/Vol] 3.6 mg/dL Normal 2.5-5.0 [facility] Comment on above: Performed By: #### L [id number] #### [facility] [address] [place] [address] OCC BLD IMMUNO SCREENon 06-06 OCCULT BLOOD Negative Normal NEGATIVE [facility] Comment on above: Performed By: #### I NSULIN #### [facility] [address] [place] [address] Dr. Lawrence Gomez INSULINon 06-20-2022 Insulin 14.4 uIU/mL Normal 2.6-24.9 [facility] Comment on above: Performed By: #### I NSULIN #### [facility] [address] [address] [address] Lawrence Gomez CBC AUTO DIFFon 06-19-2022 BASO # 0.1 103/ul Normal 0.0-0.1 [facility] Comment on above: Performed By: #### C BC #### [facility] [address] [place] [address] Dr. Lawrence Gomez Basophils/100 WBC (Bld) 0.7 % Normal 0.2-2.0 [facility] Comment on above: Performed By: #### C BC #### [facility] [address] [place] [address] Dr. Lawrence Gomez EO # 0.2 103/ul Normal 0.0-0.7 [facility] Comment on above: Performed By: #### C BC #### [facility] [address] [place] [address] Dr. Lawrence Gomez Eosinophils/100 WBC (Bld) 2.5 % Normal 0.9-7.0 [facility] Comment on above: Performed By: #### C BC #### [facility] [address] [place] [address] Dr. Lawrence Gomez Erythrocyte distribution width (RBC) [Ratio] 13.2 % Normal 11.0-15.0 [facility] Comment on above: Performed By: #### C BC #### [facility] [address] [place] [address] Dr. Lawrence Gomez Hematocrit (Bld) [Volume fraction] 45.5 % Normal 36.0-48.0 [facility] Comment on above: Performed By: #### C BC #### [facility] [address] [place] [address] Dr. Lawrence Gomez Hemoglobin (Bld) [Mass/Vol] 14.8 g/dL Normal 12.0-16.0 [facility] Comment on above: Performed By: #### C BC #### [facility] [address] [place] [address] Dr. Lawrence Gomez IG # 0.03 10e3/ul Normal 0.00-0.03 [facility] Comment on above: Performed By: #### C BC #### [facility] [address] [place] [address] Dr. Lawrence Gomez IG % 0.3 % Normal 0.0-0.5 [facility] Comment on above: Performed By: #### C BC #### [facility] [address] [place] [address] Dr. Lawrence Gomez LYMPH # 2.8 103/ul Normal 1.2-3.8 [facility] Comment on above: Performed By: #### C BC #### [facility] [address] [place] [address] Dr. Lawrence Gomez Lymphocytes/100 WBC (Bld) 31.0 % Normal 20.5-60.0 [facility] Comment on above: Performed By: #### C BC #### [facility] [address] [place] [address] Dr. Lawrence Gomez MANUAL DIFF REQ NO Normal [facility] Comment on above: Performed By: #### C BC #### [facility] [address] [place] [address] Dr. Lawrence Gomez MCH (RBC) [Entitic mass] 28.2 pg Normal 26.7-34.0 [facility] Comment on above: Performed By: #### C BC #### [facility] [address] [place] [address] Dr. Lawrence Gomez MCHC (RBC) [Mass/Vol] 32.5 g/dL Normal 29.9-35.2 [facility] Comment on above: Performed By: #### C BC #### [facility] [address] [place] [address] Dr. Lawrence Gomez MCV (RBC) [Entitic vol] 86.8 fL Normal 81.0-99.0 [facility] Comment on above: Performed By: #### C BC #### [facility] [address] [place] [address] Dr. Lawrence Gomez MONO # 0.5 103/ul Normal 0.3-0.8 [facility] Comment on above: Performed By: #### C BC #### [facility] [address] [place] [address] Dr. Lawrence Gomez Monocytes/100 WBC (Bld) 6.0 % Normal 1.7-12.0 [facility] Comment on above: Performed By: #### C BC #### [facility] [address] [place] [address] Dr. Lawrence Gomez NEUT # 5.4 103/ul Normal 1.4-6.5 [facility] Comment on above: Performed By: #### C BC #### [facility] [address] [place] [address] Dr. Lawrence Gomez Neutrophils/100 WBC (Bld) 59.5 % Normal 43.0-75.0 [facility] Comment on above: Performed By: #### C BC #### [facility] [address] [place] [address] Dr. Lawrence Gomez Platelet mean volume (Bld) [Entitic vol] 11.7 fL Normal 9.5-13.5 [facility] Comment on above: Performed By: #### C BC #### [facility] [address] [place] [address] Dr. Lawrence Gomez PLT 211 103/ul Normal 150-450 [facility] Comment on above: Performed By: #### C BC #### [facility] [address] [place] [address] Dr. Lawrence Gomez RBC 5.24 106/ul Normal 4.20-5.40 [facility] Comment on above: Performed By: #### C BC #### [facility] [address] [place] [address] Dr. Lawrence Gomez WBC 9.1 103/ul Normal 4.0-11.0 [facility] Comment on above: Performed By: #### C BC #### [facility] [address] [place] [address] Dr. Lawrence Gomez FREE T3on 06-19-2022 FREE T3 2.63 pg/mlL Normal 2.18-3.98 [facility] Comment on above: Performed By: #### L IPID, TSH, T4, CMP, FT3 #### [facility] [address] [address] [address] Lawrence Gomez GLYCOHEMOGLOBIN A1Con 2022 ADA RECOMMENDATION SEE BELOW Normal [facility] Comment on above: Result Comment: ADA RECOMMENDED LIMIT 4.0 - 6.0 ADA THERAPEUTIC TARGET < 7.0 ACTION SUGGESTED > 7.0 Performed By: #### A 1C #### [facility] [address] [address] [address] Lawrence Gomez Glucose [Mass/Vol] 128 mg/dL Normal [facility] Comment on above: Performed By: #### A 1C #### [facility] [address] [address] [address] Lawrence Gomez HbA1c (Bld) [Mass fraction] 6.1 % Normal 4.5-6.2 [facility] Comment on above: Performed By: #### A 1C #### [facility] [address] [place] [address] Dr. Lawrence Gomez IRONon 06-19-2022 Iron [Mass/Vol] 96.0 ug/dL Normal 50.0-170.0 [facility] Comment on above: Performed By: #### V ITAD, IRON #### [facility] [address] [place] [address] Dr. Lawrence Gomez LIPID PROFILEon 06-19-2022 CHOL-HDL RATIO NORM SEE BELOW Normal [facility] Comment on above: Result Comment: 3.3 - 4.4 LOW RISK 4.4 - 7.1 AVERAGE RISK 7.1 - 11.0 MODERATE RISK >11.0 HIGH RISK Performed By: #### L IPID, TSH, T4, CMP, FT3 #### [facility] [address] [place] [address] Dr. Lawrence Gomez Cholesterol [Mass/Vol] 131 mg/dL Normal <=200 [facility] Comment on above: Performed By: #### L IPID, TSH, T4, CMP, FT3 #### [facility] [address] [place] [address] Dr. Lawrence Gomez Cholesterol in HDL [Mass/Vol] 41 mg/dL Normal 40-60 [facility] Comment on above: Performed By: #### L IPID, TSH, T4, CMP, FT3 #### [facility] [address] [address] [address] Lawrence Gomez Cholesterol in LDL [Mass/Vol] 75.0 mg/dL Normal [facility] Comment on above: Performed By: #### L IPID, TSH, T4, CMP, FT3 #### [facility] [address] [address] [address] Lawrence Gomez Cholesterol.total/C holesterol in HDL [Mass ratio] 3.2 {ratio} Normal [facility] Comment on above: Performed By: #### L IPID, TSH, T4, CMP, FT3 #### [facility] [address] [place] [address] Dr. Lawrence Gomez HDL NORMAL > or = 60 mg/dl - LO W CARDIOVASCULAR RISK <40 mg/dl - HIGH CARDIOVASCULAR RISK Normal [facility] Comment on above: Performed By: #### L IPID, TSH, T4, CMP, FT3 #### [facility] [address] [place] [address] Dr. Lawrence Gomez LDL CALC NORMAL SEE BELOW Normal [facility] Comment on above: Result Comment: <100 mg/dl OPTIMAL 100 - 129 mg/dl NEAR OR ABOVE OPTIMAL 130 - 159 mg/dl BORDERLINE HIGH 160 - 189 mg/dl HIGH >190 mg/dl VERY HIGH Performed By: #### L IPID, TSH, T4, CMP, FT3 #### [facility] [address] [address] [address] Lawrence Gomez Triglyceride [Mass/Vol] 75 mg/dL Normal <=150 [facility] Comment on above: Performed By: #### L IPID, TSH, T4, CMP, FT3 #### [facility] [address] [place] [address] Dr. Lawrence Gomez VLDL CALC 15.0 mg/dL Normal [facility] Comment on above: Performed By: #### L IPID, TSH, T4, CMP, FT3 #### [facility] [address] [place] [address] Dr. Lawrence Gomez PROF 14(COMP METB)on 023 Albumin [Mass/Vol] 3.5 g/dL Normal 3.4-5.0 [facility] Comment on above: Performed By: #### L IPID, TSH, T4, CMP, FT3 #### [facility] [address] [place] [address] Dr. Lawrence Gomez Albumin/Globulin [Mass ratio] 1.0 {ratio} Normal [facility] Comment on above: Performed By: #### L IPID, TSH, T4, CMP, FT3 #### [facility] [address] [place] [address] Dr. Lawrence Gomez ALP [Catalytic activity/Vol] 111 U/L Normal 46-116 [facility] Comment on above: Performed By: #### L IPID, TSH, T4, CMP, FT3 #### [facility] [address] [place] [address] Dr. Lawrence Gomez ALT [Catalytic activity/Vol] 26 U/L Normal 14-59 [facility] Comment on above: Performed By: #### L IPID, TSH, T4, CMP, FT3 #### [facility] [address] [place] [address] Dr. Lawrence Gomez Anion gap [Moles/Vol] 12.1 mmol/L Normal [facility] Comment on above: Performed By: #### L IPID, TSH, T4, CMP, FT3 #### [facility] [address] [place] [address] Dr. Lawrence Gomez AST [Catalytic activity/Vol] 16 U/L Normal 15-37 [facility] Comment on above: Performed By: #### L IPID, TSH, T4, CMP, FT3 #### [facility] [address] [place] [address] Dr. Lawrence Gomez Bilirubin [Mass/Vol] 0.5 mg/dL Normal 0.2-1.0 [facility] Comment on above: Performed By: #### L IPID, TSH, T4, CMP, FT3 #### [facility] [address] [place] [address] Dr. Lawrence Gomez Calcium [Mass/Vol] 8.7 mg/dL Normal 8.5-10.1 [facility] Comment on above: Performed By: #### L IPID, TSH, T4, CMP, FT3 #### [facility] [address] [address] [address] Lawrence Gomez Chloride [Moles/Vol] 107 mmol/L Normal 98-107 [facility] Comment on above: Performed By: #### L IPID, TSH, T4, CMP, FT3 #### [facility] [address] [address] [address] Lawrence Gomez CO2 [Moles/Vol] 29.7 mmol/L Normal 21.0-32.0 [facility] Comment on above: Performed By: #### L IPID, TSH, T4, CMP, FT3 #### [facility] [address] [place] [address] Dr. Lawrence Gomez Creatinine [Mass/Vol] 0.78 mg/dL Normal 0.55-1.02 [facility] Comment on above: Performed By: #### L IPID, TSH, T4, CMP, FT3 #### [facility] [address] [address] [address] Lawrence Gomez EGFR-AF CITIZEN OF [place] >60 Normal >=60 [facility] Comment on above: Performed By: #### L IPID, TSH, T4, CMP, FT3 #### [facility] [address] [place] [address] Dr. Lawrence Gomez EGFR-NON AF CITIZEN OF [place] >60 Normal >=60 [facility] Comment on above: Performed By: #### L IPID, TSH, T4, CMP, FT3 #### [facility] [address] [address] [address] Lawrence Gomez Globulin (S) [Mass/Vol] 3.4 g/dL Normal [facility] Comment on above: Performed By: #### L IPID, TSH, T4, CMP, FT3 #### [facility] [address] [address] [address] Lawrence Gomez Glucose [Mass/Vol] 97 mg/dL Normal 74-106 [facility] Comment on above: Performed By: #### L IPID, TSH, T4, CMP, FT3 #### [facility] [address] [place] [address] Dr. Lawrence Gomez Potassium [Moles/Vol] 3.8 mmol/L Normal 3.5-5.1 [facility] Comment on above: Performed By: #### L IPID, TSH, T4, CMP, FT3 #### [facility] [address] [place] [address] Dr. Lawrence Gomez Protein [Mass/Vol] 6.9 g/dL Normal 6.4-8.2 [facility] Comment on above: Performed By: #### L IPID, TSH, T4, CMP, FT3 #### [facility] [address] [place] [address] Dr. Lawrence Gomez Sodium [Moles/Vol] 145 mmol/L Normal 136-145 [facility] Comment on above: Performed By: #### L IPID, TSH, T4, CMP, FT3 #### [facility] [address] [place] [address] Dr. Lawrence Gomez Urea nitrogen [Mass/Vol] 14.0 mg/dL Normal 7.0-18.0 [facility] Comment on above: Performed By: #### L IPID, TSH, T4, CMP, FT3 #### [facility] [address] [place] [address] Dr. Lawrence Gomez Urea nitrogen/Creatinine [Mass ratio] 17.9 mg/mg Normal [facility] Comment on above: Performed By: #### L IPID, TSH, T4, CMP, FT3 #### [facility] [address] [place] [address] Dr. Lawrence Gomez T4on 06-19-2022 T4 [Mass/Vol] 11.50 ug/dL Normal 4.80-13.90 [facility] Comment on above: Performed By: #### L IPID, TSH, T4, CMP, FT3 #### [facility] [address] [place] [address] Dr. Lawrence Gomez TSHon 06-19-2022 TSH 0.494 uIU/mL Normal 0.358-3.740 [facility] Comment on above: Performed By: #### L IPID, TSH, T4, CMP, FT3 #### [facility] [address] [address] [address] Lawrence Gomez VITAMIN D 25 OHon 06-19-2022 VIT D 25-OH 11.7 ng/mL Normal [facility] Comment on above: Performed By: #### V ITAD, IRON #### [facility] [address] [address] [address] Lawrence Gomez VIT D RANGES SEE BELOW Normal [facility] Comment on above: Result Comment: <20 ng/mL Vit D deficient 20 - <30 ng/mL Vit D insufficient 30 - 100 ng/mL Vit D sufficient >100 ng/mL Potential Toxicity Performed By: #### V ITAD, IRON #### [facility] [address] [address] [address] Lawrence Gomez Encounters Encounter Date Encounter Type Care Provider Facility Start: 06-19-2024 End: 06-19-[facility] [facility] Start: 06-12-2024 ambulatory [facility] Start: 06-12-2024 ambulatory [facility] Start: 06-12-2024 End: 06-12-2024 ambulatory [facility] Start: 06-10-2024 ambulatory JAYDEN READ [facility] Start: 06-05-2024 End: 06-05-2024 ambulatory CRISTIAN VIZCARRA [facility] Start: 05-12-2024 End: 05-12-2024 ambulatory KEVIN ROLLE [facility] Start: 05-06-2024 Evaluation and management of inpatient CAMERON HERNANDEZ [facility] Start: 05-06-2024 Evaluation and management of inpatient JADEN BERRIOS [facility] Start: 05-05-2024 Evaluation and management of inpatient BRETT CORONEL [facility] Start: 05-05-2024 Evaluation and management of inpatient JAYDEN RORO [facility] Start: 05-05-2024 Evaluation and management of inpatient JAYDEN [facility] Start: 05-04-2024 Evaluation and management of inpatient JAYDEN RORO [facility] Start: 05-01-2024 End: 05-08-2024 Evaluation and management of inpatient MAGDALENE HORima [facility] Start: 07-02-2022 Encounter for genera l adult medical examination without abnormal findings DR MAGDALENE SKY . [facility] Start: 06-30-2022 End: 06-30-[address] MAGDALENE SKY . Facility: Start: 06-30-2022 End: 06-30-2022 Encounter for general adult medical examination without abnormal findings DR MAGDALENE SKY . Facility: Start: 06-19-2022 End: 06-20-[address] MAGDALENE SKY . Facility: Payers Date Payer Category Payer Medicare [id number] 1961 Unknown [id number] 1960 Unknown [id number] 1960 Unknown [id number] Clinical Notes 05-01-2024 to 06-19-2024 Note Date & Type Note Facility 06-19-2024 Note Patient is here toda y for a wound check. S/P pacemaker. Patient states she feels pretty good. Patient denies fever, chills, body aches. Patient state she has been sweating a bit. Patient has an open area just below the Tegaderm. Patient denies any cardiac symptoms at this time. Review of Systems Constitutional: Negative. [facility] 06-19-2024 Note Pt is here for a wou nd check after her ICD implant. She has been feeling well. Denies c/o CP, dyspnea, orthopnea, PND, LE edema, dizziness/LH, palpitations, syncope. Also denies c/o fevers/chills. --------- Physical Exam Vitals reviewed. Constitutional: Appearance: Normal appearance. She is normal weight. HENT: Head: Normocephalic and atraumatic. Right Ear: External ear normal. Left Ear: External ear normal. Eyes: Extraocular Movements: Extraocular movements intact. Conjunctiva/sclera: Conjunctivae normal. Pupils: Pupils are equal, round, and reactive to light. Neck: Vascular: No carotid bruit. Cardiovascular: Rate and Rhythm: Normal rate and regular rhythm. Pulses: Normal pulses. Heart sounds: Normal heart sounds. Comments: Left upper chest incision well approximated with surgical glue intact, no s/s of infection with no warmth/drainage, no hematoma or ecchymosis - new dry dressing applied. Pulmonary: Effort: Pulmonary effort is normal. Breath sounds: Normal breath sounds. Abdominal: General: Bowel sounds are normal. Palpations: Abdomen is soft. Musculoskeletal: Cervical back: Neck supple. Right lower leg: No edema. Left lower leg: No edema. Skin: General: Skin is warm and dry. Neurological: General: No focal deficit present. Mental Status: She is alert and oriented to person, place, and time. Psychiatric: Mood and Affect: Mood normal. Behavior: Behavior normal. Thought Content: Thought content normal. Judgment: Judgment normal. ECHO 06/12/2024 Left Ventricle: The left ventricle appears normal in size. Global left ventricular systolic function is difficult to assess but appears reduced. Right Ventricle: The right ventricle is normal in size. Right ventricular systolic function appears normal. A pacemaker wire is seen in the right ventricle. Pericardium: No pericardial effusion. The Attending Physician has personally reviewed the examination DUAL CHAMBER ICD IMPLANT PROCEDURE NOTE DATE OF PROCEDURE: 06/12/24 PERFORMING PHYSICIAN: Dr. Nicola Gorman PROCEDURE PERFORMED: 1. Implantation of dual chamber ICD (Biotronik) 2. Ultrasound guided venous access INDICATIONS: 1. Dilated Cardiomyopathy IMPRESSION: 1. Successful dual chamber ICD with excellent pacing and sensing parameters. RECOMMENDATIONS: 1. Occlusive dressing to be removed after 2 weeks. 2. Do not wet the incision for 7 days. 3. No lifting heavy weights using arm on the same side x 3weeks 4. Do not lift elbow above the shoulder on the same side for 4-6 weeks. 5. No driving for 1 month. 6. F/u in device clinic 1 week from discharge or sooner for any concerns. Nicola Gorman MD Cardiac Electrophysiology A/P #Chronic HFrEF s/p AICD implant 06/12/24 -Site is healing well. Advised she may shower but avoid direct shower head pressure. Cover with a dry dressing and change daily for the next week. DO NOT apply any creams/lotions, ointments, etc. Notify cardiology for any s/s of infection -She is compensated on exam -GDMT: Continue valsartan, aldactone, Toprol, farxiga #CAD -She is pending possible coronary bypass evaluation with CT sx at [facility]. -She denies c/o CP, dyspnea -Continue aspirin, statin, Toprol Nabeel Moses APRN-[facility] Cardiovascular Medicine [facility] 06-12-2024 Note DUAL CHAMBER ICD IMP LANT PROCEDURE NOTE DATE OF PROCEDURE: 06/12/24 PERFORMING PHYSICIAN: Dr. Nicola Gorman CONSENT: Patient LOCATION: EP Lab PROCEDURE PERFORMED: 1. Implantation of dual chamber ICD (Biotronik) 2. Ultrasound guided venous access INDICATIONS: 1. Dilated Cardiomyopathy PROCEDURAL SEDATION: Versed and Fentanyl. Moderate sedation was administered by the sedation nurse under my supervision and noted in the CVL log. Intraprocedural face to face sedation time: 66min. Monitoring: Cardiac telemetry, Blood pressure, continuous pulse oxymetry. FLUOROSCOPY TIME: 3.4min/ 14mGray. EBL: 15cc SPECIMEN REMOVED: None PROCEDURAL DETAILS: Patient was placed in trendelenberg position and ultrasound was used to evaluate the patency of left axillary vein and for venous access. Left axillary venous access was obtained using modified seldinger technique using a 5 [place]yan micro-puncture needle on two occasions and 0.35 wires were placed. Local infiltration of 1% Lidocaine was performed, and an incision was created in the left upper chest. Dissection was then performed using cautery down to the fascial plane above the muscle. The belly of the pectoralis was identified and with gentle blunt dissection a small pocket was created for the device above the muscle. 6 [place] Safesheaths were placed over the wire. An active fixation Biotronik ICD lead was then delivered through the 8Fsheath to the right ventricle. After confirmation of lead position on orthogonal views (MORRIS and ZAMBIAN) to confirm septal position, the screw was activated, and the lead was placed in the right ventricular mid cavity towards the septum. After confirmation of good sensing parameters, injury pattern and pacing thresholds, 10V pacing was done and no diaphragmatic stimulation was noted. It was then secured in the pocket using three 1-0 Silk sutures. Then an active fixation Biotronik lead was delivered through the 6Fsheath to the right atrial appendage. After confirmation of lead position on orthogonal views (MORRIS and ZAMBIAN), the screw was activated. Good sensing parameters, injury pattern and pacing thresholds, the lead was then tested using Lambert's maneuver. 10V pacing was done and no diaphragmatic stimulation was noted. It was then secured in the pocket using three 1-0 Silk sutures. Pocket hemostasis was secured, and it was then copiously and vigorously irrigated with antibiotic solution. The leads were attached to the generator and then wrapped under the device and the device was tacked to underlying muscle and placed in the pocket. The pocket was closed in layers: subcutaneous layer using 2-0 Vicryl; skin using 3-0 absorbable monofilament suture. Glue was applied and Tegaderm dressing was placed on top. Lead parameters were then rechecked through the device as noted below. The patient was returned to the short stay room for post procedural observation. No immediate procedural complications were noted. POST PROCEDURE EXAM: Patient was hemodynamically stable. COMPLICATIONS: None. IMPRESSION: 1. Successful dual chamber ICD with excellent pacing and sensing parameters. RECOMMENDATIONS: 1. Occlusive dressing to be removed after 2 weeks. 2. Do not wet the incision for 7 days. 3. No lifting heavy weights using arm on the same side x 3weeks 4. Do not lift elbow above the shoulder on the same side for 4-6 weeks. 5. No driving for 1 month. 6. F/u in device clinic 1 week from discharge or sooner for any concerns. Nicola Gorman MD Cardiac Electrophysiology [facility] 06-10-2024 Note Subjective Patient ID: Jacob Stevenson is a 63 y.o. female who presents for No chief complaint on file.. HPI 63-year-old female who was recently hospitalized in April, after suffering an NSTEMI and found to have newly diagnosed heart failure with exacerbation and severely reduced LVEF of 25%. Cardiac catheterization revealed multivessel coronary artery disease with low cardiac index of 2.0. Right heart catheterization pressures were also quite elevated: PA: 73/38, PCWP: 37. Spinal medical history is significant for CAD (prior stent-uncertain year),COPD, acquired hypothyroidism, GERD, history of CVA)2010- uncertain which type), and hypertension. We initially saw her in the hospital and recommended CABG. preoperative workup was completed. She was started on GDMT for HFrEF and aggressively diuresed. We recommended repeat echo to reassess EF and determine her candidacy for surgery. Patient returns today for follow-up. She has no complaints. Denies chest pain or other anginal symptoms. Denies dizziness lightheadedness. No palpitations or shortness of breath. Endorses dyspnea with moderate exertion. Takes all medications daily as prescribed. Review of Systems See HPI Objective There were no vitals taken for this visit. Physical Exam Constitutional: Appearance: Normal appearance. HENT: Head: Normocephalic. Eyes: Extraocular Movements: Extraocular movements intact. Cardiovascular: Rate and Rhythm: Normal rate and regular rhythm. Heart sounds: No murmur heard. Pulmonary: Effort: Pulmonary effort is normal. No respiratory distress. Breath sounds: Normal breath sounds. No wheezing or rales. Abdominal: General: There is no distension. Palpations: Abdomen is soft. Musculoskeletal: General: No swelling or tenderness. Skin: General: Skin is warm and dry. Capillary Refill: Capillary refill takes less than 2 seconds. Coloration: Skin is not jaundiced or pale. Neurological: General: No focal deficit present. Mental Status: She is alert and oriented to person, place, and time. Psychiatric: Mood and Affect: Mood normal. Behavior: Behavior normal. Assessment/Plan Diagnoses and all orders for this visit: Coronary artery disease involving [place] coronary artery of [place] heart without angina pectoris Acute systolic congestive heart failure (CMS/HCC) Chronic obstructive pulmonary disease, unspecified COPD type (CMS/HCC) Primary hypertension History of CVA (cerebrovascular accident) -Patient is here for hospital follow-up for multivessel coronary artery disease. She was previously seen by CT surgery team during hospitalization in April,. We recommended CABG at the time. She was also found to have newly diagnosed acute heart failure with severely reduced EF of 20 to 25%. She was medically optimize and discharged home. She has been taking all of her medications daily as prescribed. We recommended repeat echocardiogram after 1 month of GDMT. - Repeat echocardiogram on 06/05/2024 shows LVEF of 20 to 25%. This is unchanged since echocardiogram on 05/05/2024. Patient is currently wearing a LifeVest. She is scheduled to have an ICD implanted on 06/12/2024. STS score for isolated CABG is 6.74. I have explained to the patient that considering her low EF and comorbid conditions, surgery would be high risk for her. She has been treated by the cardiovascular team at [facility]. We will discuss her risk factors and surgery candidacy with the primary cardiology team. If they are agreeable, we will refer patient to the [facility] for CABG. - I have explained all of this to the patient. Time allowed for questions and concerns. She is agreeable to the plan for referral to [facility]. Education provided on need to continue to monitor for any new or worsening symptoms. ADDENDUM for 06/12/24: Reviewed details of this case an imaging with Dr. Vizcarra. He is familiar with this patient. He agrees that patient should be referred to higher level of care considering her surgical risks. Procedure Type: Isolated CABG Perioperative Outcome Estimate % Operative Mortality 6.74% Morbidity & Mortality 25.7% Stroke 4.63% Renal Failure 4.27% Reoperation 3.55% Prolonged Ventilation 19.9% Deep Sternal Wound Infection 0.353% Long Hospital Stay (>14 days) 13.4% Short Hospital Stay (<6 days)* 16.7% Clinical Summary Planned Surgery: Isolated CABG, Elective, First cardiovascular surgery Demographics: 63 year old, female, 71.7kg, 152cm, BMI: 31 kg/m??? Lab Values: Creatinine: 1.17 mg/dL, Hematocrit: 45.1%, WBC Count: 8.46 10???/?L, Platelet Count: 859328 cells/?L Substance Abuse: Former smoker Risk Factors / Comorbidities: Hypertension, Family Hx of CAD Pulmonary RF: Severe CLD Vascular RF: Cerebrovascular Disease: CVA > 30 days Cardiac Status: Acute heart failure, NYHA Class III, Ejection Fraction = 20% Coronary Artery Disease: 3 vessels diseased, Non-ST Elevation AR, AR: > 21 Days (more content not included)... [facility] 05-12-2024 Note [place] Cardiology - [facility] Heart [facility] V[facility] Subjective Jacob Stevenson is a 63 y.o. year old female patient being seen for F/U [facility] admission for heart failure. Patient states she is feeling pretty good. Denies any cardiac symptoms at this time. Patient Active Problem List Diagnosis Acute systolic congestive heart failure (CMS/[facility]) History of CVA (cerebrovascular accident) Primary hypertension COPD (chronic obstructive pulmonary disease) ([facility]) Acquired hypothyroidism GERD (gastroesophageal reflux disease) Coronary artery disease involving [place] coronary artery of coyote [place] heart without angina pectoris Acute systolic CHF (congestive heart failure) ([facility]) Family History Problem Relation Name Age of Onset Heart failure Mother Other (cardiac arrest) Father Social History Tobacco Use Smoking status: Former Current packs/day: 0.50 Average packs/day: 0.5 packs/day for 30.3 years (15.1 ttl pk-yrs) Types: Cigarettes Start date: 1994 Smokeless tobacco: Never Substance Use Topics Alcohol use: Not Currently HPI Jacob is seen in follow-up. This is the first time I am meeting her. She is a 63-year-old woman who was admitted on 05/01/2024 to [facility] with new onset systolic heart failure and elevated troponin. She underwent cardiac catheterization that showed severe three-vessel coronary artery disease. Her echocardiogram showed severely reduced LVEF at 25%. She was initiated on GDMT for heart failure she was recommended surgical bypass for her coronary artery disease. She was discharged from the hospital with a LifeVest. Before that she was on thyroid replacement, lisinopril and pantoprazole. Today she reports that she has been doing very well. She denies chest pain and leg edema. She has mild shortness of breath on exertion NYHA class II symptoms. She is taking her current medications as prescribed. She continues to wear the LifeVest 24 hours a day. There has been no issues. She did not need to use sublingual nitroglycerin. Review of Systems Cardiovascular: Positive for dyspnea on exertion. All other systems reviewed and are negative. Objective Visit Vitals BP 114/69 (BP Location: Left arm, Patient Position: Sitting) Pulse 74 Ht 1.524 m (5') Wt 71.7 kg (158 lb) SpO2 96% BMI 30.86 kg/m??? Smoking Status Former BSA 1.74 m??? Physical Exam Constitutional: Appearance: She is well-developed. She is not ill-appearing. HENT: Head: Normocephalic and atraumatic. Nose: Nose normal. Eyes: General: No scleral icterus. Pupils: Pupils are equal, round, and reactive to light. Neck: Thyroid: No thyromegaly. Vascular: No JVD. Cardiovascular: Rate and Rhythm: Normal rate and regular rhythm. Pulses: Radial pulses are 2+ on the right side and 2+ on the left side. Heart sounds: Normal heart sounds. No murmur heard. No friction rub. No gallop. Pulmonary: Effort: Pulmonary effort is normal. No respiratory distress. Breath sounds: Normal breath sounds. No wheezing or rales. Chest: Chest wall: No tenderness. Abdominal: General: Bowel sounds are normal. There is no distension. Palpations: Abdomen is soft. Tenderness: There is no abdominal tenderness. Musculoskeletal: General: No swelling. Cervical back: Neck supple. Skin: General: Skin is warm and dry. Neurological: General: No focal deficit present. Mental Status: She is alert and oriented to person, place, and time. Psychiatric: Mood and Affect: Mood normal. Behavior: Behavior is cooperative. Judgment: Judgment normal. Allergies Allergies Allergen Reactions Iodinated Contrast Media Shortness of breath and GI intolerance Sulfa (Sulfonamide Antibiotics) Anaphylaxis Medications Current Outpatient Medications: alendronate (Fosamax) 70 mg tablet, Take 70 mg by mouth every 7 (seven) days. Take in the morning with a full glass of water, on an empty stomach, and do not take anything else by mouth or lie down for the next 30 min., Disp: , Rfl: aspirin 325 mg tablet, Take 325 mg by mouth in the morning., Disp: , Rfl: atorvastatin (Lipitor) 40 mg tablet, Take 1 tablet (40 mg) by mouth at bedtime for 97 doses., Disp: 30 tablet, Rfl: 3 dapagliflozin propanediol (Farxiga) 10 mg, Take 1 tablet (10 mg) by mouth in the morning for 94 doses., Disp: 30 tablet, Rfl: 3 furosemide (Lasix) 40 mg tablet, Take 1 tablet (40 mg) by mouth in the morning for 98 doses., Disp: 30 tablet, Rfl: 3 levothyroxine (Synthroid, Levoxyl) 150 mcg tablet, Take 150 mcg by mouth before breakfast., Disp: , Rfl: metoprolol succinate XL (Toprol-XL) 25 mg 24 hr tablet, Take 25 mg by mouth in the morning. Do not crush or chew., Disp: , Rfl: nitroglycerin (Nitrostat) 0.4 mg SL tablet, Place 1 tablet (0.4 mg) under the tongue every 5 (five) minutes if needed for chest pain., Disp: 90 tablet, Rfl: 12 pantoprazole (ProtoNix) 40 mg EC tablet, Take 40 mg by mouth before breakfast. Do not crush, chew, or sp (more content not included)... [facility] 05-10-2024 Note 72 hour post dischar ge call, attempt #3 successful-- Discharge date: 05/08/24 Call date: 05/11/24 Spoke with: patient HF Follow-up date: 05/12/2024 Dr. Rolle at office Med reconciliation completed: yes Questions/Concerns: Spoke with patient by phone, has a 1 month supply of all of her new medications from hospital, and taking as prescribed. Says she is generally feeling well, does not feel that she has any fluid retention. Discussed each drug and its benefits and possible side effects Patient says she has transportation and will attend she would like 05/12/2024 appointment, however in future to be followed by Dr. Mitchell, as he also follows her mother and boyfriend. I told her to inform Dr. Rolle in the office staff regarding this. Patient says very difficult for her to drive to [place] for [facility] oncology visit, I asked her to call the [facility] phone number and discuss options for follow-up at area. Patient has no other concernsor questions. She does remark that she hopes she does not need to have open heart surgery. I told her to discuss this with Dr. Rolle, who will be very thoughtful as well as honest in his recommendations and response. Kalyan Bright PA-C [facility] Cardiovascular Medicine [phone] [facility] 05-10-2024 Note 72 hour post dischar ge HF phone call 2nd attempt 05/10/24 at 1649 hours. Again patient has phone mail not sent up, unable to leave message. Called daughter's number and again LVM.. Kalyan Bright PA-C [facility] Cardiovascular Medicine [phone] [facility] 05-10-2024 Note 72 hour HF TC, Attem pt #1 Discharge date: 05/08/24 Call date: 05/10/24 at 1040 Spoke with: NONE HF Follow-up date: 05/12/24 Med reconciliation completed: no Questions/Concerns: Called patient number for 72 hour FU, no answer and VMB not set up. Called daughter and LVM to have her call back to office Sunday, or to my cell phone. Will attempt to contact patient again today/tomorrow. ADELE Moss, Heart Failure Coordinator [facility] 05-08-2024 Note Cardiology Progress Note Subjective Subjective: Patient was seen and examined, reported feeling much better. No acute events overnight. Objective Current Facility-Administered Medications: acetaminophen (Tylenol) tablet 650 mg, 650 mg, oral, q6h PRN, Yamilex Cardona MD, 650 mg at 05/06/24 06 aspirin chewable tablet 81 mg, 81 mg, oral, Daily, Lyric Joyce MD, 81 mg at 05/07/24 0900 atorvastatin (Lipitor) tablet 40 mg, 40 mg, oral, Nightly, Priti Boateng CNP, 40 mg at 05/07/242102 dapagliflozin propanediol (Farxiga) tablet 10 mg, 10 mg, oral, Daily, Nolvia Caceres MD, 10 mg at 05/07/24 09 furosemide (Lasix) tablet 40 mg, 40 mg, oral, Daily, Lyric Joyce MD heparin (porcine) injection 5,000 Units, 5,000 Units, subcutaneous, q12h DENISE, Yamilex Cardona MD, 5,000 Units at 05/07/242102 levothyroxine (Synthroid, Levoxyl) tablet 150 mcg, 150 mcg, oral, Daily before breakfast, Yamilex Cardona MD, 150 mcg at 05/08/24 0632 melatonin tablet 5 mg, 5 mg, oral, Nightly PRN, Yamilex Cardona MD, 5 mg at 05/01/24 2221 metoprolol succinate XL (Toprol-XL) 24 hr tablet 25 mg, 25 mg, oral, Daily, Yamilex Cardona MD, 25 mg at 05/07/24 0900 nitroglycerin (Nitrostat) SL tablet 0.4 mg, 0.4 mg, sublingual, q5 min PRN, Josh Young MD ondansetron HCl (PF) (Zofran) injection 4 mg, 4 mg, intravenous, q6h PRN, Josh Young MD, 4 mg at 05/05/24 1308 pantoprazole (ProtoNix) EC tablet 40 mg, 40 mg, oral, Daily before breakfast, Yamilex Cardona MD, 40 mg at 05/08/24 0632 spironolactone (Aldactone) split tablet 12.5 mg, 12.5 mg, oral, Daily, Nolvia Caceres MD, 12.5 mg at 05/07/24 0900 valsartan (Diovan) tablet 40 mg, 40 mg, oral, q12h DENISE, Nolvia Caceres MD, 40 mg at 05/07/24 2103 Objective: Patient Vitals for the past 24 hrs: BP Temp Temp src Pulse Resp SpO2 Weight 05/08/24 0850 123/60 -- -- 74 16 96 % -- 05/08/24 0402 103/62 36.7 ???C (98 ???F) -- 71 21 99 % -- 05/08/24 0400 -- -- -- -- -- -- 70.4 kg (155 lb 3.2 oz) 05/08/24 0046 105/63 36.7 ???C (98.1 ???F) -- 75 -- 95 % -- 05/07/24 1930 119/63 36.7 ???C (98 ???F) Temporal 75 20 94 % -- 05/07/24 1610 118/60 36.7 ???C (98.1 ???F) Temporal 74 15 97 % -- 05/07/24 1110 106/64 36.5 ???C (97.7 ???F) Temporal 65 19 97 % -- Physical Examination: Physical Exam Constitutional: General: She is not in acute distress. Appearance: Normal appearance. She is not ill-appearing. HENT: Head: Normocephalic and atraumatic. Cardiovascular: Rate and Rhythm: Normal rate and regular rhythm. Heart sounds: Normal heart sounds. No murmur heard. Pulmonary: Breath sounds: Rales present. No wheezing. Abdominal: Palpations: Abdomen is soft. Tenderness: There is no abdominal tenderness. Musculoskeletal: Right lower leg: No edema. Left lower leg: No edema. Skin: General: Skin is warm and dry. Findings: No erythema or rash. Neurological: Mental Status: She is alert and oriented to person, place, and time. Mental status is at baseline. Relevant Lab Results Encounter Date: 05/01/24 ECG 12 lead Result Value Ventricular Rate 78 Atrial Rate 78 SC Interval 142 QRS DURATION 106 QT Interval 448 QTC CALCULATION(BAZETT) 510 P Wingate 59 R-Wingate -34 T Wave Wingate 99 Impression Sinus rhythm with Premature supraventricular complexes Left axis deviation Possible Inferior infarct (cited on or before 01-MAY-2024) Prolonged QT Abnormal ECG When compared with ECG of 01-MAY-2024 20:42, Premature supraventricular complexes are now Present T wave inversion no longer evident in Anterior leads Confirmed by STRESS, (55), staff editor Monica PORTILLO, L.S. (2) on 05/05/2024 2:27:27 PM No results found for: CKTOTAL , CKMB , CKMBINDEX , TROPONINI Complete Echo (TTE) w/wo Imaging Agent, Strain, 3D, Bubble Study Result Date: 05/05/2024 1 1 [facility] Heart Station [address] [id number] [phone] (fax) Echocardiogram-[facility] Name: JACOB STEVENSON Study Date: 05/05/2024 07:37 AM B/P: 122 mmHg/89 mmHg HR: 81 bpm Date of : 1960 Location: [facility] Height: 60 in. Age: 63 year(s) Patient Room: 316 Weight: 154 lb. Gender: Female Patient Status: InPt BSA: 1.67 m2 Indication: PreOp Evaluation; CABG, H/O AR & Stent Examination: Echocardiogram (Complete), Lumason Contrast Image Quality: Poor Patient Consent: Procedure explained to patient Exam Details Contrast: I.V. dose of Lumason Conclusions Left Ventricle: The left ventricle appears mildly to moderately enlarged. Global left ventricular systolic function is severely reduced. The EF is 25 % visually. Interventricular septal thickness is increased in the proximal portion. Regional wall motion abnormalities (see diagram). Unable to assess diastolic dysfunction. Right Ventricle: The right ventricle is normal in size. Normal right ventricular systolic function. Doppler studies suggest (more content not included)... [facility] 05-07-2024 Note 05/07/24 1333 Referral Data Referral Source Physician Referral Reason Information Patient Information Primary Caregiver Self Activities of Daily Living Assistive Device Not applicable Ambulation Independent Dressing Independent Feeding Independent Behavior Oriented Communication Talks;Understands speaking;Understands Kiswahili Income Information Income Source Unemployed (Retired, states she is able to afford her basic needs.) Discharge Planning Living Arrangements Spouse/significant other Support Systems Spouse/significant other;Children;Family members Type of Residence Private residence Do you have animals or pets at home? No Will patient need Precert for Post Acute needs? No Post Acute Services None Patient's goal for discharge Return home. Does the patient need discharge transport arranged? No Screened pt at bedside who is alert/ox4. Pt lives at home with her boyfriend and states that she is independent with her ADL's. Pt also has support from her 3 children and a supportive sister. Discussed pt's CHF dx and offered HHC for nursing visits however pt reported that she is not homebound and therefore would not be eligible. Pt stated she does have the equipment to check her vitals and understands what to be watching for. Goal is to return home. [facility] 05-07-2024 Note -Continue levothyroxine, asympto matic, [facility] 05-07-2024 Note -Patient reports car diac cath in the past with [address], continue GDMT, now status post recent cath with multivessel coronary disease,, patient is being worked up for coronary artery bypass grafting, cardiology following [facility] 05-07-2024 Note -Patient reports smo nicol half pack of cigarettes per day, counseled on cessation, continue inhalers, keep saturation above 93%, [facility] 05-07-2024 Note -Continue home meds, asymptomati c, [facility] 05-07-2024 Note -Continue home meds, appears controlled, [facility] 05-07-2024 Note -No residual deficit s CT imaging was concerning for some hypodensity, neurology evaluation was requested by CT surgery. MRI ordered [facility] 05-07-2024 Note -Patient reportedly with echocardiogram completed outside hospital showing an EF of 20% status post right heart cath, revealed severe multivessel coronary disease, appreciate CT surgery evaluation, CT surgery evaluated the patient, continue diuresis, patient would need further workup of the breast mass currently on Lasix Toprol Diovan Aldactone Farxiga plan for LifeVest [facility] 05-07-2024 Note Hospital Medicine Daily Progress Note - 05/07/2024 11:41 AM; Room: [address] [place] [address] Admission: 05/01/2024 8:12 PM; Length of stay: 6 days THE HOSPITALIST TEAM PREFERS TO USE [employer] FOR NON-URGENT COMMUNICATION 7AM-7PM. IF I DO NOT RESPOND WITHIN 20 MINUTES OR URGENT MATTERS, PLEASE CALL THROUGH THE CIGARETTE MAKING MACHINE OPERATOR. FROM 7PM-7AM, PLEASE PAGE [phone](COVR). Code Status: Full Code Barriers to Discharge: Cardiac issues Expected Discharge Date: A.m. Discharge Destination: Home Overview Patient is seen for evaluation and management of CHF NSTEMI Echo showing left-ventricular ejection fraction of 20% BNP was 04/13/2000 heart cath revealing multivessel coronary artery disease seen by CTS Physical Exam Visit Vitals BP 111/74 Pulse 73 Temp 36.6 ???C (97.9 ???F) (Temporal) Resp 13 Intake/Output Summary (Last 24 hours) at 05/07/2024 1141 Last data filed at 05/07/2024 1100 Gross per 24 hour Intake 1420 ml Output 2250 ml Net -830 ml Physical Exam Vitals reviewed. Constitutional: Appearance: Normal appearance. HENT: Head: Normocephalic and atraumatic. Nose: Nose normal. Mouth/Throat: Mouth: Mucous membranes are moist. Pharynx: Oropharynx is clear. Eyes: Extraocular Movements: Extraocular movements intact. Conjunctiva/sclera: Conjunctivae normal. Pupils: Pupils are equal, round, and reactive to light. Cardiovascular: Rate and Rhythm: Normal rate and regular rhythm. Heart sounds: Murmur heard. Gallop present. Pulmonary: Effort: Pulmonary effort is normal. Breath sounds: Rales present. Abdominal: General: Abdomen is flat. Bowel sounds are normal. Palpations: Abdomen is soft. Musculoskeletal: Cervical back: Normal range of motion and neck supple. Right lower leg: Edema present. Left lower leg: Edema present. Skin: General: Skin is warm and dry. Capillary Refill: Capillary refill takes 2 to 3 seconds. Neurological: Mental Status: She is alert. Psychiatric: Behavior: Behavior normal. Estimated body mass index is 30.12 kg/m??? as calculated from the following: Height as of this encounter: 1.524 m (5'). Weight as of this encounter: 69.9 kg (154 lb 3.2 oz). Assessment and Plan Assessment & Plan Acute systolic congestive heart failure (CMS/HCC) -Patient reportedly with echocardiogram completed outside hospital showing an EF of 20% status post right heart cath, revealed severe multivessel coronary disease, appreciate CT surgery evaluation, CT surgery evaluated the patient, continue diuresis, patient would need further workup of the breast mass currently on Lasix Toprol Diovan Aldactone Farxiga plan for LifeVest Coronary artery disease involving [place] coronary artery of [place] heart without angina pectoris -Patient reports cardiac cath in the past with [address], continue GDMT, now status post recent cath with multivessel coronary disease,, patient is being worked up for coronary artery bypass grafting, cardiology following History of CVA (cerebrovascular accident) -No residual deficits CT imaging was concerning for some hypodensity, neurology evaluation was requested by CT surgery. MRI ordered Primary hypertension -Continue home meds, appears controlled, COPD (chronic obstructive pulmonary disease) (CMS/HCC) -Patient reports smoking half pack of cigarettes per day, counseled on cessation, continue inhalers, keep saturation above 93%, Acquired hypothyroidism -Continue levothyroxine, asymptomatic, GERD (gastroesophageal reflux disease) -Continue home meds, asymptomatic, Nutrition Screen: Malnutrition Attestation: I attest to the following: I have personally seen this patient. The patient has been assessed for malnutrition as documentation above, and based on the criteria set by the Academy of Nutrition and Dietetics and the [place] [employer] of Enteral and Parenteral Nutrition, meets the diagnosis for malnutrition. A care plan has been established for this patient. VTE Prophylaxis: Heparin subcutaneous Scheduled Meds aspirin, 81 mg, oral, Daily atorvastatin, 40 mg, oral, Nightly dapagliflozin propanediol, 10 mg, oral, Daily [START ON 05/08/2024] furosemide, 40 mg, oral, Daily heparin (porcine), 5,000 Units, subcutaneous, q12h DENISE levothyroxine, 150 mcg, oral, Daily before breakfast metoprolol succinate XL, 25 mg, oral, Daily pantoprazole, 40 mg, oral, Daily before breakfast spironolactone, 12.5 mg, oral, Daily valsartan, 40 mg, oral, q12h DENISE Pertinent Investigations Hematology: Results from last 7 days Lab Units 05/07/24 0550 05/06/24 1136 WBC AUTO 10*3/uL 9.94 17.99* HEMOGLOBIN g/dL 14.9 12.2 HEMATOCRIT % 46.3* 39.1 MCV fL 88.4 91.4 PLATELETS AUTO 10*3/uL 207 308 Chemistry: Results from last 7 days Lab Units 05/07/24 0550 05/06/24 1136 05/04/24 1725 05/02/24 0421 05/01/24 2101 SODIUM mmol/L 135* 138 135* < > 138 POTASSIUM mmol/L 4.6 4.5 3.8 < > 3.7 CHLORIDE mmol/L 101 99 95* < > 104 (more content not included)... [facility] 05-07-2024 Note Cardiology Progress Note Subjective Subjective: Patient was seen and examined, reported feeling slightly better. No acute events overnight. Objective Current Facility-Administered Medications: acetaminophen (Tylenol) tablet 650 mg, 650 mg, oral, q6h PRN, Yamilex Cardona MD, 650 mg at 05/06/24 0605 aspirin chewable tablet 81 mg, 81 mg, oral, Daily, Lyric Joyce MD, 81 mg at 05/07/24 0900 atorvastatin (Lipitor) tablet 40 mg, 40 mg, oral, Nightly, Priti Boateng CNP, 40 mg at 05/06/246 dapagliflozin propanediol (Farxiga) tablet 10 mg, 10 mg, oral, Daily, Nolvia Caceres MD, 10 mg at 05/07/24 0900 furosemide (Lasix) injection 40 mg, 40 mg, intravenous, Daily, Lyric Joyce MD, 40 mg at 05/07/24 09 heparin (porcine) injection 5,000 Units, 5,000 Units, subcutaneous, q12h DENISE, Yamilex Cardona MD, 5,000 Units at 05/07/24 09 levothyroxine (Synthroid, Levoxyl) tablet 150 mcg, 150 mcg, oral, Daily before breakfast, Yamilex Cardona MD, 150 mcg at 05/07/24 0603 melatonin tablet 5 mg, 5 mg, oral, Nightly PRN, Yamilex Cardona MD, 5 mg at 05/01/24 222 metoprolol succinate XL (Toprol-XL) 24 hr tablet 25 mg, 25 mg, oral, Daily, Yamilex Cardona MD, 25 mg at 05/07/24899 nitroglycerin (Nitrostat) SL tablet 0.4 mg, 0.4 mg, sublingual, q5 min PRN, Josh Young MD ondansetron HCl (PF) (Zofran) injection 4 mg, 4 mg, intravenous, q6h PRN, Josh Young MD, 4 mg at 05/05/24 1308 pantoprazole (ProtoNix) EC tablet 40 mg, 40 mg, oral, Daily before breakfast, Yamilex Cardona MD, 40 mg at 05/07/24 06 spironolactone (Aldactone) split tablet 12.5 mg, 12.5 mg, oral, Daily, Nolvia aCceres MD, 12.5 mg at 05/07/24 09 valsartan (Diovan) tablet 40 mg, 40 mg, oral, q12h DENISE, Nolvia Caceres MD, 40 mg at 05/07/24 09 Objective: Patient Vitals for the past 24 hrs: BP Temp Temp src Pulse Resp SpO2 Weight 05/07/24899 111/74 -- -- 73 -- -- -- 05/07/24 07 104/57 36.6 ???C (97.9 ???F) Temporal 61 13 95 % -- 05/07/24 0430 -- -- -- -- -- -- 69.9 kg (154 lb 3.2 oz) 05/07/24 0425 114/71 -- -- 85 19 99 % -- 05/06/24 2131 90/67 36.8 ???C (98.2 ???F) Temporal 75 11 94 % -- 05/06/242019 92/58 -- -- 79 24 94 % -- 05/06/24 1730 103/59 36.6 ???C (97.9 ???F) Temporal 69 21 96 % -- 05/06/24 1206 100/67 -- -- 62 15 95 % -- Physical Examination: Physical Exam Constitutional: General: She is not in acute distress. Appearance: Normal appearance. She is not ill-appearing. HENT: Head: Normocephalic and atraumatic. Cardiovascular: Rate and Rhythm: Normal rate and regular rhythm. Heart sounds: Normal heart sounds. No murmur heard. Pulmonary: Breath sounds: Rales present. No wheezing. Abdominal: Palpations: Abdomen is soft. Tenderness: There is no abdominal tenderness. Musculoskeletal: Right lower leg: No edema. Left lower leg: No edema. Skin: General: Skin is warm and dry. Findings: No erythema or rash. Neurological: Mental Status: She is alert and oriented to person, place, and time. Mental status is at baseline. Relevant Lab Results Encounter Date: 05/01/24 ECG 12 lead Result Value Ventricular Rate 78 Atrial Rate 78 SC Interval 142 QRS DURATION 106 QT Interval 448 QTC CALCULATION(BAZETT) 510 P Wingate 59 R-Wingate -34 T Wave Wingate 99 Impression Sinus rhythm with Premature supraventricular complexes Left axis deviation Possible Inferior infarct (cited on or before 01-MAY-2024) Prolonged QT Abnormal ECG When compared with ECG of 01-MAY-2024 20:42, Premature supraventricular complexes are now Present T wave inversion no longer evident in Anterior leads Confirmed by STRESS, (55), staff editor Katharina PORTILLO., L.S. (2) on 05/05/2024 2:27:27 PM No results found for: CKTOTAL , CKMB , CKMBINDEX , TROPONINI Complete Echo (TTE) w/wo Imaging Agent, Strain, 3D, Bubble Study Result Date: 05/05/2024 1 1 [facility] Heart Station [address] [place] [address] [phone] (fax) Echocardiogram-[facility] Name: JACOB STEVENSON Study Date: 05/05/2024 07:37 AM B/P: 122 mmHg/89 mmHg HR: 81 bpm Date of : 1960 Location: [facility] Height: 60 in. Age: 63 year(s) Patient Room: 3167 Weight: 154 lb. Gender: Female Patient Status: InPt BSA: 1.67 m2 Indication: PreOp Evaluation; CABG, H/O AR & Stent Examination: Echocardiogram (Complete), Lumason Contrast Image Quality: Poor Patient Consent: Procedure explained to patient Exam Details Contrast: I.V. dose of Lumason Conclusions Left Ventricle: The left ventricle appears mildly to moderately enlarged. Global left ventricular systolic function is severely reduced. The EF is 25 % visually. Interventricular septal thickness is increased in the proximal portion. Regional wall motion abnormalities (see diagram). Unable to assess diastolic dysfunction. Right Ventricle: The right ventricle is normal in size. Normal right ventricular (more content not included)... [facility] 05-06-2024 Note -Patient reports car diac cath in the past with [address], continue GDMT, now status post recent cath with multivessel coronary disease,, patient is being worked up for coronary artery bypass grafting, cardiology following [facility] 05-06-2024 Note -Continue levothyroxine, asympto matic, [facility] 05-06-2024 Note -No residual deficit s CT imaging was concerning for some hypodensity, neurology evaluation was requested by CT surgery. MRI ordered [facility] 05-06-2024 Note -Continue home meds, appears controlled, [facility] 05-06-2024 Note -Continue home meds, asymptomati c, [facility] 05-06-2024 Note -Patient reports smo nicol half pack of cigarettes per day, counseled on cessation, continue inhalers, keep saturation above 93%, [facility] 05-06-2024 Note -Patient reportedly with echocardiogram completed outside hospital showing an EF of 20% status post right heart cath, revealed severe multivessel coronary disease, appreciate CT surgery evaluation, CT surgery evaluated the patient, continue diuresis, patient would need further workup of the breast mass [facility] 05-06-2024 Note Hospital Medicine Daily Progress Note - 05/06/2024 9:58 AM; Room: 3167/3167-01 Admission: 05/01/2024 8:12 PM; Length of stay: 5 days THE HOSPITALIST TEAM PREFERS TO USE [employer] FOR NON-URGENT COMMUNICATION 7AM-7PM. IF I DO NOT RESPOND WITHIN 20 MINUTES OR URGENT MATTERS, PLEASE CALL THROUGH THE CIGARETTE MAKING MACHINE OPERATOR. FROM 7PM-7AM, PLEASE PAGE [phone](COVR). Code Status: Full Code Barriers to Discharge:, Multivessel coronary disease, patient is undergoing preop testing for bypass grafting of CT surgery, Expected Discharge Date: Being worked up for coronary artery bypass grafting, Discharge Destination: home Overview Patient is seen for evaluation and management shortness seen and evaluated, shortness of breath is improved, no chest pain or fever, of breath/CHF,. Subjective No chest pain or shortness of breath, off oxygen, Physical Exam Visit Vitals BP 92/74 Pulse 86 Temp 36.6 ???C (97.9 ???F) (Temporal) Resp 20 Intake/Output Summary (Last 24 hours) at 05/06/2024 0958 Last data filed at 05/06/2024 0500 Gross per 24 hour Intake -- Output 1000 ml Net -1000 ml Physical Exam Estimated body mass index is 30.19 kg/m??? as calculated from the following: Height as of this encounter: 1.524 m (5'). Weight as of this encounter: 70.1 kg (154 lb 9.6 oz). Respiratory, good air entry bilaterally, Cardiovascular, regular, Neurological, awake and alert moving all extremities, Assessment and Plan Assessment & Plan Acute systolic congestive heart failure (CMS/HCC) -Patient reportedly with echocardiogram completed outside hospital showing an EF of 20% status post right heart cath, revealed severe multivessel coronary disease, appreciate CT surgery evaluation, CT surgery evaluated the patient, continue diuresis, patient would need further workup of the breast mass Coronary artery disease involving [place] coronary artery of [place] heart without angina pectoris -Patient reports cardiac cath in the past with [address], continue GDMT, now status post recent cath with multivessel coronary disease,, patient is being worked up for coronary artery bypass grafting, cardiology following History of CVA (cerebrovascular accident) -No residual deficits CT imaging was concerning for some hypodensity, neurology evaluation was requested by CT surgery. MRI ordered Primary hypertension -Continue home meds, appears controlled, COPD (chronic obstructive pulmonary disease) ([facility]) -Patient reports smoking half pack of cigarettes per day, counseled on cessation, continue inhalers, keep saturation above 93%, Acquired hypothyroidism -Continue levothyroxine, asymptomatic, GERD (gastroesophageal reflux disease) -Continue home meds, asymptomatic, VTE Prophylaxis: Lovenox Scheduled Meds [START ON 05/07/2024] aspirin, 81 mg, oral, Daily dapagliflozin propanediol, 10 mg, oral, Daily furosemide, 40 mg, intravenous, Daily heparin (porcine), 5,000 Units, subcutaneous, q12h DENISE levothyroxine, 150 mcg, oral, Daily before breakfast metoprolol succinate XL, 25 mg, oral, Daily pantoprazole, 40 mg, oral, Daily before breakfast spironolactone, 12.5 mg, oral, Daily valsartan, 40 mg, oral, q12h DENISE Pertinent Investigations Hematology: Results from last 7 days Lab Units 05/04/24 17205/02/24 0421 WBC AUTO 10*3/uL 12.73* 14.04* HEMOGLOBIN g/dL 16.3* 12.1 HEMATOCRIT % 50.9* 37.5 MCV fL 88.4 88.0 PLATELETS AUTO 10*3/uL 214 181 Chemistry: Results from last 7 days Lab Units 05/04/24 17205/02/24 0421 05/01/24 2101 SODIUM mmol/L 135* 137 138 POTASSIUM mmol/L 3.8 4.3 3.7 CHLORIDE mmol/L 95* 105 104 CO2 mmol/L 29 26 24 BUN mg/dL 32* 19 18 CREATININE mg/dL 1.18 0.90 0.97 GLUCOSE mg/dL 92 173* 162* MAGNESIUM mg/dL 2.2 -- 2.1 CALCIUM mg/dL 9.4 8.7 8.7 PHOSPHORUS mg/dL 5.9* -- 3.6 Results from last 7 days Lab Units 05/01/24 2101 AST U/L 27 ALT U/L 49 ALK PHOS U/L 83 BILIRUBIN TOTAL mg/dL 0.4 Historical Values: (Includes values prior to this admission) Lab Results Component Value Date TSH 1.04 05/04/2024 No results found for: VHCAIOEO91 , IRON , TIBC , C3 , C4 , VIRGIE , CANCA , ASO , PSA , CEA , CA125 , CA199 , AFP , CA153 Imaging Cardiac catheterization Addendum: Final impression: Spasm in the left radial artery, severe three-vessel coronary artery disease, elevated right heart pressures, decreased cardiac index. Procedure Access under ultrasound right heart catheterization left upper extremity angiography coronary arteriography Method: Written informed consent was obtained. The right internal jugular vein was identified under ultrasound and using ultrasound guidance and micropuncture technique the vessel was entered. A 6 Libyan sheath was placed. A Boyer catheter was introduced for right heart catheterization. The catheter and sheath were withdrawn and adequate hemostasis was achieved. Attention was then drawn to the left radial (more content not included)... [facility] 05-06-2024 Note Cardiology Progress Note Subjective Subjective: Patient was seen and examined, reported feeling slightly better. No acute events overnight. Objective Current Facility-Administered Medications: acetaminophen (Tylenol) tablet 650 mg, 650 mg, oral, q6h PRN, Yamilex Cardona MD, 650 mg at 05/06/24 06 aspirin tablet 325 mg, 325 mg, oral, Daily, Yamilex Cardona MD, 325 mg at 05/06/24 08 dapagliflozin propanediol (Farxiga) tablet 10 mg, 10 mg, oral, Daily, Nolvia Caceres MD, 10 mg at 05/06/24 08 furosemide (Lasix) injection 40 mg, 40 mg, intravenous, Daily, Lyric Joyce MD, 40 mg at 05/06/24 0833 heparin (porcine) injection 5,000 Units, 5,000 Units, subcutaneous, q12h DENISE, Yamilex Cardona MD, 5,000 Units at 05/06/24 0834 levothyroxine (Synthroid, Levoxyl) tablet 150 mcg, 150 mcg, oral, Daily before breakfast, Yamilex Cardona MD, 150 mcg at 05/06/24 06 melatonin tablet 5 mg, 5 mg, oral, Nightly PRN, Yamilex Cardona MD, 5 mg at 05/01/24 2221 metoprolol succinate XL (Toprol-XL) 24 hr tablet 25 mg, 25 mg, oral, Daily, Yamilex Cardona MD, 25 mg at 05/06/24 0833 nitroglycerin (Nitrostat) SL tablet 0.4 mg, 0.4 mg, sublingual, q5 min PRN, Josh Young MD ondansetron HCl (PF) (Zofran) injection 4 mg, 4 mg, intravenous, q6h PRN, Josh Young MD, 4 mg at 05/05/24 1308 pantoprazole (ProtoNix) EC tablet 40 mg, 40 mg, oral, Daily before breakfast, Yamilex Cardona MD, 40 mg at 05/06/24 0605 spironolactone (Aldactone) split tablet 12.5 mg, 12.5 mg, oral, Daily, Nolvia Caceres MD, 12.5 mg at 05/06/24 0833 valsartan (Diovan) tablet 40 mg, 40 mg, oral, q12h DENISE, Nolvia Caceres MD, 40 mg at 05/06/24 0836 Objective: Patient Vitals for the past 24 hrs: BP Pulse Resp SpO2 Weight 05/06/24 0122 -- -- -- -- 70.1 kg (154 lb 9.6 oz) 05/06/24 0005 92/74 86 20 93 % -- 05/05/24 2031 95/60 75 18 92 % -- 05/05/24 1800 -- 74 15 94 % -- 05/05/24 1700 -- 83 13 92 % -- 05/05/24 1600 -- 79 12 93 % -- 05/05/24 1500 -- 81 16 93 % -- 05/05/24 1400 -- 81 24 94 % -- 05/05/24 1200 123/86 -- -- -- -- Physical Examination: Physical Exam Constitutional: General: She is not in acute distress. Appearance: Normal appearance. She is not ill-appearing. HENT: Head: Normocephalic and atraumatic. Cardiovascular: Rate and Rhythm: Normal rate and regular rhythm. Heart sounds: Normal heart sounds. No murmur heard. Pulmonary: Breath sounds: Rales present. No wheezing. Abdominal: Palpations: Abdomen is soft. Tenderness: There is no abdominal tenderness. Musculoskeletal: Right lower leg: No edema. Left lower leg: No edema. Skin: General: Skin is warm and dry. Findings: No erythema or rash. Neurological: Mental Status: She is alert and oriented to person, place, and time. Mental status is at baseline. Relevant Lab Results Encounter Date: 05/01/24 ECG 12 lead Result Value Ventricular Rate 78 Atrial Rate 78 SC Interval 142 QRS DURATION 106 QT Interval 448 QTC CALCULATION(BAZETT) 510 P Wingate 59 R-Wingate -34 T Wave Wingate 99 Impression Sinus rhythm with Premature supraventricular complexes Left axis deviation Possible Inferior infarct (cited on or before 01-MAY-2024) Prolonged QT Abnormal ECG When compared with ECG of 01-MAY-2024 20:42, Premature supraventricular complexes are now Present T wave inversion no longer evident in Anterior leads Confirmed by STRESS, ([id number]), staff editor Monica PORTILLO, L.S. (2) on 05/05/2024 2:27:27 PM No results found for: CKTOTAL , CKMB , CKMBINDEX , TROPONINI Complete Echo (TTE) w/wo Imaging Agent, Strain, 3D, Bubble Study Result Date: 05/05/2024 1 1 [facility] Heart Station [address] [place] [address] [phone] (fax) Echocardiogram-[facility] Name: JACOB STEVENSON Study Date: 05/05/2024 07:37 AM B/P: 122 mmHg/89 mmHg HR: 81 bpm Date of : 1960 Location: [facility] Height: 60 in. Age: 63 year(s) Patient Room: 3167 Weight: 154 lb. Gender: Female Patient Status: InPt BSA: 1.67 m2 Indication: PreOp Evaluation; CABG, H/O AR & Stent Examination: Echocardiogram (Complete), Lumason Contrast Image Quality: Poor Patient Consent: Procedure explained to patient Exam Details Contrast: I.V. dose of Lumason Conclusions Left Ventricle: The left ventricle appears mildly to moderately enlarged. Global left ventricular systolic function is severely reduced. The EF is 25 % visually. Interventricular septal thickness is increased in the proximal portion. Regional wall motion abnormalities (see diagram). Unable to assess diastolic dysfunction. Right Ventricle: The right ventricle is normal in size. Normal right ventricular systolic function. Doppler studies suggest normal right sided pressures. Left Atrium: The left atrium is normal in size. Overall Conclusions: No significant valvular abnormalities Due to suboptimal imaging Lumason contrast (more content not included)... [facility] 05-05-2024 Note ---- Attestation signed by Shannon Yoon MD at 05/05/2024 1:29 PM I saw and examined Ms. Stevenson with Dr. Joyce today. I also spoke with Dr. Vizcarra from CT surgery. She is still being evaluated for CABG. Dr. Vizcarra is appropriately concerned about right hemispheric finding on head CT, breast nodule (6 mm) and high pressures on RHC. If she is otherwise an acceptable CABG candidate I would advise she have a repeat RHC 1-2 days prior to surgery to demonstrate that filling pressures have come down to acceptable levels and that PA pressures are not prohibitive. ---- Cardiology Progress Note Subjective Subjective: Patient was seen and examined, reported feeling slightly better. No acute events overnight. Objective Current Facility-Administered Medications: acetaminophen (Tylenol) tablet 650 mg, 650 mg, oral, q6h PRN, Yamilex Cardona MD aspirin tablet 325 mg, 325 mg, oral, Daily, Yamilex Cardona MD, 325 mg at 05/05/24 0932 dapagliflozin propanediol (Farxiga) tablet 10 mg, 10 mg, oral, Daily, Nolvia Caceres MD, 10 mg at 05/05/24 0931 furosemide (Lasix) injection 40 mg, 40 mg, intravenous, q12h, Lyric Joyce MD, 40 mg at 05/05/24 1228 heparin (porcine) injection 5,000 Units, 5,000 Units, subcutaneous, q12h [facility], Yamilex Cardona MD, 5,000 Units at 05/05/24 0931 levothyroxine (Synthroid, Levoxyl) tablet 150 mcg, 150 mcg, oral, Daily before breakfast, Yamilex Cardona MD, 150 mcg at 05/05/24 0543 melatonin tablet 5 mg, 5 mg, oral, Nightly PRN, Yamilex Cardona MD, 5 mg at 05/01/24 2221 metoprolol succinate XL (Toprol-XL) 24 hr tablet 25 mg, 25 mg, oral, Daily, Yamilex Cardona MD, 25 mg at 05/05/24 0932 ondansetron HCl (PF) (Zofran) injection 4 mg, 4 mg, intravenous, q6h PRN, Josh Young MD, 4 mg at 05/05/24 1308 pantoprazole (ProtoNix) EC tablet 40 mg, 40 mg, oral, Daily before breakfast, Yamilex Cardona MD, 40 mg at 05/05/24 0543 spironolactone (Aldactone) split tablet 12.5 mg, 12.5 mg, oral, Daily, Nolvia Caceres MD, 12.5 mg at 05/05/24 0931 valsartan (Diovan) tablet 40 mg, 40 mg, oral, q12h DENISE, Nolvia Caceres MD, 40 mg at 05/05/24 0932 Objective: Patient Vitals for the past 24 hrs: BP Temp Temp src Pulse Resp SpO2 Weight 05/05/24526 -- -- -- -- -- -- 70.2 kg (154 lb 12.8 oz) 05/05/24 0505 122/89 -- -- 96 24 96 % -- 05/05/24 0455 92/51 -- -- 74 12 -- -- 05/05/24 0010 128/87 -- -- 77 16 97 % -- 05/04/242009 113/64 36.6 ???C (97.9 ???F) Temporal 76 26 92 % -- 05/04/24 1617 125/59 36.4 ???C (97.5 ???F) Temporal 78 21 93 % -- Physical Examination: Physical Exam Constitutional: General: She is not in acute distress. Appearance: Normal appearance. She is not ill-appearing. HENT: Head: Normocephalic and atraumatic. Cardiovascular: Rate and Rhythm: Normal rate and regular rhythm. Heart sounds: Normal heart sounds. No murmur heard. Pulmonary: Breath sounds: Rales present. No wheezing. Abdominal: Palpations: Abdomen is soft. Tenderness: There is no abdominal tenderness. Musculoskeletal: Right lower leg: No edema. Left lower leg: No edema. Skin: General: Skin is warm and dry. Findings: No erythema or rash. Neurological: Mental Status: She is alert and oriented to person, place, and time. Mental status is at baseline. Relevant Lab Results Encounter Date: 05/01/24 ECG 12 lead Result Value Ventricular Rate 93 Atrial Rate 93 SC Interval 152 QRS DURATION 106 QT Interval 396 QTC CALCULATION(BAZETT) 492 P Wingate 59 R-Wingate -28 T Wave Wingate 83 Impression Normal sinus rhythm Possible Inferior infarct , age undetermined T wave abnormality, consider anterolateral ischemia Abnormal ECG No previous ECGs available Confirmed by Nicola Gorman ([id number]) on 05/02/2024 1:49:06 PM No results found for: CKTOTAL , CKMB , CKMBINDEX , TROPONINI Complete Echo (TTE) w/wo Imaging Agent, Strain, 3D, Bubble Study Result Date: 05/05/2024 1 1 [facility] Heart Station [address] [place] [address] [phone] (fax) Echocardiogram-[facility] Name: JACOB STEVENSON Study Date: 05/05/2024 07:37 AM B/P: 122 mmHg/89 mmHg HR: 81 bpm Date of : 1960 Location: [facility] Height: 60 in. Age: 63 year(s) Patient Room: 3167 Weight: 154 lb. Gender: Female Patient Status: InPt BSA: 1.67 m2 Indication: PreOp Evaluation; CABG, H/O AR & Stent Examination: Echocardiogram (Complete), Lumason Contrast Image Quality: Poor Patient Consent: Procedure explained to patient Exam Details Contrast: I.V. dose of Lumason Conclusions Left Ventricle: The left ventricle appears mildly to moderately enlarged. Global left ventricular systolic function is severely reduced. The EF is 25 % visually. Interventricular septal thickness is increased in the (more content not included)... [facility] 05-05-2024 Note Pt admitted to [facility] for acute systolic congestive HF. Pt's echo from 05/05/24 estimated LVEF 25%, which qualifies pt for cardiac rehab (CR) therapy with HF diagnosis. I will watch for updates and follow up with pt, if appropriate. Cassandra Garcia, GARRETTN installations inspector Outpatient Coordinator Cardiopulmonary Rehab [facility] 05-05-2024 Note Cardiothoracic Surge ry Progress Note 05/05/2024 Room: [address] [place] [address] Storm Stevenson is a 63 y.o. female who presented to [facility] ED with complaint of 1 day history of shortness of breath, with associated retrosternal, nonradiating chest heaviness. She was hypoxic and placed on BiPAP. I am uncertain of her vital signs at outside hospital, as those records are not available. Initial troponin at outside hospital was elevated at 539 repeat troponin here of 11. BNP 3901. She underwent transthoracic echocardiogram at the outside hospital which showed severely reduced ejection fraction of 20%, cardiology consulted for further evaluation and management. She was recommended for transfer to [facility]. She was admitted on 05/01/24 for Acute HF with severely reduced EF 20%. Medical history is significant for known CAD with prior stent (uncertain of location of stent), HTN, Hx CVA x2 about 8-10 years ago per patient (she is uncertain of the type of stroke, no dysarthria and denies unilateral weakness), COPD, tobacco abuse (40pk year history, states quit 3 days ago), and hypothyroidism. She does not follow with a neurologist or regulatory compliance specialist. States she has never seen a regulatory compliance specialist and she has not seen an neurologist. She went for cardiac catherization on 05/02/24 and found to have multivessel CAD. CT Surgery consulted to evaluated for possible CABG. She is currently being medically optimized for HF with diuretics and GDMT. Interval: No issues overnight, endorse swelling and breathing improving. Net -3.7 liters since admission. Denies chest pain. Just came back from echocardiogram. Objective Patient Vitals for the past 24 hrs: BP Temp Temp src Pulse Resp SpO2 Weight 05/05/24 0527 -- -- -- -- -- -- 70.2 kg (154 lb 12.8 oz) 05/05/24 0505 122/89 -- -- 96 24 96 % -- 05/05/24 0455 92/51 -- -- 74 12 -- -- 05/05/24 0010 128/87 -- -- 77 16 97 % -- 05/04/242009 113/64 36.6 ???C (97.9 ???F) Temporal 76 26 92 % -- 05/04/24 1617 125/59 36.4 ???C (97.5 ???F) Temporal 78 21 93 % -- 05/04/24 1208 140/86 36.4 ???C (97.5 ???F) Temporal 70 12 90 % -- Physical Exam Vitals reviewed. Constitutional: General: She is not in acute distress. Appearance: Normal appearance. She is normal weight. She is not ill-appearing. HENT: Head: Normocephalic and atraumatic. Mouth/Throat: Mouth: Mucous membranes are moist. Pharynx: Oropharynx is clear. Eyes: Extraocular Movements: Extraocular movements intact. Conjunctiva/sclera: Conjunctivae normal. Pupils: Pupils are equal, round, and reactive to light. Neck: Vascular: No carotid bruit. Cardiovascular: Rate and Rhythm: Normal rate and regular rhythm. Pulses: Normal pulses. Heart sounds: Normal heart sounds. No murmur heard. Pulmonary: Effort: Pulmonary effort is normal. No respiratory distress. Breath sounds: Normal breath sounds. Abdominal: General: Abdomen is flat. There is no distension. Palpations: Abdomen is soft. Musculoskeletal: General: Normal range of motion. Cervical back: Normal range of motion. Right lower leg: Edema present. Left lower leg: Edema present. Skin: General: Skin is warm and dry. Capillary Refill: Capillary refill takes less than 2 seconds. Coloration: Skin is not pale. Neurological: General: No focal deficit present. Mental Status: She is alert and oriented to person, place, and time. Mental status is at baseline. Psychiatric: Mood and Affect: Mood normal. Behavior: Behavior normal. Thought Content: Thought content normal. Judgment: Judgment normal. Lab Results Component Value Date NA 135 (L) 05/04/2024 K 3.8 05/04/2024 CL 95 (L) 05/04/2024 ANIONGAP 15 05/04/2024 BUN 32 (H) 05/04/2024 CREATININE 1.18 05/04/2024 CALCIUM 9.4 05/04/2024 MG 2.2 05/04/2024 PHOS 5.9 (H) 05/04/2024 Lab Results Component Value Date BILITOT 0.4 05/01/2024 ALKPHOS 83 05/01/2024 AST 27 05/01/2024 ALT 49 05/01/2024 PROT 6.8 05/01/2024 ALBUMIN 4.4 05/01/2024 Lab Results Component Value Date WBC 12.73 (H) 05/04/2024 RBC 5.76 (H) 05/04/2024 HGB 16.3 (H) 05/04/2024 HCT 50.9 (H) 05/04/2024 PLT 214 05/04/2024 NRBC 0.0 05/04/2024 Complete Echo (TTE) w/wo Imaging Agent, Strain, 3D, Bubble Study Result Date: 05/05/2024 1 1 [facility] Heart Station [address] [place] [address] [phone] (fax) Echocardiogram-[facility] Name: JACOB STEVENSON Study Date: 05/05/2024 07:37 AM B/P: 122 mmHg/89 mmHg HR: 81 bpm Date of : 1960 Location: [facility] Height: 60 in. Age: 63 year(s) Patient Room: 3167 Weight: 154 lb. Gender: Female Patient Status: InPt BSA: 1.67 m2 Indication: PreOp Evaluation; CABG, H/O AR & Stent Examination: Echocardiogram (Complete), Lumason Contrast Image Quality: Poor Patient Consent: Procedure explained to patient Exam Details Contrast: I.V. dose of Lumason Conclusions Left Ventricle: The (more content not included)... [facility] 05-05-2024 Note -Continue home meds, asymptomati c, [facility] 05-05-2024 Note -Continue levothyroxine, asympto matalicia, [facility] 05-05-2024 Note -Continue home meds, appears controlled, [facility] 05-05-2024 Note -No residual deficit s CT imaging was concerning for some hypodensity, neurology evaluation was requested by CT surgery. [facility] 05-05-2024 Note -Patient reports car diac cath in the past with [address], continue GDMT, now status post recent cath with multivessel coronary disease,, patient is being worked up for coronary artery bypass grafting, [facility] 05-05-2024 Note -Patient reportedly with echocardiogram completed outside hospital showing an EF of 20% status post right heart cath, revealed severe multivessel coronary disease, appreciate CT surgery evaluation, preop workup in progress for coronary artery bypass grafting. [facility] 05-05-2024 Note -Patient reports smo nicol half pack of cigarettes per day, counseled on cessation, continue inhalers, keep saturation above 93%, [facility] 05-05-2024 Note Hospital Medicine Daily Progress Note - 05/05/2024 8:30 AM; Room: [address] [place] [address] Admission: 05/01/2024 8:12 PM; Length of stay: 4 days THE HOSPITALIST TEAM PREFERS TO USE [employer] FOR NON-URGENT COMMUNICATION 7AM-7PM. IF I DO NOT RESPOND WITHIN 20 MINUTES OR URGENT MATTERS, PLEASE CALL THROUGH THE CIGARETTE MAKING MACHINE OPERATOR. FROM 7PM-7AM, PLEASE PAGE [phone](COVR). Code Status: Full Code Barriers to Discharge:, Multivessel coronary disease, patient is undergoing preop testing for bypass grafting of CT surgery, Expected Discharge Date: Being worked up for coronary artery bypass grafting, Discharge Destination: home Overview Patient is seen for evaluation and management shortness seen and evaluated, shortness of breath is improved, no chest pain or fever, of breath/CHF,. Subjective No chest pain or shortness of breath, off oxygen, Physical Exam Visit Vitals BP 122/89 Pulse 96 Temp 36.6 ???C (97.9 ???F) (Temporal) Resp 24 Intake/Output Summary (Last 24 hours) at 05/05/2024 0830 Last data filed at 05/05/2024 0700 Gross per 24 hour Intake 1120 ml Output 3050 ml Net -1930 ml Physical Exam Estimated body mass index is 30.23 kg/m??? as calculated from the following: Height as of this encounter: 1.524 m (5'). Weight as of this encounter: 70.2 kg (154 lb 12.8 oz). Respiratory, good air entry bilaterally, Cardiovascular, regular, Neurological, awake and alert moving all extremities, Assessment and Plan Assessment & Plan Acute systolic congestive heart failure ([facility]) -Patient reportedly with echocardiogram completed outside hospital showing an EF of 20% status post right heart cath, revealed severe multivessel coronary disease, appreciate CT surgery evaluation, preop workup in progress for coronary artery bypass grafting. Coronary artery disease involving [place] coronary artery of [place] heart without angina pectoris -Patient reports cardiac cath in the past with [address], continue GDMT, now status post recent cath with multivessel coronary disease,, patient is being worked up for coronary artery bypass grafting, History of CVA (cerebrovascular accident) -No residual deficits CT imaging was concerning for some hypodensity, neurology evaluation was requested by CT surgery. Primary hypertension -Continue home meds, appears controlled, COPD (chronic obstructive pulmonary disease) (CMS/HCC) -Patient reports smoking half pack of cigarettes per day, counseled on cessation, continue inhalers, keep saturation above 93%, Acquired hypothyroidism -Continue levothyroxine, asymptomatic, GERD (gastroesophageal reflux disease) -Continue home meds, asymptomatic, VTE Prophylaxis: Lovenox Scheduled Meds aspirin, 325 mg, oral, Daily dapagliflozin propanediol, 10 mg, oral, Daily furosemide, 40 mg, intravenous, q12h heparin (porcine), 5,000 Units, subcutaneous, q12h DENISE levothyroxine, 150 mcg, oral, Daily before breakfast metoprolol succinate XL, 25 mg, oral, Daily pantoprazole, 40 mg, oral, Daily before breakfast spironolactone, 12.5 mg, oral, Daily valsartan, 40 mg, oral, q12h DENISE Pertinent Investigations Hematology: Results from last 7 days Lab Units 05/04/24 1725 05/02/24 0421 WBC AUTO 10*3/uL 12.73* 14.04* HEMOGLOBIN g/dL 16.3* 12.1 HEMATOCRIT % 50.9* 37.5 MCV fL 88.4 88.0 PLATELETS AUTO 10*3/uL 214 181 Chemistry: Results from last 7 days Lab Units 05/04/24 1725 05/02/24 0421 05/01/24 2101 SODIUM mmol/L 135* 137 138 POTASSIUM mmol/L 3.8 4.3 3.7 CHLORIDE mmol/L 95* 105 104 CO2 mmol/L 29 26 24 BUN mg/dL 32* 19 18 CREATININE mg/dL 1.18 0.90 0.97 GLUCOSE mg/dL 92 173* 162* MAGNESIUM mg/dL 2.2 -- 2.1 CALCIUM mg/dL 9.4 8.7 8.7 PHOSPHORUS mg/dL 5.9* -- 3.6 Results from last 7 days Lab Units 05/01/24 2101 AST U/L 27 ALT U/L 49 ALK PHOS U/L 83 BILIRUBIN TOTAL mg/dL 0.4 Historical Values: (Includes values prior to this admission) No results found for: PREALBUMIN , TSH , T3FREE , FREET4 , CORTISOL , FEV1 , VOE8FPL , DLCO , RVSP , HDL , LDL No results found for: [id number] , IRON , TIBC , C3 , C4 , VIRGIE , CANCA , ASO , PSA , CEA , CA125 , CA199 , AFP , CA153 Imaging CT head wo IV contrast Narrative: HISTORY and Tech Notes: Stroke, follow up History of CVA Acute neurologic change/deficit PROCEDURE: CT brain The images were obtained without contrast given for this exam It should be noted however there was a heart catheterization on May 02 Automated exposure control was utilized COMPARISON: None. FINDINGS: Visualized paranasal sinuses and mastoid air cells look well aerated. There is mild atrophy There is moderate to severe chronic white matter ischemic change. No hydrocephalus. No midline shift or herniation No extra-axial fluid collection No large mass or area vasogenic edema is seen No large acute infarct is seen . There is a subtle small hyperdense abnormality in th (more content not included)... [facility] 05-04-2024 Note ---- Attestation signed by Shannon Yoon MD at 05/04/2024 3:48 PM I Personally saw and examined Ms. Stevenson with Dr. Caceres. We reviewed her recent cath films as well. She is not having chest pain now and on exam she has an S4 gallop. Plan is for CT surgery evaluation for CABG for the indication of non-STEMI (chest pain last week with positive troponin) and newly reduced LVEF. Continue medical therapy for now. ---- Cardiology Progress Note Subjective Subjective: The patient denies any chest pain or SOB this morning; she has no complaints overnight and is HDS. When further questioned, she mentions she was having chest pressure 1 week ago. She also adds that she used to be a smoker but she is trying to stop. Objective Current Facility-Administered Medications: acetaminophen (Tylenol) tablet 650 mg, 650 mg, oral, q6h PRN, Yamilex Cardona MD aspirin tablet 325 mg, 325 mg, oral, Daily, Yamilex Cardona MD, 325 mg at 05/04/24 1046 dapagliflozin propanediol (Farxiga) tablet 10 mg, 10 mg, oral, Daily, Nolvia Caceres MD, 10 mg at 05/04/24 1346 furosemide (Lasix) injection 40 mg, 40 mg, intravenous, q12h, Lyric Joyce MD, 40 mg at 05/04/24 1346 heparin (porcine) injection 5,000 Units, 5,000 Units, subcutaneous, q12h DENISE, Yamilex Cardona MD, 5,000 Units at 05/04/24 1046 levothyroxine (Synthroid, Levoxyl) tablet 150 mcg, 150 mcg, oral, Daily before breakfast, Yamilex Cardona MD, 150 mcg at 05/04/24 0835 melatonin tablet 5 mg, 5 mg, oral, Nightly PRN, Yamilex Cardona MD, 5 mg at 05/01/24 2221 metoprolol succinate XL (Toprol-XL) 24 hr tablet 25 mg, 25 mg, oral, Daily, Yamilex Cardona MD, 25 mg at 05/04/24 1046 pantoprazole (ProtoNix) EC tablet 40 mg, 40 mg, oral, Daily before breakfast, Yamilex Cardona MD, 40 mg at 05/04/24 0835 spironolactone (Aldactone) split tablet 12.5 mg, 12.5 mg, oral, Daily, Nolvia Caceres MD, 12.5 mg at 05/04/24 1046 valsartan (Diovan) tablet 40 mg, 40 mg, oral, q12h DENISE, Nolvia Caceres MD, 40 mg at 05/04/24 1046 Objective: Patient Vitals for the past 24 hrs: BP Temp Temp src Pulse Resp SpO2 Weight 05/04/24 0745 109/78 36.5 ???C (97.7 ???F) Temporal 71 21 95 % -- 05/04/24 0415 114/84 36.7 ???C (98.1 ???F) Temporal 81 20 98 % -- 05/04/24 0148 -- -- -- -- -- -- 70.6 kg (155 lb 9.6 oz) 05/04/24 0035 132/68 36.3 ???C (97.3 ???F) Temporal 82 21 96 % -- 05/03/24 1950 134/90 35.7 ???C (96.3 ???F) Temporal 79 17 97 % -- 05/03/24 1630 127/71 36.8 ???C (98.2 ???F) Temporal 77 11 -- -- Physical Examination: Physical Exam Constitutional: Appearance: Normal appearance. HENT: Head: Normocephalic and atraumatic. Nose: Nose normal. Eyes: Extraocular Movements: Extraocular movements intact. Pupils: Pupils are equal, round, and reactive to light. Cardiovascular: Rate and Rhythm: Normal rate and regular rhythm. Pulses: Normal pulses. Heart sounds: Normal heart sounds. Pulmonary: Effort: Pulmonary effort is normal. Breath sounds: Normal breath sounds. No wheezing or rales. Abdominal: General: Abdomen is flat. Palpations: Abdomen is soft. Musculoskeletal: General: Normal range of motion. Skin: General: Skin is warm and dry. Neurological: Mental Status: She is alert. Relevant Lab Results Encounter Date: 05/01/24 ECG 12 lead Result Value Ventricular Rate 93 Atrial Rate 93 SC Interval 152 QRS DURATION 106 QT Interval 396 QTC CALCULATION(BAZETT) 492 P Wingate 59 R-Wingate -28 T Wave Wingate 83 Impression Normal sinus rhythm Possible Inferior infarct , age undetermined T wave abnormality, consider anterolateral ischemia Abnormal ECG No previous ECGs available Confirmed by Nicola Gorman ([id number]) on 05/02/2024 1:49:06 PM No results found for: CKTOTAL , CKMB , CKMBINDEX , TROPONINI No echocardiogram results found for the past 12 months No nuclear medicine results found for the past 12 months Relevant Imaging Results CT chest wo IV contrast Narrative: HISTORY and Tech Notes: Chest wall pain, nontraumatic, infection or inflammation, xray done COPD, chest pain, shortness of breath PROCEDURE: CT chest without contrast Automated exposure control was utilized COMPARISON: May 01 FINDINGS: The cardiac and vascular and mediastinal and upper abdominal the tail is suboptimal without contrast Small asymmetric 6 mm nodule in the superficial aspect of the upper outer left breast located roughly 1 cm deep to the skin surface. Ultrasound correlation suggested when appropriate assuming not previously worked up with proven to be benign CHEST Severe coronary artery calcification and/or stents Normal heart size Small hiatal hernia No adrenal mass or hemorrhage No splenomegaly No ascites in the upper abdomen No pleural effusion seen. No pericardial effusion . (more content not included)... [facility] 05-04-2024 Note This report has been cancelled. [facility] 05-04-2024 Note -Continue levothyroxine, asympto matic, [facility] 05-04-2024 Note -Continue home meds, appears controlled, [facility] 05-04-2024 Note -Continue home meds, asymptomati c, [facility] 05-04-2024 Note -No residual deficits [facility] 05-04-2024 Note -Patient reports smo nicol half pack of cigarettes per day, counseled on cessation, continue inhalers, keep saturation above 93%, [facility] 05-04-2024 Note -Patient reports car diac cath in the past with [address], continue GDMT, now status post recent cath with multivessel coronary disease, [facility] 05-04-2024 Note -Patient reportedly with echocardiogram completed outside hospital showing an EF of 20% status post right heart cath, revealed severe multivessel coronary disease CT surgery evaluation to follow, continue with GDMT as tolerated, unable to assess NYHA class? [facility] 05-04-2024 Note [facility] Medicine Daily Progress Note - 05/04/2024 6:33 AM; Room: [address] [place] [address] Admission: 05/01/2024 8:12 PM; Length of stay: 3 days THE HOSPITALIST TEAM PREFERS TO USE [employer] FOR NON-URGENT COMMUNICATION 7AM-7PM. IF I DO NOT RESPOND WITHIN 20 MINUTES OR URGENT MATTERS, PLEASE CALL THROUGH THE CIGARETTE MAKING MACHINE OPERATOR. FROM 7PM-7AM, PLEASE PAGE [phone](COVR). Code Status: Full Code Barriers to Discharge:, Multivessel coronary disease, CT surgery evaluation, Expected Discharge Date: Pending cardiology/CT surgery evaluation Discharge Destination: home Overview Patient is seen for evaluation and management shortness seen and evaluated, shortness of breath is improved, no chest pain or fever, of breath/CHF,. Subjective No chest pain or shortness of breath, off oxygen, Physical Exam Visit Vitals BP 114/84 (BP Location: Right arm, Patient Position: Lying) Pulse 81 Temp 36.7 ???C (98.1 ???F) (Temporal) Resp 20 Intake/Output Summary (Last 24 hours) at 05/04/2024 0675 Last data filed at 05/04/2024 0415 Gross per 24 hour Intake 1140 ml Output 1150 ml Net -10 ml Physical Exam Estimated body mass index is 30.39 kg/m??? as calculated from the following: Height as of this encounter: 1.524 m (5'). Weight as of this encounter: 70.6 kg (155 lb 9.6 oz). Respiratory, good air entry bilaterally, Cardiovascular, regular, Neurological, awake and alert moving all extremities, Assessment and Plan Assessment & Plan Acute systolic congestive heart failure (CMS/HCC) -Patient reportedly with echocardiogram completed outside hospital showing an EF of 20% status post right heart cath, revealed severe multivessel coronary disease CT surgery evaluation to follow, continue with GDMT as tolerated, unable to assess NYHA class? Coronary artery disease involving [place] coronary artery of [place] heart without angina pectoris -Patient reports cardiac cath in the past with [address], continue GDMT, now status post recent cath with multivessel coronary disease, History of CVA (cerebrovascular accident) -No residual deficits Primary hypertension -Continue home meds, appears controlled, COPD (chronic obstructive pulmonary disease) ([facility]) -Patient reports smoking half pack of cigarettes per day, counseled on cessation, continue inhalers, keep saturation above 93%, Acquired hypothyroidism -Continue levothyroxine, asymptomatic, GERD (gastroesophageal reflux disease) -Continue home meds, asymptomatic, VTE Prophylaxis: Lovenox Scheduled Meds aspirin, 325 mg, oral, Daily furosemide, 40 mg, intravenous, q12h heparin (porcine), 5,000 Units, subcutaneous, q12h DENISE levothyroxine, 150 mcg, oral, Daily before breakfast metoprolol succinate XL, 25 mg, oral, Daily pantoprazole, 40 mg, oral, Daily before breakfast spironolactone, 12.5 mg, oral, Daily valsartan, 40 mg, oral, q12h DENISE Pertinent Investigations Hematology: Results from last 7 days Lab Units 05/02/2442005/01/242100 WBC AUTO 10*3/uL 14.04* 12.56* HEMOGLOBIN g/dL 12.1 12.7 HEMATOCRIT % 37.5 39.5 MCV fL 88.0 88.0 PLATELETS AUTO 10*3/uL 181 201 Chemistry: Results from last 7 days Lab Units 05/02/2442005/01/24 210 SODIUM mmol/L 137 138 POTASSIUM mmol/L 4.3 3.7 CHLORIDE mmol/L 105 104 CO2 mmol/L 26 24 BUN mg/dL 19 18 CREATININE mg/dL 0.90 0.97 GLUCOSE mg/dL 173* 162* MAGNESIUM mg/dL -- 2.1 CALCIUM mg/dL 8.7 8.7 PHOSPHORUS mg/dL -- 3.6 Results from last 7 days Lab Units 05/01/24 2101 AST U/L 27 ALT U/L 49 ALK PHOS U/L 83 BILIRUBIN TOTAL mg/dL 0.4 Historical Values: (Includes values prior to this admission) No results found for: PREALBUMIN , TSH , T3FREE , FREET4 , CORTISOL , FEV1 , JAD7SKE , DLCO , RVSP , HDL , LDL No results found for: [id number] , IRON , TIBC , C3 , C4 , VIRGIE , CANCA , ASO , PSA , CEA , CA125 , CA199 , AFP , CA153 Imaging ECG 12 lead Normal sinus rhythm Possible Inferior infarct , age undetermined T wave abnormality, consider anterolateral ischemia Abnormal ECG No previous ECGs available Confirmed by Nicola Gorman ([id number]) on 05/02/2024 1:49:06 PM Cardiac catheterization Addendum: Final impression: Spasm in the left radial artery, severe three-vessel coronary artery disease, elevated right heart pressures, decreased cardiac index. Procedure Access under ultrasound right heart catheterization left upper extremity angiography coronary arteriography Method: Written informed consent was obtained. The right internal jugular vein was identified under ultrasound and using ultrasound guidance and micropuncture technique the vessel was entered. A 6 Libyan sheath was placed. A Boyer catheter was introduced for right heart catheterization. The catheter and sheath were withdrawn and adequate hemostasis was achieved. Attention was then drawn to the left radial artery. The vessel was imaged with ultrasound and using ultrasound (more content not included)... [facility] 05-03-2024 Note - Type I NSTEMI, st atus post cath with multivessel coronary disease, continue medical management pending CT surgery evaluation, [facility] 05-03-2024 Note -Continue home meds, asymptomati c, [facility] 05-03-2024 Note -Continue levothyroxine, asympto matic, [facility] 05-03-2024 Note -Patient reports smo nicol half pack of cigarettes per day, counseled on cessation, continue inhalers, keep saturation above 93%, [facility] 05-03-2024 Note -No residual deficits [facility] 05-03-2024 Note -Patient reports car diac cath in the past with [address], continue GDMT [facility] 05-03-2024 Note -Continue home meds, appears controlled, [facility] 05-03-2024 Note -Patient reportedly with echocardiogram completed outside hospital showing an EF of 20% status post right heart cath, revealed severe multivessel coronary disease CT surgery evaluation requested, pain with guideline directed medical therapy as tolerated, appears euvolemic, [facility] 05-03-2024 Note Hospital Medicine Daily Progress Note - 05/03/2024 11:52 AM; Room: [address] [place] [address] Admission: 05/01/2024 8:12 PM; Length of stay: 2 days THE HOSPITALIST TEAM PREFERS TO USE [employer] FOR NON-URGENT COMMUNICATION 7AM-7PM. IF I DO NOT RESPOND WITHIN 20 MINUTES OR URGENT MATTERS, PLEASE CALL THROUGH THE CIGARETTE MAKING MACHINE OPERATOR. FROM 7PM-7AM, PLEASE PAGE [phone](COVR). Code Status: Full Code Barriers to Discharge:, Severe multivessel coronary disease, pending CT surgery evaluation, Expected Discharge Date: Pending cardiology/CT surgery evaluation Discharge Destination: home Overview Patient is seen for evaluation and management shortness seen and evaluated, shortness of breath is improved, no chest pain or fever, of breath/CHF,. Subjective Overall doing well, off oxygen, shortness of breath is improved, chest Physical Exam Visit Vitals BP (!) 140/95 (BP Location: Right arm, Patient Position: Lying) Pulse 88 Temp 36.8 ???C (98.2 ???F) (Temporal) Resp 18 Intake/Output Summary (Last 24 hours) at 05/03/2024 1152 Last data filed at 05/03/2024 0900 Gross per 24 hour Intake 1440 ml Output 3020 ml Net -1580 ml Physical Exam Estimated body mass index is 30.39 kg/m??? as calculated from the following: Height as of this encounter: 1.524 m (5'). Weight as of this encounter: 70.6 kg (155 lb 9.6 oz). Respiratory, good air entry bilaterally, Cardiovascular, regular, Neurological, awake and alert moving all extremities, Assessment and Plan Assessment & Plan Acute systolic congestive heart failure (CMS/HCC) -Patient reportedly with echocardiogram completed outside hospital showing an EF of 20% status post right heart cath, revealed severe multivessel coronary disease CT surgery evaluation requested, pain with guideline directed medical therapy as tolerated, appears euvolemic, Elevated troponin - Type I NSTEMI, status post cath with multivessel coronary disease, continue medical management pending CT surgery evaluation, Coronary artery disease involving [place] coronary artery of [place] heart without angina pectoris -Patient reports cardiac cath in the past with [address], continue GDMT History of CVA (cerebrovascular accident) -No residual deficits Primary hypertension -Continue home meds, appears controlled, COPD (chronic obstructive pulmonary disease) ([facility]) -Patient reports smoking half pack of cigarettes per day, counseled on cessation, continue inhalers, keep saturation above 93%, Acquired hypothyroidism -Continue levothyroxine, asymptomatic, GERD (gastroesophageal reflux disease) -Continue home meds, asymptomatic, VTE Prophylaxis: Lovenox Scheduled Meds aspirin, 325 mg, oral, Daily furosemide, 40 mg, intravenous, q12h heparin (porcine), 5,000 Units, subcutaneous, q12h DENISE levothyroxine, 150 mcg, oral, Daily before breakfast metoprolol succinate XL, 25 mg, oral, Daily pantoprazole, 40 mg, oral, Daily before breakfast spironolactone, 12.5 mg, oral, Daily valsartan, 40 mg, oral, q12h DENISE Pertinent Investigations Hematology: Results from last 7 days Lab Units 05/02/2442005/01/24 2101 WBC AUTO 10*3/uL 14.04* 12.56* HEMOGLOBIN g/dL 12.1 12.7 HEMATOCRIT % 37.5 39.5 MCV fL 88.0 88.0 PLATELETS AUTO 10*3/uL 181 201 Chemistry: Results from last 7 days Lab Units 05/02/24 04205/01/24 2101 SODIUM mmol/L 137 138 POTASSIUM mmol/L 4.3 3.7 CHLORIDE mmol/L 105 104 CO2 mmol/L 26 24 BUN mg/dL 19 18 CREATININE mg/dL 0.90 0.97 GLUCOSE mg/dL 173* 162* MAGNESIUM mg/dL -- 2.1 CALCIUM mg/dL 8.7 8.7 PHOSPHORUS mg/dL -- 3.6 Results from last 7 days Lab Units 05/01/24 2101 AST U/L 27 ALT U/L 49 ALK PHOS U/L 83 BILIRUBIN TOTAL mg/dL 0.4 Historical Values: (Includes values prior to this admission) No results found for: PREALBUMIN , TSH , T3FREE , FREET4 , CORTISOL , FEV1 , PAY1GKP , DLCO , RVSP , HDL , LDL No results found for: [id number] , IRON , TIBC , C3 , C4 , VIRGIE , CANCA , ASO , PSA , CEA , CA125 , CA199 , AFP , CA153 Imaging ECG 12 lead Normal sinus rhythm Possible Inferior infarct , age undetermined T wave abnormality, consider anterolateral ischemia Abnormal ECG No previous ECGs available Confirmed by Nicola Gorman ([id number]) on 05/02/2024 1:49:06 PM Cardiac catheterization Addendum: Final impression: Spasm in the left radial artery, severe three-vessel coronary artery disease, elevated right heart pressures, decreased cardiac index. Procedure Access under ultrasound right heart catheterization left upper extremity angiography coronary arteriography Method: Written informed consent was obtained. The right internal jugular vein was identified under ultrasound and using ultrasound guidance and micropuncture technique the vessel was entered. A 6 Libyan sheath was placed. A Boyer catheter was introduced for right heart catheterization. The catheter and sheath were withdrawn and (more content not included)... [facility] 05-03-2024 Note Cardiology Progress Note Subjective Subjective: Patient is seen and examined this morning; she mentions that her SOB has improved. She denies any chest pain. Plan is explained at bedside. Objective Current Facility-Administered Medications: acetaminophen (Tylenol) tablet 650 mg, 650 mg, oral, q6h PRN, Yamilex Cardona MD aspirin tablet 325 mg, 325 mg, oral, Daily, Yamilex Cardona MD, 325 mg at 05/03/24 1026 furosemide (Lasix) injection 40 mg, 40 mg, intravenous, q12h, Lyric Joyce MD, 40 mg at 05/03/24 0044 heparin (porcine) injection 5,000 Units, 5,000 Units, subcutaneous, q12h DENISE, Yamilex Cardona MD, 5,000 Units at 05/03/24 1025 levothyroxine (Synthroid, Levoxyl) tablet 150 mcg, 150 mcg, oral, Daily before breakfast, Yamilex Cradona MD, 150 mcg at 05/03/24 0753 melatonin tablet 5 mg, 5 mg, oral, Nightly PRN, Yamilex Cardona MD, 5 mg at 05/01/24 2221 metoprolol succinate XL (Toprol-XL) 24 hr tablet 25 mg, 25 mg, oral, Daily, Yamilex Cardona MD, 25 mg at 05/03/24 1026 pantoprazole (ProtoNix) EC tablet 40 mg, 40 mg, oral, Daily before breakfast, Yamilex Cardona MD, 40 mg at 05/03/24 0754 spironolactone (Aldactone) split tablet 12.5 mg, 12.5 mg, oral, Daily, Nolvia Caceres MD, 12.5 mg at 05/03/24 1026 valsartan (Diovan) tablet 40 mg, 40 mg, oral, q12h DENISE, Nolvia Caceres MD, 40 mg at 05/03/24 1026 Objective: Patient Vitals for the past 24 hrs: BP Temp Temp src Pulse Resp SpO2 Weight 05/03/24 0757 (!) 140/95 36.8 ???C (98.2 ???F) Temporal 88 18 98 % -- 05/03/24 0500 -- -- -- -- -- -- 70.6 kg (155 lb 9.6 oz) 05/03/24 0410 115/84 36.2 ???C (97.2 ???F) Temporal 90 18 94 % -- 05/03/24 0050 116/68 36.4 ???C (97.5 ???F) Temporal 89 19 97 % -- 05/02/24 2000 130/78 36 ???C (96.8 ???F) Temporal 94 18 93 % -- 05/02/24 1830 127/79 36.5 ???C (97.7 ???F) Temporal 94 17 95 % -- 05/02/24 1730 147/88 36.4 ???C (97.5 ???F) Temporal 88 14 95 % -- 05/02/24 1630 132/83 36.5 ???C (97.7 ???F) Temporal 90 20 95 % -- 05/02/24 1530 (!) 131/94 36.4 ???C (97.5 ???F) Temporal 98 20 -- -- 05/02/24 1430 (!) 137/92 36.5 ???C (97.7 ???F) Temporal 91 22 93 % -- 05/02/24 1400 132/90 36.5 ???C (97.7 ???F) Temporal 92 23 94 % -- 05/02/24 1330 126/90 36.4 ???C (97.5 ???F) 91 22 92 % -- 05/02/24 1315 128/82 36.5 ???C (97.7 ???F) 91 21 93 % -- 05/02/24 1300 129/78 36.4 ???C (97.5 ???F) 91 24 93 % -- 05/02/24 1245 (!) 122/92 36.4 ???C (97.5 ???F) 93 21 90 % -- 05/02/24 1233 129/84 36.5 ???C (97.7 ???F) 94 24 95 % -- 05/02/24 1216 131/81 -- -- 92 16 98 % -- Physical Examination: Physical Exam Constitutional: Appearance: Normal appearance. HENT: Head: Normocephalic and atraumatic. Nose: Nose normal. Eyes: Extraocular Movements: Extraocular movements intact. Pupils: Pupils are equal, round, and reactive to light. Cardiovascular: Rate and Rhythm: Normal rate and regular rhythm. Pulses: Normal pulses. Heart sounds: Normal heart sounds. Pulmonary: Effort: Pulmonary effort is normal. Breath sounds: Normal breath sounds. No wheezing or rales. Abdominal: General: Abdomen is flat. Palpations: Abdomen is soft. Musculoskeletal: General: Normal range of motion. Skin: General: Skin is warm and dry. Neurological: Mental Status: She is alert. Relevant Lab Results Encounter Date: 05/01/24 ECG 12 lead Result Value Ventricular Rate 93 Atrial Rate 93 SC Interval 152 QRS DURATION 106 QT Interval 396 QTC CALCULATION(BAZETT) 492 P Wingate 59 R-Wingate -28 T Wave Wing[place] 83 Impression Normal sinus rhythm Possible Inferior infarct , age undetermined T wave abnormality, consider anterolateral ischemia Abnormal ECG No previous ECGs available Confirmed by Nicola Gorman ([id number]) on 05/02/2024 1:49:06 PM No results found for: CKTOTAL , CKMB , CKMBINDEX , TROPONINI No echocardiogram results found for the past 12 months No nuclear medicine results found for the past 12 months Relevant Imaging Results ECG 12 lead Normal sinus rhythm Possible Inferior infarct , age undetermined T wave abnormality, consider anterolateral ischemia Abnormal ECG No previous ECGs available Confirmed by Nicola Gorman ([id number]) on 05/02/2024 1:49:06 PM Cardiac catheterization Addendum: Final impression: Spasm in the left radial artery, severe three-vessel coronary artery disease, elevated right heart pressures, decreased cardiac index. Procedure Access under ultrasound right heart catheterization left upper extremity angiography coronary arteriography Method: Written informed consent was obtained. The right internal jugular vein was identified under ultrasound and using ultrasound guidance and micropuncture technique the vessel was entered. A 6 Libyan sheath was placed. A Boyer catheter was introduced for right heart catheterization. The catheter and sheath were withdrawn and adequate hemostasis was achieved. Attention was then drawn to th (more content not included)... [facility] 05-02-2024 Note 05/02/24 8378 Admission Assessment Questions Verify insurance with patient Yes Do you understand medical disease or what brought you into the hospital? Yes Who is your current PCP? Magdalene Sky Can I schedule a follow up appointment for you at the time of discharge? No Do you understand why you are taking your current medications? Yes Are you taking your medications as prescribed? Yes Did patient provide teach back? No Pharmacy Bedside Delivery Status Interested Does the patient have a case resolution specialist assigned to them through their insurance? No Living Arrangement (Current/Prior to Hospitalization) Private residence (Lives with boyfriend) Does the patient have history of HHC or SNF? Yes Assistive Device Not applicable Patient's goal for discharge Quit smoking and start eating healthier. Was patient reminded that goal for discharge is 11am? No Does the patient have transportation at discharge? Yes Type of Residence Private residence Is PT/OT appropriate? Yes Is PT/OT ordered? Yes Is SW consult appropriate? Yes Is SW consult ordered? Yes Do you understand the benefits of MyChart? Yes Were you able to send link and activate MyChart? Yes [facility] 05-02-2024 Note -Patient reports smo nicol half pack of cigarettes per day, counseled on cessation, continue inhalers, keep saturation above 93%, [facility] 05-02-2024 Note -Continue home meds, john jiménez, [facility] 05-02-2024 Note -Continue levothyroxine, sabra lock, [facility] 05-02-2024 Note -Continue home meds, appears controlled, [facility] 05-02-2024 Note -No residual deficits [facility] 05-02-2024 Note -Patient reports car diac cath in the past with [address], continue GDMT [facility] 05-02-2024 Note -High-sensitivity tr oponin found to be over 500 outside hospital and repeat at [facility] is 11 -Continue to trend troponin -EKG shows normal sinus rhythm -N.p.o. at midnight for possible heart cath [facility] 05-02-2024 Note -Patient reportedly with echocardiogram completed outside hospital showing an EF of 20% which is new for the patient -Continue diuresis, monitor intake and output, awaiting cardiology evaluation for probable cardiac cath?, [facility] 05-02-2024 Note Hospital Medicine Daily Progress Note - 05/02/2024 8:10 AM; Room: [address] [place] [address] Admission: 05/01/2024 8:12 PM; Length of stay: 1 days THE HOSPITALIST TEAM PREFERS TO USE [employer] FOR NON-URGENT COMMUNICATION 7AM-7PM. IF I DO NOT RESPOND WITHIN 20 MINUTES OR URGENT MATTERS, PLEASE CALL THROUGH THE CIGARETTE MAKING MACHINE OPERATOR. FROM 7PM-7AM, PLEASE PAGE [phone](COVR). Code Status: Full Code Barriers to Discharge:, IV diuresis and cardiology evaluation, Expected Discharge Date: 04/07 Discharge Destination: home Overview Patient is seen for evaluation and management shortness seen and evaluated, shortness of breath is improved, no chest pain or fever, of breath/CHF,. Subjective Shortness of breath is improved, no chest pain or fever reported, Physical Exam Visit Vitals BP 114/87 (BP Location: Right arm, Patient Position: Lying) Pulse 99 Temp 36.5 ???C (97.7 ???F) (Temporal) Resp 21 Intake/Output Summary (Last 24 hours) at 05/02/2024 0810 Last data filed at 05/02/2024 0159 Gross per 24 hour Intake 480 ml Output 350 ml Net 130 ml Physical Exam Estimated body mass index is 31.37 kg/m??? as calculated from the following: Height as of this encounter: 1.524 m (5'). Weight as of this encounter: 72.8 kg (160 lb 9.6 oz). Respiratory, good air entry bilaterally, Cardiovascular, regular, Neurological, awake and alert moving all extremities, Assessment and Plan Assessment & Plan Acute systolic congestive heart failure (CMS/HCC) -Patient reportedly with echocardiogram completed outside hospital showing an EF of 20% which is new for the patient -Continue diuresis, monitor intake and output, awaiting cardiology evaluation for probable cardiac cath?, Elevated troponin -High-sensitivity troponin found to be over 500 outside hospital and repeat at [facility] is 11 -Continue to trend troponin -EKG shows normal sinus rhythm -N.p.o. at midnight for possible heart cath Coronary artery disease involving [place] coronary artery of [place] heart without angina pectoris -Patient reports cardiac cath in the past with [address], continue GDMT History of CVA (cerebrovascular accident) -No residual deficits Primary hypertension -Continue home meds, appears controlled, COPD (chronic obstructive pulmonary disease) (CMS/HCC) -Patient reports smoking half pack of cigarettes per day, counseled on cessation, continue inhalers, keep saturation above 93%, Acquired hypothyroidism -Continue levothyroxine, asymptomatic, GERD (gastroesophageal reflux disease) -Continue home meds, asymptomatic, VTE Prophylaxis: Lovenox Scheduled Meds aspirin, 325 mg, oral, Daily heparin (porcine), 5,000 Units, subcutaneous, q12h DENISE levothyroxine, 150 mcg, oral, Daily before breakfast lisinopril, 20 mg, oral, Daily metoprolol succinate XL, 25 mg, oral, Daily pantoprazole, 40 mg, oral, Daily before breakfast Pertinent Investigations Hematology: Results from last 7 days Lab Units 05/02/24 04205/01/24 2101 WBC AUTO 10*3/uL 14.04* 12.56* HEMOGLOBIN g/dL 12.1 12.7 HEMATOCRIT % 37.5 39.5 MCV fL 88.0 88.0 PLATELETS AUTO 10*3/uL 181 201 Chemistry: Results from last 7 days Lab Units 05/02/24 04205/01/24 2101 SODIUM mmol/L 137 138 POTASSIUM mmol/L 4.3 3.7 CHLORIDE mmol/L 105 104 CO2 mmol/L 26 24 BUN mg/dL 19 18 CREATININE mg/dL 0.90 0.97 GLUCOSE mg/dL 173* 162* MAGNESIUM mg/dL -- 2.1 CALCIUM mg/dL 8.7 8.7 PHOSPHORUS mg/dL -- 3.6 Results from last 7 days Lab Units 05/01/24 2101 AST U/L 27 ALT U/L 49 ALK PHOS U/L 83 BILIRUBIN TOTAL mg/dL 0.4 Historical Values: (Includes values prior to this admission) No results found for: PREALBUMIN , TSH , T3FREE , FREET4 , CORTISOL , FEV1 , MXY4BGG , DLCO , RVSP , HDL , LDL No results found for: LIAZRTMX48 , IRON , TIBC , C3 , C4 , VIRGIE , CANCA , ASO , PSA , CEA , CA125 , CA199 , AFP , CA153 Imaging ECG 12 lead Normal sinus rhythm Possible Inferior infarct , age undetermined T wave abnormality, consider anterolateral ischemia Abnormal ECG No previous ECGs available XR chest 1 view Narrative: Single view chest History: fluid overload Comparison: None Impression: Impression: * No consolidation or pleural fluid. No acute findings. * Moderate cardiomegaly. Electronically signed: Evangelist Hui. Discharge Planning Expected Discharge Disposition: Home or Self Care () Signed Josh Young MD Hospital Medicine 05/02/2024 8:10 AM [facility] 05-02-2024 Note >\Case was discussed with the MG on 05/01/2024. I agree with the history, physical, assessment, and plan of care. I discussed the findings and therapeutic plan. I agree with the documentation, except for any updates below. Isaac Rico MD [facility] 05-01-2024 Note -Patient reports car diac cath in the past with [address], continue GDMT [facility] 05-01-2024 Note -Continue home meds [facility] 05-01-2024 Note [facility] -Patient reports smo nicol half pack of cigarettes per day, counseled on cessation, continue inhalers [facility] 05-01-2024 Note -No residual deficits [facility] 05-01-2024 Note -High-sensitivity tr oponin found to be over 500 outside hospital and repeat at [facility] is 11 -Continue to trend troponin -EKG shows normal sinus rhythm -N.p.o. at midnight for possible heart cath [facility] 05-01-2024 Note -Patient reportedly with echocardiogram completed outside hospital showing an EF of 20% which is new for the patient -Patient was given 20 mg IV Lasix, will continue 20 mg IV Lasix daily -Strict intake and output and daily weights -Will make n.p.o. for possible right heart cath -Cardiology consult [facility] 05-01-2024 Note Hospital Medicine History and Physical 05/01/2024 9:56 PM THE HOSPITALIST TEAM PREFERS TO USE [employer] FOR NON-URGENT COMMUNICATION 7AM-7PM. IF I DO NOT RESPOND WITHIN 20 MINUTES OR URGENT MATTERS, PLEASE CALL THROUGH THE CIGARETTE MAKING MACHINE OPERATOR. FROM 7PM-7AM, PLEASE PAGE [phone](COVR). Chief Complaint Direct admission from [facility] with new onset chf and elevated trop History of Present Illness Jacob Stevenson is an 63 y.o. female who came from home with past medical history of CVA, hypertension, COPD, hypothyroidism, GERD, CAD s/p PCI with stenting, nicotine use presents to [facility] as a direct admission from [facility] with new onset CHF and elevated troponin. Patient reports that at 2 AM this morning she awoke with shortness of breath and heavy pressure in the middle of her chest. States that she attempted to walk around the room to improve her symptoms but ended up having to call 911. Once at [facility], she was found to be hypoxic in the 80s and initially placed on BiPAP mask. She was eventually weaned down to room air and is now currently satting around 96% on room air. Labs were completed showing WBC 16, RBC 4.8, hemoglobin 13.9, hematocrit 43, platelet count 206, D-dimer 1.56, sodium 138, potassium 4.3, chloride 104, BUN 14, creatinine 1.09, lactate 2.4, AST 106, ALT 88, alkaline phosphatase 118, troponin 539, BNP 3901. ABG completed showing pH 7.38, CO2 38, O2 102 on the BiPAP. CTA chest was reportedly ordered, however, patient with contrast dye allergy and it could not be completed. Echocardiogram was ordered and patient was found to have an EF of 20% which is new onset for the patient. She was given IV Lasix. [facility] team contacted our cardiology department who wanted the patient transferred for further workup. During my examination, patient is resting comfortably. She denies chest pain, shortness of breath, lower extremity swelling, nausea, vomiting. Repeat labs completed showing WBC 12.56, BNP 1264 and troponin of 11. CXR completed showing no consolidation or pleural fluid. EKG completed showing normal sinus rhythm. Review of System and Physical Exam Temp: [36.4 ???C (97.5 ???F)] 36.4 ???C (97.5 ???F) Heart Rate: [96] 96 Resp: [24] 24 BP: (132)/(67) 132/67 Physical Exam Vitals reviewed. Constitutional: Appearance: She is normal weight. HENT: Head: Normocephalic. Mouth/Throat: Mouth: Mucous membranes are moist. Pharynx: Oropharynx is clear. Eyes: Conjunctiva/sclera: Conjunctivae normal. Cardiovascular: Rate and Rhythm: Normal rate and regular rhythm. Pulses: Normal pulses. Heart sounds: Normal heart sounds. Pulmonary: Effort: Pulmonary effort is normal. Breath sounds: Rales present. Abdominal: General: Abdomen is flat. Bowel sounds are normal. Musculoskeletal: General: Normal range of motion. Skin: General: Skin is warm and dry. Capillary Refill: Capillary refill takes less than 2 seconds. Neurological: General: No focal deficit present. Mental Status: She is alert and oriented to person, place, and time. Mental status is at baseline. Psychiatric: Mood and Affect: Mood normal. Review of Systems Constitutional: Negative for appetite change, chills, diaphoresis and fatigue. Respiratory: Positive for chest tightness and shortness of breath. Negative for cough and choking. Cardiovascular: Negative for chest pain and palpitations. Chest heaviness Gastrointestinal: Negative for abdominal pain, constipation, diarrhea, nausea and vomiting. Genitourinary: Negative for difficulty urinating and dyspareunia. Musculoskeletal: Negative for arthralgias and back pain. Skin: Negative for color change, pallor and rash. Neurological: Negative for dizziness, facial asymmetry, light-headedness, numbness and headaches. Psychiatric/Behavioral: Negative for agitation, behavioral problems, confusion and decreased concentration. Assessment and Plan Assessment & Plan Acute systolic congestive heart failure ([facility]) -Patient reportedly with echocardiogram completed outside hospital showing an EF of 20% which is new for the patient -Patient was given 20 mg IV Lasix, will continue 20 mg IV Lasix daily -Strict intake and output and daily weights -Will make n.p.o. for possible right heart cath -Cardiology consult Elevated troponin -High-sensitivity troponin found to be over 500 outside hospital and repeat at [facility] is 11 -Continue to trend troponin -EKG shows normal sinus rhythm -N.p.o. at midnight for possible heart cath Coronary artery disease involving [place] coronary artery of [place] heart without angina pectoris -Patient reports cardiac cath in the past with [address], continue GDMT History of CVA (cerebrovascular accident) -No residual deficits Primary hypertension -Continue home meds COPD (chronic obstructive pulmonary disease) (CMS/[facility]) -Patien (more content not included)... [facility] Summary Purpose Family History No Family History Records FoundNo Family History Records Found Advance Directives No Advanced Directives Records FoundNo Advanced Directives Records Found Additional Source Comments INFORMATION SOURCE (unrecogn ized section and content) DATE CREATED AUTHOR 07/14/2022 [facility] DATE CREATED AUTHOR AUTHOR'S ORGANIZ ATION 07/02/2024 [facility] FOR RECORDS PERTAINING TO PATIENTS WHO ARE [...] BE BASED ON THE PRIMARY CLINICAL RECORDS. [employer] provides no warranty or guarantee of the accuracy or completeness of information in this document.
--- NOTE | 2024-07-12 12:03 | ECG_ITS ---
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 Measurements Intervals [place] Rate: 82 P: 73 ID: [id number] QRS: -10 QRSD: 96 T: 90 QT: 380 QTc: 418 Interpretive Statements 1100 Sinus rhythm 2420 RSR (QR) in lead V1/V2, consistent with right ventricular conduction delay 3514 Cannot rule out lateral myocardial infarction, age undetermined 9150 abnormal ECG Compared to ECG 05/01/2024 16:07:45 Ventricular premature complex(es) no longer present Myocardial infarct finding still present Electronically Signed On 07-12-2024 18:46:54 EDT by KEVIN ROLLE M.D.
--- NOTE | 2024-07-12 12:03 | ED.GENADUL1 ---
HPI HPI - General Adult General Chief complaint: Abdominal Pain Stated complaint: VOMITING, NAUSEA Time Seen by Provider: 07/12/24 11:57 Source: patient Mode of arrival: Wheelchair Limitations: no limitations History of Present Illness HPI narrative: 63-year female presents for nausea and vomiting. It began about 6:00 this morning. She has not been around anybody who has been ill. No fever or hematemesis. She is on a diuretic and was not able to eat anything or drink anything today. Related Data Home Medications ?Medication ?Instructions ?Recorded ?Confirmed alendronate 70 mg tablet 70 mg PO QWEEK 05/01/24 05/01/24 aspirin 325 mg capsule 325 mg PO DAILY 05/01/24 05/01/24 levothyroxine 150 mcg tablet 150 mcg PO .QD 05/01/24 05/01/24 lisinopril 20 mg tablet 20 mg PO .QD 05/01/24 05/01/24 metoprolol succinate 25 mg 25 mg PO .QD 05/01/24 05/01/24 tablet,extended release 24 hr pantoprazole 40 mg tablet,delayed 40 mg PO .QD 05/01/24 05/01/24 release Allergies Allergy/AdvReac Type Severity Reaction Status Date / Time Iodinated Contrast Media AdvReac Unknown Nausea Verified 07/12/24 12:02 Sulfa (Sulfonamide AdvReac Unknown Anxiety Verified 07/12/24 11:47 Antibiotics) Opioid HPI Opioid Management Most Recent Opioid Data: Last Pain Scale 7 Today, 12:05 Last ORT Total Score 0 05/01/24, 06:40 Last ORT Risk Category Low Risk 05/01/24, 06:40 Review of Systems ROS Narrative A ten point review of systems is negative except as noted above. [facility] Medical History (Updated 07/12/24 @ 18:35 by Kendell Padilla MD) Acute non-ST elevation myocardial infarction (NSTEMI) ?I21.4 - Non-ST elevation (NSTEMI) myocardial infarction (ICD-10) Severe sepsis ?A41.9 - Sepsis, unspecified organism (ICD-10) ?R65.20 - Severe sepsis without septic shock (ICD-10) Diabetes mellitus ?E11.9 - Type 2 diabetes mellitus without complications (ICD-10) Elevated troponin ?R79.89 - Other specified abnormal findings of blood chemistry (ICD-10) CHF (congestive heart failure) ?I50.9 - Heart failure, unspecified (ICD-10) Breath shortness ?R06.02 - Shortness of breath (ICD-10) CVA (cerebral vascular accident) ?I63.9 - Cerebral infarction, unspecified (ICD-10) HTN (hypertension) ?I10 - Essential (primary) hypertension (ICD-10) COPD (chronic obstructive pulmonary disease) ?J44.9 - Chronic obstructive pulmonary disease, unspecified (ICD-10) Surgical History (Updated 05/01/24 @ 07:26 by Lupe Cazares, RN) H/O section ?Z98.891 - History of uterine scar from previous surgery (ICD-10) History of hysterectomy ?Z90.710 - Acquired absence of both cervix and uterus (ICD-10) Family History (Updated 05/01/24 @ 06:59 by Lupe Cazares, RN) Mother Family history of CHF (congestive heart failure) Family history of diabetes mellitus Family history of hypertension Family history of myocardial infarction Father Family history of CHF (congestive heart failure) Sister Family history of hypertension Social History (Updated 05/01/24 @ 06:59 by Lupe Cazares, RN) Within the past year, how often did you have a drink containing alcohol: never Score interpretation: A score less than 3 is consistent with normal alcohol consumption. Smoking status: Current some day smoker Non-prescribed substance use: denies use Previous occupational history: retired Highest level of school completed/degree received: high school graduate Are you now , , , , never or living with a partner: living with partner In a typical week, how many times do you talk on the telephone with family, friends, or neighbors: 3 or more times per week How often do you get together with friends or relatives: 3 or more times per week Little interest or pleasure in doing things: not at all Feeling down, depressed, or hopeless: not at all Feel stressed/tense/nervous/anxious/difficulty sleeping: not at all Do you think of yourself as: straight/heterosexual Gender Identity: female Exam Narrative Exam Narrative: Nurses note and vital signs reviewed and patient is not hypoxic. General: The patient appears well and in no apparent distress. Patient is resting comfortably on cart. Skin: Warm, dry, no pallor noted. There is no rash noted. Head: Normocephalic, atraumatic Eye: Normal conjunctiva, no drainage Ears, Nose, Mouth, and Throat: oral mucosa is moderately dry. Nares patent. Cardiovascular: Regular Rate and Rhythm Respiratory: Patient is in no distress, no accessory muscle use, lungs are clear to auscultation, no wheezing, rales or rhonchi Back: non-tender GI: Soft and nontender Musculoskeletal: The patient has no evidence of calf tenderness, no pitting edema, symmetrical pulses noted bilaterally Neurological: A&O, normal speech Psychiatric: Cooperative Constitutional Vital Signs, click to edit/add: Last Vital Signs Temp 97.6 F 07/12/24 11:45 Pulse 91 H 07/12/24 16:00 Resp 17 07/12/24 15:00 BP 131/85 07/12/24 16:00 Pulse Ox 94 L 07/12/24 16:00 O2 Del Method Room Air 07/12/24 12:04 Course Vital Signs Vital signs: Vital Signs Temperature 97.6 F 07/12/24 11:45 Pulse Rate 85 07/12/24 11:45 Respiratory Rate 20 07/12/24 11:45 Blood Pressure 138/99 H 07/12/24 11:45 Pulse Oximetry 96 07/12/24 11:45 Temperature 97.6 F 07/12/24 11:45 Pulse Rate 91 H 07/12/24 16:00 Respiratory Rate 17 07/12/24 15:00 Blood Pressure 131/85 07/12/24 16:00 Pulse Oximetry 94 L 07/12/24 16:00 Oxygen Delivery Method Room Air 07/12/24 12:04 Medical Decision Making MDM Narrative Medical decision making narrative: The patient complained of some dizziness and a CT of her brain was negative. She complained of persistent nausea and was given multiple doses of Zofran. She was also given Valium in the IV form for anxiety. CT of the abdomen suggest enteritis and she will be admitted for observation and IV fluids and antiemetics. Treatment diagnosis and disposition were discussed with the patient. Differential Diagnosis Differential Diagnosis: Gastroenteritis, enteritis, colitis, diverticulitis, dehydration Lab Data Lab results reviewed: Yes I reviewed the patient's lab results Labs: Lab Results 07/12/24 07/12/24 07/12/24 Range/Units 11:51 13:40 17:29 WBC 11.7 H (4.0-11.0) 10^3/uL RBC 4.90 (4.20-5.40) 10^6/uL Hgb 14.2 (12.0-16.0) g/dL Hct 41.6 (36.0-48.0) % MCV 84.9 (81.0-99.0) fL MCH 29.0 (26.7-34.0) pg MCHC 34.1 (29.9-35.2) g/dL RDW 13.3 (11.0-15.0) % Plt Count 136 L (150-450) 10^3/uL MPV 13.4 (9.5-13.5) fL Neut % (Auto) 78.4 H (43.0-75.0) % Lymph % (Auto) 14.8 L (20.5-60.0) % Barnes % (Auto) 4.8 (1.7-12.0) % Eos % (Auto) 0.9 (0.9-7.0) % Baso % (Auto) 0.5 (0.2-2.0) % Neut # (Auto) 9.1 H (1.4-6.5) 10^3/uL Lymph # (Auto) 1.7 (1.2-3.8) 10^3/uL Barnes # (Auto) 0.6 (0.3-0.8) 10^3/uL Eos # (Auto) 0.1 (0.0-0.7) 10^3/uL Baso # (Auto) 0.1 (0.0-0.1) 10^3/uL Abs Immat Gran (auto) 0.07 H (0.00-0.03) 10^3/uL Imm/Tot Granulo (auto) 0.6 H (0.0-0.5) % Sodium 144 (136-145) mmol/L Potassium 4.3 (3.5-5.1) mmol/L Chloride 106 (98-107) mmol/L Carbon Dioxide 29.2 (21.0-32.0) mmol/L Anion Gap 13.1 BUN 30.0 H (7.0-18.0) mg/dL Creatinine 1.07 H (0.55-1.02) mg/dL Est GFR ( Amer) >60 (>=60 mL/min/1.73m^2) Est GFR (Non-Af Amer) 51 L (>=60 mL/min/1.73m^2) BUN/Creatinine Ratio 28.0 Glucose 131 H (74-106) mg/dL Calcium 9.1 (8.5-10.1) mg/dL Urine Color Lt. yellow (YELLOW) Urine Clarity Clear (CLEAR) Urine pH 6.0 (5.0-9.0) Ur Specific [place] 1.020 (1.005-1.025) Urine Protein Negative (NEG/TRACE) mg/dL Urine Glucose (UA) >=1000 A (NEGATIVE) mg/dL Urine Ketones Negative (NEGATIVE) mg/dL Urine Occult Blood Trace-i (NEGATIVE) Urine Nitrite Negative (NEGATIVE) Urine Bilirubin Negative (NEGATIVE) Urine Urobilinogen 0.2 (0.2-1.0) EU/dL Ur Leukocyte Esterase Negative (NEGATIVE) Urine RBC 0-2 (0-2) #/HPF Urine WBC 2-5 A (NONE SEEN) #/HPF Ur Squamous Epith Cells Few A (NONE/RARE) #/LPF Urine Crystals None seen (None Seen) #/HPF Urine Bacteria Trace A (NONE SEEN) #/HPF Urine Casts Seen A (NONE SEEN) #/LPF Hyaline Casts Rare Urine Mucus Trace A (NONE SEEN) POC Glucose 126 H (74-106) mg/dL Imaging Data CT scan - abdomen: Radiologist's impression: CT brain: Mild to moderate generalized brain volume loss, no acute intracranial hemorrhage, infarct, mass, or edema CT abdomen and pelvis: Possible mild enteritis with mild mesenteric adenitis, no free fluid or free air ECG Data Attestation: I personally reviewed and interpreted this ECG as follows: (EKG on my interpretation shows sinus rhythm with rate of 82 and no acute change) Discharge Plan Discharge Chief Complaint: Abdominal Pain Clinical Impression: Enteritis Patient Disposition: Admitted as Observation Time of Disposition Decision: 18:35 Condition: Fair
[2024-07-12 12:08] LABS: Basophils Absolute Auto 0.1 10^3/uL (0.0-0.1); Basophils Percent Auto 0.5 % (0.2-2.0); Eosinophils Absolute Auto 0.1 10^3/uL (0.0-0.7); Eosinophils Percent Auto 0.9 % (0.9-7.0); Hematocrit 41.6 % (36.0-48.0); Hemoglobin 14.2 g/dL (12.0-16.0); Immature Granulocytes Abs Auto 0.07 10^3/uL (0.00-0.03); Immature Granulocytes Pct Auto 0.6 % (0.0-0.5); Lymphocytes Absolute Auto 1.7 10^3/uL (1.2-3.8); Lymphocytes Percent Auto 14.8 % (20.5-60.0); Mean Corpuscular HGB Conc 34.1 g/dL (29.9-35.2); Mean Corpuscular Volume 84.9 fL (81.0-99.0); Mean Platelet Volume 13.4 fL (9.5-13.5); Monocytes Absolute Auto 0.6 10^3/uL (0.3-0.8); Monocytes Percent Auto 4.8 % (1.7-12.0); Neutrophils Absolute Auto 9.1 10^3/uL (1.4-6.5); Neutrophils Percent Auto 78.4 % (43.0-75.0); Platelet Count 136 10^3/uL (150-450); Red Cell Distribution Width 13.3 % (11.0-15.0); White Blood Count 11.7 10^3/uL (4.0-11.0)
[2024-07-12] MEDS: ONDANSETRON PF 4 MG/2 ML VIAL IV ×2 (12:18→16:51)
[2024-07-12] MEDS: 0.9 % SODIUM CHLORIDE 500 ML IV (12:18)
[2024-07-12 12:34] LABS: Anion Gap 13.1; Calcium 9.1 mg/dL (8.5-10.1); Carbon Dioxide 29.2 mmol/L (21.0-32.0); Chloride 106 mmol/L (98-107); Estimated GFR (African America >60 (>=60 mL/min/1.73m^2); Estimated GFR (Non-African Ame 51 (>=60 mL/min/1.73m^2); Glucose 131 mg/dL (74-106); Potassium 4.3 mmol/L (3.5-5.1); Sodium 144 mmol/L (136-145)
[2024-07-12] MEDS: MECLIZINE HCL 12.5 MG TABLET 25 MG PO (13:50)
[2024-07-12 13:53] LABS: Bilirubin Urine NEGATIVE (NEGATIVE); Blood Urine TRACE-I (NEGATIVE); Clarity Urine CLEAR (CLEAR); Color Urine LT. YELLOW (YELLOW); Glucose Urine UA >=1000 mg/dL (NEGATIVE); Ketones Urine NEGATIVE (NEGATIVE); Leukocyte Esterase Urine NEGATIVE (NEGATIVE); Nitrite Urine NEGATIVE (NEGATIVE); Protein Urine NEGATIVE (NEG/TRACE); Urobilinogen Urine 0.2 EU/dL (0.2-1.0)
[2024-07-12 14:02] LABS: Bacteria Urine TRACE #/HPF (NONE SEEN); Cast Seen? SEEN #/LPF (NONE SEEN); Crystals Seen? None Seen #/HPF (None Seen); Hyaline Casts Urine RARE; Mucus Urine TRACE (NONE SEEN); RBC Urine 0-2 #/HPF (0-2); Squamous Epithelial Cell Urine FEW #/LPF (NONE/RARE)
[2024-07-12] MEDS: DIAZEPAM 10 MG/2 ML SYRINGE 2.5 MG IV (17:18)
[2024-07-12 17:34] LABS: Glucometer 126 mg/dL (74-106)
[2024-07-12 19:04] LABS: Magnesium 2.1 mg/dL (1.8-2.4)
[2024-07-12] MEDS: MORPHINE SULFATE 4 MG/ML VIAL IV (20:11)
--- OUTSIDE RECORDS SUMMARY | 2024-07-12 20:33 | XMS_ITS | CCD ---
Author Organization [facility] Care Team Providers Care Plumber Cub Name Role Phone SUZETTE Clifford, DR DEL [...] Containting Drugs) Drug allergy (disorder) 9 [facility] Repository (1 source) Sulfonamides (Antibiotic) Drug allergy (disorder) 3 [facility] Repository (1 source) Sulfonamides (Antibiotic); Translations: [SULFA (SULFONAMIDE ANTIBIOTICS)] Propensity to adverse reactions to drug (disorder) 5 [facility] Repository (1 source) IODINATED CONTRAST MEDIA; Translations: [IODINATED CONTRAST MEDIA] Propensity to adverse reactions to drug (disorder) [facility] Repository Problems Problem Classification Problem Date Documented Date Episodic/Chronic Chronic obstructive pulmonary disease and bronchiectasis (2 sources) Chronic obstructive pulmonary disease, unspecified; Translations: [Chronic obstructive pulmonary disease, unspecified] Onset: 05-01-2024 Chronic Congestive heart failure; nonhypertensive (4 sources) Heart failure, unspecified; Translations: [Acute systolic (congestive) heart failure] Onset: 05-01-2024 Chronic Coronary atherosclerosis and other heart disease (2 sources) Atherosclerotic heart disease of [place] coronary artery without angina pectoris; Translations: [Atherosclerotic heart disease of [place] coronary artery without angina pectoris] Onset: 05-01-2024 [...] Range Facility Office Visiton 06-19-2024 Follow-up visit [id number] Dayday Stevenson 1960 F Date Provider Department Center 06/19/2024 Blaire-NABEEL MOSES Family History Problem Relation Age of Onset Heart failure Mother Other Father Family Status - Relation Status Age at Mother Alive Father Sister Alive Brother Level of Service:73797 [place] POSTOP FOLLOW UP VISIT RELATED TO ORIGINAL PX Normal [facility] ANEIsreal 06-12-2024 ANES --- Attestation signed by [...] 06/12/24 1500 Procedure: ICD DC new Location: [facility] / [facility] (Cath) Providers: Nicola Gorman MD Clinical information reviewed: Allergies Physical Exam Airway Mallampati: II Cardiovascular Dental Pulmonary Abdominal Anesthesia Plan ASA 3 other (Conscious sedation) intravenous induction Anesthetic plan and risks discussed with patient. Use of blood products discussed with patient who consented to blood products. Plan discussed with attending and fellow. Additional Equipment Requests Normal [facility] BASIC METABOLIC PANELon 05- Anion gap [Moles/Vol] 13 mmol/L Normal 7-20 [facility] Comment on above: Performed By: #### L [id number] ####[facility] (BEAKER)[address] [place] [address] Calcium [Mass/Vol] 9.5 mg/dL Normal 8.6-10.3 [facility] Comment on above: Performed By: #### L [id number] ####[facility] (BEAKER)[address] [place] [address] Chloride [Moles/Vol] 102 mmol/L Normal 98-107 [facility] Comment on above: Performed By: #### L [id number] ####[facility] ([facility])[address] [place] [address] CO2 [Moles/Vol] 29 mmol/L Normal 21-31 [facility] Comment on above: Performed By: #### L [id number] ####[facility] ([facility])[address] [place] [address] Creatinine [Mass/Vol] 1.08 mg/dL Normal 0.60-1.20 [facility] Comment on above: Performed By: #### L [id number] ####[facility] ([facility])[address] [place] [address] GLOMERULAR FILTRATION RATE ML/MIN/1.73 SQ M.PREDICTED 57.0 mL/min/1.73m*2 Low >60.0 [facility] Comment on above: Result Comment: [facility]???s estimated glomerular filtration rate (eGFR) will no [...] of individuals. Performed By: #### L [id number] ####[facility] ([facility])[address] [address] Glucose [Mass/Vol] 80 mg/dL Normal 70-100 [facility] Comment on above: Performed By: #### L [id number] ####[facility] ([facility])[address] [place] [address] Potassium [Moles/Vol] 4.3 mmol/L Normal 3.5-5.1 [facility] Comment on above: Performed By: #### L [id number] ####[facility] ([facility])[address] [address] Sodium [Moles/Vol] 140 mmol/L Normal 136-145 [facility] Comment on above: Performed By: #### L [id number] ####[facility] ([facility] [address] Urea nitrogen [Mass/Vol] 23 mg/dL Normal 7-25 [facility] Comment on above: Performed By: #### L [id number] ####[facility] ([facility])[address] [address] UREA NITROGEN/CREATININE (MASS RATIO) IN SER/PLAS 21.3 Normal [facility] Comment on above: Performed By: #### L [id number] ####[facility] ([facility])[address] [address] CBCon 06-12-2024 Erythrocyte distribution width (RBC) [Ratio] 13.2 % Normal 11.5-15.0 [facility] Comment on above: Performed By: #### L [id number] #### [facility] ([facility]) [address] [place] [address] ERYTHROCYTE MEAN CORPUSCULAR HEMOGLOBIN CONCENTRATION (G/DL) BY AUTOMATED 33.1 g/dL Normal 32.0-35.0 [facility] Comment on above: Performed By: #### L [id number] #### [facility] ([facility]) [address] [place] [address] Hematocrit (Bld) [Volume fraction] 41.4 % Normal 36.0-45.0 [facility] Comment on above: Performed By: #### L [id number] #### [facility] ([facility] [address] [place] [address] Hemoglobin (Bld) [Mass/Vol] 13.7 g/dL Normal 12.0-15.0 [facility] Comment on above: Performed By: #### L [id number] #### [facility] ([facility] [address] [place] [address] IMMATURE PLATELET FRACTION % 8.5 % High 0.8-6.3 [facility] Comment on above: Performed By: #### L [id number] #### [facility] ([facility]) [address] [place] [address] MCH (RBC) [Entitic mass] 28.6 pg Normal 27.0-33.0 [facility] Comment on above: Performed By: #### L [id number] #### [facility] ([facility]) [address] [place] [address] MCV (RBC) [Entitic vol] 86.4 fL Normal 82.0-98.0 [facility] Comment on above: Performed By: #### L [id number] #### [facility] ([facility]) [address] [place] [address] PLATELETS (10*3/UL) IN BLOOD AUTOMATED COUNT 185 10*3/uL Normal 150-400 [facility] Comment on above: Performed By: #### L [id number] #### [facility] ([facility]) [address] [place] [address] RBC (Bld) [#/Vol] 4.79 10*6/uL Normal 3.80-5.00 [facility] Comment on above: Performed By: #### L [id number] #### [facility] ([facility]) [address] [place] [address] WBC (Bld) [#/Vol] 9.64 10*3/uL Normal 4.00-10.60 [facility] Comment on above: Performed By: #### L [id number] #### [facility] ([facility]) [address] [place] [address] HPon 06-12-2024 --- Attestation signed by Nicola [...] be an additional personal documentation from me. [place] Electrophysiology Clinic Note Reason for visit:ICD HPI: [...] History: Diagnosis Date CHF (congestive heart failure) ([facility]) COPD (chronic obstructive pulmonary disease) ([facility]) Coronary artery disease Hypertension Hypothyroidism Myocardial infarction ([facility]) Stroke ([facility]) PSH: Past Surgical History: Procedure Laterality Date [...] Year: No Utilities: Not At Risk (05/01/2024) [facility] Utilities Threatened with loss of utilities: [...] ENMT Ears: no (more content not included)... [facility] NURSNOTEon 06-12-2024 NURSNOTE RN educated pt on [...] off of unit with all of belongings. [facility] NURSNOTE Dr. Gorman notified of low SBP. Orders received. [facility] NURSNOTE CHG wipes and betadi ne nasal swabs completed. [facility] Orders Onlyon 06-12-2024 Orders Only [id number] Dayday Stevenson 1960 F Date Provider Department Center 06/12/2024 CHRISTIAN CASTRO [facility] Family History Problem Relation Age of Onset Heart failure Mother Other Father Family Status - Relation Status Age at Mother Alive Father Sister Alive Brother [facility] 37on 06-10-2024 37 We recommend bypass surgery [...] you. We recommend referring you to the [facility], since they perform higher risk heart surgeries and you have been treated there before. We will speak to your health and wellness coordinator and discuss our recommendations. If he is agreeable, we will refer you to the [facility] and schedule an appointment for you. Our office will contact you within the next week with more information. Please call if you have any questions: [phone] You should continue all of your medications daily as prescribed. [facility] Follow-Upon 06-10-2024 Follow-Up [id number] ElvaDayday y B 1960 Date Provider Department Center 06/10/2024 [facility] Family History Problem Relation Age of Onset Heart failure Mother Other Father Family Status - Relation Status Age at Mother Alive Father Sister Alive Brother Level of Service:77410 [place] OFFICE/OUTPATIENT ESTABLISHED MOD MDM 30 MIN Reason for Visit and Comments: Hospital Follow-up [832] - MVD [facility] 36on 05-15-2024 36 Received epic chat f [...] find a local physician for follow up. [facility] Documentationon 05-12-2024 Documentation [id number] ElvaTerr y B 1960 F Date Provider Department Center 05/12/2024 [id number]-MBTOAOXAMAN PEREZ [facility] Family History Problem Relation Age of Onset Heart failure Mother Other Father Family Status - Relation Status Age at Mother Alive Father Sister Alive Brother Reason for Visit and Comments: HF inpatient satisfaction survey sent. [Other] [facility] Office Visiton 05-12-2024 Follow-up visit [id number] ElvaTerr y B 1960 [facility] Provider Department Center 05/12/2024 KEVIN LARIOS [facility] Family History Problem Relation Age of Onset Heart failure Mother Other Father Family Status - Relation Status Age at Mother Alive Father Sister Alive Brother Level of Service:46557 [place] OFFICE/OUTPATIENT ESTABLISHED MOD MDM 30 MIN Normal [facility] Documentationon 05-10-2024 Documentation [id number] Dayday Stevenson 1960 F Date Provider Department Center 05/10/2024 35824-YHYFORKALYAN MARQUEZ [facility] No family history on file Normal [facility] 36on 05-09-2024 36 Post Discharge Call Good morning, I am Geovanna Lazo RN a lead nurse from [facility]. I am calling you to follow [...] Patient Name Jacob Stevenson Date 05/09/24 Normal [facility] Telephoneon 05-09-2024 Telephone [id number] Dayday Stevenson 1960 F Date Provider Department Center 05/09/2024 GEOVANNA RIVERA [facility] No family history on file Reason for Visit and Comments: Hospital Follow-up [832] Normal [facility] 30on 05-08-2024 30 The patient is Moderately Stable - Low risk of patient condition declining or worsening The patient's goals for the shift include comfort The clinical goals for the shift include stable vitals Normal [facility] 30 Daily Case Managemen t Update Multidisciplinary [...] PT Recommendations: OT Recommendations: New Consults: Normal [facility] BASIC METABOLIC PANELon 04-0 Anion gap [Moles/Vol] 9 mmol/L Normal 7-20 [facility] Comment on above: Performed By: #### L [id number] ####[facility] (BEAKER)[address] [place] [address] Calcium [Mass/Vol] 8.2 mg/dL Low 8.6-10.3 [facility] Comment on above: Performed By: #### L [id number] ####[facility] (BEAKER)[address] [place] [address] Chloride [Moles/Vol] 105 mmol/L Normal 98-107 [facility] Comment on above: Performed By: #### L [id number] ####[facility] (BEAKER)[address] [place] [address] CO2 [Moles/Vol] 25 mmol/L Normal 21-31 [facility] Comment on above: Performed By: #### L [id number] ####[facility] ([facility])[address] [place] [address] Creatinine [Mass/Vol] 1.17 mg/dL Normal 0.60-1.20 [facility] Comment on above: Performed By: #### L [id number] ####[facility] ([facility])[address] [place] [address] GLOMERULAR FILTRATION RATE ML/MIN/1.73 SQ M.PREDICTED 51.8 mL/min/1.73m*2 Low >60.0 [facility] Comment on above: Result Comment: [facility]???s estimated glomerular filtration rate (eGFR) will no [...] of individuals. Performed By: #### L [id number] ####[facility] ([facility])[address] [address] Glucose [Mass/Vol] 89 mg/dL Normal 70-100 [facility] Comment on above: Performed By: #### L [id number] ####[facility] ([facility])[address] [place] [address] Potassium [Moles/Vol] 4.6 mmol/L Normal 3.5-5.1 [facility] Comment on above: Performed By: #### L [id number] ####[facility] ([facility] [place] [address] Sodium [Moles/Vol] 134 mmol/L Low 136-145 [facility] Comment on above: Performed By: #### L [id number] ####[facility] ([facility])[address] [place] [address] Urea nitrogen [Mass/Vol] 27 mg/dL High 7-25 [facility] Comment on above: Performed By: #### L [id number] ####[facility] ([facility])[address] [place] [address] UREA NITROGEN/CREATININE (MASS RATIO) IN SER/PLAS 23.1 Normal [facility] Comment on above: Performed By: #### L [id number] ####[facility] ([facility])[address] [place] [address] CBC WITH AUTO DIFFERENTIALon 05-08-2024 Basophils (Bld) [#/Vol] 0.03 10*3/uL Normal 0.00-0.20 [facility] Comment on above: Performed By: #### L [id number] #### [facility] ([facility]) [address] [place] [address] Basophils/100 WBC (Bld) 0.4 % Normal 0.0-1.0 [facility] Comment on above: Performed By: #### L [id number] #### [facility] ([facility]) [address] [place] [address] Eosinophils (Bld) [#/Vol] 0.19 10*3/uL Normal 0.00-0.50 [facility] Comment on above: Performed By: #### L [id number] #### [facility] ([facility]) [address] [place] [address] Eosinophils/100 WBC (Bld) 2.2 % Normal 0.0-6.0 [facility] Comment on above: Performed By: #### L [id number] #### [facility] ([facility] [address] [place] [address] Erythrocyte distribution width (RBC) [Ratio] 13.2 % Normal 11.5-15.0 [facility] Comment on above: Performed By: #### L [id number] #### [facility] ([facility]) [address] [place] [address] ERYTHROCYTE MEAN CORPUSCULAR HEMOGLOBIN CONCENTRATION (G/DL) BY AUTOMATED 32.4 g/dL Normal 32.0-35.0 [facility] Comment on above: Performed By: #### L [id number] #### [facility] (BEAKER) [address] [place] [address] Hematocrit (Bld) [Volume fraction] 45.1 % High 36.0-45.0 [facility] Comment on above: Performed By: #### L [id number] #### [facility] (BEAKER) [address] [address] Hemoglobin (Bld) [Mass/Vol] 14.6 g/dL Normal 12.0-15.0 [facility] Comment on above: Performed By: #### L [id number] #### [facility] (BEAKER) [address] [place] [address] Immature granulocytes (Bld) [#/Vol] 0.04 10*3/uL Normal 0.00-0.20 [facility] Comment on above: Performed By: #### L [id number] #### [facility] (BEAKER) [address] [place] [address] Immature granulocytes/100 WBC (Bld) 0.5 % Normal 0.0-1.0 [facility] Comment on above: Performed By: #### L [id number] #### [facility] (BEAKER) [address] [place] [address] Lymphocytes (Bld) [#/Vol] 2.41 10*3/uL Normal 1.20-4.00 [facility] Comment on above: Performed By: #### L [id number] #### [facility] ([facility]ER) [address] [place] [address] Lymphocytes/100 WBC (Bld) 28.5 % Normal 20.0-45.0 [facility] Comment on above: Performed By: #### L [id number] #### [facility] (BEAKER) [address] [place] [address] MCH (RBC) [Entitic mass] 28.6 pg Normal 27.0-33.0 [facility] Comment on above: Performed By: #### L [id number] #### [facility] ([facility]) [address] [place] [address] MCV (RBC) [Entitic vol] 88.4 fL Normal 82.0-98.0 [facility] Comment on above: Performed By: #### L [id number] #### [facility] ([facility]) [address] [place] [address] Monocytes (Bld) [#/Vol] 0.80 10*3/uL Normal 0.10-1.00 [facility] Comment on above: Performed By: #### L [id number] #### [facility] ([facility]) [address] [place] [address] Monocytes/100 WBC (Bld) 9.5 % Normal 5.0-12.0 [facility] Comment on above: Performed By: #### L [id number] #### [facility] ([facility]) [address] [place] [address] Neutrophils (Bld) [#/Vol] 4.99 10*3/uL Normal 1.60-7.60 [facility] Comment on above: Performed By: #### L [id number] #### [facility] ([facility]) [address] [place] [address] Neutrophils/100 WBC (Bld) 58.9 % Normal 40.0-72.0 [facility] Comment on above: Performed By: #### L [id number] #### [facility] ([facility]) [address] [place] [address] NRBC (PER 100 WBCS) BY AUTOMATED COUNT 0.0 % Normal 0 [facility] Comment on above: Performed By: #### L [id number] #### [facility] (BEAKER) [address] [place] [address] PLATELETS (10*3/UL) IN BLOOD AUTOMATED COUNT 204 10*3/uL Normal 150-400 [facility] Comment on above: Performed By: #### L [id number] #### [facility] ([facility] [address] [place] [address] RBC (Bld) [#/Vol] 5.10 10*6/uL High 3.80-5.00 [facility] Comment on above: Performed By: #### L [id number] #### [facility] ([facility]) [address] [place] [address] WBC (Bld) [#/Vol] 8.46 10*3/uL Normal 4.00-10.60 [facility] Comment on above: Performed By: #### L [id number] #### [facility] ([facility]) [address] [place] [address] DSon 05-08-2024 DS Admission Admitted 05/01/2024 for [...] Medications These medications were sent to [facility] - [place], [place] - [address], [facility] [address] atorvastatin 40 mg tablet dapagliflozin propanediol 10 mg furosemide 40 mg tablet nitroglycerin 0.4 mg SL tablet spironolactone 25 mg tablet valsartan 40 mg tablet Activity Patient currently has no discharge activity orders Diet Allergies Iodinated contrast media and Sulfa (sulfonamide antibiotics) Hospital Course Admitted directly from [facility] with new onset CHF and elevated troponin symptoms started home school coordinator woke her up from the sleep also [...] therapy electrolytes creatinine monitor and seen by health and wellness coordinator surgery recommended outpatient follow-up with CTS. Patient [...] Eosinophils R (more content not included)... Normal [facility] 30on 05-07-2024 30 The patient is Moderately [...] and maintained or improved Outcome: Progressing Normal [facility] 30 The patient is Moderately Stable - Low risk of patient condition declining or worsening The patient's goals for the shift include Comfort The clinical goals for the shift include VSS, safety Normal [facility] BASIC METABOLIC PANELon - Anion gap [Moles/Vol] 10 mmol/L Normal 7-20 [facility] Comment on above: Performed By: #### L [id number] ####[facility] ([facility])[address] [place] [address] Calcium [Mass/Vol] 8.7 mg/dL Normal 8.6-10.3 [facility] Comment on above: Performed By: #### L [id number] ####[facility] ([facility])[address] [place] [address] Chloride [Moles/Vol] 101 mmol/L Normal 98-107 [facility] Comment on above: Performed By: #### L [id number] ####[facility] ([facility])[address] [place] [address] CO2 [Moles/Vol] 29 mmol/L Normal 21-31 [facility] Comment on above: Performed By: #### L [id number] ####[facility] ([facility])[address] [place] [address] Creatinine [Mass/Vol] 1.40 mg/dL High 0.60-1.20 [facility] Comment on above: Performed By: #### L [id number] ####[facility] ([facility])[address] [place] [address] GLOMERULAR FILTRATION RATE ML/MIN/1.73 SQ M.PREDICTED 41.8 mL/min/1.73m*2 Low >60.0 [facility] Comment on above: Result Comment: [facility]???s estimated glomerular filtration rate (eGFR) will no [...] of individuals. Performed By: #### L [id number] ####[facility] ([facility])[address] [place] [address] Glucose [Mass/Vol] 99 mg/dL Normal 70-100 [facility] Comment on above: Performed By: #### L [id number] ####[facility] ([facility])[address] [place] [address] Potassium [Moles/Vol] 4.6 mmol/L Normal 3.5-5.1 [facility] Comment on above: Performed By: #### L [id number] ####[facility] ([facility])[address] [place] [address] Sodium [Moles/Vol] 135 mmol/L Low 136-145 [facility] Comment on above: Performed By: #### L [id number] ####[facility] ([facility])[address] [place] [address] Urea nitrogen [Mass/Vol] 32 mg/dL High 7-25 [facility] Comment on above: Performed By: #### L [id number] ####[facility] [facility] ([facility])[address] [place] [address] UREA NITROGEN/CREATININE (MASS RATIO) IN SER/PLAS 22.9 Normal [facility] Comment on above: Performed By: #### L [id number] ####[facility] ([facility])[address] [place] [address] CBC WITH AUTO DIFFERENTIALon 05-07-2024 Basophils (Bld) [#/Vol] 0.06 10*3/uL Normal 0.00-0.20 [facility] Comment on above: Performed By: #### L [id number] ####[facility] ([facility])[address] [place] [address] Basophils/100 WBC (Bld) 0.6 % Normal 0.0-1.0 [facility] Comment on above: Performed By: #### L [id number] ####[facility] ([facility])[address] [place] [address] Eosinophils (Bld) [#/Vol] 0.24 10*3/uL Normal 0.00-0.50 [facility] Comment on above: Performed By: #### L [id number] ####[facility] ([facility])[address] [place] [address] Eosinophils/100 WBC (Bld) 2.4 % Normal 0.0-6.0 [facility] Comment on above: Performed By: #### L [id number] ####[facility] ([facility])[address] [place] [address] Erythrocyte distribution width (RBC) [Ratio] 13.3 % Normal 11.5-15.0 [facility] Comment on above: Performed By: #### L [id number] ####[facility] ([facility])[address] [place] [address] ERYTHROCYTE MEAN CORPUSCULAR HEMOGLOBIN CONCENTRATION (G/DL) BY AUTOMATED 32.2 g/dL Normal 32.0-35.0 [facility] Comment on above: Performed By: #### L [id number] ####[facility] ([facility])[address] [place] [address] Hematocrit (Bld) [Volume fraction] 46.3 % High 36.0-45.0 [facility] Comment on above: Performed By: #### L [id number] ####[facility] ([facility])[address] [place] [address] Hemoglobin (Bld) [Mass/Vol] 14.9 g/dL Normal 12.0-15.0 [facility] Comment on above: Performed By: #### L [id number] ####[facility] ([facility])[address] [place] [address] Immature granulocytes (Bld) [#/Vol] 0.10 10*3/uL Normal 0.00-0.20 [facility] Comment on above: Performed By: #### L [id number] ####[facility] ([facility])[address] [place] [address] Immature granulocytes/100 WBC (Bld) 1.0 % Normal 0.0-1.0 [facility] Comment on above: Performed By: #### L [id number] ####[facility] ([facility])[address] [place] [address] Lymphocytes (Bld) [#/Vol] 2.82 10*3/uL Normal 1.20-4.00 [facility] Comment on above: Performed By: #### L [id number] ####[facility] ([facility])[address] [place] [address] Lymphocytes/100 WBC (Bld) 28.4 % Normal 20.0-45.0 [facility] Comment on above: Performed By: #### L [id number] ####[facility] ([facility])[address] [place] [address] MCH (RBC) [Entitic mass] 28.4 pg Normal 27.0-33.0 [facility] Comment on above: Performed By: #### L [id number] ####[facility] ([facility])[address] [place] [address] MCV (RBC) [Entitic vol] 88.4 fL Normal 82.0-98.0 [facility] Comment on above: Performed By: #### L [id number] ####[facility] ([facility])[address] [place] [address] Monocytes (Bld) [#/Vol] 0.85 10*3/uL Normal 0.10-1.00 [facility] Comment on above: Performed By: #### L [id number] ####[facility] ([facility])[address] [place] [address] Monocytes/100 WBC (Bld) 8.6 % Normal 5.0-12.0 [facility] Comment on above: Performed By: #### L [id number] ####[facility] ([facility])[address] [place] [address] Neutrophils (Bld) [#/Vol] 5.87 10*3/uL Normal 1.60-7.60 [facility] Comment on above: Performed By: #### L [id number] ####[facility] ([facility])[address] [place] [address] Neutrophils/100 WBC (Bld) 59.0 % Normal 40.0-72.0 [facility] Comment on above: Performed By: #### L [id number] ####[facility] ([facility])[address] [address] NRBC (PER 100 WBCS) BY AUTOMATED COUNT 0.0 % Normal 0 [facility] Comment on above: Performed By: #### L [id number] ####[facility] ([facility])[address] [address] PLATELETS (10*3/UL) IN BLOOD AUTOMATED COUNT 207 10*3/uL Normal 150-400 [facility] Comment on above: Performed By: #### L [id number] ####[facility] ([facility])[address] [place] [address] RBC (Bld) [#/Vol] 5.24 10*6/uL High 3.80-5.00 [facility] Comment on above: Performed By: #### L [id number] ####[facility] ([facility])[address] [address] WBC (Bld) [#/Vol] 9.94 10*3/uL Normal 4.00-10.60 [facility] Comment on above: Performed By: #### L [id number] ####[facility] ([facility])[address] [address] 30on 05-06-2024 30 The patient is Moderately Stable - Low risk of patient condition declining or worsening The patient's goals for the shift include omfort and rest The clinical goals for the shift include stable vitals; safety; comfort Over the shift, the patient continued to make progress toward the following goals. Normal [facility] 30 Brain MRI negative f or acute ischemia. 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 Theses malformations are usually not a problem. Pt does not need a cerebral angiogram. Beulah Boateng DNP Normal [facility] 30 Problem: Pain - Adul t Goal: [...] injury: Assess patient frequently for physical needs [place] fall precautions as indicated by assessment Problem: [...] for the shift include stable vitals Normal [facility] 30 The patient is Moderately Stable - Low risk of patient condition declining or worsening The patient's goals for the shift include sleep The clinical goals for the shift include stable vitals; safety; comfort Over the shift, the patient continued to make progress toward the following goals. Normal [facility] BASIC METABOLIC PANELon 04-0 Anion gap [Moles/Vol] 10 mmol/L Normal 7-20 [facility] Comment on above: Performed By: #### L [id number] ####[facility] ([facility])[address] [place] [address] Calcium [Mass/Vol] 9.1 mg/dL Normal 8.6-10.3 [facility] Comment on above: Performed By: #### L [id number] ####[facility] ([facility])[address] [facility] [address] Chloride [Moles/Vol] 99 mmol/L Normal 98-107 [facility] Comment on above: Performed By: #### L [id number] ####[facility] ([facility])[address] [place] [address] CO2 [Moles/Vol] 34 mmol/L High 21-31 [facility] Comment on above: Performed By: #### L [id number] ####[facility] ([facility])[address] [place] [address] Creatinine [Mass/Vol] 0.85 mg/dL Normal 0.60-1.20 [facility] Comment on above: Performed By: #### L [id number] ####[facility] ([facility])[address] [place] [address] GLOMERULAR FILTRATION RATE ML/MIN/1.73 SQ M.PREDICTED 76.0 mL/min/1.73m*2 Normal >60.0 [facility] Comment on above: Result Comment: [facility]???s estimated glomerular filtration rate (eGFR) will no [...] of individuals. Performed By: #### L [id number] ####[facility] ([facility])[address] [address] Glucose [Mass/Vol] 174 mg/dL High 70-100 [facility] Comment on above: Performed By: #### L [id number] ####[facility] ([facility])[address] [place] [address] Potassium [Moles/Vol] 4.5 mmol/L Normal 3.5-5.1 [facility] Comment on above: Performed By: #### L [id number] ####[facility] ([facility])[address] [place] [address] Sodium [Moles/Vol] 138 mmol/L Normal 136-145 [facility] Comment on above: Performed By: #### L [id number] ####[facility] ([facility])[address] [place] [address] Urea nitrogen [Mass/Vol] 28 mg/dL High 7-25 [facility] Comment on above: Performed By: #### L [id number] ####[facility] ([facility])[address] [place] [address] UREA NITROGEN/CREATININE (MASS RATIO) IN SER/PLAS 32.9 Normal [facility] Comment on above: Performed By: #### L [id number] ####[facility] ([facility])[address] [place] [address] CBC WITH AUTO DIFFERENTIALon 05-06-2024 Basophils (Bld) [#/Vol] 0.03 10*3/uL Normal 0.00-0.20 [facility] Comment on above: Performed By: #### L [id number] ####[facility] ([facility])[address] [place] [address] Basophils/100 WBC (Bld) 0.2 % Normal 0.0-1.0 [facility] Comment on above: Performed By: #### L [id number] ####[facility] ([facility])[address] [place] [address] Eosinophils (Bld) [#/Vol] 0.00 10*3/uL Normal 0.00-0.50 [facility] Comment on above: Performed By: #### L [id number] ####[facility] ([facility])[address] [place] [address] Eosinophils/100 WBC (Bld) 0.0 % Normal 0.0-6.0 [facility] Comment on above: Performed By: #### L [id number] ####[facility] ([facility])[address] [place] [address] Erythrocyte distribution width (RBC) [Ratio] 15.0 % Normal 11.5-15.0 [facility] Comment on above: Performed By: #### L [id number] ####[facility] ([facility])[address] [address] ERYTHROCYTE MEAN CORPUSCULAR HEMOGLOBIN CONCENTRATION (G/DL) BY AUTOMATED 31.2 g/dL Low 32.0-35.0 [facility] Comment on above: Performed By: #### L [id number] ####[facility] ([facility])[address] [place] [address] Hematocrit (Bld) [Volume fraction] 39.1 % Normal 36.0-45.0 [facility] Comment on above: Performed By: #### L [id number] ####[facility] ([facility])[address] [place] [address] Hemoglobin (Bld) [Mass/Vol] 12.2 g/dL Normal 12.0-15.0 [facility] Comment on above: Performed By: #### L [id number] ####[facility] ([facility])[address] [place] [address] Immature granulocytes (Bld) [#/Vol] 0.11 10*3/uL Normal 0.00-0.20 [facility] Comment on above: Performed By: #### L [id number] ####[facility] ([facility])[address] [place] [address] Immature granulocytes/100 WBC (Bld) 0.6 % Normal 0.0-1.0 [facility] Comment on above: Performed By: #### L [id number] ####[facility] ([facility])[address] [place] [address] Lymphocytes (Bld) [#/Vol] 0.34 10*3/uL Low 1.20-4.00 [facility] Comment on above: Performed By: #### L [id number] ####[facility] ([facility])[address] [place] [address] Lymphocytes/100 WBC (Bld) 1.9 % Low 20.0-45.0 [facility] Comment on above: Performed By: #### L [id number] ####[facility] ([facility])[address] [place] [address] MCH (RBC) [Entitic mass] 28.5 pg Normal 27.0-33.0 [facility] Comment on above: Performed By: #### L [id number] ####[facility] ([facility])[address] [place] [address] MCV (RBC) [Entitic vol] 91.4 fL Normal 82.0-98.0 [facility] Comment on above: Performed By: #### L [id number] ####[facility] ([facility])[address] [place] [address] Monocytes (Bld) [#/Vol] 0.44 10*3/uL Normal 0.10-1.00 [facility] Comment on above: Performed By: #### L [id number] ####[facility] ([facility])[address] [place] [address] Monocytes/100 WBC (Bld) 2.4 % Low 5.0-12.0 [facility] Comment on above: Performed By: #### L [id number] ####[facility] ([facility])[address] [place] [address] Neutrophils (Bld) [#/Vol] 17.07 10*3/uL High 1.60-7.60 [facility] Comment on above: Performed By: #### L [id number] ####[facility] ([facility])[address] [place] [address] Neutrophils/100 WBC (Bld) 94.9 % High 40.0-72.0 [facility] Comment on above: Performed By: #### L [id number] ####[facility] ([facility])[address] [place] [address] NRBC (PER 100 WBCS) BY AUTOMATED COUNT 0.0 % Normal 0 [facility] Comment on above: Performed By: #### L [id number] ####[facility] ([facility])[address] [place] [address] PLATELETS (10*3/UL) IN BLOOD AUTOMATED COUNT 308 10*3/uL Normal 150-400 [facility] Comment on above: Performed By: #### L [id number] ####[facility] ([facility])[address] [place] [address] RBC (Bld) [#/Vol] 4.28 10*6/uL Normal 3.80-5.00 [facility] Comment on above: Performed By: #### L [id number] ####[facility] ([facility])[address] [place] [address] WBC (Bld) [#/Vol] 17.99 10*3/uL High 4.00-10.60 [facility] Comment on above: Performed By: #### L [id number] ####[facility] ([facility])[address] [place] [address] 30on 05-05-2024 30 Problem: Pain - Adul [...] Goal: Maintains hematologic stability Outcome: Progressing Normal [facility] 30 The patient is Moderately Stable - Low risk of patient condition declining or worsening The patient's goals for the shift include comfort and sleep The clinical goals for the shift include stable vitals; safety; comfort Over the shift, the patient continued to make progress toward the following goals. 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 HISTORY OF PRESENT ILLNESS: Jacob Stevenson is a 63 y.o. White female who presents with exertional dyspnea. She has a history of CVAx2 about 8-10 years ago however, details are unclear. She additionally has COPD, tobacco use, and hypothyroidism. We were consulted for CT brain findings. LKW: currently asymptomatic NIHSS: 0 Glucose: 92 Baseline Modified [place] Scale: 1 PROBLEM: Principal Problem: Acute systolic congestive heart failure (CMS/HCC) Active Problems: History of CVA (cerebrovascular accident) Primary hypertension COPD (chronic obstructive pulmonary disease) (CMS/HCC) Acquired hypothyroidism GERD (gastroesophageal reflux disease) Coronary artery disease involving g[place] coronary artery of gakona heart without angina pectoris PAST MEDICAL HISTORY: [...] exam prieto (more content not included)... Normal [facility] HIGH SENSITIVITY TROPONIN Io n 05-05-2024 HS TROPONIN I (NG/L) 25 ng/L High <15 [facility] Comment on above: Performed By: #### L [id number] ####[facility] ([facility])[address] [place] [address] LIPID PANELon 05-05-2024 CHOL/HDL 6.6 mg/dL Normal [facility] Comment on above: Performed By: #### L [id number] ####[facility] ([facility])[address] [place] [address] Cholesterol [Mass/Vol] 237 mg/dL High 120-200 [facility] Comment on above: Performed By: #### L [id number] ####[facility] ([facility])[address] [place] [address] CHOLESTEROL IN LDL (MG/DL) IN SERUM OR PLASMA BY CALCULATION Normal [facility] Comment on above: Result Comment: Calc ulated LDL invalid, triglycerides >400 mg/dl Performed By: #### L [id number] ####[facility] ([facility])[address] [facility] [place] [address] Magnesium [Mass/Vol] 514 mg/dL High <150 [facility] Comment on above: Result Comment: TRIG LYCERIDE REFERENCE RANGE: 20 YEARS AND OLDER CARDIOVASCULAR RISK LESS THAN 150 mg/dL LOW RISK 150 TO 199 mg/dL BORDERLINE RISK 200 mg/dL AND GREATER HIGH RISK Performed By: #### L [id number] ####[facility] ([facility])[address] [place] [address] Magnesium [Mass/Vol] 36 mg/dL Normal 23-92 [facility] Comment on above: Performed By: #### L [id number] ####[facility] ([facility])[address] [place] [address] NON HDL CHOL. (LDL+VLDL) 201 Normal [facility] Comment on above: Performed By: #### L [id number] ####[facility] ([facility])[address] [place] [address] TOTAL VLDL-C 103 mg/dL High 0-40 [facility] Comment on above: Performed By: #### L [id number] ####[facility] ([facility])[address] [place] [address] MR BRAIN W AND WO CONTRASTon 05-05-2024 [...] signed: Dg Brian. 9 Invalid Interpretation Code [facility] NURSNOTEon 05-05-[address] S [...] out if her chest pain returns. Normal [facility] 30on 05-04-2024 30 The patient is Moderately Stable - Low risk of patient condition declining or worsening The patient's goals for the shift include rest The clinical goals for the shift include vss Over the shift, the patient did make progress toward the following goals. Barriers to progression include n/a. Recommendations to address these barriers include n/a. Normal [facility] BASIC METABOLIC PANELon - Anion gap [Moles/Vol] 15 mmol/L Normal 7-20 [facility] Comment on above: Performed By: #### L [id number] #### [facility] ([facility]) [address] [place] [address] Calcium [Mass/Vol] 9.4 mg/dL Normal 8.6-10.3 [facility] Comment on above: Performed By: #### L [id number] #### [facility] ([facility]) [address] [place] [address] Chloride [Moles/Vol] 95 mmol/L Low 98-107 [facility] Comment on above: Performed By: #### L [id number] #### [facility] ([facility]) [address] [place] [address] CO2 [Moles/Vol] 29 mmol/L Normal 21-31 [facility] Comment on above: Performed By: #### L [id number] #### [facility] ([facility]) [address] [place] [address] Creatinine [Mass/Vol] 1.18 mg/dL Normal 0.60-1.20 [facility] Comment on above: Performed By: #### L [id number] #### [facility] ([facility]) [address] [address] GLOMERULAR FILTRATION RATE ML/MIN/1.73 SQ M.PREDICTED 51.3 mL/min/1.73m*2 Low >60.0 [facility] Comment on above: Result Comment: [facility]???s estimated glomerular filtration rate (eGFR) will no [...] individuals. Performed By: #### L [id number] #### [facility] ([facility]) [address] [place] [address] Glucose [Mass/Vol] 92 mg/dL Normal 70-100 [facility] Comment on above: Performed By: #### L [id number] #### [facility] ([facility]) [address] [address] Potassium [Moles/Vol] 3.8 mmol/L Normal 3.5-5.1 [facility] Comment on above: Performed By: #### L [id number] #### [facility] ([facility]) [address] [address] Sodium [Moles/Vol] 135 mmol/L Low 136-145 [facility] Comment on above: Performed By: #### L [id number] #### [facility] ([facility] [place]) [address] [place] [address] Urea nitrogen [Mass/Vol] 32 mg/dL High 7-25 [facility] Comment on above: Performed By: #### L [id number] #### [facility] ([facility]) [address] [place] [address] UREA NITROGEN/CREATININE (MASS RATIO) IN SER/PLAS 27.1 Normal [facility] Comment on above: Performed By: #### L [id number] #### [facility] ([facility]) [address] [place] [address] CBC WITH AUTO DIFFERENTIALon 05-04-2024 Erythrocyte distribution width (RBC) [Ratio] 13.3 % Normal 11.5-15.0 [facility] Comment on above: Performed By: #### L [id number] #### [facility] ([facility]) [address] [address] ERYTHROCYTE MEAN CORPUSCULAR HEMOGLOBIN CONCENTRATION (G/DL) BY AUTOMATED 32.0 g/dL Normal 32.0-35.0 [facility] Comment on above: Performed By: #### L [id number] #### [facility] ([facility]) [address] [place] [address] Hematocrit (Bld) [Volume fraction] 50.9 % High 36.0-45.0 [facility] Comment on above: Performed By: #### L [id number] #### [facility] ([facility]) [address] [place] [address] Hemoglobin (Bld) [Mass/Vol] 16.3 g/dL High 12.0-15.0 [facility] Comment on above: Performed By: #### L [id number] #### [facility] ([facility] [address] [address] IMMATURE PLATELET FRACTION % 15.1 % High 0.8-6.3 [facility] Comment on above: Performed By: #### L [id number] #### [facility] ([facility]) [address] [place] [address] MCH (RBC) [Entitic mass] 28.3 pg Normal 27.0-33.0 [facility] Comment on above: Performed By: #### L [id number] #### [facility] ([facility]) [address] [place] [address] MCV (RBC) [Entitic vol] 88.4 fL Normal 82.0-98.0 [facility] Comment on above: Performed By: #### L [id number] #### [facility] ([facility]) [address] [place] [address] NRBC (PER 100 WBCS) BY AUTOMATED COUNT 0.0 % Normal 0 [facility] Comment on above: Performed By: #### L [id number] #### [facility] ([facility]) [address] [place] [address] PLATELETS (10*3/UL) IN BLOOD AUTOMATED COUNT 214 10*3/uL Normal 150-400 [facility] Comment on above: Performed By: #### L [id number] #### [facility] ([facility]) [address] [place] [address] RBC (Bld) [#/Vol] 5.76 10*6/uL High 3.80-5.00 [facility] Comment on above: Performed By: #### L [id number] #### [facility] ([facility]) [address] [place] [address] WBC (Bld) [#/Vol] 12.73 10*3/uL High 4.00-10.60 [facility] Comment on above: Performed By: #### L [id number] #### [facility] ([facility]) [address] [place] [address] CONSULTon 05-04-2024 CONSULT Inpatient consult to Cardiothoracic Surgery Consult performed by: Jayden Read CNP Consult ordered by: Cameron Hernandez MD Reason for consult: Multivessel CAD Assessment/Recommendati ons: See below History Of Present Illness Jacob Stevenson is a 63 y.o. female who presented to [facility] ED with complaint of 1 day history [...] management. She was recommended for transfer to [facility]. She was admitted on 05/01/24 for [...] does not follow with a neurologist or retail equipment associate. States she has never seen a retail equipment associate and she has not seen an neurologist. [...] PERRLA. Hearing Intact. Nasal And Oral Mucosa Mullin And Moist. Pharynx Intact. Neck: Supple Without [...] Tenderness O (more content not included)... Normal [facility] CT ABDOMEN PELVIS WO IV CONT RASTon [...] signed: Dg Barnard. 7 Invalid Interpretation Code [facility] CT CHEST WO IV CONTRASTon CT CHEST [...] signed: Dg Barnard. 7 Invalid Interpretation Code [facility] CT HEAD WO IV CONTRASTon CT HEAD [...] signed: Dg Barnard. 8 Invalid Interpretation Code [facility] MAGNESIUMon 05-04-2024 Magnesium [Mass/Vol] 2.2 mg/dL Normal 1.9-2.7 [facility] Comment on above: Performed By: #### L [id number] ####[facility] ([facility])[address] [place] [address] MANUAL DIFFERENTIALon 2024 BASOPHILS (10*3/UL) IN BLOOD BY CALCULATION 0.04 10*3/uL Normal 0.00-0.20 [facility] Comment on above: Performed By: #### L [id number] ####[facility] ([facility])[address] [place] [address] BASOPHILS/100 LEUKOCYTES IN BLOOD BY AUTOMATED COUNT 0.3 % Normal 0.0-1.0 [facility] Comment on above: Performed By: #### L [id number] ####[facility] ([facility])[address] [place] [address] EOSINOPHILS (10*3/UL) IN BLOOD BY CALCULATION 0.11 10*3/uL Normal 0.00-0.50 [facility] Comment on above: Performed By: #### L [id number] ####[facility] ([facility])[address] [place] [address] EOSINOPHILS/100 LEUKOCYTES IN BLOOD BY AUTOMATED COUNT 0.9 % Normal 0.0-6.0 [facility] Comment on above: Performed By: #### L [id number] ####[facility] ([facility])[address] [place] [address] IMMATURE GRANULOCYTES (10*3/UL) IN BLOOD BY CALCULATION 0.09 10*3/uL Normal 0.00-0.20 [facility] Comment on above: Performed By: #### L [id number] ####[facility] ([facility])[address] [place] [address] IMMATURE GRANULOCYTES/100 LEUKOCYTES IN BLOOD BY AUTOMATED COUNT 0.7 % Normal 0.0-1.0 [facility] Comment on above: Performed By: #### L [id number] ####[facility] ([facility])[address] [place] [address] LYMPHOCYTES (10*3/UL) IN BLOOD BY CALCULATION 3.97 10*3/uL Normal 1.20-4.00 [facility] Comment on above: Performed By: #### L [id number] ####[facility] ([facility])[address] [place] [address] LYMPHOCYTES/100 LEUKOCYTES IN BLOOD BY AUTOMATED COUNT 31.2 % Normal 20.0-45.0 [facility] Comment on above: Performed By: #### L [id number] ####[facility] ([facility])[address] [place] [address] MONOCYTES (10*3/UL) IN BLOOD BY CALCUATION 1.02 10*3/uL High 0.10-1.00 [facility] Comment on above: Performed By: #### L [id number] ####[facility] ([facility])[address] [place] [address] MONOCYTES/100 LEUKOCYTES IN BLOOD BY AUTOMATED COUNT 8.0 % Normal 5.0-12.0 [facility] Comment on above: Performed By: #### L [id number] ####[facility] ([facility])[address] [place] [address] NEUTROPHILS (10*3/UL) IN BLOOD BY CALCULATION 7.5 10*3/uL Normal 1.6-7.6 [facility] Comment on above: Performed By: #### L [id number] ####[facility] ([facility])[address] [place] [address] NEUTROPHILS/100 LEUKOCYTES IN BLOOD BY AUTOMATED COUNT 58.9 % Normal 40.0-72.0 [facility] Comment on above: Performed By: #### L [id number] ####[facility] ([facility])[address] [place] [address] PHOSPHORUSon 05-04-2024 Magnesium [Mass/Vol] 5.9 mg/dL High 2.5-5.0 [facility] Comment on above: Performed By: #### L [id number] #### [facility] ([facility]) [address] [place] [address] TSHon 05-04-2024 THYROTROPIN (MIU/L) IN SER/PLAS BY DETECTION LIMIT <= 0.05 MIU/L 1.04 mIU/L Normal 0.34-5.60 [facility] Comment on above: Performed By: #### L [id number] #### [facility] ([facility]) [address] [place] [address] 30on 05-03-2024 30 The patient is Moderately Stable - Low risk of patient condition declining or worsening The patient's goals for the shift include rest The clinical goals for the shift include VSS Normal [facility] 30 The patient is Moderately Stable - [...] symptoms for stability, deterioration, or improvement Normal [facility] 30 The patient is Moderately Stable - Low risk of patient condition declining or worsening The patient's goals for the shift include comfort, rest, and possible RT heart cath done The clinical goals for the shift include VSS Normal [facility] 30on 05-02-2024 30 The patient is Moderately Stable - Low risk of patient condition declining or worsening The patient's goals for the shift include comfort, rest, and possible RT heart cath done The clinical goals for the shift include VSS Normal [facility] BASIC METABOLIC PANELon 04-06 Anion gap [Moles/Vol] 10 mmol/L Normal 7-20 [facility] Comment on above: Performed By: #### L [id number] #### [facility] ([facility]) [address] [place] [address] Calcium [Mass/Vol] 8.7 mg/dL Normal 8.6-10.3 [facility] Comment on above: Performed By: #### L [id number] #### [facility] ([facility]) [address] [place] [address] Chloride [Moles/Vol] 105 mmol/L Normal 98-107 [facility] Comment on above: Performed By: #### L [id number] #### [facility] ([facility]) [address] [place] [address] CO2 [Moles/Vol] 26 mmol/L Normal 21-31 [facility] Comment on above: Performed By: #### L [id number] #### [facility] ([facility]) [address] [place] [address] Creatinine [Mass/Vol] 0.90 mg/dL Normal 0.60-1.20 [facility] Comment on above: Performed By: #### L [id number] #### [facility] ([facility]) [address] [place] [address] GLOMERULAR FILTRATION RATE ML/MIN/1.73 SQ M.PREDICTED 70.9 mL/min/1.73m*2 Normal >60.0 [facility] Comment on above: Result Comment: [facility]???s estimated glomerular filtration rate (eGFR) will no [...] individuals. Performed By: #### L [id number] #### [facility] ([facility]) [address] [place] [address] Glucose [Mass/Vol] 173 mg/dL High 70-100 [facility] Comment on above: Performed By: #### L [id number] #### [facility] ([facility]) [address] [address] Potassium [Moles/Vol] 4.3 mmol/L Normal 3.5-5.1 [facility] Comment on above: Performed By: #### L [id number] #### [facility] ([facility]) [address] [place] [address] Sodium [Moles/Vol] 137 mmol/L Normal 136-145 [facility] Comment on above: Performed By: #### L [id number] #### [facility] ([facility]) [address] [place] [address] Urea nitrogen [Mass/Vol] 19 mg/dL Normal 7-25 [facility] Comment on above: Performed By: #### L [id number] #### [facility] ([facility]) [address] [address] UREA NITROGEN/CREATININE (MASS RATIO) IN SER/PLAS 21.1 Normal [facility] Comment on above: Performed By: #### L [id number] #### [facility] ([facility]) [address] [address] CBCon 05-02-2024 Erythrocyte distribution width (RBC) [Ratio] 13.3 % Normal 11.5-15.0 [facility] Comment on above: Performed By: #### L [id number] #### [facility] ([facility]) [address] [place] [address] ERYTHROCYTE MEAN CORPUSCULAR HEMOGLOBIN CONCENTRATION (G/DL) BY AUTOMATED 32.3 g/dL Normal 32.0-35.0 [facility] Comment on above: Performed By: #### L [id number] #### [facility] ([facility]) [address] [address] Hematocrit (Bld) [Volume fraction] 37.5 % Normal 36.0-45.0 [facility] Comment on above: Performed By: #### L [id number] #### [facility] ([facility]) [address] [address] Hemoglobin (Bld) [Mass/Vol] 12.1 g/dL Normal 12.0-15.0 [facility] Comment on above: Performed By: #### L [id number] #### [facility] ([facility]) [address] [place] [address] MCH (RBC) [Entitic mass] 28.4 pg Normal 27.0-33.0 [facility] Comment on above: Performed By: #### L [id number] #### [facility] ([facility]) [address] [place] [address] MCV (RBC) [Entitic vol] 88.0 fL Normal 82.0-98.0 [facility] Comment on above: Performed By: #### L [id number] #### [facility] ([facility]) [address] [place] [address] PLATELETS (10*3/UL) IN BLOOD AUTOMATED COUNT 181 10*3/uL Normal 150-400 [facility] Comment on above: Performed By: #### L [id number] #### [facility] ([facility]) [address] [place] [address] RBC (Bld) [#/Vol] 4.26 10*6/uL Normal 3.80-5.00 [facility] Comment on above: Performed By: #### L [id number] #### [facility] ([facility]) [address] [address] WBC (Bld) [#/Vol] 14.04 10*3/uL High 4.00-10.60 [facility] Comment on above: Performed By: #### L [id number] #### [facility] ([facility]) [address] [place] [address] CONSULTon 05-02-2024 CONSULT --- Attestation signed by [...] Will proceed with cath and ct to [facility] for HF management. Will plan on repeat EF estimation and need for ICD Cardiology Consult Note Reason for Consult: new onset chf, elevated trop HPI: Jacob Stevenson is a 63 y.o. female with past history remarkable for primary hypertension, coronary artery disease, COPD, hypothyroidism, and tobacco use who presented to [facility] as a transfer from [facility] where she initially presented complaining of [...] No erythema (more content not included)... Normal [facility] CONSULT Adult Nutrition Assessment: Name: Jacob Stevenson Room: [facility]7/3167-01 Date: 1960 Date of Visit: 05/02/24 Admission Dx: Acute systolic CHF (congestive heart failure) ([facility]) [I50.21] Reason for assessment: consult for HF [...] issues Edema: None documented Other Factors: Per [employer] SUPER[employer], Patient reportedly with echocardiogram completed outside hospital [...] diet education. 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 [...] Nutrition Therapy Monito (more content not included)... [facility] 05-02-2024 --- Attestation signed by Berlin Cortez MD at 05/12/2024 9:39 AM m H&P reviewed. The patient was examined and there are no changes to the H&P. Patient is scheduled for right and left heart cath via right internal jugular vein/left radial access. Normal [facility] 30on 05-01-2024 30 The patient is Moderately Stable - Low risk of patient condition declining or worsening The patient's goals for the shift include COMFORT The clinical goals for the shift include VSS Normal [facility] 30 The patient is Moderately Stable - Low risk of patient condition declining or worsening The patient's goals for the shift include COMFORT The clinical goals for the shift include VSS Normal [facility] B-TYPE NATRIURETIC PEPTIDEon 05-01-2024 Natriuretic peptide B (Bld) [Mass/Vol] 1264 pg/mL High 0-100 [facility] Comment on above: Performed By: #### L [id number] #### [facility] ([facility]) [address] [place] [address] CBC WITH AUTO DIFFERENTIALon 05-01-2024 Basophils (Bld) [#/Vol] 0.02 10*3/uL Normal 0.00-0.20 [facility] Comment on above: Performed By: #### L [id number] #### [facility] ([facility]) [address] [place] [address] Basophils/100 WBC (Bld) 0.2 % Normal 0.0-1.0 [facility] Comment on above: Performed By: #### L [id number] #### [facility] ([facility]) [address] [place] [address] Eosinophils (Bld) [#/Vol] 0.00 10*3/uL Normal 0.00-0.50 [facility] Comment on above: Performed By: #### L [id number] #### [facility] ([facility]) [address] [place] [address] Eosinophils/100 WBC (Bld) 0.0 % Normal 0.0-6.0 [facility] Comment on above: Performed By: #### L [id number] #### [facility] ([facility]) [address] [place] [address] Erythrocyte distribution width (RBC) [Ratio] 13.3 % Normal 11.5-15.0 [facility] Comment on above: Performed By: #### L [id number] #### [facility] ([facility]) [address] [place] [address] ERYTHROCYTE MEAN CORPUSCULAR HEMOGLOBIN CONCENTRATION (G/DL) BY AUTOMATED 32.2 g/dL Normal 32.0-35.0 [facility] Comment on above: Performed By: #### L [id number] #### [facility] ([facility]) [address] [address] Hematocrit (Bld) [Volume fraction] 39.5 % Normal 36.0-45.0 [facility] Comment on above: Performed By: #### L [id number] #### [facility] ([facility]) [address] [place] [address] Hemoglobin (Bld) [Mass/Vol] 12.7 g/dL Normal 12.0-15.0 [facility] Comment on above: Performed By: #### L [id number] #### [facility] ([facility]) [address] [address] Immature granulocytes (Bld) [#/Vol] 0.07 10*3/uL Normal 0.00-0.20 [facility] Comment on above: Performed By: #### L [id number] #### [facility] ([facility]) [address] [place] [address] Immature granulocytes/100 WBC (Bld) 0.6 % Normal 0.0-1.0 [facility] Comment on above: Performed By: #### L [id number] #### [facility] ([facility]) [address] [place] [address] Lymphocytes (Bld) [#/Vol] 0.92 10*3/uL Low 1.20-4.00 [facility] Comment on above: Performed By: #### L [id number] #### [facility] ([facility]) [address] [place] [address] Lymphocytes/100 WBC (Bld) 7.3 % Low 20.0-45.0 [facility] Comment on above: Performed By: #### L [id number] #### [facility] ([facility]) [address] [place] [address] MCH (RBC) [Entitic mass] 28.3 pg Normal 27.0-33.0 [facility] Comment on above: Performed By: #### L [id number] #### [facility] ([facility]) [address] [place] [address] MCV (RBC) [Entitic vol] 88.0 fL Normal 82.0-98.0 [facility] Comment on above: Performed By: #### L [id number] #### [facility] ([facility]) [address] [place] [address] Monocytes (Bld) [#/Vol] 0.22 10*3/uL Normal 0.10-1.00 [facility] Comment on above: Performed By: #### L [id number] #### [facility] ([facility]) [address] [place] [address] Monocytes/100 WBC (Bld) 1.8 % Low 5.0-12.0 [facility] Comment on above: Performed By: #### L [id number] #### [facility] ([facility]) [address] [place] [address] Neutrophils (Bld) [#/Vol] 11.33 10*3/uL High 1.60-7.60 [facility] Comment on above: Performed By: #### L [id number] #### [facility] ([facility]) [address] [place] [address] Neutrophils/100 WBC (Bld) 90.1 % High 40.0-72.0 [facility] Comment on above: Performed By: #### L [id number] #### [facility] ([facility]) [address] [place] [address] NRBC (PER 100 WBCS) BY AUTOMATED COUNT 0.0 % Normal 0 [facility] Comment on above: Performed By: #### L [id number] #### [facility] ([facility]) [address] [place] [address] PLATELETS (10*3/UL) IN BLOOD AUTOMATED COUNT 201 10*3/uL Normal 150-400 [facility] Comment on above: Performed By: #### L [id number] #### [facility] ([facility]) [address] [place] [address] RBC (Bld) [#/Vol] 4.49 10*6/uL Normal 3.80-5.00 [facility] Comment on above: Performed By: #### L [id number] #### [facility] ([facility]) [address] [place] [address] WBC (Bld) [#/Vol] 12.56 10*3/uL High 4.00-10.60 [facility] Comment on above: Performed By: #### L [id number] #### [facility] ([facility]) [address] [place] [address] COMPREHENSIVE METABOLIC PANE Salbador 05-01-2024 Albumin [Mass/Vol] 4.4 g/dL Normal 3.5-5.7 [facility] Comment on above: Performed By: #### L [id number] #### [facility] ([facility]) [address] [place] [address] ALP [Catalytic activity/Vol] 83 U/L Normal 34-104 [facility] Comment on above: Performed By: #### L [id number] #### [facility] ([facility]) [address] [place] [address] ALT [Catalytic activity/Vol] 49 U/L Normal 7-52 [facility] Comment on above: Performed By: #### L [id number] #### [facility] ([facility]) [address] [place] [address] Anion gap [Moles/Vol] 14 mmol/L Normal 7-20 [facility] Comment on above: Performed By: #### L [id number] #### [facility] ([facility]) [address] [place] [address] AST [Catalytic activity/Vol] 27 U/L Normal 13-39 [facility] Comment on above: Performed By: #### L [id number] #### [facility] ([facility]) [address] [place] [address] Bilirubin [Mass/Vol] 0.4 mg/dL Normal 0.3-1.0 [facility] Comment on above: Performed By: #### L [id number] #### [facility] ([facility]) [address] [place] [address] Calcium [Mass/Vol] 8.7 mg/dL Normal 8.6-10.3 [facility] Comment on above: Performed By: #### L [id number] #### [facility] ([facility]) [address] [place] [address] Chloride [Moles/Vol] 104 mmol/L Normal 98-107 [facility] Comment on above: Performed By: #### L [id number] #### [facility] ([facility]) [address] [place] [address] CO2 [Moles/Vol] 24 mmol/L Normal 21-31 [facility] Comment on above: Performed By: #### L [id number] #### [facility] ([facility]) [address] [place] [address] Creatinine [Mass/Vol] 0.97 mg/dL Normal 0.60-1.20 [facility] Comment on above: Performed By: #### L [id number] #### [facility] ([facility]) [address] [place] [address] GLOMERULAR FILTRATION RATE ML/MIN/1.73 SQ M.PREDICTED 64.8 mL/min/1.73m*2 Normal >60.0 [facility] Comment on above: Result Comment: [facility]???s estimated glomerular filtration rate (eGFR) will no [...] individuals. Performed By: #### L [id number] #### [facility] ([facility]) [address] [place] [address] Glucose [Mass/Vol] 162 mg/dL High 70-100 [facility] Comment on above: Performed By: #### L [id number] #### [facility] ([facility]) [address] [place] [address] Potassium [Moles/Vol] 3.7 mmol/L Normal 3.5-5.1 [facility] Comment on above: Performed By: #### L [id number] #### [facility] ([facility]) [address] [place] [address] Protein [Mass/Vol] 6.8 g/dL Normal 6.0-8.3 [facility] Comment on above: Performed By: #### L [id number] #### [facility] ([facility]) [address] [place] [address] Sodium [Moles/Vol] 138 mmol/L Normal 136-145 [facility] Comment on above: Performed By: #### L [id number] #### [facility] ([facility]) [address] [place] [address] Urea nitrogen [Mass/Vol] 18 mg/dL Normal 7-25 [facility] Comment on above: Performed By: #### L [id number] #### [facility] ([facility]) [address] [address] UREA NITROGEN/CREATININE (MASS RATIO) IN SER/PLAS 18.6 Normal [facility] Comment on above: Performed By: #### L [id number] #### [facility] ([facility]) [address] [place] [address] HEMOGLOBIN A1Con 05-01-2024 Glucose [Mass/Vol] 123 mg/dL Normal [facility] Comment on above: Performed By: #### L [id number] #### [facility] ([facility]) [address] [place] [address] HbA1c (Bld) [Mass fraction] 5.9 % Normal 4.0-6.0 [facility] Comment on above: Performed By: #### L [id number] #### [facility] ([facility]) [address] [place] [address] HIGH SENSITIVITY TROPONIN Io n 05-01-2024 HS TROPONIN I (NG/L) 11 ng/L Normal <15 [facility] Comment on above: Performed By: #### L [id number] #### [facility] ([facility]) [address] [place] [address] MAGNESIUMon 05-01-2024 Magnesium [Mass/Vol] 2.1 mg/dL Normal 1.9-2.7 [facility] Comment on above: Performed By: #### L [id number] #### [facility] ([facility]) [address] [place] [address] PHOSPHORUSon 05-01-2024 Magnesium [Mass/Vol] 3.6 mg/dL Normal 2.5-5.0 [facility] Comment on above: Performed By: #### L [id number] #### [facility] ([facility]) [address] [place] [address] OCC BLD IMMUNO SCREENon 06-06 OCCULT BLOOD Negative Normal NEGATIVE [facility] Comment on above: Performed By: #### I NSULIN #### [facility] [address] [place] [address] Dr. Lawrence Gomez INSULINon 06-20-2022 Insulin 14.4 uIU/mL Normal 2.6-24.9 [facility] Comment on above: Performed By: #### I NSULIN #### [facility] [address] [address] [address] Lawrence Gomez CBC AUTO DIFFon 06-19-2022 BASO # 0.1 103/ul Normal 0.0-0.1 [facility] Comment on above: Performed By: #### C BC #### [facility] [address] [place] [address] Dr. Lawrence oGmez Basophils/100 WBC (Bld) 0.7 % Normal 0.2-2.0 [facility] Comment on above: Performed By: #### C BC #### [facility] [address] [place] [address] Dr. Lawrence Gomez EO # 0.2 103/ul Normal 0.0-0.7 [facility] Comment on above: Performed By: #### C BC #### [facility] [address] [place] [address] Dr. Lawrence Gomez Eosinophils/100 WBC (Bld) 2.5 % Normal 0.9-7.0 [facility] Comment on above: Performed By: #### C BC #### [facility] [address] [place] [address] Dr. Lawrence Gomez Erythrocyte distribution width (RBC) [Ratio] 13.2 % Normal 11.0-15.0 [facility] Comment on above: Performed By: #### C BC #### [facility] [address] [place] [address] Dr. Lawrence Gomez Hematocrit (Bld) [Volume fraction] 45.5 % Normal 36.0-48.0 [facility] Comment on above: Performed By: #### C BC #### [facility] [address] [place] [address] Dr. Lawrence Gomez Hemoglobin (Bld) [Mass/Vol] 14.8 g/dL Normal 12.0-16.0 [facility] Comment on above: Performed By: #### C BC #### [facility] [address] [place] [address] Dr. Lawrence Gomez IG # 0.03 10e3/ul Normal 0.00-0.03 [facility] Comment on above: Performed By: #### C BC #### [facility] [address] [place] [address] Dr. Lawrence Gomez IG % 0.3 % Normal 0.0-0.5 [facility] Comment on above: Performed By: #### C BC #### [facility] [address] [place] [address] Dr. Lawrence Gomez LYMPH # 2.8 103/ul Normal 1.2-3.8 [facility] Comment on above: Performed By: #### C BC #### [facility] [address] [place] [address] Dr. Lawrence Gomez Lymphocytes/100 WBC (Bld) 31.0 % Normal 20.5-60.0 [facility] Comment on above: Performed By: #### C BC #### [facility] [address] [place] [address] Dr. Lawrence Gomez MANUAL DIFF REQ NO Normal [facility] Comment on above: Performed By: #### C BC #### [facility] [address] [place] [address] Dr. Lawrence Gomez MCH (RBC) [Entitic mass] 28.2 pg Normal 26.7-34.0 [facility] Comment on above: Performed By: #### C BC #### [facility] [address] [place] [address] Dr. Lawrence Gomez MCHC (RBC) [Mass/Vol] 32.5 g/dL Normal 29.9-35.2 [facility] Comment on above: Performed By: #### C BC #### [facility] [address] [place] [address] Dr. Lawrence Gomez MCV (RBC) [Entitic vol] 86.8 fL Normal 81.0-99.0 [facility] Comment on above: Performed By: #### C BC #### [facility] [address] [place] [address] Dr. Lawrence Gomez MONO # 0.5 103/ul Normal 0.3-0.8 [facility] Comment on above: Performed By: #### C BC #### [facility] [address] [place] [address] Dr. Lawrence Gomez Monocytes/100 WBC (Bld) 6.0 % Normal 1.7-12.0 [facility] Comment on above: Performed By: #### C BC #### [facility] [address] [place] [address] Dr. Lawrence Gomez NEUT # 5.4 103/ul Normal 1.4-6.5 [facility] Comment on above: Performed By: #### C BC #### [facility] [address] [place] [address] Dr. Lawrence Gomez Neutrophils/100 WBC (Bld) 59.5 % Normal 43.0-75.0 [facility] Comment on above: Performed By: #### C BC #### [facility] [address] [place] [address] Dr. Lawrence Gomez Platelet mean volume (Bld) [Entitic vol] 11.7 fL Normal 9.5-13.5 [facility] Comment on above: Performed By: #### C BC #### [facility] [address] [place] [address] Dr. Lawrence Gomez PLT 211 103/ul Normal 150-450 [facility] Comment on above: Performed By: #### C BC #### [facility] [address] [place] [address] Dr. Lawrence Gomez RBC 5.24 106/ul Normal 4.20-5.40 [facility] Comment on above: Performed By: #### C BC #### [facility] [address] [place] [address] Dr. Lawrence Gomez WBC 9.1 103/ul Normal 4.0-11.0 [facility] Comment on above: Performed By: #### C BC #### [facility] [address] [place] [address] Dr. Lawrence Gomez FREE T3on 06-19-2022 FREE T3 2.63 pg/mlL Normal 2.18-3.98 [facility] Comment on above: Performed By: #### L IPID, TSH, T4, CMP, FT3 #### [facility] [address] [address] [address] Lawrence Gomez GLYCOHEMOGLOBIN A1Con 2022 ADA RECOMMENDATION SEE BELOW Normal [facility] Comment on above: Result Comment: ADA RECOMMENDED LIMIT 4.0 - 6.0 ADA THERAPEUTIC TARGET < 7.0 ACTION SUGGESTED > 7.0 Performed By: #### A 1C #### [facility] [address] [address] [address] Lawrence Gomez Glucose [Mass/Vol] 128 mg/dL Normal [facility] Comment on above: Performed By: #### A 1C #### [facility] [address] [address] [address] Lawrence Gomez HbA1c (Bld) [Mass fraction] 6.1 % Normal 4.5-6.2 [facility] Comment on above: Performed By: #### A 1C #### [facility] [address] [place] [address] Dr. Lawrence Gomez IRONon 06-19-2022 Iron [Mass/Vol] 96.0 ug/dL Normal 50.0-170.0 [facility] Comment on above: Performed By: #### V ITAD, IRON #### [facility] [address] [place] [address] Dr. Lawrence Gomez LIPID PROFILEon 06-19-2022 CHOL-HDL RATIO NORM SEE BELOW Normal [facility] Comment on above: Result Comment: 3.3 - 4.4 LOW RISK 4.4 - 7.1 AVERAGE RISK 7.1 - 11.0 MODERATE RISK >11.0 HIGH RISK Performed By: #### L IPID, TSH, T4, CMP, FT3 #### [facility] [address] [place] [address] Dr. Lawrence Gomez Cholesterol [Mass/Vol] 131 mg/dL Normal <=200 [facility] Comment on above: Performed By: #### L IPID, TSH, T4, CMP, FT3 #### [facility] [address] [place] [address] Dr. Lawrence Gomez Cholesterol in HDL [Mass/Vol] 41 mg/dL Normal 40-60 [facility] Comment on above: Performed By: #### L IPID, TSH, T4, CMP, FT3 #### [facility] [address] [address] [address] Lawrence Gomez Cholesterol in LDL [Mass/Vol] 75.0 mg/dL Normal [facility] Comment on above: Performed By: #### L IPID, TSH, T4, CMP, FT3 #### [facility] [address] [address] [address] Lawrence Gomez Cholesterol.total/C holesterol in HDL [Mass ratio] 3.2 {ratio} Normal [facility] Comment on above: Performed By: #### L IPID, TSH, T4, CMP, FT3 #### [facility] [address] [place] [address] Dr. Lawrence Gomez HDL NORMAL > or = 60 mg/dl - LO W CARDIOVASCULAR RISK <40 mg/dl - HIGH CARDIOVASCULAR RISK Normal [facility] Comment on above: Performed By: #### L IPID, TSH, T4, CMP, FT3 #### [facility] [address] [place] [address] Dr. Lawrence Gomez LDL CALC NORMAL SEE BELOW Normal [facility] Comment on above: Result Comment: <100 mg/dl OPTIMAL 100 - 129 mg/dl NEAR OR ABOVE OPTIMAL 130 - 159 mg/dl BORDERLINE HIGH 160 - 189 mg/dl HIGH >190 mg/dl VERY HIGH Performed By: #### L IPID, TSH, T4, CMP, FT3 #### [facility] [address] [address] [address] Lawrence Gomez Triglyceride [Mass/Vol] 75 mg/dL Normal <=150 [facility] Comment on above: Performed By: #### L IPID, TSH, T4, CMP, FT3 #### [facility] [address] [place] [address] Dr. Lawrence Gomez VLDL CALC 15.0 mg/dL Normal [facility] Comment on above: Performed By: #### L IPID, TSH, T4, CMP, FT3 #### [facility] [address] [place] [address] Dr. Lawrence Gomez PROF 14(COMP METB)on 023 Albumin [Mass/Vol] 3.5 g/dL Normal 3.4-5.0 [facility] Comment on above: Performed By: #### L IPID, TSH, T4, CMP, FT3 #### [facility] [address] [place] [address] Dr. Lawrence Gomez Albumin/Globulin [Mass ratio] 1.0 {ratio} Normal [facility] Comment on above: Performed By: #### L IPID, TSH, T4, CMP, FT3 #### [facility] [address] [place] [address] Dr. Lawrence Gomez ALP [Catalytic activity/Vol] 111 U/L Normal 46-116 [facility] Comment on above: Performed By: #### L IPID, TSH, T4, CMP, FT3 #### [facility] [address] [place] [address] Dr. Lawrence Gomez ALT [Catalytic activity/Vol] 26 U/L Normal 14-59 [facility] Comment on above: Performed By: #### L IPID, TSH, T4, CMP, FT3 #### [facility] [address] [place] [address] Dr. Lawrence Gomez Anion gap [Moles/Vol] 12.1 mmol/L Normal [facility] Comment on above: Performed By: #### L IPID, TSH, T4, CMP, FT3 #### [facility] [address] [place] [address] Dr. Lawrence Gomez AST [Catalytic activity/Vol] 16 U/L Normal 15-37 [facility] Comment on above: Performed By: #### L IPID, TSH, T4, CMP, FT3 #### [facility] [address] [place] [address] Dr. Lawrence Gomez Bilirubin [Mass/Vol] 0.5 mg/dL Normal 0.2-1.0 [facility] Comment on above: Performed By: #### L IPID, TSH, T4, CMP, FT3 #### [facility] [address] [place] [address] Dr. Lawrence Gomez Calcium [Mass/Vol] 8.7 mg/dL Normal 8.5-10.[address] [facility] Comment on above: Performed By: #### L IPID, TSH, T4, CMP, FT3 #### [facility] [address] [address] [address] Lawrence Gomez Chloride [Moles/Vol] 107 mmol/L Normal 98-107 [facility] Comment on above: Performed By: #### L IPID, TSH, T4, CMP, FT3 #### [facility] [address] [address] [address] Lawrence Gomez CO2 [Moles/Vol] 29.7 mmol/L Normal 21.0-32.0 [facility] Comment on above: Performed By: #### L IPID, TSH, T4, CMP, FT3 #### [facility] [address] [place] [address] Dr. Lawrence Gomez Creatinine [Mass/Vol] 0.78 mg/dL Normal 0.55-1.02 [facility] Comment on above: Performed By: #### L IPID, TSH, T4, CMP, FT3 #### [facility] [address] [address] [address] Lawrence Gomez EGFR-AF SYRIAN >60 Normal >=60 [facility] Comment on above: Performed By: #### L IPID, TSH, T4, CMP, FT3 #### [facility] [address] [place] [address] Dr. Lawrence Gomez EGFR-NON AF SYRIAN >60 Normal >=60 [facility] Comment on above: Performed By: #### L IPID, TSH, T4, CMP, FT3 #### [facility] [address] [address] [address] Lawrence Gomez Globulin (S) [Mass/Vol] 3.4 g/dL Normal [facility] Comment on above: Performed By: #### L IPID, TSH, T4, CMP, FT3 #### [facility] [address] [address] [address] Lawrence Gomez Glucose [Mass/Vol] 97 mg/dL Normal 74-[address] [facility] Comment on above: Performed By: #### L IPID, TSH, T4, CMP, FT3 #### [facility] [address] [place] [address] Dr. Lawrence Gomez Potassium [Moles/Vol] 3.8 mmol/L Normal 3.5-5.1 [facility] Comment on above: Performed By: #### L IPID, TSH, T4, CMP, FT3 #### [facility] [address] [place] [address] Dr. Lawrence Gomez Protein [Mass/Vol] 6.9 g/dL Normal 6.4-8.[address] [facility] Comment on above: Performed By: #### L IPID, TSH, T4, CMP, FT3 #### [facility] [address] [place] [address] Dr. Lawrence Gomez Sodium [Moles/Vol] 145 mmol/L Normal 136-[address] [facility] Comment on above: Performed By: #### L IPID, TSH, T4, CMP, FT3 #### [facility] [address] [place] [address] Dr. Lawrence Gomez Urea nitrogen [Mass/Vol] 14.0 mg/dL Normal 7.0-18.0 [facility] Comment on above: Performed By: #### L IPID, TSH, T4, CMP, FT3 #### [facility] [address] [place] [address] Dr. Lawrence Gomez Urea nitrogen/Creatinine [Mass ratio] 17.9 mg/mg Normal [facility] Comment on above: Performed By: #### L IPID, TSH, T4, CMP, FT3 #### [facility] [address] [place] [address] Dr. Lawrence Gomez T4on 06-19-2022 T4 [Mass/Vol] 11.50 ug/dL Normal 4.80-13.90 [facility] Comment on above: Performed By: #### L IPID, TSH, T4, CMP, FT3 #### [facility] [address] [place] [address] Dr. Lawrence Gomez TSHon 06-19-2022 TSH 0.494 uIU/mL Normal 0.358-3.740 [facility] Comment on above: Performed By: #### L IPID, TSH, T4, CMP, FT3 #### [facility] [address] [address] [address] Lawrence Gomez VITAMIN D 25 OHon 06-19-2022 VIT D 25-OH 11.7 ng/mL Normal [facility] Comment on above: Performed By: #### V ITAD, IRON #### [facility] [address] [address] [address] Lawrence Gomez VIT D RANGES SEE BELOW Normal [facility] Comment on above: Result Comment: <20 ng/mL Vit D deficient 20 - <30 ng/mL Vit D insufficient 30 - 100 ng/mL Vit D sufficient >100 ng/mL Potential Toxicity Performed By: #### V ITAD, IRON #### [facility] [address] [address] [address] Lawrence Gomez Encounters Encounter Date Encounter Type Care Provider Facility Start: 06-19-2024 End: [facility]: [facility] Start: 06-12-2024 ambulatory [facility] Start: 06-12-2024 End: 06-12-2024 ambulatory [facility] Start: 06-10-2024 ambulatory JAYDEN READ [facility] Start: 06-05-2024 End: 06-05-2024 ambulatory CRISTIAN VIZCARRA [facility] Start: 05-12-2024 End: 05-12-2024 ambulatory KEVIN ROLLE [facility] Start: 05-06-2024 Evaluation and management of inpatient CAMERON HERNANDEZ [facility] Start: 05-06-2024 Evaluation and management of inpatient JADEN BERRIOS [facility] Start: 05-05-2024 Evaluation and management of inpatient BRETT CORONEL [facility] Start: 05-05-2024 Evaluation and management of inpatient JAYDEN RORO [facility] Start: 05-05-2024 Evaluation and management of inpatient JAYDEN [facility] Start: 05-04-2024 Evaluation and management of inpatient JAYDEN RORO [facility] Start: 05-01-2024 End: 05-08-2024 Evaluation and management of inpatient MAGDALENE HORima [facility] Start: 07-02-2022 Encounter for genera l adult medical examination without abnormal findings DR MAGDALENE SKY . [facility] Start: 06-30-2022 End: 06-30-[address] MAGDALENE SKY . Facility: Start: 06-30-2022 End: 06-30-2022 Encounter for general adult medical examination without abnormal findings DR MAGDALENE SKY . Facility: Start: 06-19-2022 End: 06-20-[address] MAGDALENE SKY . Facility: Payers Date Payer Category Payer Medicare [id number] 1961 Unknown [id number] 1960 Unknown [id number] 1960 Unknown [id number] Clinical Notes 05-01-2024 to 06-19-2024 Note Date [...] this time. Review of Systems Constitutional: Negative. [facility] 06-19-2024 Note Pt is here for a [...] coronary bypass evaluation with CT sx at [facility]. -She denies c/o CP, dyspnea -Continue aspirin, statin, Toprol Nabeel Moses APRN-[facility] Cardiovascular Medicine [facility] 06-12-2024 Note DUAL CHAMBER ICD IMP LANT [...] using modified seldinger technique using a 5 [place] micro-puncture needle on two occasions and 0.35 [...] for the device above the muscle. 6 [place] [employer] Safesheaths were placed over the wire. An active fixation Biotronik ICD lead was then delivered through the 8Fsheath to the right ventricle. After confirmation of lead position on orthogonal views (MORRIS and IRAQI) to confirm septal position, the screw was [...] lead position on orthogonal views (MORRIS and IRAQI), the screw was activated. Good sensing parameters, [...] any concerns. Nicola Gorman MD Cardiac Electrophysiology [facility] 06-10-2024 Note Subjective Patient ID: Jacob Stevenson [...] for this visit: Coronary artery disease involving gakona coronary artery of gakona heart without angina pectoris Acute systolic congestive [...] been treated by the cardiovascular team at [facility]. We will discuss her risk factors and surgery candidacy with the primary cardiology team. If they are agreeable, we will refer patient to the [facility] for CABG. - I have explained all of this to the patient. Time allowed for questions and concerns. She is agreeable to the plan for referral to [facility]. Education provided on need to continue to [...] 45.1%, WBC Count: 8.46 10???/?L, Platelet Count: [id number] cells/?L Substance Abuse: Former smoker Risk Factors / Comorbidities: Hypertension, Family Hx of CAD Pulmonary RF: Severe CLD Vascular RF: Cerebrovascular Disease: CVA > 30 days Cardiac Status: Acute heart failure, NYHA Class III, Ejection Fraction = 20% Coronary Artery Disease: 3 vessels diseased, Non-ST Elevation WA, WA: > 21 Days (more content not included)... [facility] 05-12-2024 Note [place] Cardiology - [facility] Subjective Jacob Stevenson is a 63 y.o. year old female patient being seen for F/U [facility] admission for heart failure. Patient states she is feeling pretty good. Denies any cardiac symptoms at this time. Patient Active Problem List Diagnosis Acute systolic congestive heart failure ([facility]) History of CVA (cerebrovascular accident) Primary hypertension COPD (chronic obstructive pulmonary disease) ([facility]) Acquired hypothyroidism GERD (gastroesophageal reflux disease) Coronary artery disease involving gakona coronary artery of gakona heart without angina pectoris Acute systolic CHF (congestive heart failure) ([facility]) Family History Problem Relation Name Age of [...] woman who was admitted on 05/01/2024 to [facility] with new onset systolic heart failure [...] chew, or sp (more content not included)... [facility] 05-10-2024 Note 72 hour post dischar ge [...] very difficult for her to drive to [place] for [facility] oncology visit, I asked her to call the [facility] phone number and discuss options for follow-up at area. Patient has no other concernsor questions. She does remark that she hopes she does not need to have open heart surgery. I told her to discuss this with Dr. Rolle, who will be very thoughtful as well as honest in his recommendations and response. Kalyan Bright PA-C [facility] Cardiovascular Medicine [phone] [facility] 05-10-2024 Note 72 hour post dischar ge HF phone call 2nd attempt 05/10/24 at 1649 hours. Again patient has phone mail not sent up, unable to leave message. Called daughter's number and again LVM.. Kalyan Bright PA-C [facility] Cardiovascular Medicine [phone] [facility] 05-10-2024 Note 72 hour HF TC, Attem [...] again today/tomorrow. ADELE Moss, Heart Failure Coordinator [facility] 05-08-2024 Note Cardiology Progress Note Subjective Subjective: [...] Value Ventricular Rate 78 Atrial Rate 78 NV Interval 142 QRS DURATION 106 QT Interval 448 QTC CALCULATION(BAZETT) 510 P Amite 59 R-Amite -34 T Wave Amite 99 Impression Sinus rhythm with Premature supraventricular complexes Left axis deviation Possible Inferior infarct (cited on or before 01-MAY-2024) Prolonged QT Abnormal ECG When compared with ECG of 01-MAY-2024 20:42, Premature supraventricular complexes are now Present T wave inversion no longer evident in Anterior leads Confirmed by STRESS, (55), associate entertainment editor Monica PORTILLO, L.S. (2) on 05/05/2024 2:27:27 PM No results found for: CKTOTAL , CKMB , CKMBINDEX , TROPONINI Complete Echo (TTE) w/wo Imaging Agent, Strain, 3D, Bubble Study Result Date: 05/05/2024 1 1 [facility] Heart Station [address] [id number] [phone] (fax) Echocardiogram-[facility] Name: AJCOB STEVENSON Study Date: 05/05/2024 07:37 AM B/P: 122 mmHg/89 mmHg HR: 81 bpm Date of : 1960 Location: [facility] Height: 60 in. Age: 63 year(s) Patient Room: 316 Weight: 154 lb. Gender: Female Patient Status: InPt BSA: 1.67 m2 Indication: PreOp Evaluation; CABG, H/O WA & Stent Examination: Echocardiogram (Complete), Lumason Contrast [...] Doppler studies suggest (more content not included)... [facility] 05-07-2024 Note 05/07/24 1333 Referral Data Referral Source Physician Referral Reason Information Patient Information Primary Caregiver Self Activities of Daily Living Assistive Device Not applicable Ambulation Independent Dressing Independent Feeding Independent Behavior Oriented Communication Talks;Understands speaking;Understands Persian Income Information Income Source Unemployed (Retired, states [...] watching for. Goal is to return home. [facility] 05-07-2024 Note -Continue levothyroxine, asympto matic, [facility] 05-07-2024 Note -Patient reports car diac cath in the past with [address], continue GDMT, now status post recent cath with multivessel coronary disease,, patient is being worked up for coronary artery bypass grafting, cardiology following [facility] 05-07-2024 Note -Patient reports smo nicol half pack of cigarettes per day, counseled on cessation, continue inhalers, keep saturation above 93%, [facility] 05-07-2024 Note -Continue home meds, asymptomati c, [facility] 05-07-2024 Note -Continue home meds, appears controlled, [facility] 05-07-2024 Note -No residual deficit s CT imaging was concerning for some hypodensity, neurology evaluation was requested by CT surgery. MRI ordered [facility] 05-07-2024 Note -Patient reportedly with echocardiogram completed outside hospital showing an EF of 20% status post right heart cath, revealed severe multivessel coronary disease, appreciate CT surgery evaluation, CT surgery evaluated the patient, continue diuresis, patient would need further workup of the breast mass currently on Lasix Toprol Diovan Aldactone Farxiga plan for [facility] [facility] 05-07-2024 Note Hospital Medicine Daily Progress Note - 05/07/2024 11:41 AM; Room: [address] [place] [address] Admission: 05/01/2024 8:12 PM; Length of stay: 6 days THE HOSPITALIST TEAM PREFERS TO USE [email or web address] FOR NON-URGENT COMMUNICATION 7AM-7PM. IF I DO NOT RESPOND WITHIN 20 MINUTES OR URGENT MATTERS, PLEASE CALL THROUGH THE FAMILY CONSUMER SCIENCE FCS TEACHER. FROM 7PM-7AM, PLEASE PAGE [phone](COVR). Code Status: Full Code Barriers to Discharge: [...] plan for [employer] Coronary artery disease involving gakona coronary artery of gakona heart without angina pectoris -Patient reports cardiac [...] Academy of Nutrition and Dietetics and the [place] [employer] of Enteral and Parenteral Nutrition, meets [...] < > 104 (more content not included)... [facility] 05-07-2024 Note Cardiology Progress Note Subjective Subjective: [...] Nolvia Caceres MD, 12.5 mg at 05/07/24 09 valsartan [...] Value Ventricular Rate 78 Atrial Rate 78 NV Interval 142 QRS DURATION 106 QT Interval 448 QTC CALCULATION(BAZETT) 510 P Amite 59 R-Amite -34 T Wave Amite 99 Impression Sinus rhythm with Premature supraventricular complexes Left axis deviation Possible Inferior infarct (cited on or before 01-MAY-2024) Prolonged QT Abnormal ECG When compared with ECG of 01-MAY-2024 20:42, Premature supraventricular complexes are now Present T wave inversion no longer evident in Anterior leads Confirmed by STRESS, (55), associate entertainment editor Katharina PORTILLO., L.S. (2) on 05/05/2024 2:27:27 PM No results found for: CKTOTAL , CKMB , CKMBINDEX , TROPONINI Complete Echo (TTE) w/wo Imaging Agent, Strain, 3D, Bubble Study Result Date: 05/05/2024 1 1 [facility] Heart Station [address] [address] [phone] (fax) Echocardiogram-[facility] Name: JACOB STEVENSON Study Date: 05/05/2024 07:37 AM B/P: 122 mmHg/89 mmHg HR: 81 bpm Date of : 1960 Location: [facility] Height: 60 in. Age: 63 year(s) Patient Room: 3167 Weight: 154 lb. Gender: Female Patient Status: InPt BSA: 1.67 m2 Indication: PreOp Evaluation; CABG, H/O WA & Stent Examination: Echocardiogram (Complete), Lumason Contrast [...] Normal right ventricular (more content not included)... [facility] 05-06-2024 Note -Patient reports car diac cath in the past with [address], continue GDMT, now status post recent cath with multivessel coronary disease,, patient is being worked up for coronary artery bypass grafting, cardiology following [facility] 05-06-2024 Note -Continue levothyroxine, asympto matic, [facility] 05-06-2024 Note -No residual deficit s CT imaging was concerning for some hypodensity, neurology evaluation was requested by CT surgery. MRI ordered [facility] 05-06-2024 Note -Continue home meds, appears controlled, [facility] 05-06-2024 Note -Continue home meds, asymptomati c, [facility] 05-06-2024 Note -Patient reports smo nicol half pack of cigarettes per day, counseled on cessation, continue inhalers, keep saturation above 93%, [facility] 05-06-2024 Note -Patient reportedly with echocardiogram completed outside hospital showing an EF of 20% status post right heart cath, revealed severe multivessel coronary disease, appreciate CT surgery evaluation, CT surgery evaluated the patient, continue diuresis, patient would need further workup of the breast mass [facility] 05-06-2024 Note Hospital Medicine Daily Progress Note - 05/06/2024 9:58 AM; Room: 3167/3167-01 Admission: 05/01/2024 8:12 PM; Length of stay: 5 days THE HOSPITALIST TEAM PREFERS TO USE [email or web address] FOR NON-URGENT COMMUNICATION 7AM-7PM. IF I DO NOT RESPOND WITHIN 20 MINUTES OR URGENT MATTERS, PLEASE CALL THROUGH THE FAMILY CONSUMER SCIENCE FCS TEACHER. FROM 7PM-7AM, PLEASE PAGE [phone](COVR). Code Status: Full Code Barriers to Discharge:, [...] the breast mass Coronary artery disease involving gakona coronary artery of gakona heart without angina pectoris -Patient reports cardiac [...] appears controlled, COPD (chronic obstructive pulmonary disease) ([facility]) -Patient reports smoking half pack of cigarettes [...] TSH 1.04 05/04/2024 No results found for: [id number] , IRON , TIBC , C3 , [...] technique the vessel was entered. A 6 [place] Citizen sheath was placed. A Boyer catheter was introduced for right heart catheterization. The catheter and sheath were withdrawn and adequate hemostasis was achieved. Attention was then drawn to the left radial (more content not included)... [facility] 05-06-2024 Note Cardiology Progress Note Subjective Subjective: [...] Value Ventricular Rate 78 Atrial Rate 78 NV Interval 142 QRS DURATION 106 QT Interval 448 QTC CALCULATION(BAZETT) 510 P Amite 59 R-Amite -34 T Wave Amite 99 Impression Sinus rhythm with Premature supraventricular complexes Left axis deviation Possible Inferior infarct (cited on or before 01-MAY-2024) Prolonged QT Abnormal ECG When compared with ECG of 01-MAY-2024 20:42, Premature supraventricular complexes are now Present T wave inversion no longer evident in Anterior leads Confirmed by STRESS, (55), associate entertainment editor Monica PORTILLO, L.S. (2) on 05/05/2024 2:27:27 PM No results found for: CKTOTAL , CKMB , CKMBINDEX , TROPONINI Complete Echo (TTE) w/wo Imaging Agent, Strain, 3D, Bubble Study Result Date: 05/05/2024 1 1 [facility] Heart Station [address] [place] [address] [phone] (fax) Echocardiogram-[facility] Name: JACOB STEVENSON Study Date: 05/05/2024 07:37 AM B/P: 122 mmHg/89 mmHg HR: 81 bpm Date of : 1960 Location: [facility] Height: 60 in. Age: 63 year(s) Patient Room: 3167 Weight: 154 lb. Gender: Female Patient Status: InPt BSA: 1.67 m2 Indication: PreOp Evaluation; CABG, H/O WA & Stent Examination: Echocardiogram (Complete), Lumason Contrast [...] imaging Lumason contrast (more content not included)... [facility] 05-05-2024 Note ---- Attestation signed by Shannon [...] injection 5,000 Units, 5,000 Units, subcutaneous, q12h [facility], Yamilex Cardona MD, 5,000 Units at 05/05/24 [...] Value Ventricular Rate 93 Atrial Rate 93 NV Interval 152 QRS DURATION 106 QT Interval 396 QTC CALCULATION(BAZETT) 492 P Amite 59 R-Amite -28 T Wave Amite 83 Impression Normal sinus rhythm Possible Inferior infarct , age undetermined T wave abnormality, consider anterolateral ischemia Abnormal ECG No previous ECGs available Confirmed by Nicola Gorman ([id number]) on 05/02/2024 1:49:06 PM No results found for: CKTOTAL , CKMB , CKMBINDEX , TROPONINI Complete Echo (TTE) w/wo Imaging Agent, Strain, 3D, Bubble Study Result Date: 05/05/2024 1 1 [facility] Heart Station [address] [place] [address] [phone] (fax) Echocardiogram-[facility] Name: JACOB STEVENSON Study Date: 05/05/2024 07:37 AM B/P: 122 mmHg/89 mmHg HR: 81 bpm Date of : 1960 Location: [facility] Height: 60 in. Age: 63 year(s) Patient Room: 3167 Weight: 154 lb. Gender: Female Patient Status: InPt BSA: 1.67 m2 Indication: PreOp Evaluation; CABG, H/O WA & Stent Examination: Echocardiogram (Complete), Lumason Contrast Image Quality: Poor Patient Consent: Procedure explained to patient Exam Details Contrast: I.V. dose of Lumason Conclusions Left Ventricle: The left ventricle appears mildly to moderately enlarged. Global left ventricular systolic function is severely reduced. The EF is 25 % visually. Interventricular septal thickness is increased in the (more content not included)... [facility] 05-05-2024 Note Pt admitted to [facility] for acute systolic congestive HF. Pt's echo from 05/05/24 estimated LVEF 25%, which qualifies pt for cardiac rehab (CR) therapy with HF diagnosis. I will watch for updates and follow up with pt, if appropriate. Cassandra Garcia, GARRETTN gas analyst Outpatient Coordinator Cardiopulmonary Rehab [facility] 05-05-2024 Note Cardiothoracic Surge ry Progress Note 05/05/2024 Room: [address] [place] [address] Storm Stevenson is a 63 y.o. female who presented to [facility] ED with complaint of 1 day history [...] management. She was recommended for transfer to [facility]. She was admitted on 05/01/24 for [...] does not follow with a neurologist or retail equipment associate. States she has never seen a retail equipment associate and she has not seen an neurologist. [...] Bubble Study Result Date: 05/05/2024 1 1 [facility] Heart Station [address] [place] [address] [phone] (fax) Echocardiogram-[facility] Name: JACOB STEVENSON Study Date: 05/05/2024 07:37 AM B/P: 122 mmHg/89 mmHg HR: 81 bpm Date of : 1960 Location: [facility] Height: 60 in. Age: 63 year(s) Patient Room: 3167 Weight: 154 lb. Gender: Female Patient Status: InPt BSA: 1.67 m2 Indication: PreOp Evaluation; CABG, H/O WA & Stent Examination: Echocardiogram (Complete), Lumason Contrast Image Quality: Poor Patient Consent: Procedure explained to patient Exam Details Contrast: I.V. dose of Lumason Conclusions Left Ventricle: The (more content not included)... [facility] 05-05-2024 Note -Continue home meds, asymptomati c, [facility] 05-05-2024 Note -Continue levothyroxine, asympto matalicia, [facility] 05-05-2024 Note -Continue home meds, appears controlled, [facility] 05-05-2024 Note -No residual deficit s CT imaging was concerning for some hypodensity, neurology evaluation was requested by CT surgery. [facility] 05-05-2024 Note -Patient reports car diac cath in the past with [address], continue GDMT, now status post recent cath with multivessel coronary disease,, patient is being worked up for coronary artery bypass grafting, [facility] 05-05-2024 Note -Patient reportedly with echocardiogram completed outside hospital showing an EF of 20% status post right heart cath, revealed severe multivessel coronary disease, appreciate CT surgery evaluation, preop workup in progress for coronary artery bypass grafting. [facility] 05-05-2024 Note -Patient reports smo nicol half pack of cigarettes per day, counseled on cessation, continue inhalers, keep saturation above 93%, [facility] 05-05-2024 Note Hospital Medicine Daily Progress Note - 05/05/2024 8:30 AM; Room: [address] [place] [address] Admission: 05/01/2024 8:12 PM; Length of stay: 4 days THE HOSPITALIST TEAM PREFERS TO USE [employer] CHAT FOR NON-URGENT COMMUNICATION 7AM-7PM. IF I DO NOT RESPOND WITHIN 20 MINUTES OR URGENT MATTERS, PLEASE CALL THROUGH THE FAMILY CONSUMER SCIENCE FCS TEACHER. FROM 7PM-7AM, PLEASE PAGE [phone](COVR). Code Status: Full Code Barriers to Discharge:, [...] & Plan Acute systolic congestive heart failure ([facility]) -Patient reportedly with echocardiogram completed outside hospital showing an EF of 20% status post right heart cath, revealed severe multivessel coronary disease, appreciate CT surgery evaluation, preop workup in progress for coronary artery bypass grafting. Coronary artery disease involving gakona coronary artery of gakona heart without angina pectoris -Patient reports cardiac [...] , FREET4 , CORTISOL , FEV1 , [id number] , DLCO , RVSP , HDL , LDL No results found for: [id number] , IRON , TIBC , C3 , [...] abnormality in th (more content not included)... [facility] 05-04-2024 Note ---- Attestation signed by Shannon [...] Value Ventricular Rate 93 Atrial Rate 93 NV Interval 152 QRS DURATION 106 QT Interval 396 QTC CALCULATION(BAZETT) 492 P Amite 59 R-Amite -28 T Wave Amite 83 Impression Normal sinus rhythm Possible Inferior [...] pericardial effusion . (more content not included)... [facility] 05-04-2024 Note This report has been cancelled. [facility] 05-04-2024 Note -Continue levothyroxine, asympto matic, [facility] 05-04-2024 Note -Continue home meds, appears controlled, [facility] 05-04-2024 Note -Continue home meds, asymptomati c, [facility] 05-04-2024 Note -No residual deficits [facility] 05-04-2024 Note -Patient reports smo nicol half pack of cigarettes per day, counseled on cessation, continue inhalers, keep saturation above 93%, [facility] 05-04-2024 Note -Patient reports car diac cath in the past with [address], continue GDMT, now status post recent cath with multivessel coronary disease, [facility] 05-04-2024 Note -Patient reportedly with echocardiogram completed outside hospital showing an EF of 20% status post right heart cath, revealed severe multivessel coronary disease CT surgery evaluation to follow, continue with GDMT as tolerated, unable to assess NYHA class? [facility] 05-04-2024 Note [facility] Medicine Daily Progress Note - 05/04/2024 6:33 AM; Room: [address] [place] [address] Admission: 05/01/2024 8:12 PM; Length of stay: 3 days THE HOSPITALIST TEAM PREFERS TO USE just.me FOR NON-URGENT COMMUNICATION 7AM-7PM. IF I DO NOT RESPOND WITHIN 20 MINUTES OR URGENT MATTERS, PLEASE CALL THROUGH THE FAMILY CONSUMER SCIENCE FCS TEACHER. FROM 7PM-7AM, PLEASE PAGE [phone](COVR). Code Status: Full Code Barriers to Discharge:, [...] Intake/Output Summary (Last 24 hours) at 05/04/2024 0672 Last data filed at 05/04/2024 0415 Gross [...] assess NYHA class? Coronary artery disease involving gakona coronary artery of gakona heart without angina pectoris -Patient reports cardiac cath in the past with [address], continue GDMT, now status post recent cath with multivessel coronary disease, History of CVA (cerebrovascular accident) -No residual deficits Primary hypertension -Continue home meds, appears controlled, COPD (chronic obstructive pulmonary disease) ([facility]) -Patient reports smoking half pack of cigarettes [...] , FREET4 , CORTISOL , FEV1 , [id number] , DLCO , RVSP , HDL , LDL No results found for: [id number] , IRON , TIBC , C3 , [...] technique the vessel was entered. A 6 [place] Citizen sheath was placed. A Boyer catheter was introduced for right heart catheterization. The catheter and sheath were withdrawn and adequate hemostasis was achieved. Attention was then drawn to the left radial artery. The vessel was imaged with ultrasound and using ultrasound (more content not included)... [facility] 05-03-2024 Note - Type I NSTEMI, st atus post cath with multivessel coronary disease, continue medical management pending CT surgery evaluation, [facility] 05-03-2024 Note -Continue home meds, asymptomati c, [facility] 05-03-2024 Note -Continue levothyroxine, asympto matic, [facility] 05-03-2024 Note -Patient reports smo nicol half pack of cigarettes per day, counseled on cessation, continue inhalers, keep saturation above 93%, [facility] 05-03-2024 Note -No residual deficits [facility] 05-03-2024 Note -Patient reports car diac cath in the past with [address], continue GDMT [facility] 05-03-2024 Note -Continue home meds, appears controlled, [facility] 05-03-2024 Note -Patient reportedly with echocardiogram completed outside hospital showing an EF of 20% status post right heart cath, revealed severe multivessel coronary disease CT surgery evaluation requested, pain with guideline directed medical therapy as tolerated, appears euvolemic, [facility] 05-03-2024 Note Hospital Medicine Daily Progress Note - 05/03/2024 11:52 AM; Room: [address] [place] [address] Admission: 05/01/2024 8:12 PM; Length of stay: 2 days THE HOSPITALIST TEAM PREFERS TO USE [email or web address] FOR NON-URGENT COMMUNICATION 7AM-7PM. IF I DO NOT RESPOND WITHIN 20 MINUTES OR URGENT MATTERS, PLEASE CALL THROUGH THE FAMILY CONSUMER SCIENCE FCS TEACHER. FROM 7PM-7AM, PLEASE PAGE [phone](COVR). Code Status: Full Code Barriers to Discharge:, [...] CT surgery evaluation, Coronary artery disease involving gakona coronary artery of gakona heart without angina pectoris -Patient reports cardiac cath in the past with [address], continue GDMT History of CVA (cerebrovascular accident) -No residual deficits Primary hypertension -Continue home meds, appears controlled, COPD (chronic obstructive pulmonary disease) ([facility]) -Patient reports smoking half pack of cigarettes [...] , FREET4 , CORTISOL , FEV1 , PTQ0ESC , DLCO , RVSP , HDL , LDL No results found for: [id number] , IRON , TIBC , C3 , [...] technique the vessel was entered. A 6 [place] Citizen sheath was placed. A Boyer catheter was introduced for right heart catheterization. The catheter and sheath were withdrawn and (more content not included)... [facility] 05-03-2024 Note Cardiology Progress Note Subjective Subjective: [...] breakfast, Yamilex Cardona MD, 150 mcg at 05/03/24 0753 melatonin [...] Value Ventricular Rate 93 Atrial Rate 93 NV Interval 152 QRS DURATION 106 QT Interval 396 QTC CALCULATION(BAZETT) 492 P Amite 59 R-Amite -28 T Wave Amite 83 Impression Normal sinus rhythm Possible Inferior [...] technique the vessel was entered. A 6 [place] Citizen sheath was placed. A Boyer catheter was introduced for right heart catheterization. The catheter and sheath were withdrawn and adequate hemostasis was achieved. Attention was then drawn to th (more content not included)... [facility] 05-02-2024 Note 05/02/24 7639 Admission Assessment Questions Verify insurance with patient [...] Status Interested Does the patient have a geriatric case manager assigned to them through their insurance? No [...] to send link and activate MyChart? Yes [facility] 05-02-2024 Note -Patient reports smo nicol half pack of cigarettes per day, counseled on cessation, continue inhalers, keep saturation above 93%, [facility] 05-02-2024 Note -Continue home meds, john jiménez, [facility] 05-02-2024 Note -Continue levothyroxine, sabra lock, [facility] 05-02-2024 Note -Continue home meds, appears controlled, [facility] 05-02-2024 Note -No residual deficits [facility] 05-02-2024 Note -Patient reports car diac cath in the past with [address], continue GDMT [facility] 05-02-2024 Note -High-sensitivity tr oponin found to be over 500 outside hospital and repeat at [facility] is 11 -Continue to trend troponin -EKG shows normal sinus rhythm -N.p.o. at midnight for possible heart cath [facility] 05-02-2024 Note -Patient reportedly with echocardiogram completed outside hospital showing an EF of 20% which is new for the patient -Continue diuresis, monitor intake and output, awaiting cardiology evaluation for probable cardiac cath?, [facility] 05-02-2024 Note Hospital Medicine Daily Progress Note - 05/02/2024 8:10 AM; Room: [address] [place] [address] Admission: 05/01/2024 8:12 PM; Length of stay: 1 days THE HOSPITALIST TEAM PREFERS TO USE just.me FOR NON-URGENT COMMUNICATION 7AM-7PM. IF I DO NOT RESPOND WITHIN 20 MINUTES OR URGENT MATTERS, PLEASE CALL THROUGH THE FAMILY CONSUMER SCIENCE FCS TEACHER. FROM 7PM-7AM, PLEASE PAGE [phone](COVR). Code Status: Full Code Barriers to Discharge:, [...] over 500 outside hospital and repeat at [facility] is 11 -Continue to trend troponin -EKG shows normal sinus rhythm -N.p.o. at midnight for possible heart cath Coronary artery disease involving gakona coronary artery of gakona heart without angina pectoris -Patient reports cardiac [...] , FREET4 , CORTISOL , FEV1 , [id number] , DLCO , RVSP , HDL , LDL No results found for: [id number] , IRON , TIBC , C3 , [...] Young MD Hospital Medicine 05/02/2024 8:10 AM [facility] 05-02-2024 Note >\Case was discussed with the MG on 05/01/2024. I agree with the history, physical, assessment, and plan of care. I discussed the findings and therapeutic plan. I agree with the documentation, except for any updates below. Isaac Rico MD [facility] 05-01-2024 Note -Patient reports car diac cath in the past with [address], continue GDMT [facility] 05-01-2024 Note -Continue home meds [facility]01-2024 [facility] -Patient reports smo nicol half pack of cigarettes per day, counseled on cessation, continue inhalers [facility] 05-01-2024 Note -No residual deficits [facility] 05-01-2024 Note -High-sensitivity tr oponin found to be over 500 outside hospital and repeat at [facility] is 11 -Continue to trend troponin -EKG shows normal sinus rhythm -N.p.o. at midnight for possible heart cath [facility] 05-01-2024 Note -Patient reportedly with echocardiogram completed outside hospital showing an EF of 20% which is new for the patient -Patient was given 20 mg IV Lasix, will continue 20 mg IV Lasix daily -Strict intake and output and daily weights -Will make n.p.o. for possible right heart cath -Cardiology consult [facility] 05-01-2024 Note Hospital Medicine History and Physical 05/01/2024 9:56 PM THE HOSPITALIST TEAM PREFERS TO USE just.me FOR NON-URGENT COMMUNICATION 7AM-7PM. IF I DO NOT RESPOND WITHIN 20 MINUTES OR URGENT MATTERS, PLEASE CALL THROUGH THE FAMILY CONSUMER SCIENCE FCS TEACHER. FROM 7PM-7AM, PLEASE PAGE [phone](COVR). Chief Complaint Direct admission from [facility] with new onset chf and elevated trop History of Present Illness Jacob Stevenson is an 63 y.o. female who came from home with past medical history of CVA, hypertension, COPD, hypothyroidism, GERD, CAD s/p PCI with stenting, nicotine use presents to [facility] as a direct admission from [facility] with new onset CHF and elevated troponin. Patient reports that at 2 AM this morning she awoke with shortness of breath and heavy pressure in the middle of her chest. States that she attempted to walk around the room to improve her symptoms but ended up having to call 911. Once at [facility], she was found to be hypoxic in [...] & Plan Acute systolic congestive heart failure ([facility]) -Patient reportedly with echocardiogram completed outside hospital showing an EF of 20% which is new for the patient -Patient was given 20 mg IV Lasix, will continue 20 mg IV Lasix daily -Strict intake and output and daily weights -Will make n.p.o. for possible right heart cath -Cardiology consult Elevated troponin -High-sensitivity troponin found to be over 500 outside hospital and repeat at [facility] is 11 -Continue to trend troponin -EKG shows normal sinus rhythm -N.p.o. at midnight for possible heart cath Coronary artery disease involving gakona coronary artery of gakona heart without angina pectoris -Patient reports cardiac cath in the past with [address], continue GDMT History of CVA (cerebrovascular accident) -No residual deficits Primary hypertension -Continue home meds COPD (chronic obstructive pulmonary disease) (CMS/LTAC, LOCATED WITHIN [facility]) -Patien (more content not included)... [facility] Summary Purpose Family History No Family History Records FoundNo Family History Records Found Advance Directives No Advanced Directives Records FoundNo Advanced Directives Records Found Additional Source Comments INFORMATION SOURCE (unrecogn ized section and content) DATE CREATED AUTHOR 07/14/2022 [facility] DATE CREATED AUTHOR AUTHOR'S ORGANIZ ATION 07/02/2024 [facility] FOR RECORDS PERTAINING TO PATIENTS WHO [...] BE BASED ON THE PRIMARY CLINICAL RECORDS. [employer] provides no warranty or guarantee of the accuracy or completeness of information in this document.
[2024-07-12] MEDS: PROCHLORPERAZINE 10 MG/2 ML VIAL IV (21:30)
[2024-07-12] MEDS: 0.9 % SODIUM CHLORIDE 1,000 ML 75 ML IV (21:33)
[2024-07-12 21:54] LABS: C Reactive Protein <0.50 mg/dL (<=0.50)
[2024-07-12 22:03] LABS: Troponin I High Sensitivity 490.6 pg/mL (4.0-51.3)
[2024-07-12 23:47] LABS: Troponin I High Sensitivity 499.4 pg/mL (4.0-51.3)
[2024-07-13] VITALS (79 sets, daily range): BP systolic 117–154; BP diastolic 73–89; PULSE 75–127; TEMP 36.6–36.9; O2SAT 84–99
--- NOTE | 2024-07-13 02:01 | PC.NURSE ---
2224 Patient comes to the floor after stroke alert and stat CTA. Patient very lethargic. Lung sounds diminished. Patient states she is unable to feel her left hand and her left leg. Significant difference in strength from left to right. No facial droop. Patient alert to self and location, but falls asleep while mid conversation. Night hospitalist notified. VS 129/74, 20 RR, 100 HR, 98.3F, O2 95% on 2L via NC. IV fluids started. 223 NIH attempted, Patient continues to fall asleep during test. 224 Hospitalist notified of update from daughter. Daughter spoke of patient history of stroke. previous cardiac cath at [facility], Previous Echo of 20% EF. Patient is currently on the wait list for a CABG at the [facility]. 225 Called Tele-Stroke. [facility] was looking for the fax information previously sent. 2320 Lab draw obtained for ordered Troponin. 2328 VS 125/93 16 RR 112 HR 98.2F O2 96% on 2L via NC. Patient repositioned. 2330 CTA results faxed over. Hospitalist notified. Patient still lethargic. No change in patients condition. 2344 Hospitalist updated, given order to continue permissive hypertension and treat systolic if greater than 200. Troponin results 499.4. Hospitalist notified. 07/13/24 0044 VS 117/83, 18 RR, 98 HR, 98.8F, O2 94% on 2L via NC. Reached out to [facility] Tele-stroke multiple times. [facility] able to see the fax previously sent. [facility] states they need the Neuro Dr to speak with the Hospitalist. Hospitalist made aware, Hospitalist contact information given to tele-stroke team. 0115 NIH attempted, Patient falling asleep while answering questions.
--- NOTE | 2024-07-13 02:12 | PC.NURSE ---
2029 - Patient to Unit per stretcher from ER. Report received from TORPEDOMAN[employer]S MATE. Questions addressed. Updated regarding onset of Numbness, Tingling and decreased movement of LUE/LLE. LKW 1500 in ER. RN states that they did a head CT which was negative, but did not proceed with STROKE ALERT in ER. Upon assessment NIH - 12, RACE - 4, GCS - 15. Informed Code Official Eva, and Stroke Alert was called. 2106 - Urszula CHURCH Night Hospitalist called and updated on patient condition. States that she was not aware of neuro status changes. STAT CTA ordered with TeleStroke consult. 2110 - Pt changed to StepDown Status. 2113 - STROKE ALERT called 2118 - Patient states that she is allergic to the IVP dye. Allergy verified and reported to hospitalist. Pt premedicated prior to CTA. 2125 - Hospitalist updated on pt's current condition. Orders received. Pt report given to Mick JAMIL in SDU. 2133 - Pt to CTA with Code Official
[2024-07-13 05:29] LABS: Bilirubin Urine NEGATIVE (NEGATIVE); Blood Urine MODERATE (NEGATIVE); Clarity Urine CLEAR (CLEAR); Color Urine LT. YELLOW (YELLOW); Glucose Urine UA 500 mg/dL (NEGATIVE); Ketones Urine NEGATIVE (NEGATIVE); Leukocyte Esterase Urine NEGATIVE (NEGATIVE); Nitrite Urine NEGATIVE (NEGATIVE); Protein Urine NEGATIVE (NEG/TRACE); Specific Gravity Urine 1.015 (1.005-1.025); Urobilinogen Urine 0.2 EU/dL (0.2-1.0); pH Urine 5.5 (5.0-9.0)
[2024-07-13 05:44] LABS: Bacteria Urine TRACE #/HPF (NONE SEEN); Cast Seen? SEEN #/LPF (NONE SEEN); Crystals Seen? None Seen #/HPF (None Seen); Hyaline Casts Urine RARE; Mucus Urine NONE SEEN (NONE SEEN); Squamous Epithelial Cell Urine FEW #/LPF (NONE/RARE); Urine Culture Indicated NO; WBC Urine 0-2 #/HPF (NONE SEEN)
[2024-07-13 05:45] LABS: Amphetamine Screen Urine NEGATIVE (NEGATIVE); Barbiturates Screen Urine NEGATIVE (NEGATIVE); Benzodiazepines Screen Urine POSITIVE (NEGATIVE); Buprenorphine Screen Urine NEGATIVE (NEGATIVE); Cannabinoid Screen Urine NEGATIVE (NEGATIVE); Cocaine Screen Urine NEGATIVE (NEGATIVE); Methadone Screen Urine NEGATIVE (NEGATIVE); Methamphetamines Screen Urine NEGATIVE (NEGATIVE); Opiate Screen Urine POSITIVE (NEGATIVE); Oxycodone Screen Urine NEGATIVE (NEGATIVE); Phencyclidine Screen Urine NEGATIVE (NEGATIVE); Tricyclic Antidepressant Urine NEGATIVE (NEGATIVE)
[2024-07-13 06:33] LABS: Basophils Percent Auto 0.3 % (0.2-2.0); Eosinophils Percent Auto 0.3 % (0.9-7.0); Hematocrit 39.1 % (36.0-48.0); Hemoglobin 13.1 g/dL (12.0-16.0); Immature Granulocytes Abs Auto 0.04 10^3/uL (0.00-0.03); Immature Granulocytes Pct Auto 0.3 % (0.0-0.5); Lymphocytes Absolute Auto 1.6 10^3/uL (1.2-3.8); Mean Corpuscular HGB Conc 33.5 g/dL (29.9-35.2); Mean Corpuscular Hemoglobin 28.7 pg (26.7-34.0); Mean Corpuscular Volume 85.6 fL (81.0-99.0); Mean Platelet Volume 13.5 fL (9.5-13.5); Monocytes Absolute Auto 0.9 10^3/uL (0.3-0.8); Monocytes Percent Auto 6.7 % (1.7-12.0); Neutrophils Absolute Auto 10.6 10^3/uL (1.4-6.5); Neutrophils Percent Auto 80.4 % (43.0-75.0); Platelet Count 127 10^3/uL (150-450); Red Blood Count 4.57 10^6/uL (4.20-5.40); Red Cell Distribution Width 13.7 % (11.0-15.0); White Blood Count 13.2 10^3/uL (4.0-11.0)
[2024-07-13 06:51] LABS: Alanine Aminotransferase 35 U/L (14-59); Albumin Globulin Ratio 1.3; Albumin Level 3.7 g/dL (3.4-5.0); Alkaline Phosphatase 118 U/L (46-116); Aspartate Amino Transferase 29 U/L (15-37); BUN Creatinine Ratio 22.6; Bilirubin Total 0.6 mg/dL (0.2-1.0); Calcium 8.8 mg/dL (8.5-10.1); Carbon Dioxide 24.4 mmol/L (21.0-32.0); Chloride 109 mmol/L (98-107); Estimated GFR (African America >60 (>=60 mL/min/1.73m^2); Estimated GFR (Non-African Ame 52 (>=60 mL/min/1.73m^2); Globulin 2.9 g/dL; Glucose 127 mg/dL (74-106); Magnesium 2.1 mg/dL (1.8-2.4); Phosphorus 3.3 mg/dL (2.6-4.7); Potassium 4.4 mmol/L (3.5-5.1); Sodium 146 mmol/L (136-145); Total Protein 6.6 g/dL (6.4-8.2)
[2024-07-13 06:56] LABS: INR 0.98; Partial Thromboplastin Time 22.1 sec (22.3-36.2); Prothrombin Time 10.4 sec (9.0-11.6)
[2024-07-13 06:58] LABS: Troponin I High Sensitivity 638.8 pg/mL (4.0-51.3)
--- NOTE | 2024-07-13 08:08 | PM.HP ---
HPI H&P: HPI History of Present Illness Chief complaint: Enteritis Narrative: Patient is a 63 y.o female with past medical history of CAD s/p Pacemaker 06/12/24 at [facility], GERD, HTN, COPD, prior CVA 2010, diastolic heart failure with EF 25-30% on last echo, ex-smoker who presented to the ER last night with a 1 day history of nausea, vomiting and dizziness. Upon presentation to the ER, CT head was obtained for dizziness and showed incidental AVM but no acute changes. CT of the abd/pelvis showed mild enteritis with mild mesenteric enteritis. She was given some IVF and antiemetics and admitted for further care as she was not able to hold down liquids. When patient presented to the medical floor, Med surg Nurse was doing admission exam and patient was found to have slurred speech, weakness of the left side of face, left arm and leg. Stroke alert was called and patient was taken down for CTA head and neck. Currently that was read as negative. [facility] Stroke team alerted. I have discussed plan with Telestroke Lupe QUINONES. She recommended statin, aspirin for now and MRI, carotid artery ultrasounds, no plavix. Patient also has had elevation of troponin from 450 to 600's now 700's, with elevated proBNP 13,000. I have resumed patient's home blood pressure medications, statin and aspirin. UDS was positive for benzo's and opiates. WBC's 13, INR 0.98. I have discussed case with [facility] in [place] as patient follows with their cardiology team and she needs Acute Care facility for Telestroke/Neurology and cardiology services at minimum. Patient is aware of plan. Per patient she was scheduled to have a Cardiac Bypass surgery in the future at [facility]. Patient's current condition is severe. I am waiting to get a call back from [facility] at accepting facility. Opioid HPI Opioid Management Most Recent Pain and Opioid Data: Last Pain Scale 3 Today, 07:00 Last Pain Assessment 07/12/24, 21:00 Last ORT Total Score 0 07/12/24, 20:58 Last ORT Risk Category Low Risk 07/12/24, 20:58 Ur Phencyclidine Scrn, (NEGATIVE) Negative Today, 05:10 Review of Systems ROS Narrative ROS: a complete review of systems were reviewed with patient and are positive as below or listed in History of Chief Complaint. General: no fever, chills, night sweats Head: no headache, trauma, visual changes Skin: no reported rashes, itching or sores Eyes: no blurriness of vision Ears: no reported hearing loss, vertigo, earache, or tinnitus Throat: no sore throat, hoarseness, swelling of neck, or tongue pain Heart: no chest pain Lungs: no shortness of breath or cough GI: diarrhea and vomiting/nausea Urinary: no urinary urgency, frequency or pain Neuro: numbness left face, weakness left arm and left leg HEM: no bleeding issues or bruising ENDO: thyroid problems Psych: no anxiety or depression [facility] Medical History (Updated 07/13/24 @ 08:49 by Geovanna Ramos DO) Smoker ?F17.200 - Nicotine dependence, unspecified, uncomplicated (ICD-10) Pacemaker ?Z95.0 - Presence of cardiac pacemaker (ICD-10) Hypothyroidism (acquired) ?E03.9 - Hypothyroidism, unspecified (ICD-10) GERD without esophagitis ?K21.9 - Gastro-esophageal reflux disease without esophagitis (ICD-10) Acute non-ST elevation myocardial infarction (NSTEMI) ?I21.4 - Non-ST elevation (NSTEMI) myocardial infarction (ICD-10) Severe sepsis ?A41.9 - Sepsis, unspecified organism (ICD-10) ?R65.20 - Severe sepsis without septic shock (ICD-10) Diabetes mellitus ?E11.9 - Type 2 diabetes mellitus without complications (ICD-10) Elevated troponin ?R79.89 - Other specified abnormal findings of blood chemistry (ICD-10) CHF (congestive heart failure) ?I50.9 - Heart failure, unspecified (ICD-10) Breath shortness ?R06.02 - Shortness of breath (ICD-10) CVA (cerebral vascular accident) ?I63.9 - Cerebral infarction, unspecified (ICD-10) HTN (hypertension) ?I10 - Essential (primary) hypertension (ICD-10) COPD (chronic obstructive pulmonary disease) ?J44.9 - Chronic obstructive pulmonary disease, unspecified (ICD-10) Surgical History H/O section ?Z98.891 - History of uterine scar from previous surgery (ICD-10) History of hysterectomy ?Z90.710 - Acquired absence of both cervix and uterus (ICD-10) Family History Mother Family history of CHF (congestive heart failure) Family history of diabetes mellitus Family history of hypertension Family history of myocardial infarction Father Family history of CHF (congestive heart failure) Sister Family history of hypertension Social History Within the past year, how often did you have a drink containing alcohol: never Within the past year, how often did you have six or more drinks on one occasion: never Score interpretation: A score less than 3 is consistent with normal alcohol consumption. Smoking status: Current some day smoker Non-prescribed substance use: denies use Previous occupational history: retired Highest level of school completed/degree received: high school graduate Are you now , , , , never or living with a partner: living with partner In a typical week, how many times do you talk on the telephone with family, friends, or neighbors: 3 or more times per week How often do you get together with friends or relatives: 3 or more times per week Little interest or pleasure in doing things: not at all Feeling down, depressed, or hopeless: not at all Feel stressed/tense/nervous/anxious/difficulty sleeping: not at all Do you think of yourself as: straight/heterosexual Gender Identity: female Meds Home Medications and Allergies Home Medications ?Medication ?Instructions ?Recorded ?Confirmed ?Type aspirin 325 mg capsule 325 mg PO DAILY 05/01/24 07/13/24 History levothyroxine 150 mcg tablet 150 mcg PO .QD 05/01/24 07/13/24 History metoprolol succinate 25 mg 25 mg PO .QD 05/01/24 07/13/24 History tablet,extended release 24 hr pantoprazole 40 mg tablet,delayed 40 mg PO .QD 05/01/24 07/13/24 History release atorvastatin 40 mg tablet 40 mg PO .QHS 07/13/24 07/13/24 History dapagliflozin propanediol 10 mg 10 mg PO QAM 07/13/24 07/13/24 History tablet (Farxiga) furosemide 40 mg tablet 40 mg PO DAILY 07/13/24 07/13/24 History nitroglycerin 0.4 mg sublingual 0.4 mg sublingual Q5M PRN chest 07/13/24 07/13/24 History tablet pain spironolactone 25 mg tablet 12.5 mg PO DAILY 07/13/24 07/13/24 History valsartan 40 mg tablet 40 mg PO BID 07/13/24 07/13/24 History Allergies Allergy/AdvReac Type Severity Reaction Status Date / Time Iodinated Contrast Media AdvReac Unknown Nausea Verified 07/12/24 12:02 Sulfa (Sulfonamide AdvReac Unknown Anxiety Verified 07/12/24 11:47 Antibiotics) Exam Narrative Exam Narrative: General: Patient is alert, and oriented to person, place and time with slightly slurred speech and lethargy Skin: no visible rashes, or ulcers Head: atraumatic, acephalic Eyes: PERRLA, no nystagmus present, conjunctiva clear, no scleral icterus Ears: normal gross auditory acuity Neck: no masses palpated, normal thyroid, no JVD or audible carotid bruits Heart: Normal rate and rhythm, no murmurs/rubs/gallops Lungs: no audible wheezes, crackles and normal breath sounds all lung walker Abdomen: Normal audible bowel sounds, no distension, No palpable masses, no organomegaly, no rebound/guarding/ or rigidity Musculoskeletal: no swelling bilateral lower extremities Neuro: CN II-X grossly intact, significant weakness of the left hand with no grasp strength 1/5 and left lower ext 2/5 Constitutional Vital Signs, click to edit/add: Last Vital Signs Temp 97.8 F 07/13/24 04:00 Pulse 75 07/13/24 06:27 Resp 14 07/13/24 06:10 BP 139/78 07/13/24 06:10 Pulse Ox 96 07/13/24 06:27 O2 Del Method Nasal Cannula 07/13/24 04:00 O2 Flow Rate 2 07/13/24 04:00 Results Labs Labs: Short CBC 07/12/24 07/13/24 Range/Units 11:51 06:00 WBC 11.7 H 13.2 H (4.0-11.0) 10^3/uL Hgb 14.2 13.1 (12.0-16.0) g/dL Hct 41.6 39.1 (36.0-48.0) % Plt Count 136 L 127 L (150-450) 10^3/uL BMP 07/12/24 07/13/24 11:51 06:00 Sodium 144 146 H Potassium 4.3 4.4 Chloride 106 109 H Carbon Dioxide 29.2 24.4 BUN 30.0 H 24.0 H Creatinine 1.07 H 1.06 H Glucose 131 H 127 H Calcium 9.1 8.8 Liver Function 07/13/24 Range/Units 06:00 Total Bilirubin 0.6 (0.2-1.0) mg/dL AST 29 (15-37) U/L ALT 35 (14-59) U/L Alkaline Phosphatase 118 H (46-116) U/L Albumin 3.7 (3.4-5.0) g/dL Urine 07/12/24 07/13/24 Range/Units 13:40 05:10 Urine Color Lt. yellow Lt. yellow (YELLOW) Urine Clarity Clear Clear (CLEAR) Urine pH 6.0 5.5 (5.0-9.0) Ur Specific [place] 1.020 1.015 (1.005-1.025) Urine Protein Negative Negative (NEG/TRACE) mg/dL Urine Glucose (UA) >=1000 A 500 A (NEGATIVE) mg/dL Assessment and Plan Assessment and Plan (1) CVA (cerebral vascular accident): Assessment and Plan: Patient's signs and symptoms consistent with acute CVA affecting the left side of the body. CTA of head and neck are negative. Unable to get MRI at this facility due to pacemaker. Will continue statin and Aspirin per Telestroke recommendations. Hopeful transfer to Acute care facility but will order ECHO, repeat CT head, carotid artery dopplers. Qualifiers: CVA mechanism: occlusion Precerebral and cerebral artery: unspecified cerebral artery Qualified Code(s): I63.50 - Cerebral infarction due to unspecified occlusion or stenosis of unspecified cerebral artery (2) Acute non-ST elevation myocardial infarction (NSTEMI): Assessment and Plan: Patient with recent pacemaker placement. Elevated Trop 700's now, resume home meds, aspirin. Suppose have bypass surgery? Transfer to Acute care facility for Cardiology consult and intervention. Last echo reviewed and showed EF 25-30% (3) CHF (congestive heart failure): Assessment [place] Plan[place] [address], appears euvolemic on exam. resume home meds. Qualifiers: Heart failure chronicity: acute on chronic Heart failure type: diastolic Qualified Code(s): I50.33 - Acute on chronic diastolic (congestive) heart failure (4) Enteritis: Assessment and Plan: antiemetics as needed. reviewed CT ab/pelvis (5) HTN (hypertension): Assessment and Plan: continue lasix, spironolactone, valsartan, metoprolol Qualifiers: Hypertension type: primary hypertension Qualified Code(s): I10 - Essential (primary) hypertension (6) COPD (chronic obstructive pulmonary disease): Assessment and Plan: in no acute exacerbation Qualifiers: COPD type: unspecified COPD Qualified Code(s): J44.9 - Chronic obstructive pulmonary disease, unspecified (7) GERD without esophagitis: Assessment and Plan: continue protonix (8) Hypothyroidism (acquired): Assessment and Plan: continue levothyroxine (9) Pacemaker: (10) Smoker: Assessment and Plan: ex-smoker Plan Patient is a full code Patient is inpatient status given Acute CVA, NSTEMI, hopeful transfer soon to Acute Care facility.
[2024-07-13 09:17] LABS: Estimated Average Glucose 143 mg/dL; Glycohemoglobin A1C 6.6 % (4.5-6.2)
[2024-07-13 09:28] LABS: Chol HDL Ratio 3.3; Cholesterol 140 mg/dL (<=200); HDL Cholesterol 43 mg/dL (40-60); LDL Cholesterol Calculated 69.6 mg/dL; Thyroid Stimulating Hormone 0.155 uIU/mL (0.358-3.740); Triglycerides 137 mg/dL (<=150); VLDL CHOLESTEROL 27.4 mg/dL
[2024-07-13 12:29] LABS: Glucometer 104 mg/dL (74-106)
[2024-07-13 12:36] LABS: Troponin I High Sensitivity 764.1 pg/mL (4.0-51.3)
[2024-07-13] MEDS: METOPROLOL SUCCINATE 25 MG TAB.ER.24H PO (12:54)
[2024-07-13] MEDS: ASPIRIN 325 MG TABLET PO (12:56)
[2024-07-13] MEDS: FUROSEMIDE 40 MG TABLET PO (12:58)
[2024-07-13] MEDS: PANTOPRAZOLE SODIUM 40 MG TABLET.DR PO (12:58)
[2024-07-13] MEDS: LOSARTAN POTASSIUM 25 MG TABLET PO (14:19)
--- NOTE | 2024-07-13 15:10 | PM.DS1 ---
DS: Providers Provider Date of admission: 07/12/24 20:26 Primary care physician: Miller Sky MD Attending physician on admission: Geovanna Ramos Consults: 07/12/24 Consult to Telestroke Routine Reason for consultation: Neuro Changes Has provider been notified: Yes 07/12/24 21:16 Consult to Electrical Automation Engineer Routine Has provider been notified: No Reason for consult:: Retirement Consult to Telestroke Routine Reason for consultation: possible CVA Has provider been notified: No Discharging clinician: Geovanna Ramos DS: Diagnosis Discharge Diagnosis (1) CVA (cerebral vascular accident): Qualifiers: CVA mechanism: occlusion Precerebral and cerebral artery: unspecified cerebral artery Qualified Code(s): I63.50 - Cerebral infarction due to unspecified occlusion or stenosis of unspecified cerebral artery (2) Acute non-ST elevation myocardial infarction (NSTEMI): (3) CHF (congestive heart failure): Qualifiers: Heart failure chronicity: acute on chronic Heart failure type: diastolic Qualified Code(s): I50.33 - Acute on chronic diastolic (congestive) heart failure (4) Enteritis: (5) HTN (hypertension): Qualifiers: Hypertension type: primary hypertension Qualified Code(s): I10 - Essential (primary) hypertension (6) COPD (chronic obstructive pulmonary disease): Qualifiers: COPD type: unspecified COPD Qualified Code(s): J44.9 - Chronic obstructive pulmonary disease, unspecified (7) GERD without esophagitis: (8) Hypothyroidism (acquired): (9) Pacemaker: (10) Smoker: DS: Summary Hospital Course Hospital Course: Patient with Acute CVA affecting her left side of body and NSTEMI with trop 700's. She will be transferred to [facility], Dr. Sanchez accepting physician for higher level of care, Stroke/Neurology and Cardiology services. Status at Discharge Functional status at discharge: bed bound Overall status at discharge: patient is not back to baseline Time Spent with Patient Time attestation: Total time spent providing and/or coordinating discharge services: Time spent: greater than 30 minutes Exam Narrative Exam Narrative: please see H&P dated 07/13/24 Constitutional Vital Signs, click to edit/add: Last Vital Signs Temp 98.5 F 07/13/24 11:14 Pulse 107 H 07/13/24 14:00 Resp 17 07/13/24 11:30 BP 145/77 H 07/13/24 11:14 Pulse Ox 98 07/13/24 14:00 O2 Del Method Nasal Cannula 07/13/24 12:13 O2 Flow Rate 2 07/13/24 12:13 DS: Data Data Completed and Pending Labs on day of discharge: Labs from last 24 hours 07/13/24 07/13/24 07/13/24 12:17 12:05 06:00 WBC 13.2 H RBC 4.57 Hgb 13.1 Hct 39.1 MCV 85.6 MCH 28.7 MCHC 33.5 RDW 13.7 Plt Count 127 L MPV 13.5 Neut % (Auto) 80.4 H Lymph % (Auto) 12.0 L [place] % (Auto) 6.7 Eos % (Auto) 0.3 L Baso % (Auto) 0.3 Neut # (Auto) 10.6 H Lymph # (Auto) 1.6 [place] # (Auto) 0.9 H Eos # (Auto) 0.0 Baso # (Auto) 0.0 Abs Immat Gran (auto) 0.04 H Imm/Tot Granulo (auto) 0.3 PT 10.4 INR 0.98 APTT 22.1 L Sodium 146 H Potassium 4.4 Chloride 109 H Carbon Dioxide 24.4 Anion Gap 17.0 BUN 24.0 H Creatinine 1.06 H Est GFR ( Amer) >60 Est GFR (Non-Af Amer) 52 L BUN/Creatinine Ratio 22.6 Glucose 127 H Estimat Average Glucose 143 Hemoglobin A1c 6.6 H Calcium 8.8 Phosphorus 3.3 Magnesium 2.1 Total Bilirubin 0.6 AST 29 ALT 35 Alkaline Phosphatase 118 H Troponin I High Sens 764.1 H* 638.8 H* C-Reactive Protein NT-Pro-B Natriuret Pep 09341.0 H* Total Protein 6.6 Albumin 3.7 Globulin 2.9 Albumin/Globulin Ratio 1.3 Triglycerides 137 Cholesterol 140 LDL Cholesterol, Calc 69.6 VLDL Cholesterol 27.4 HDL Cholesterol 43 Cholesterol/HDL Ratio 3.3 TSH 0.155 L Urine Color Urine Clarity Urine pH Ur Specific [place] Urine Protein Urine Glucose (UA) Urine Ketones Urine Occult Blood Urine Nitrite Urine Bilirubin Urine Urobilinogen Ur Leukocyte Esterase Urine RBC Urine WBC Ur Squamous Epith Cells Urine Crystals Urine Bacteria Urine Casts Hyaline Casts Urine Mucus Ur Culture Indicated? Urine Opiates Screen Ur Buprenorphine Scrn Ur Oxycodone Screen Urine Methadone Screen Ur Barbiturates Screen U Tricyclic Antidepress Ur Phencyclidine Scrn Ur Amphetamines Screen U Methamphetamines Scrn U Benzodiazepines Scrn Urine Cocaine Screen U Cannabinoids Screen POC Glucose 104 07/13/24 07/12/24 07/12/24 05:10 23:20 17:29 WBC RBC Hgb Hct MCV MCH MCHC RDW Plt Count MPV Neut % (Auto) Lymph % (Auto) [place] % (Auto) Eos % (Auto) Baso % (Auto) Neut # (Auto) Lymph # (Auto) [place] # (Auto) Eos # (Auto) Baso # (Auto) Abs Immat Gran (auto) Imm/Tot Granulo (auto) PT INR APTT Sodium Potassium Chloride Carbon Dioxide Anion Gap BUN Creatinine Est GFR ( Amer) Est GFR (Non-Af Amer) BUN/Creatinine Ratio Glucose Estimat Average Glucose Hemoglobin A1c Calcium Phosphorus Magnesium Total Bilirubin AST ALT Alkaline Phosphatase Troponin I High Sens 499.4 H* C-Reactive Protein NT-Pro-B Natriuret Pep Total Protein Albumin Globulin Albumin/Globulin Ratio Triglycerides Cholesterol LDL Cholesterol, Calc VLDL Cholesterol HDL Cholesterol Cholesterol/HDL Ratio TSH Urine Color Lt. yellow Urine Clarity Clear Urine pH 5.5 Ur Specific [place] 1.015 Urine Protein Negative Urine Glucose (UA) 500 A Urine Ketones Negative Urine Occult Blood Moderate A Urine Nitrite Negative Urine Bilirubin Negative Urine Urobilinogen 0.2 Ur Leukocyte Esterase Negative Urine RBC 10-20 A Urine WBC 0-2 A Ur Squamous Epith Cells Few A Urine Crystals None seen Urine Bacteria Trace A Urine Casts Seen A Hyaline Casts Rare Urine Mucus None seen Ur Culture Indicated? No Urine Opiates Screen Positive A Ur Buprenorphine Scrn Negative Ur Oxycodone Screen Negative Urine Methadone Screen Negative Ur Barbiturates Screen Negative U Tricyclic Antidepress Negative Ur Phencyclidine Scrn Negative Ur Amphetamines Screen Negative U Methamphetamines Scrn Negative U Benzodiazepines Scrn Positive A Urine Cocaine Screen Negative U Cannabinoids Screen Negative POC Glucose 126 H 07/12/24 11:51 WBC RBC Hgb Hct MCV MCH MCHC RDW Plt Count MPV Neut % (Auto) Lymph % (Auto) [place] % (Auto) Eos % (Auto) Baso % (Auto) Neut # (Auto) Lymph # (Auto) [place] # (Auto) Eos # (Auto) Baso # (Auto) Abs Immat Gran (auto) Imm/Tot Granulo (auto) PT INR APTT Sodium Potassium Chloride Carbon Dioxide Anion Gap BUN Creatinine Est GFR ( Amer) Est GFR (Non-Af Amer) BUN/Creatinine Ratio Glucose Estimat Average Glucose Hemoglobin A1c Calcium Phosphorus Magnesium 2.1 Total Bilirubin AST ALT Alkaline Phosphatase Troponin I High Sens 490.6 H* C-Reactive Protein <0.50 NT-Pro-B Natriuret Pep Total Protein Albumin Globulin Albumin/Globulin Ratio Triglycerides Cholesterol LDL Cholesterol, Calc VLDL Cholesterol HDL Cholesterol Cholesterol/HDL Ratio TSH Urine Color Urine Clarity Urine pH Ur Specific [place] Urine Protein Urine Glucose (UA) Urine Ketones Urine Occult Blood Urine Nitrite Urine Bilirubin Urine Urobilinogen Ur Leukocyte Esterase Urine RBC Urine WBC Ur Squamous Epith Cells Urine Crystals Urine Bacteria Urine Casts Hyaline Casts Urine Mucus Ur Culture Indicated? Urine Opiates Screen Ur Buprenorphine Scrn Ur Oxycodone Screen Urine Methadone Screen Ur Barbiturates Screen U Tricyclic Antidepress Ur Phencyclidine Scrn Ur Amphetamines Screen U Methamphetamines Scrn U Benzodiazepines Scrn Urine Cocaine Screen U Cannabinoids Screen POC Glucose Discharge Plan Discharge Disposition: Xfer Acute Care Hospital Condition: Critical Discharge location: [facility], Dr. Sanchez accepting physician
--- NOTE | 2024-07-14 08:14 | SWNOTE1 ---
SW consult for senior living, but pt was transferred.
== END 2024-07-13 08:05 | disposition short-term general hospital (02) | DRG 64 ==
LOC: ER 18:35 → MS 20:31
PROVIDERS: Registered Nurse; Admitting Provider Family Medicine; Emergency Provider Emergency Medicine; PCP Family Medicine; Visit Provider Family Medicine
DX: I63.50 Cerebral infarction due to unspecified occlusion or stenosis of unspecified cerebral artery (principal); I21.4 Non-ST elevation (NSTEMI) myocardial infarction; I50.33 Acute on chronic diastolic (congestive) heart failure; G81.94 Hemiplegia, unspecified affecting left nondominant side; I11.0 Hypertensive heart disease with heart failure; J44.9 Chronic obstructive pulmonary disease, unspecified; E03.9 Hypothyroidism, unspecified; Z79.890 Hormone replacement therapy; Z95.0 Presence of cardiac pacemaker; Z87.891 Personal history of nicotine dependence; Z79.82 Long term (current) use of aspirin; K52.9 Noninfective gastroenteritis and colitis, unspecified; R42 Dizziness and giddiness; I25.10 Atherosclerotic heart disease of native coronary artery without angina pectoris; K21.9 Gastro-esophageal reflux disease without esophagitis; Z90.710 Acquired absence of both cervix and uterus; Z86.73 Personal history of transient ischemic attack (TIA), and cerebral infarction without residual deficits; R47.1 Dysarthria and anarthria; H53.2 Diplopia; R29.710 NIHSS score 10; E11.9 Type 2 diabetes mellitus without complications
CPT/HCPCS: 36415; 70450; 70496; 70498; 74176; 80048; 80053; 80061; 80307; 81001; 82948; 83036; 83735; 83880; 84100; 84443; 84484; 85025; 85610; 85730; 86140; 93005; 94667; 94761; 96361; 96374; 96375; 96376; 99285; G0378; J0780; J2270; J2405; J3360; Q9967